=== PATIENT | male | born 1940 | race Caucasian/White ===

== ENCOUNTER → 2017-12-08 13:42 | Outpatient (CLI) | payer MEDICARE, BC, SELFPAY | PROVIDERS: Family Provider Family Medicine; PCP Family Medicine; Visit Provider Family Medicine | DX: M79.604 Pain in right leg (principal); M54.16 Radiculopathy, lumbar region | CPT/HCPCS: 95886; 95907 ==

== ENCOUNTER 2018-02-14 09:23 | Outpatient (CLI) | payer MEDICARE, BC, SELFPAY ==
[2018-02-14] VITALS (8 sets, daily range): BP systolic 123–149; BP diastolic 60–112; PULSE 43–57; RESP 16–18; TEMP 36.4; O2SAT 95–99
--- NOTE | 2018-02-14 09:25 | DI.RAD.S_ITS ---
PROCEDURE: XR LUMBAR SPINE MIN 4V INDICATIONS: Lumbar stenosis TECHNIQUE: 5 views of the lumbar spine were acquired. COMPARISON: [facility], CT, L-SPINE WITHOUT CONTRAST, 12/01/2017, 9:15. [facility], CR, L-SPINE 2-3 VIEWS, 03/06/2015, 11:51. FINDINGS: Bones: Moderate levoscoliosis. 5 nonrib-bearing vertebrae are present. There is normal bony alignment. No vertebral body compression fractures. There is moderate degenerative disc disease at L3-L4 and L4-L5. Moderate to severe facet arthropathy at L3-L4, L4-L5 at L5-S1. No suspicious bony lesions. Soft tissues: Overlying bowel gas pattern is normal. Aortic calcifications consistent with atherosclerosis. Oblique images: No pars defects. IMPRESSION: 1. Moderate levoscoliosis. 2. Degenerative disc disease and facet arthropathy. 3. No pars defects. Dictated by: Garcia Toribio M.D. on 02/14/2018 at 14:05 Approved by: Garcia Toribio M.D. on 02/14/2018 at 14:08
--- NOTE | 2018-02-14 13:42 | DI.RAD.S_ITS ---
PROCEDURE: PAIN L/S TRANSFORAMINAL INJECT INDICATIONS: STENOSIS/RADICULOPATHY FINDINGS: Fluoroscopic spot filming was performed to verify placement of spinal needles at the L4-L5 level(s), as labeled on the films. Appropriate location(s) of the needle tip(s) was confirmed by injection of iodinated contrast. IMPRESSION: Needle at hte level of L4-L5. Dictated by: Garcia Toribio M.D. on 02/14/2018 at 16:26 Approved by: Garcia Toribio M.D. on 02/14/2018 at 16:26
--- NOTE | 2018-02-14 14:58 | P.PCN_ITS ---
Procedures Date/Time Date of procedure: 02/14/18 Time of procedure: 14:56 General Procedure description: PROVIDER: Shahid Wilson DO Operative Note PREOP DIAGNOSIS 1. HNP WITH RADICULAR FEATURES, 2. MULTILEVEL CENTRAL STENOSIS, POST OP DIAGNOSIS 1. HNP WITH RADICULAR FEATURES, 2. MULTILEVEL CENTRAL STENOSIS PROCEDURES 1. FLUORSCOPICALLY GUIDED CONTRAST CONTROLLED INTERLAMINAR EPIDURAL STEROID INJECTION -L4/5 PHYSICIAN: Shahid Wilson DO INDICATIONs: Brian is referred by Dr. Pacheco for treatment of Central and Bilateral Foraminal Stenosis R>L LE symptoms. FINDINGS Multilevel Central Spinal Stenosis with Nerve Root Compression DESCRIPTION OF PROCEDURE Fluoroscopically guided, contrast-controlled L4/5 translaminar epidural steroid injection. Following denial of allergy and review of potential side effects and complications, including, but not necessarily limited to, infection, allergic reaction, local tissue breakdown, temporary as well as permanent nerve injury, paralysis, stroke and possible , the patient indicated that the patient understood and agreed to proceed. An informed consent document was signed by the patient, witnessed by a nurse, and placed in the patient's chart. Additionally, other treatment options including modalities, medications, and physical therapy were reviewed with the patient. Per the patient request, IV conscious sedation was administered via 3mg of Versed to patient comfort. The patient's vital signs were monitored throughout the procedure by both the nurse and the physician without significant fluctuation. The patient remained conversant throughout the procedure. In the prone position, following sterile prep and drape of the lumbar region, the L4/5 translaminar space was identified fluoroscopically. The skin was anesthetized via a 25-gauge, 1.5-inch needle with 1% lidocaine solution. At this point, a 22-gauge short bevel spinal needle was atraumatically introduced and advanced under fluoroscopic guidance into the region of the L4/5 translaminar space. Depth was confirmed on lateral view. Radiological data, including multiple fluoroscopic views of the lumbar spine, reveal a spinal needle at the L4/5 translaminar space. Lateral views then show placement of the needle in the epidural space. Subsequent views show contrast material flowing superiorly and inferiorly in the epidural space. No vascular or intrathecal uptake is observed. At this point, using loss of resistance technique with saline and air, the epidural space was entered. This was confirmed following negative aspiration with injection of approximately 1.5 cc of Isovue 200, showing excellent epidural flow without vascular or intrathecal uptake. At this point, 1 cc of 1 % lidocaine solution combined with 3 cc or 20 mg of dexamethasone and 80mg Depo medrol was injected without incident. The patient was then transferred to the recovery area where they were observed for an appropriate period of time after the injection. The patient reported a VAS score of 6 prior to the procedure and a post-procedure VAS of 0. Total Fluoroscopy Time: 11.8 seconds Total Conscious Sedation Time: 24min POST OP INSTRUCTIONS The patient was provided a Pain Log to continue to record their response to the target-specific procedure prior to follow-up visit with their referring physician. Additionally, specific post-injection care instructions and a contact number to our office were provided if concerns arise regarding possible complications associated with the procedure are suspected. Shahid Wilson DO Complications: none
[2018-02-14] MEDS: MIDAZOLAM 5 MG/5 ML VIAL IV (15:00)
[2018-02-14] MEDS: BUPIVACAINE 0.25% (PF) 30 ML VIAL INJ (15:07)
[2018-02-14] MEDS: methylPREDNISolone acetate 80 MG/ML VIAL INJ (15:07)
[2018-02-14] MEDS: IOPAMIDOL 15 ML VIAL 3 ML INJ (15:07)
[2018-02-14] MEDS: DEXAMETHASONE 10 MG/ML VIAL 20 MG INJ (15:07)
== END 2018-02-14 16:01 ==
LOC: RAD 09:24
PROVIDERS: PCP Family Medicine; Visit Provider Physical Medicine & Rehabilitation
DX: M48.061 Spinal stenosis, lumbar region without neurogenic claudication (principal); M47.27 Other spondylosis with radiculopathy, lumbosacral region; M41.26 Other idiopathic scoliosis, lumbar region
CPT/HCPCS: 64483; 72110; 99152; J1040; J1100; J2250

== ENCOUNTER 2018-02-17 15:15 | Outpatient (RCR) | payer MEDICARE, BC, SELFPAY ==
--- NOTE | 2017-12-08 12:15 | PT.OTN ---
Transition note: On December 06, 2017 our therapy services consisting of Speech, Occupational, and Physical Therapy transitioned from the [employer] electronic documentation system to a new [employer] electronic documentation system.?? All documentation prior to December 06 can be found under [employer] saved data. From December 06 forward all medical record documentation will be in [employer] 6.1.
--- NOTE | 2017-12-08 17:56 | PT.OTN ---
Physical Therapy Treatment Note PT-OP-A Visit Information Start: 12/08/17 17:39 Freq: Status: Active Protocol: Activity Type Activity Date Activity User E-Sign Co-Sign Detail Recorded Client Recorded Date Recorded By Document 12/08/17 17:40 [facility] [id number] 12/08/17 17:52 [facility] 12/08/17 17:40 Out-Patient Physical Therapy Visit Information [Visit Information] -Visit Type Treatment Note -Visit Start Time 16:02 -Visit Stop Time 16:42 -Total Visit Minutes 40 -Visit Number 2 -Number of PROFESSOR OF FAMILY MEDICINE Visits 0 [Evaluation Information] -Evaluation Date 11/25/17 PT-OP-C Subjective Start: 12/08/17 17:39 Freq: Status: Active Protocol: Activity Type Activity Date Activity User E-Sign Co-Sign Detail Recorded Client Recorded Date Recorded By Document 12/08/17 17:40 [place] [id number] 12/08/17 17:52 [facility] 12/08/17 17:40 OP-PT Subjective [Patient Comments] -Patient Comments Pt notes that he just had his EMG. His pain has been improving slowly, but still worse with prolonged walking or sitting. PT-OP-L Special Tests Start: 12/08/17 17:39 Freq: Status: Active Protocol: Activity Type Activity Date Activity User E-Sign Co-Sign Detail Recorded Client Recorded Date Recorded By Document 12/08/17 17:40 [place] [id number] 12/08/17 17:52 [facility] 12/08/17 17:40 Special Tests [Lumbar Spine Special Tests] Straight Leg Raise -Comments RLE to 80 deg SLR, SLR with IR and adduction to 50 deg /a, 70 deg /p PT-OP-Q Treatments Start: 12/08/17 17:39 Freq: Status: Active Protocol: Activity Type Activity Date Activity User E-Sign Co-Sign Detail Recorded Client Recorded Date Recorded By Document 12/08/17 17:40 [place] [id number] 12/08/17 17:52 [facility] 12/08/17 17:40 Manual Therapy Treatment [Soft Tissue Mobilization] 1 -Body Location Quadratus lumborum -Mobilization Type Rolling -Intensity/Depth Moderate -Body Position Sidelying -Comments Right [Joint Mobilizations] 1 -Joint L4/5 -Grade III -Body Position Sidelying -Reps/Duration 16 min -Comments towel under L side, gap/ distraction at L4/5 [Manual Traction] Lumbar -Details bilateral with belt -Body Position Supine -Reps/Duration 14 min -Comments Hook-lying position [Nerve Glides] 1 -Nerve Femoral nerve ( right) -Body Position Sidelying -Reps/Duration 5 min PT-OP-T Assessment and Plan Start: 12/08/17 17:39 Freq: Status: Active Protocol: Activity Type Activity Date Activity User E-Sign Co-Sign Detail Recorded Client Recorded Date Recorded By Document 12/08/17 17:40 [facility] [email or web address] 12/08/17 17:52 [facility] 12/08/17 17:40 Physical Therapy Assessment [Assessment Summary] -Assessment Pt with EMG study performed , noting L2 and L5 acute nerve root lesions. Pt tolerated this session without complaints of pain and felt decrease pain with traction. Pt's modified slump/SLR testing improved to 70 degrees compared to 50 degrees with pain before session began. Physical Therapy Plan [Next Visit Focus/Plan] -Next Visit Plan joint mobility of lumbar spine , HEP for nerve glides when able.
--- NOTE | 2017-12-14 17:59 | PT.OTN ---
Physical Therapy Treatment Note PT-OP-A Visit Information Start: 12/08/17 17:39 Freq: Status: Active Protocol: Document 12/14/17 17:45 [facility] (Rec: 12/14/17 17:59 [facility] [email or web address]) Out-Patient Physical Therapy Visit Information Visit Information Visit Type Treatment Note Visit Start Time 13:45 Visit Stop Time 14:30 Total Visit Minutes 44 Visit Number 3 Number of INSPECTOR OF WEIGHTS AND MEASURES Visits 0 PT-OP-C Subjective Start: 12/08/17 17:39 Freq: Status: Active Protocol: Document 12/14/17 17:45 [facility] (Rec: 12/14/17 17:59 [facility] [email or web address]) OP-PT Subjective Patient Comments Patient Comments Pt reports that overall, he is doing about the same. He reports a decrease in pain with traction during this session. Patient Reported Progress Same PT-OP-Q Treatments Start: 12/08/17 17:39 Freq: Status: Active Protocol: Document 12/14/17 17:45 [facility] (Rec: 12/14/17 17:59 [facility] [email or web address]) Therapeutic Exercises Standing Exercises 1 Standing Exercise Name Femoral nerve glide Side right Equipment Used chair Reps/Minutes 4 min. Comments RLE on chair with L knee squat to inc. R knee flexion Manual Therapy Treatment Soft Tissue Mobilization 2 Body Location Piriformis Mobilization Type Strumming Intensity/Depth Moderate Body Position Sidelying Comments Right 1 Body Location Quadratus lumborum Mobilization Type Strumming Intensity/Depth Moderate Body Position Sidelying Comments Right Joint Mobilizations 2 Joint L2 Grade III Body Position Sidelying Reps/Duration 12 min. Comments towel under L side, gap/ distraction at L1/2 1 Joint L4/5 Grade III Body Position Sidelying Reps/Duration 12 min. Comments towel under L side, gap/ distraction at L4/5 Manual Traction Lumbar Details bilateral with belt Body Position Supine Reps/Duration 10 min Comments Hook-lying position PT-OP-T Assessment and Plan Start: 12/08/17 17:39 Freq: Status: Active Protocol: Document 12/14/17 17:45 [facility] (Rec: 12/14/17 17:59 [facility] [email or web address]) Physical Therapy Assessment Assessment Summary Assessment Pt able to perform safe femoral nerve glide in standing with UE support. Pt still with hypomobility of L4 on L5 and L1 on L2. Pt reported decreased pain with manual traction this session. Physical Therapy Plan Next Visit Focus/Plan Next Visit Plan manual traction, spinal mobilizations performed this date, sciatic nerve glide for HEP.
--- NOTE | 2017-12-16 15:36 | PT.OTN ---
Physical Therapy Treatment Note PT-OP-A Visit Information Start: 12/08/17 17:39 Freq: Status: Active Protocol: Document 12/16/17 15:20 [facility] (Rec: 12/16/17 15:35 [facility] [email or web address]) Out-Patient Physical Therapy Visit Information Visit Information Visit Type Treatment Note Visit Start Time 13:45 Visit Stop Time 14:25 Total Visit Minutes 40 Visit Number 4 Number of DOG DAY CARE ATTENDANT Visits 0 Evaluation Information Evaluation Date 11/25/17 PT-OP-C Subjective Start: 12/08/17 17:39 Freq: Status: Active Protocol: Document 12/16/17 15:20 [facility] (Rec: 12/16/17 15:35 [facility] [email or web address]) OP-PT Subjective Patient Comments Patient Comments Pt notes that pain was decreased for 2-3 hrs after traction last session, but pain returned later that night . PT-OP-L Special Tests Start: 12/08/17 17:39 Freq: Status: Active Protocol: Document 12/08/17 17:40 [facility] (Rec: 12/08/17 17:52 [facility] [email or web address]) Special Tests Lumbar Spine Special Tests Straight Leg Raise Comments RLE to 80 deg SLR, SLR with IR and adduction to 50 deg /a, 70 deg /p PT-OP-Q Treatments Start: 12/08/17 17:39 Freq: Status: Active Protocol: Document 12/16/17 15:20 [facility] (Rec: 12/16/17 15:35 [facility] [email or web address]) Therapeutic Exercises Supine Exercises 1 Supine Exercise Name QL stretch Side right Reps/Minutes 5 min Comments sidelying Standing Exercises 1 Standing Exercise Name Femoral nerve glide Side right Equipment Used chair Reps/Minutes 5 min. Comments RLE on chair with L knee squat to inc. R knee flexion Manual Therapy Treatment Soft Tissue Mobilization 2 Body Location Piriformis Mobilization Type Strumming Intensity/Depth Moderate Body Position Sidelying Comments Right 1 Body Location Quadratus lumborum Mobilization Type Strumming Intensity/Depth Moderate Body Position Sidelying Comments Right Manual Traction Lumbar Details bilateral with belt Body Position Supine Reps/Duration 16 min Comments Hook-lying position Manual Techniques 1 Type MET- R posterior ilial rotation Body Location ilium Body Position Supine Reps/Duration 5 min PT-OP-T Assessment and Plan Start: 12/08/17 17:39 Freq: Status: Active Protocol: Document 12/16/17 15:20 [facility] (Rec: 12/16/17 15:35 [facility] [email or web address]) Physical Therapy Assessment Assessment Summary Assessment Pt tolerated manual traction well, with noted decreased pain after session. Recommend trial mechanical traction next session for possible use at home. Pt still with tension in piriformis and QL on the R. Physical Therapy Plan Next Visit Focus/Plan Next Visit Plan mechanical traction, possibly sciatic nerve glide for HEP.
--- NOTE | 2017-12-21 14:48 | PT.OTN ---
Current Diagnoses Radiculopathy, lumbosacral region (12/21/17) Muscle weakness (generalized) (12/21/17) Pain in right leg (12/21/17) Abnormal posture (12/21/17) Physical Therapy Treatment Note PT-OP-A Visit Information Start: 12/08/17 17:39 Freq: Status: Active Protocol: Document 12/21/17 14:30 [facility] (Rec: 12/21/17 14:47 [facility] [email or web address]) Out-Patient Physical Therapy Visit Information Visit Information Visit Type Treatment Note Visit Start Time 13:46 Visit Stop Time 14:30 Total Visit Minutes 44 Visit Number 5 Number of STUDENT SERVICES COORDINATOR Visits 0 Evaluation Information Evaluation Date 11/25/17 PT-OP-C Subjective Start: 12/08/17 17:39 Freq: Status: Active Protocol: Document 12/21/17 14:30 [facility] (Rec: 12/21/17 14:47 [facility] [email or web address]) OP-PT Subjective Patient Comments Patient Comments Pt notes that he no longer has pain in the lower R leg. He admits to some R upper leg pain but decreases with exercise. PT-OP-L Special Tests Start: 12/08/17 17:39 Freq: Status: Active Protocol: Document 12/08/17 17:40 [facility] (Rec: 12/08/17 17:52 [facility] [email or web address]) Special Tests Lumbar Spine Special Tests Straight Leg Raise Comments RLE to 80 deg SLR, SLR with IR and adduction to 50 deg /a, 70 deg /p PT-OP-Q Treatments Start: 12/08/17 17:39 Freq: Status: Active Protocol: Document 12/21/17 14:30 [facility] (Rec: 12/21/17 14:47 [facility] [email or web address]) Manual Therapy Treatment Soft Tissue Mobilization 2 Body Location Piriformis Mobilization Type Strumming Intensity/Depth Moderate Body Position Sidelying Comments Right 1 Body Location Quadratus lumborum Mobilization Type Strumming Intensity/Depth Moderate Body Position Sidelying Comments Right Joint Mobilizations 1 Joint L4/5 Grade III Body Position Sidelying Reps/Duration 10 min. Comments gap/distraction at L4/5 Manual Techniques 1 Type MET- R posterior ilial rotation Body Location ilium Body Position Supine Reps/Duration 5 min PT-OP-R Modalities Start: 12/08/17 17:39 Freq: Status: Active Protocol: Document 12/21/17 14:30 [facility] (Rec: 12/21/17 14:47 [facility] [email or web address]) Other Unlisted Modality Treatment Traction- mechanical Name of Modality Traction- mechanical Duration (Minutes) 15 Body Position Supine Parameters 60 lbs Comments Rosen Unit PT-OP-T Assessment and Plan Start: 12/08/17 17:39 Freq: Status: Active Protocol: Document 12/21/17 14:30 [facility] (Rec: 12/21/17 14:47 [facility] [email or web address]) Physical Therapy Assessment Assessment Summary Assessment Pt reports less pain in lumbar spine after mechanical traction. He may benefit from a home unit to decrease pain and improve function. Pt's symptoms appear to be centralizing per subjective report, although pt still with compensations with gait. Physical Therapy Plan Frequency and Duration Frequency of Treatment 2x/wk for 12 wks Plan of Care Start Date 11/25/17 Plan of Care End Date 02/17/18 Next Visit Focus/Plan Next Visit Plan Discuss pt's response to mechanical traction vs. manual traction, progress as tolerated. Gait training.
--- NOTE | 2017-12-23 14:45 | PT.OTN ---
Current Diagnoses Radiculopathy, lumbosacral region (12/23/17) Muscle weakness (generalized) (12/23/17) Pain in right leg (12/23/17) Abnormal posture (12/23/17) Physical Therapy Treatment Note PT-OP-A Visit Information Start: 12/08/17 17:39 Freq: Status: Active Protocol: Document 12/23/17 14:30 [facility] (Rec: 12/23/17 14:45 [facility] [email or web address]) Out-Patient Physical Therapy Visit Information Visit Information Visit Type Treatment Note Visit Start Time 13:45 Visit Stop Time 14:25 Total Visit Minutes 40 Visit Number 6 Number of MEASURER Visits 0 PT-OP-C Subjective Start: 12/08/17 17:39 Freq: Status: Active Protocol: Document 12/23/17 14:30 [facility] (Rec: 12/23/17 14:45 [facility] [email or web address]) OP-PT Subjective Patient Comments Patient Comments Pt reports increased low back pain after mechanical traction , although he does report that his lower leg has no pain at all and upper thigh only intermittently painful. PT-OP-L Special Tests Start: 12/08/17 17:39 Freq: Status: Active Protocol: Document 12/23/17 14:30 [facility] (Rec: 12/23/17 14:45 [facility] [email or web address]) Special Tests Lumbar Spine Special Tests Other- 1 Test Results 80 degrees with ankle DF and no radicular symptoms Comments Modified slump testing PT-OP-Q Treatments Start: 12/08/17 17:39 Freq: Status: Active Protocol: Document 12/23/17 14:30 [facility] (Rec: 12/23/17 14:45 [facility] [email or web address]) Therapeutic Exercises Supine Exercises 20 Supine Exercise Name Bridging Reps/Minutes 2 min Comments arms across chest Manual Therapy Treatment Soft Tissue Mobilization 2 Body Location Piriformis Mobilization Type Strumming Intensity/Depth Moderate Body Position Sidelying Comments Right 1 Body Location Quadratus lumborum Mobilization Type Strumming Intensity/Depth Moderate Body Position Sidelying Comments Right Joint Mobilizations 1 Joint L4/5 Grade III Body Position Sidelying Reps/Duration 10 min. Comments gap/distraction at L4/5 Manual Traction Lumbar Details bilateral with belt Body Position Supine Reps/Duration 15 min Comments Hook-lying position PT-OP-T Assessment and Plan Start: 12/08/17 17:39 Freq: Status: Active Protocol: Document 12/23/17 14:30 [facility] (Rec: 12/23/17 14:45 [facility] [email or web address]) Physical Therapy Assessment Assessment Summary Assessment Pt with no c/o lower leg pain, and modified slump test showed no radiculopathy into the RLE with testing, which he was unable to perform on initial examination. Pt still with tension in QL and piriformis on the R but appears to be progressing well . Pt appears to tolerate manual traction > mechanical traction at this point. Physical Therapy Plan Next Visit Focus/Plan Next Visit Plan cont. manual traction, add clamshells and increase core strengthening.
--- NOTE | 2017-12-28 17:46 | PT.OTN ---
Current Diagnoses Radiculopathy, lumbosacral region (12/28/17) Physical Therapy Treatment Note PT-OP-A Visit Information Start: 12/08/17 17:39 Freq: Status: Active Protocol: Document 12/28/17 14:25 [facility] (Rec: 12/28/17 17:46 [facility] [email or web address]) Out-Patient Physical Therapy Visit Information Visit Information Visit Type Treatment Note Visit Start Time 13:45 Visit Stop Time 14:25 Total Visit Minutes 40 Visit Number 7 Number of PSYCHIATRIC ASSISTANT Visits 0 Evaluation Information Evaluation Date 11/25/17 PT-OP-C Subjective Start: 12/08/17 17:39 Freq: Status: Active Protocol: Document 12/28/17 14:25 [facility] (Rec: 12/28/17 17:46 [facility] [email or web address]) OP-PT Subjective Patient Comments Patient Comments Pt notes some low back pain, but still no c/o pain down RLE . Pt had relief all weekend with manual traction last session. PT-OP-L Special Tests Start: 12/08/17 17:39 Freq: Status: Active Protocol: Document 12/23/17 14:30 [facility] (Rec: 12/23/17 14:45 [facility] [email or web address]) Special Tests Lumbar Spine Special Tests Other- 1 Test Results 80 degrees with ankle DF and no radicular symptoms Comments Modified slump testing PT-OP-Q Treatments Start: 12/08/17 17:39 Freq: Status: Active Protocol: Document 12/28/17 14:25 [facility] (Rec: 12/28/17 17:46 [facility] [email or web address]) Therapeutic Exercises Supine Exercises 3 Supine Exercise Name LTR with 55 cm ball Side bilateral Reps/Minutes 10 each 2 Supine Exercise Name psoas/rectus stretch Reps/Minutes 4 min 20 Supine Exercise Name Bridging Reps/Minutes 6 min. Comments arms across chest & arms @ side with feet on 55 cm ball Sidelying Exercises 1 Sidelying Exercise Name clamshells Side bilateral Reps/Minutes 10 each Manual Therapy Treatment Joint Mobilizations 1 Joint L4/5 Grade III Body Position Sidelying Reps/Duration 8 min. Comments gap/distraction at L4/5 Manual Traction Lumbar Details bilateral with belt Body Position Supine Reps/Duration 15 min Comments Hook-lying position Nerve Glides 2 Nerve Femoral Body Position Sidelying Reps/Duration 2 min PT-OP-R Modalities Start: 12/08/17 17:39 Freq: Status: Active Protocol: Document 12/21/17 14:30 [facility] (Rec: 12/21/17 14:47 [facility] [email or web address]) Other Unlisted Modality Treatment Traction- mechanical Name of Modality Traction- mechanical Duration (Minutes) 15 Body Position Supine Parameters 60 lbs Comments Rosen Unit PT-OP-T Assessment and Plan Start: 12/08/17 17:39 Freq: Status: Active Protocol: Document 12/28/17 14:25 [facility] (Rec: 12/28/17 17:46 [facility] [email or web address]) Physical Therapy Assessment Impairments Impairments Activity Tolerance Gait Pain Posture Soft Tissue Mobility Strength Assessment Summary Assessment Pt continues to have some low back pain, but appears to be progressing well with regards to pain and location of pain. Pt still with antalgic gait, but does admit to relief or decrease of pain with ambulation. Physical Therapy Plan Frequency and Duration Frequency of Treatment 2x/wk for 12 wks Plan of Care Start Date 11/25/17 Plan of Care End Date 02/17/18 Next Visit Focus/Plan Next Visit Plan multifidi strengthening, hip extension. Please Sign and Return: I have reviewed this Plan of Care and certify that the skilled therapy services above are required to meet the patient???s needs. Physician Signature Date Printed Name and Credentials Clinical Instructor Signature Printed Name and Credentials
--- NOTE | 2017-12-31 13:39 | PT.OTN ---
Current Diagnoses Radiculopathy, lumbosacral region (12/30/17) Physical Therapy Treatment Note PT-OP-A Visit Information Start: 12/08/17 17:39 Freq: Status: Active Protocol: Document 12/30/17 14:25 [facility] (Rec: 12/31/17 13:39 [facility] [email or web address]) Out-Patient Physical Therapy Visit Information Visit Information Visit Type Treatment Note Visit Start Time 13:45 Visit Stop Time 14:25 Total Visit Minutes 40 Visit Number 8 Number of OIL WINTERIZER Visits 0 Evaluation Information Evaluation Date 11/25/17 PT-OP-C Subjective Start: 12/08/17 17:39 Freq: Status: Active Protocol: Document 12/30/17 14:25 [facility] (Rec: 12/31/17 13:39 [facility] [email or web address]) OP-PT Subjective Patient Comments Patient Comments Pt notes pain in low back in the a.m. but improves and is gone by the afternoon if he keeps moving. PT-OP-L Special Tests Start: 12/08/17 17:39 Freq: Status: Active Protocol: Document 12/23/17 14:30 [facility] (Rec: 12/23/17 14:45 [facility] [email or web address]) Special Tests Lumbar Spine Special Tests Other- 1 Test Results 80 degrees with ankle DF and no radicular symptoms Comments Modified slump testing PT-OP-Q Treatments Start: 12/08/17 17:39 Freq: Status: Active Protocol: Document 12/30/17 14:25 [facility] (Rec: 12/31/17 13:39 [facility] [email or web address]) Gym Equipment Shuttle Recovery Unilateral Squats Resistance 37 Shuttle Recovery Platform Stable Reps/Time 10 reps each Bilateral Squats Resistance 75 Shuttle Recovery Platform Stable Reps/Time 15 reps Therapeutic Exercises Supine Exercises 3 Supine Exercise Name LTR with 55 cm ball Side bilateral Reps/Minutes 10 each 20 Supine Exercise Name Bridging Reps/Minutes 15 reps Comments 55 cm ball arms @ side 1 Supine Exercise Name QL stretch Side right Reps/Minutes 5 min Comments sidelying Other Exercises 1 Other Exercise Name Alt. LE lift (quadurped) Side bilateral Reps/Minutes 10 each Manual Therapy Treatment Soft Tissue Mobilization 1 Body Location Quadratus lumborum Mobilization Type Strumming Intensity/Depth Moderate Body Position Sidelying Comments Right Joint Mobilizations 1 Joint L4/5 Grade III Body Position Sidelying Reps/Duration 8 min. Comments gap/distraction at L4/5 Manual Traction Lumbar Details bilateral with belt Body Position Supine Reps/Duration 15 min Comments Hook-lying position PT-OP-R Modalities Start: 12/08/17 17:39 Freq: Status: Active Protocol: Document 12/21/17 14:30 [facility] (Rec: 12/21/17 14:47 [facility] [email or web address]) Other Unlisted Modality Treatment Traction- mechanical Name of Modality Traction- mechanical Duration (Minutes) 15 Body Position Supine Parameters 60 lbs Comments Rosen Unit PT-OP-T Assessment and Plan Start: 12/08/17 17:39 Freq: Status: Active Protocol: Document 12/30/17 14:25 [facility] (Rec: 12/31/17 13:39 [facility] [email or web address]) Physical Therapy Assessment Assessment Summary Assessment Pt with greater fatigue in the RLE with leg press ( unilateral) compared to the L, but tolerated without pain. Pt is tolerating increased activity well with good pacing . Physical Therapy Plan Frequency and Duration Frequency of Treatment 2x/wk for 12 wks Plan of Care Start Date 11/25/17 Plan of Care End Date 02/17/18 Next Visit Focus/Plan Next Note Type Treatment Note Next Visit Plan hip extension strengthening, standing posture. Please Sign and Return: I have reviewed this Plan of Care and certify that the skilled therapy services above are required to meet the patient???s needs. Physician Signature Date Printed Name and Credentials Clinical Instructor Signature Printed Name and Credentials
--- NOTE | 2018-01-04 17:28 | PT.OTN ---
Current Diagnoses Radiculopathy, lumbosacral region (01/04/18) Physical Therapy Treatment Note PT-OP-A Visit Information Start: 12/08/17 17:39 Freq: Status: Active Protocol: Document 01/04/18 14:27 RCC (Rec: 01/04/18 17:28 RCC [email or web address]) Out-Patient Physical Therapy Visit Information Visit Information Visit Type Treatment Note Visit Start Time 13:45 Visit Stop Time 14:27 Total Visit Minutes 42 Visit Number 9 Number of HEALTH CARE TECHNICIAN Visits 0 Evaluation Information Evaluation Date 11/25/17 PT-OP-C Subjective Start: 12/08/17 17:39 Freq: Status: Active Protocol: Document 01/04/18 14:27 RCC (Rec: 01/04/18 17:28 RCC [email or web address]) OP-PT Subjective Patient Comments Patient Comments Pt still with low back pain in the a.m. which decreases with activity/exercise. PT-OP-Q Treatments Start: 12/08/17 17:39 Freq: Status: Active Protocol: Document 01/04/18 14:27 RCC (Rec: 01/04/18 17:28 RCC [email or web address]) Gym Equipment Cable Column (Body Solid) Leg Curl Resistance 4 plates Reps/Time 15 reps Shuttle Recovery Unilateral Squats Resistance 50 Shuttle Recovery Platform Stable Reps/Time 10 reps each Bilateral Squats Resistance 87 Shuttle Recovery Platform Stable Reps/Time 20 reps Therapeutic Exercises Supine Exercises 4 Supine Exercise Name hip/knee flex/ext Side bilateral Equipment Used 55 cm ball Reps/Minutes 20 reps 3 Supine Exercise Name LTR with 55 cm ball Side bilateral Reps/Minutes 10 each 20 Supine Exercise Name Bridging Reps/Minutes 15 reps Comments 55 cm ball arms @ side Standing Exercises 3 Standing Exercise Name Lateral Walks Side bilateral Resistance L2 band 2 Standing Exercise Name HS and psoas stretch Side bilateral Equipment Used stairs Reps/Minutes 4 min. Manual Therapy Treatment Manual Traction Lumbar Details bilateral with belt Body Position Supine Reps/Duration 15 min Comments Hook-lying position PT-OP-R Modalities Start: 12/08/17 17:39 Freq: Status: Active Protocol: Document 12/21/17 14:30 RCC (Rec: 12/21/17 14:47 RCC [email or web address]) Other Unlisted Modality Treatment Traction- mechanical Name of Modality Traction- mechanical Duration (Minutes) 15 Body Position Supine Parameters 60 lbs Comments Rosen Unit PT-OP-T Assessment and Plan Start: 12/08/17 17:39 Freq: Status: Active Protocol: Document 01/04/18 14:27 RCC (Rec: 01/04/18 17:28 RCC [email or web address]) Physical Therapy Assessment Assessment Summary Assessment Pt continues to have good response (decreased pain) with manual traction, although he did not tolerated mechanical traction well. Pt improved his tolerance to exercise and resistance, but still fatigues more rapidly with the RLE compared to the L. Physical Therapy Plan Frequency and Duration Frequency of Treatment 2x/Week Duration of Treatment 12 weeks Plan of Care Start Date 11/25/17 Plan of Care End Date 02/17/18 Next Visit Focus/Plan Next Note Type Progress Note Next Visit Plan re-assess objective measures. Please Sign and Return: I have reviewed this Plan of Care and certify that the skilled therapy services above are required to meet the patient???s needs. Physician Signature Date Printed Name and Credentials Clinical Instructor Signature Printed Name and Credentials
--- NOTE | 2018-01-11 17:47 | PT.OTN ---
Current Diagnoses Radiculopathy, lumbosacral region (01/11/18) Physical Therapy Treatment Note PT-OP-A Visit Information Start: 12/08/17 17:39 Freq: Status: Active Protocol: Document 01/11/18 15:55 RCC (Rec: 01/11/18 17:47 RCC [email or web address]) Out-Patient Physical Therapy Visit Information Visit Information Visit Type Treatment Note Visit Start Time 15:15 Visit Stop Time 15:55 Total Visit Minutes 40 Visit Number 10 Number of GROCERY CLERK STOCKING Visits 0 Evaluation Information Evaluation Date 11/25/17 PT-OP-C Subjective Start: 12/08/17 17:39 Freq: Status: Active Protocol: Document 01/11/18 15:55 RCC (Rec: 01/11/18 17:47 RCC [email or web address]) OP-PT Subjective Patient Comments Patient Comments Pt denies any pain into the LEs. Pt does continue to have bilateral low back pain and notes that he is still unable to sit for 1 hour without increased low back pain. Patient Reported Progress Improving OP-PT Pain Assessment Location Bilateral Lower Back Intensity 6 Scale Used Numeric (1 - 10) Comments Pain Comments no longer any pain beyond the low back. PT-OP-K Range of Motion Start: 01/11/18 17:23 Freq: Status: Active Protocol: Document 01/11/18 15:55 RCC (Rec: 01/11/18 17:47 RCC [email or web address]) Lumbar Spine Range of Motion Lumbar Spine Active Degrees Testing Position Standing Flexion 65 Extension 19 ROM Limitations Pain PT-OP-L Special Tests Start: 12/08/17 17:39 Freq: Status: Active Protocol: Document 01/11/18 15:55 RCC (Rec: 01/11/18 17:47 RCC [email or web address]) Special Tests Lumbar Spine Special Tests Other- 1 Test Results 80 degrees hip flexion with ankle DF and no radicular symptoms Comments Modified slump testing Straight Leg Raise Test Results negative Comments bilateral PT-OP-M Strength Start: 01/11/18 17:23 Freq: Status: Active Protocol: Document 01/11/18 15:55 RCC (Rec: 01/11/18 17:47 RCC [email or web address]) Hip Strength Hip Manual Muscle Testing Right Flexion (L2) 5 Normal External Rotation 4 Good Knee Strength Knee Manual Muscle Testing Right Extension (L3) 5 Normal Toe Strength Toe Manual Muscle Testing Right Great Toe Extension 4+ Good+ PT-OP-Q Treatments Start: 12/08/17 17:39 Freq: Status: Active Protocol: Document 01/11/18 15:55 RCC (Rec: 01/11/18 17:47 RCC [email or web address]) Gym Equipment Shuttle Recovery Bilateral Squats Resistance 87 Shuttle Recovery Platform Stable Reps/Time 20 reps Therapeutic Exercises Supine Exercises 3 Supine Exercise Name LTR with 55 cm ball Side bilateral Reps/Minutes 10 each 20 Supine Exercise Name Bridging Reps/Minutes 18 reps Comments 55 cm ball arms @ side Sitting Exercises 1 Sitting Exercise Name Trunk rotation Side bilateral Resistance L2 band Equipment Used 65 cm ball Reps/Minutes 10 each Manual Therapy Treatment Manual Traction Lumbar Details bilateral with belt Body Position Supine Reps/Duration 15 min Comments Hook-lying position Other Other Manual Treatments 10 min: LE MMT, lumbar spine ROM, special tests for lumbar spine. PT-OP-R Modalities Start: 12/08/17 17:39 Freq: Status: Active Protocol: Document 12/21/17 14:30 RCC (Rec: 12/21/17 14:47 RCC [email or web address]) Other Unlisted Modality Treatment Traction- mechanical Name of Modality Traction- mechanical Duration (Minutes) 15 Body Position Supine Parameters 60 lbs Comments Rosen Unit PT-OP-T Assessment and Plan Start: 12/08/17 17:39 Freq: Status: Active Protocol: Document 01/11/18 15:55 RCC (Rec: 01/11/18 17:47 RCC [email or web address]) Physical Therapy Assessment Goals Five Impairment RLE weakness Half-Way Goal (LTG) Hip flexion, knee extension, great toe extension 5/5 Hip ER 4/5 LTG Duration 12 weeks Four Impairment Lumbar spine extension Half-Way Goal (LTG) 25 deg of lumbar extension without pain prior to d/c. LTG Duration 12 weeks Three Impairment Special Testing for lumbars spine Half-Way Goal (LTG) Negative SLR prior to d/c. (goal met 01/11/2018) LTG Duration 12 weeks Two Impairment Impaired tolerance to sitting Half-Way Goal (LTG) Pt will be able to sit for 1 hr during meetings without increased pain prior to d/c. LTG Duration 12 weeks One Impairment Pain in lumbar spine and RLE 5 /10 Rn Security Goal (LTG) 1/10 LTG Duration 12 weeks Progress Towards Goals Progress Towards Goals Progressing Toward Goals Progress Comments Goal 3 met on 01/11/2018. Progress toward all goals. Assessment Summary Assessment Pt rates his pain as 6/10 at worst in the lumbar spine, but appears to be centralizing as he has not had any RLE pain for over 2 weeks. Pt still with increased low back pain with prolonged sitting. His RLE strength has improved to 5 /5 MMT of hip flexion, knee extension and 4/5 hip ER, and 4+/5 great toe extension on the RLE. Overall, pt is improving and making progress toward goals, but still with low back pain and not back to his prior level of function. Physical Therapy Plan Frequency and Duration Frequency of Treatment 2x/Week Duration of Treatment 12 weeks Plan of Care Start Date 11/25/17 Plan of Care End Date 02/17/18 Next Visit Focus/Plan Next Note Type Treatment Note Next Visit Plan continue with current POC. Please Sign and Return: I have reviewed this Plan of Care and certify that the skilled therapy services above are required to meet the patient?s needs. Physician Signature Date Printed Name and Credentials Clinical Instructor Signature Printed Name and Credentials
--- NOTE | 2018-01-13 17:00 | PT.OTN ---
Current Diagnoses Radiculopathy, lumbosacral region (01/13/18) Physical Therapy Treatment Note PT-OP-A Visit Information Start: 12/08/17 17:39 Freq: Status: Active Protocol: Document 01/13/18 15:55 RCC (Rec: 01/13/18 16:58 RCC [email or web address]) Out-Patient Physical Therapy Visit Information Visit Information Visit Type Treatment Note Visit Start Time 15:15 Visit Stop Time 15:55 Total Visit Minutes 40 Visit Number 11 Number of DRY SAND MOLDER Visits 0 Evaluation Information Evaluation Date 11/25/17 PT-OP-C Subjective Start: 12/08/17 17:39 Freq: Status: Active Protocol: Document 01/13/18 15:55 RCC (Rec: 01/13/18 17:00 RCC [email or web address]) OP-PT Subjective Patient Comments Patient Comments Pt reports that he is doing well overall, no new complaints. PT-OP-Q Treatments Start: 12/08/17 17:39 Freq: Status: Active Protocol: Document 01/13/18 15:55 RCC (Rec: 01/13/18 16:58 RCC [email or web address]) Cardio Equipment Elliptical Duration (Minutes) 2 Resistance 1 Other fatigue Gym Equipment Shuttle Recovery Bilateral Squats Resistance 75 Shuttle Recovery Platform Stable Reps/Time 20 reps Therapeutic Exercises Supine Exercises 4 Supine Exercise Name hip/knee flex/ext Side bilateral Equipment Used 55 cm ball Reps/Minutes 20 reps 3 Supine Exercise Name LTR with 55 cm ball Side bilateral Reps/Minutes 10 each 20 Supine Exercise Name Bridging Reps/Minutes 20 reps Comments 55 cm ball arms @ side Sitting Exercises 2 Sitting Exercise Name posterior pelvic tilt Side bilateral Equipment Used 65 cm ball Reps/Minutes 4 min Comments verbal and tactile cuing Standing Exercises 3 Standing Exercise Name Lateral, forward, backward walks Side bilateral Resistance L2 band Manual Therapy Treatment Manual Traction Lumbar Details bilateral with belt Body Position Supine Reps/Duration 14 min Comments Hook-lying position PT-OP-T Assessment and Plan Start: 12/08/17 17:39 Freq: Status: Active Protocol: Document 01/13/18 15:55 RCC (Rec: 01/13/18 16:58 RCC [email or web address]) Physical Therapy Assessment Assessment Summary Assessment Pt fatigues quickly with elliptical, but fluid motion without pain. Pt required a decrease in Shuttle leg press due to muscle fatigue today. Physical Therapy Plan Frequency and Duration Frequency of Treatment 2x/Week Duration of Treatment 12 weeks Plan of Care Start Date 11/25/17 Plan of Care End Date 02/17/18 Next Visit Focus/Plan Next Note Type Treatment Note Next Visit Plan hip extension strengthening, core stability. Please Sign and Return: I have reviewed this Plan of Care and certify that the skilled therapy services above are required to meet the patient?s needs. Physician Signature Date Printed Name and Credentials Clinical Instructor Signature Printed Name and Credentials
--- NOTE | 2018-01-18 16:53 | PT.OTN ---
Current Diagnoses Radiculopathy, lumbosacral region (01/18/18) Physical Therapy Treatment Note PT-OP-A Visit Information Start: 12/08/17 17:39 Freq: Status: Active Protocol: Document 01/18/18 15:58 RCC (Rec: 01/18/18 16:53 RCC [email or web address]) Out-Patient Physical Therapy Visit Information Visit Information Visit Type Treatment Note Visit Start Time 15:19 Visit Stop Time 15:58 Total Visit Minutes 39 Visit Number 12 Number of ONLINE BANKING SPECIALIST Visits 0 Evaluation Information Evaluation Date 11/25/17 PT-OP-C Subjective Start: 12/08/17 17:39 Freq: Status: Active Protocol: Document 01/18/18 15:58 RCC (Rec: 01/18/18 16:53 RCC [email or web address]) OP-PT Subjective Patient Comments Patient Comments Pt notes that his back has been less painful in the a.m. but still present. PT-OP-K Range of Motion Start: 01/11/18 17:23 Freq: Status: Active Protocol: Document 01/11/18 15:55 RCC (Rec: 01/11/18 17:47 RCC [email or web address]) Lumbar Spine Range of Motion Lumbar Spine Active Degrees Testing Position Standing Flexion 65 Extension 19 ROM Limitations Pain PT-OP-L Special Tests Start: 12/08/17 17:39 Freq: Status: Active Protocol: Document 01/11/18 15:55 RCC (Rec: 01/11/18 17:47 RCC [email or web address]) Special Tests Lumbar Spine Special Tests Other- 1 Test Results 80 degrees hip flexion with ankle DF and no radicular symptoms Comments Modified slump testing Straight Leg Raise Test Results negative Comments bilateral PT-OP-M Strength Start: 01/11/18 17:23 Freq: Status: Active Protocol: Document 01/11/18 15:55 RCC (Rec: 01/11/18 17:47 RCC [email or web address]) Hip Strength Hip Manual Muscle Testing Right Flexion (L2) 5 Normal External Rotation 4 Good Knee Strength Knee Manual Muscle Testing Right Extension (L3) 5 Normal Toe Strength Toe Manual Muscle Testing Right Great Toe Extension 4+ Good+ PT-OP-Q Treatments Start: 12/08/17 17:39 Freq: Status: Active Protocol: Document 01/18/18 15:58 RCC (Rec: 01/18/18 16:53 RCC [email or web address]) Cardio Equipment Elliptical Duration (Minutes) 3 Resistance 1 Other fatigue Gym Equipment Shuttle Recovery Bilateral Squats Resistance 75 Shuttle Recovery Platform Stable Reps/Time 20 reps Therapeutic Exercises Standing Exercises 4 Standing Exercise Name Hip extension Side right Resistance L2 band Reps/Minutes 1x12 3 Standing Exercise Name Lateral, forward, backward walks Side bilateral Resistance L2 band 2 Standing Exercise Name HS and psoas stretch Side bilateral Equipment Used stairs Reps/Minutes 6 min. 1 Standing Exercise Name Gastroc stretch Side bilateral Equipment Used STEVEN Reps/Minutes 4 min Manual Therapy Treatment Manual Traction Lumbar Details bilateral with belt Body Position Supine Reps/Duration 14 min Comments Hook-lying position PT-OP-R Modalities Start: 12/08/17 17:39 Freq: Status: Active Protocol: Document 12/21/17 14:30 RCC (Rec: 12/21/17 14:47 RCC [email or web address]) Other Unlisted Modality Treatment Traction- mechanical Name of Modality Traction- mechanical Duration (Minutes) 15 Body Position Supine Parameters 60 lbs Comments Rosen Unit PT-OP-T Assessment and Plan Start: 12/08/17 17:39 Freq: Status: Active Protocol: Document 01/18/18 15:58 RCC (Rec: 01/18/18 16:53 RCC [email or web address]) Physical Therapy Assessment Assessment Summary Assessment Pt still with fatigue on elliptical, but good movement of LE without excessive lumbar spine motion. Pt still limited with R>L LE weakness, but gait appears to be less antalgic. Physical Therapy Plan Frequency and Duration Frequency of Treatment 2x/Week Duration of Treatment 12 weeks Plan of Care Start Date 11/25/17 Plan of Care End Date 02/17/18 Next Visit Focus/Plan Next Note Type Treatment Note Next Visit Plan core stability, gait. Please Sign and Return: I have reviewed this Plan of Care and certify that the skilled therapy services above are required to meet the patient?s needs. Physician Signature Date Printed Name and Credentials Clinical Instructor Signature Printed Name and Credentials
--- NOTE | 2018-01-20 17:00 | PT.OTN ---
Current Diagnoses Radiculopathy, lumbosacral region (01/20/18) Physical Therapy Treatment Note PT-OP-A Visit Information Start: 12/08/17 17:39 Freq: Status: Active Protocol: Document 01/20/18 15:55 RCC (Rec: 01/20/18 17:00 RCC [email or web address]) Out-Patient Physical Therapy Visit Information Visit Information Visit Type Treatment Note Visit Start Time 15:17 Visit Stop Time 15:55 Total Visit Minutes 38 Visit Number 13 Number of GRAPHICS MANAGER Visits 0 Evaluation Information Evaluation Date 11/25/17 PT-OP-C Subjective Start: 12/08/17 17:39 Freq: Status: Active Protocol: Document 01/20/18 15:55 RCC (Rec: 01/20/18 17:00 RCC [email or web address]) OP-PT Subjective Patient Comments Patient Comments Pt notes that his back was feeling better this past week until today where he sat in a meeting for 2 hrs in a bad chair. Pt states his pain is 50% better at end of session. PT-OP-K Range of Motion Start: 01/11/18 17:23 Freq: Status: Active Protocol: Document 01/11/18 15:55 RCC (Rec: 01/11/18 17:47 RCC [email or web address]) Lumbar Spine Range of Motion Lumbar Spine Active Degrees Testing Position Standing Flexion 65 Extension 19 ROM Limitations Pain PT-OP-L Special Tests Start: 12/08/17 17:39 Freq: Status: Active Protocol: Document 01/11/18 15:55 RCC (Rec: 01/11/18 17:47 RCC [email or web address]) Special Tests Lumbar Spine Special Tests Other- 1 Test Results 80 degrees hip flexion with ankle DF and no radicular symptoms Comments Modified slump testing Straight Leg Raise Test Results negative Comments bilateral PT-OP-M Strength Start: 01/11/18 17:23 Freq: Status: Active Protocol: Document 01/11/18 15:55 RCC (Rec: 01/11/18 17:47 RCC [email or web address]) Hip Strength Hip Manual Muscle Testing Right Flexion (L2) 5 Normal External Rotation 4 Good Knee Strength Knee Manual Muscle Testing Right Extension (L3) 5 Normal Toe Strength Toe Manual Muscle Testing Right Great Toe Extension 4+ Good+ PT-OP-Q Treatments Start: 12/08/17 17:39 Freq: Status: Active Protocol: Document 01/20/18 15:55 RCC (Rec: 01/20/18 17:00 RCC [email or web address]) Cardio Equipment Elliptical Duration (Minutes) 3 Resistance 1 Other fatigue Therapeutic Exercises Supine Exercises 4 Supine Exercise Name hip/knee flex/ext Side bilateral Equipment Used 55 cm ball Reps/Minutes 20 reps 3 Supine Exercise Name LTR with 55 cm ball Side bilateral Reps/Minutes 10 each 20 Supine Exercise Name Bridging Reps/Minutes 2 x 10 Comments 55 cm ball arms @ side Standing Exercises 3 Standing Exercise Name Lateral, forward, backward walks Side bilateral Resistance L3 band 2 Standing Exercise Name HS and psoas stretch Side bilateral Equipment Used stairs Reps/Minutes 6 min. 1 Standing Exercise Name Gastroc stretch Side bilateral Equipment Used STEVEN Reps/Minutes 3 min Manual Therapy Treatment Manual Traction Lumbar Details bilateral with belt Body Position Supine Reps/Duration 12 min Comments Hook-lying position PT-OP-R Modalities Start: 12/08/17 17:39 Freq: Status: Active Protocol: Document 12/21/17 14:30 RCC (Rec: 12/21/17 14:47 RCC [email or web address]) Other Unlisted Modality Treatment Traction- mechanical Name of Modality Traction- mechanical Duration (Minutes) 15 Body Position Supine Parameters 60 lbs Comments Rosen Unit PT-OP-T Assessment and Plan Start: 12/08/17 17:39 Freq: Status: Active Protocol: Document 01/20/18 15:55 RCC (Rec: 01/20/18 17:00 RCC [email or web address]) Physical Therapy Assessment Assessment Summary Assessment Pt with decreased lumbar spine pain after session, and continues to benefit from manual traction. Pt did not tolerate mechanical traction well when attempted earlier this episode of care, and would benefit from the continuation of physical therapy to continue to advance core stability and strength, decrease pain, and improve activity tolerance. Physical Therapy Plan Frequency and Duration Frequency of Treatment 2x/Week Duration of Treatment 12 weeks Plan of Care Start Date 11/25/17 Plan of Care End Date 02/17/18 Next Visit Focus/Plan Next Note Type Treatment Note Next Visit Plan gait training, continue to progress core and LE strength. Please Sign and Return: I have reviewed this Plan of Care and certify that the skilled therapy services above are required to meet the patient?s needs. Physician Signature Date Printed Name and Credentials Clinical Instructor Signature Printed Name and Credentials
--- NOTE | 2018-01-25 16:51 | PT.OTN ---
Current Diagnoses Radiculopathy, lumbosacral region (01/25/18) Physical Therapy Treatment Note PT-OP-A Visit Information Start: 12/08/17 17:39 Freq: Status: Active Protocol: Document 01/25/18 11:15 RCC (Rec: 01/25/18 16:50 RCC [email or web address]) Out-Patient Physical Therapy Visit Information Visit Information Visit Type Treatment Note Visit Start Time 10:30 Visit Stop Time 11:15 Total Visit Minutes 45 Visit Number 14 Number of STEAM SHOVELMAN Visits 0 Evaluation Information Evaluation Date 11/25/17 PT-OP-C Subjective Start: 12/08/17 17:39 Freq: Status: Active Protocol: Document 01/25/18 11:15 RCC (Rec: 01/25/18 16:50 RCC [email or web address]) OP-PT Subjective Patient Comments Patient Comments Pt notes that his back pain now is mainly across the bilateral lower back and the tension in the R upper lumbar spine has decreased. Patient Reported Progress Improving PT-OP-K Range of Motion Start: 01/11/18 17:23 Freq: Status: Active Protocol: Document 01/11/18 15:55 RCC (Rec: 01/11/18 17:47 RCC [email or web address]) Lumbar Spine Range of Motion Lumbar Spine Active Degrees Testing Position Standing Flexion 65 Extension 19 ROM Limitations Pain PT-OP-L Special Tests Start: 12/08/17 17:39 Freq: Status: Active Protocol: Document 01/11/18 15:55 RCC (Rec: 01/11/18 17:47 RCC [email or web address]) Special Tests Lumbar Spine Special Tests Other- 1 Test Results 80 degrees hip flexion with ankle DF and no radicular symptoms Comments Modified slump testing Straight Leg Raise Test Results negative Comments bilateral PT-OP-M Strength Start: 01/11/18 17:23 Freq: Status: Active Protocol: Document 01/11/18 15:55 RCC (Rec: 01/11/18 17:47 RCC [email or web address]) Hip Strength Hip Manual Muscle Testing Right Flexion (L2) 5 Normal External Rotation 4 Good Knee Strength Knee Manual Muscle Testing Right Extension (L3) 5 Normal Toe Strength Toe Manual Muscle Testing Right Great Toe Extension 4+ Good+ PT-OP-Q Treatments Start: 12/08/17 17:39 Freq: Status: Active Protocol: Document 01/25/18 11:15 RCC (Rec: 01/25/18 16:50 RCC [email or web address]) Cardio Equipment Elliptical Duration (Minutes) 4 Resistance 1 Other fatigue (3 rest breaks required) Gym Equipment Shuttle Recovery Unilateral Squats Resistance 62 Shuttle Recovery Platform Stable Reps/Time 15 reps each Bilateral Squats Resistance 75 Shuttle Recovery Platform Stable Reps/Time 20 reps Therapeutic Exercises Sidelying Exercises 2 Sidelying Exercise Name Lumbosacral SL stretch Side right Reps/Minutes 4 min Comments 15 sec holds. Standing Exercises 2 Standing Exercise Name HS and psoas stretch Side bilateral Equipment Used stairs Reps/Minutes 6 min. 1 Standing Exercise Name Gastroc stretch Side bilateral Equipment Used STEVEN Reps/Minutes 3 min Other Exercises 1 Other Exercise Name Quadruped- alternating UE & alternating LE (seperate exercises) Side bilateral Reps/Minutes 10 each Comments unable to tolerated alt. UE/LE as one exercise Manual Therapy Treatment Soft Tissue Mobilization 3 Body Location Lumbar multifidi, ES Mobilization Type Strumming Intensity/Depth Moderate Body Position Prone Comments bilateral; 15 min. PT-OP-R Modalities Start: 12/08/17 17:39 Freq: Status: Active Protocol: Document 12/21/17 14:30 RCC (Rec: 12/21/17 14:47 RCC [email or web address]) Other Unlisted Modality Treatment Traction- mechanical Name of Modality Traction- mechanical Duration (Minutes) 15 Body Position Supine Parameters 60 lbs Comments Rosen Unit PT-OP-T Assessment and Plan Start: 12/08/17 17:39 Freq: Status: Active Protocol: Document 01/25/18 11:15 RCC (Rec: 01/25/18 16:50 RCC [email or web address]) Physical Therapy Assessment Assessment Summary Assessment Pt with tenderness of the multifidi and erector spinae bilaterally, but L > R. Pt's QL significantly less tense, although pt is still having difficulty with prolonged sitting and increased low back pain, no referred pain down the RLE. Physical Therapy Plan Frequency and Duration Frequency of Treatment 2x/Week Duration of Treatment 12 weeks Plan of Care Start Date 11/25/17 Plan of Care End Date 02/17/18 Next Visit Focus/Plan Next Note Type Treatment Note Next Visit Plan gait training, core stabilization.
--- NOTE | 2018-02-03 15:55 | PT.OTN ---
Current Diagnoses Radiculopathy, lumbosacral region (02/03/18) Physical Therapy Treatment Note PT-OP-A Visit Information Start: 12/08/17 17:39 Freq: Status: Active Protocol: Document 02/03/18 15:55 RCC (Rec: 02/03/18 17:18 RCC [email or web address]) Out-Patient Physical Therapy Visit Information Visit Information Visit Type Treatment Note Visit Start Time 15:15 Visit Stop Time 15:55 Total Visit Minutes 40 Visit Number 15 Number of TRY ON BASTER Visits 0 Evaluation Information Evaluation Date 11/25/17 PT-OP-C Subjective Start: 12/08/17 17:39 Freq: Status: Active Protocol: Document 02/03/18 15:55 RCC (Rec: 02/03/18 17:18 RCC [email or web address]) OP-PT Subjective Patient Comments Patient Comments Pt notes he is sore from having his 2.5 and 5 y/o granchildren at his house. PT-OP-K Range of Motion Start: 01/11/18 17:23 Freq: Status: Active Protocol: Document 01/11/18 15:55 RCC (Rec: 01/11/18 17:47 RCC [email or web address]) Lumbar Spine Range of Motion Lumbar Spine Active Degrees Testing Position Standing Flexion 65 Extension 19 ROM Limitations Pain PT-OP-L Special Tests Start: 12/08/17 17:39 Freq: Status: Active Protocol: Document 01/11/18 15:55 RCC (Rec: 01/11/18 17:47 RCC [email or web address]) Special Tests Lumbar Spine Special Tests Other- 1 Test Results 80 degrees hip flexion with ankle DF and no radicular symptoms Comments Modified slump testing Straight Leg Raise Test Results negative Comments bilateral PT-OP-M Strength Start: 01/11/18 17:23 Freq: Status: Active Protocol: Document 01/11/18 15:55 RCC (Rec: 01/11/18 17:47 RCC [email or web address]) Hip Strength Hip Manual Muscle Testing Right Flexion (L2) 5 Normal External Rotation 4 Good Knee Strength Knee Manual Muscle Testing Right Extension (L3) 5 Normal Toe Strength Toe Manual Muscle Testing Right Great Toe Extension 4+ Good+ PT-OP-Q Treatments Start: 12/08/17 17:39 Freq: Status: Active Protocol: Document 02/03/18 15:55 RCC (Rec: 02/03/18 17:18 RCC [email or web address]) Cardio Equipment Recumbent Stepper (Sci-Fit) Duration (Minutes) 5 Resistance 1 Gym Equipment Shuttle Recovery Unilateral Squats Resistance 62 Shuttle Recovery Platform Stable Reps/Time 15 reps each Bilateral Squats Resistance 75 Shuttle Recovery Platform Stable Reps/Time 20 reps Therapeutic Exercises Supine Exercises 4 Supine Exercise Name hip/knee flex/ext Side bilateral Equipment Used 55 cm ball Reps/Minutes 20 reps 3 Supine Exercise Name LTR with 55 cm ball Side bilateral Reps/Minutes 10 each 20 Supine Exercise Name Bridging Reps/Minutes 15 reps Comments 55 cm ball arms @ side Sidelying Exercises 1 Sidelying Exercise Name Hip abduction Side bilateral Reps/Minutes 10 reps Standing Exercises 2 Standing Exercise Name HS and psoas stretch Side bilateral Equipment Used stairs 1 Standing Exercise Name Gastroc stretch Side bilateral Equipment Used STEVEN Manual Therapy Treatment Manual Traction Lumbar Details bilateral with belt Body Position Supine Reps/Duration 15 min Comments Hook-lying position PT-OP-R Modalities Start: 12/08/17 17:39 Freq: Status: Active Protocol: Document 12/21/17 14:30 RCC (Rec: 12/21/17 14:47 RCC [email or web address]) Other Unlisted Modality Treatment Traction- mechanical Name of Modality Traction- mechanical Duration (Minutes) 15 Body Position Supine Parameters 60 lbs Comments Rosen Unit PT-OP-T Assessment and Plan Start: 12/08/17 17:39 Freq: Status: Active Protocol: Document 02/03/18 15:55 RCC (Rec: 02/03/18 17:18 RCC [email or web address]) Physical Therapy Assessment Assessment Summary Assessment Pt continues to have antalgic gait and decreased tolerance to prolonged standing or sitting. Movement decreases pain, as pt reported less pain today after just starting on the recumbent stepper. Physical Therapy Plan Frequency and Duration Frequency of Treatment 2x/Week Duration of Treatment 12 weeks Plan of Care Start Date 11/25/17 Plan of Care End Date 02/17/18 Next Visit Focus/Plan Next Note Type Treatment Note Next Visit Plan core stability, body mechanics .
--- NOTE | 2018-02-17 15:45 | PT.OTN ---
Current Diagnoses Radiculopathy, lumbosacral region (02/17/18) Physical Therapy Treatment Note PT-OP-A Visit Information Start: 12/08/17 17:39 Freq: Status: Active Protocol: Document 02/17/18 15:45 RCC (Rec: 02/17/18 17:00 RCC [email or web address]) Out-Patient Physical Therapy Visit Information Visit Information Visit Type Treatment Note Visit Start Time 15:15 Visit Stop Time 15:45 Total Visit Minutes 30 Visit Number 16 Number of DUPLICATING MACHINE OPERATOR Visits 0 Evaluation Information Evaluation Date 11/25/17 PT-OP-C Subjective Start: 12/08/17 17:39 Freq: Status: Active Protocol: Document 02/17/18 15:45 RCC (Rec: 02/17/18 17:00 RCC [email or web address]) OP-PT Subjective Patient Comments Patient Comments Pt got his injection on Tuesday, notes that he felt instant relief. He reports being 75% better, he feels comfortable with d/c. Patient Questionnaires Lower Extremity Functional Scale LEFS Score 54 LEFS Impairment 20 to 39% Impaired (Score 48- 62) OP-PT Pain Assessment Location Bilateral Lower Back Intensity 2 Scale Used Numeric (1 - 10) PT-OP-K Range of Motion Start: 01/11/18 17:23 Freq: Status: Active Protocol: Document 02/17/18 15:45 RCC (Rec: 02/17/18 17:00 RCC [email or web address]) Lumbar Spine Range of Motion Lumbar Spine Active Degrees Testing Position standing Flexion 75 Extension 25 Comments no pain PT-OP-L Special Tests Start: 12/08/17 17:39 Freq: Status: Active Protocol: Document 02/17/18 15:45 RCC (Rec: 02/17/18 17:00 RCC [email or web address]) Special Tests Lumbar Spine Special Tests Other- 1 Test Results negative Straight Leg Raise Test Results negative PT-OP-M Strength Start: 01/11/18 17:23 Freq: Status: Active Protocol: Document 02/17/18 15:45 RCC (Rec: 02/17/18 17:00 RCC [email or web address]) Hip Strength Hip Manual Muscle Testing Right Flexion (L2) 4+ Good+ External Rotation 4+ Good+ Internal Rotation 5 Normal Knee Strength Knee Manual Muscle Testing Right Flexion (S2) 5 Normal Extension (L3) 5 Normal Toe Strength Toe Manual Muscle Testing Right Great Toe Extension 4+ Good+ PT-OP-Q Treatments Start: 12/08/17 17:39 Freq: Status: Active Protocol: Document 02/17/18 15:45 RCC (Rec: 02/17/18 17:00 RCC [email or web address]) Therapeutic Activity Therapeutic Activity 1 Comments HEP- re-visited, established, reviewed; demonstration and performance of proper body mechanics. 15 min Manual Therapy Treatment Other Other Manual Treatments LE MMT, lumbar ROM, special testing 15 min PT-OP-R Modalities Start: 12/08/17 17:39 Freq: Status: Active Protocol: Document 12/21/17 14:30 RCC (Rec: 12/21/17 14:47 RCC [email or web address]) Other Unlisted Modality Treatment Traction- mechanical Name of Modality Traction- mechanical Duration (Minutes) 15 Body Position Supine Parameters 60 lbs Comments Rosen Unit PT-OP-T Assessment and Plan Start: 12/08/17 17:39 Freq: Status: Active Protocol: Document 02/17/18 15:45 RCC (Rec: 02/17/18 17:00 RCC [email or web address]) Physical Therapy Assessment Goals Five Impairment RLE weakness Mcc Goal (LTG) Hip flexion, knee extension, great toe extension 5/5 Hip ER 4/5 LTG Duration 12 weeks Four Impairment Lumbar spine extension Mcc Goal (LTG) 25 deg of lumbar extension without pain prior to d/c. *Achieved 02/17/18 LTG Duration 12 weeks Three Impairment Special Testing for lumbars spine Biomass Facilitator Goal (LTG) Negative SLR prior to d/c. (goal met 01/11/2018) LTG Duration 12 weeks Two Impairment Impaired tolerance to sitting Biomass Facilitator Goal (LTG) Pt will be able to sit for 1 hr during meetings without increased pain prior to d/c. - less intensity but still increased pain. LTG Duration 12 weeks One Impairment Pain in lumbar spine and RLE 5 /10 Biomass Facilitator Goal (LTG) 1/10 -pain 2/10 @ worst 02/17/18 LTG Duration 12 weeks Progress Towards Goals Progress Towards Goals Progressing Toward Goals Progress Comments Achieved 2/5 goals, progress has been good for all goals. Assessment Summary Assessment Pt with decrease in pain after injection. He has increased sitting tolerance and less pain during the day. Pt is independent in his HEP and performs it as instructed. Pt reports he is ready for d/c. Expect pt to be able to continue to improve and achieve strength goals independently at this time. Physical Therapy Plan Discharge Physical Therapy Discharge Reasons Patient Request
== END 2018-07-03 14:10 ==
LOC: PHYS 15:15
PROVIDERS: Family Provider Family Medicine; PCP Family Medicine; Visit Provider Family Medicine
DX: M54.17 Radiculopathy, lumbosacral region (principal)
CPT/HCPCS: 97012; 97110; 97140; 97530

== ENCOUNTER → 2018-06-22 09:35 | Outpatient (CLI) | payer MEDICARE, BC, SELFPAY ==
--- NOTE | 2018-06-22 09:38 | DI.RAD.S_ITS ---
PROCEDURE: XR KNEE STANDING BI INDICATIONS: left knee pain TECHNIQUE: 3 views of the left knee, and 3 views of the right knee. COMPARISON: [facility], , KNEE 3V RIGHT, 04/21/2010, 11:06. FINDINGS: Bones: No acute fractures or dislocations but there is asymmetric degenerative knee joint osteoarthritis greater on the left than the right. This is indicated by a greater degree of joint space thinning on the left when compared to the right on the frontal weightbearing views. On the patellofemoral trochlear images the degree of degenerative osteoarthritis at the lateral facet is moderate and mild at the medial facet and symmetric. Patellar alignment is normal on the sunrise view. No suspicious bony lesions. Joint spaces appear normal with weightbearing. Soft tissues: No knee joint effusions. No suspicious soft tissue calcification. IMPRESSION: No trauma found. 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 No effusion or loose body is found. A comparison left knee set of plain films is not available for review but the degenerative osteoarthritis of the right knee has moderately worsened from the comparison study from April of 2010. Dictated by: Gibran Reyes M.D. on 06/22/2018 at 10:34 Approved by: Gibran Reyes M.D. on 06/22/2018 at 10:36
== END ==
PROVIDERS: PCP Family Medicine; Visit Provider Physical Medicine & Rehabilitation
DX: M25.562 Pain in left knee (principal); M17.0 Bilateral primary osteoarthritis of knee
CPT/HCPCS: 73565; 99214

== ENCOUNTER 2018-07-12 09:39 | Outpatient (CLI) | payer MEDICARE, BC, SELFPAY ==
[2018-07-12] VITALS (10 sets, daily range): BP systolic 111–159; BP diastolic 63–85; PULSE 44–53; RESP 18; TEMP 36.3; O2SAT 96–99
--- NOTE | 2018-07-12 09:41 | DI.RAD.S_ITS ---
PROCEDURE: PAIN L/S FACET INJ/BLK 1ST MAHAD COMPARISON: None. INDICATIONS: RADICULOPATHY FINDINGS: Fluoroscopic images demonstrate placement of spinal needles at L4-L5 and L5-S1 levels as labeled on the images. Appropriate placement of the needle tip was confirmed with small injection of iodinated contrast. Dictated by: Merrill Russell M.D. on 07/12/2018 at 13:24 Approved by: Merrill Russell M.D. on 07/12/2018 at 13:25
[2018-07-12] MEDS: MIDAZOLAM 5 MG/5 ML VIAL IV (10:23)
[2018-07-12] MEDS: BETAMETHASONE 30 MG/5 ML MDV 12 MG INJ (10:27)
[2018-07-12] MEDS: BUPIVACAINE 0.5% (PF) VIAL 2 ML INJ (10:27)
[2018-07-12] MEDS: IOPAMIDOL 15 ML VIAL 3 ML INJ (10:27)
--- NOTE | 2018-07-12 10:41 | P.PCN_ITS ---
Procedures Date/Time Date of procedure: 07/12/18 Time of procedure: 10:40 General Procedure description: PREOP DIAGNOSIS 1. FACET ARTHROPATHY 2. AXIAL LBP 3. MULTILEVEL DDD POST OP DIAGNOSIS 1. FACET ARTHROPATHY 2. AXIAL LBP 3. MULTILEVEL DDD PROCEDURES 1. FLUORSCOPICALLY GUIDED CONTRAST CONTROLLED FACET JOINT INJECTIONS BILATERAL L4/5, L5/S1 PHYSICIAN: Shahid Wilson, DO INDICATIONS Brian is referred by Dr. Pacheco for treatment of Axial LBP FINDINGS Multilevel Facet Arthropathy with Clinically significant axial LBP DESCRIPTION OF PROCEDURE Fluoroscopically guided, contrast-controlled bilateral L4/5, L5/S1 facet joint injections. Following denial of allergy and review of potential side effects and complications, including, but not necessarily limited to, infection, allergic reaction, local tissue breakdown, stroke, temporary or permanent nerve injury, paralysis, and possible , the patient indicated that the patient understood and agreed to proceed. An informed consent document was signed by the patient, witnessed by a nurse, and placed in the patient's chart. Additionally, other treatment options including medications, modalities, and physical therapy were reviewed with the patient. After review of previous anaesthesic history and IV conscious sedation the patient was deemed safe to proceed with todays procedure with IV conscious sedation as ASA class II designation. Safety time-out was performed to confirm patient ID, procedure to be performed and site of procedure. IV sedation was accomplished with a combination of 3mg was administered by the RN after DO order , titrated to patient comfort during the course of the procedure while the patient remained responsive to all verbal commands In the prone position, following sterile prep and drape of the lumbar region, the posterior aspect of the L4/5, L5/S1 facet joints were identified fluoroscopically. The skin was anesthetized via a 25-gauge 1.5-inch needle with 1% lidocaine solution into the corresponding facet joints. At this point, a 22-gauge 3.5-inch spinal needle was atraumatically introduced and advanced under fluoroscopic guidance into the corresponding facet joints. Following negative aspiration, injections of approximately 0.2-cc of Isovue 200 confirmed interarticular placement without vascular uptake. The identical procedure was then performed at the L4/5, L5/S1 facet joints on the left. Radiological data, including multiple fluoroscopic views of the lumbosacral spine, reveal a spinal needle at the L4/5, L5/S1 facet joints bilaterally. Subsequent views show flow of contrast material both superiorly and inferiorly within the joint space without vascular or intrathecal uptake. At this point, a total of 0.5 cc including a mixture of 0.25cc Marcaine and 0.25cc betamethasone was injected without complication into each of the corresponding facet joints. The patient tolerated the procedure well without signs or symptoms of complications prior to transfer to the recovery area continued monitoring without incident. The patient was then transferred to the recovery area where they were observed for an appropriate period of time after the injection. The patient reported a VAS score of 7 prior to the procedure and a post- procedure VAS of 0. Total Fluoroscopy Time: 20.3 seconds Total Conscious Sedation Time: 24min POST OP INSTRUCTIONS The patient was provided a Pain Log to continue to record their response to the target-specific procedure prior to follow-up visit with their referring physician. Additionally, specific post-injection care instructions and a contact number to our office were provided if concerns arise regarding possible complications associated with the procedure are suspected. Shahid Wilson, Complications: none
--- NOTE | 2018-07-12 10:56 | PC.NURSE ---
Received pt from Ilana KRAUS post procedure at 1038. Pt alert and awake able to move from W/C to chair with standby assist. Resumed Monitoring.
--- NOTE | 2018-07-12 11:16 | PC.NURSE ---
pt a little teetery from the versed, he was able to stand and walk but had better balance when holding onto chair or counter. He was able to put on his coat and walk the distance of the pre procedure room. understands and we wheeled him to his car and he will use walking stick when he gets home, [place], for balance.
== END 2018-07-12 11:18 ==
LOC: RAD 09:41
PROVIDERS: PCP Family Medicine; Visit Provider Physical Medicine & Rehabilitation
DX: M47.817 Spondylosis without myelopathy or radiculopathy, lumbosacral region (principal); M47.816 Spondylosis without myelopathy or radiculopathy, lumbar region; M51.36 Other intervertebral disc degeneration, lumbar region; M51.37 Other intervertebral disc degeneration, lumbosacral region; M54.5 Low back pain
CPT/HCPCS: 64493; 64494; 99152; J0702; J2250

== ENCOUNTER → 2018-07-13 07:17 | Outpatient (CLI) | payer MEDICARE, BC, SELFPAY ==
[2018-07-13 08:07] LABS: Add Manual Diff / Slide Review NO; Basophils Percent Auto 0.2 % (0-2); Hematocrit 41.7 % (41-53); Hemoglobin 14.3 g/dL (13.5-17.5); Lymphocytes Percent Auto 7.4 % (25-40); Mean Corpuscular HGB Conc 34.3 % (30-36); Mean Corpuscular Hemoglobin 31.6 PG (26-34); Mean Corpuscular Volume 92.1 fL (80-100); Neutrophils Absolute Auto 15900 /uL (3000-5900); Neutrophils Percent Auto 90.4 % (50-75); Platelet Count 181 X10^3/uL (150-400); Red Blood Cell Count 4.53 X10^6/uL (4.5-5.9); Red Cell Distribution Width 14.6 % (11.6-14.8); White Blood Cell Count 17.6 X10^3/uL (4.5-11.0)
[2018-07-13 08:22] LABS: Alanine Aminotransferase 27 IU/L (21-72); Albumin 4.6 g/dL (3.5-5.0); Albumin Globulin Ratio 1.4 (1.0-2.8); Alkaline Phosphatase 96 U/L (38-126); Aspartate Aminotransferase 23 IU/L (17-59); BUN Creatinine Ratio 22.5 (6-22); Bilirubin Total 0.5 mg/dL (0.2-1.3); Blood Urea Nitrogen 18 mg/dL (9-20); Calcium 9.6 mg/dL (8.4-10.2); Carbon Dioxide 28 mmol/L (22-32); Chloride 95 mmol/L (98-107); Cholesterol 154 mg/dL (140-199); Estimated Glomerular Filt Rate > 60.0 mL/min (>60); Globulin 3.3 g/dL (1.7-4.1); Glucose 197 mg/dL (80-110); HDL Cholesterol 48 mg/dL (40-60); HEMOLYSIS 20 (0-50); LDL Cholesterol Calculated 91 mg/dL (<100); Potassium 3.3 mmol/L (3.4-5.1); Sodium 137 mmol/L (137-145); Total Protein 7.9 g/dL (6.3-8.2); Triglycerides 77 mg/dL (35-150)
[2018-07-13 08:51] LABS: Thyroid Stimulating Hormone 0.45 uIU/mL (0.47-4.68)
[2018-07-13 11:09] LABS: Creatinine Urine Random 181.5 mg/dL
[2018-07-13 11:13] LABS: Microalbumi Creatinin Ratio Ur 53.4 ug/mg CR (<30); Microalbumin Urine Random 9.7 mg/dL (0-1.6)
[2018-07-13 12:06] LABS: Hemoglobin A1C% w Est Avg Glu 6.3 % (4.0-6.0)
== END ==
PROVIDERS: PCP Family Medicine; Visit Provider Family Medicine
DX: E78.5 Hyperlipidemia, unspecified (principal); I10 Essential (primary) hypertension; R73.09 Other abnormal glucose
CPT/HCPCS: 36415; 80053; 80061; 82043; 82570; 83036; 84443; 85025

== ENCOUNTER → 2018-09-26 07:35 | Outpatient (CLI) | payer MEDICARE, BC, SELFPAY ==
[2018-09-26 08:58] LABS: Add Manual Diff / Slide Review NO; Basophils Absolute Auto 100 /uL (0-100); Basophils Percent Auto 1.1 % (0-2); Eosinophils Absolute Auto 200 /uL (0-450); Eosinophils Percent Auto 4.3 % (2-4); Hematocrit 39.7 % (41-53); Hemoglobin 13.6 g/dL (13.5-17.5); Lymphocytes Absolute Auto 1800 /uL (1100-4500); Lymphocytes Percent Auto 36.5 % (25-40); Mean Corpuscular HGB Conc 34.4 % (30-36); Mean Corpuscular Hemoglobin 31.9 PG (26-34); Mean Corpuscular Volume 92.7 fL (80-100); Monocytes Absolute Auto 500 /uL (0-900); Monocytes Percent Auto 11.4 % (3-14); Neutrophils Absolute Auto 2200 /uL (1500-7000); Neutrophils Percent Auto 46.7 % (50-75); Platelet Count 160 X10^3/uL (150-400); Red Blood Cell Count 4.28 X10^6/uL (4.5-5.9); Red Cell Distribution Width 14.3 % (11.6-14.8); White Blood Cell Count 4.8 X10^3/uL (4.5-11.0)
[2018-09-26 09:03] LABS: BUN Creatinine Ratio 17.8 (6-22); Blood Urea Nitrogen 16 mg/dL (9-20); Calcium 9.3 mg/dL (8.4-10.2); Carbon Dioxide 31 mmol/L (22-32); Chloride 98 mmol/L (98-107); Estimated Glomerular Filt Rate > 60.0 mL/min (>60); Glucose 109 mg/dL (80-110); HEMOLYSIS < 15 (0-50); Potassium 3.3 mmol/L (3.4-5.1); Sodium 138 mmol/L (137-145)
[2018-09-26 09:13] LABS: Hemoglobin A1C% w Est Avg Glu 5.9 % (4.0-6.0)
[2018-09-26 09:30] LABS: Free T3, Triiodothyronine Free 3.96 pg/mL (2.77-5.27); Free T4, Direct Thyroxine 0.95 ng/dL (0.78-2.19)
[2018-09-26 09:44] LABS: Thyroid Stimulating Hormone 2.18 uIU/mL (0.47-4.68)
== END ==
PROVIDERS: PCP Family Medicine; Visit Provider Family Medicine
DX: E78.2 Mixed hyperlipidemia (principal); R73.9 Hyperglycemia, unspecified
CPT/HCPCS: 36415; 80048; 83036; 84439; 84443; 84481; 85025

== ENCOUNTER 2018-10-04 13:11 | Outpatient (CLI) | payer MEDICARE, BC, SELFPAY ==
[2018-10-04] VITALS (7 sets, daily range): BP systolic 112–138; BP diastolic 60–77; PULSE 42–51; RESP 16–18; TEMP 36.5; O2SAT 95–99
--- NOTE | 2018-10-04 13:14 | DI.RAD.S_ITS ---
PROCEDURE: PAIN L/S FACET INJ/BLK 1ST MAHAD COMPARISON: [facility], , PAIN L/S FACET INJ/BLK 1ST MAHAD, 07/12/2018, 11:26. INDICATIONS: SPONDYLOSIS Fluoroscopic spot filming was performed to verify placement of spinal needles at the L4, L5, S1 level(s), as labeled on the films. Appropriate location(s) of the needle tip(s) was confirmed by injection of iodinated contrast. Dictated by: Merrill Russell M.D. on 10/04/2018 at 17:25 Approved by: Merrill Russell M.D. on 10/04/2018 at 17:26
[2018-10-04] MEDS: MIDAZOLAM 5 MG/5 ML VIAL IV (13:50)
[2018-10-04] MEDS: BUPIVACAINE 0.5% (PF) VIAL 30 ML INJ (14:00)
[2018-10-04] MEDS: IOPAMIDOL 15 ML VIAL 3 ML INJ (14:00)
[2018-10-04] MEDS: BETAMETHASONE 30 MG/5 ML MDV 12 MG INJ (14:00)
[2018-10-04] MEDS: LIDOCAINE 1% 20 ML INJ 10 ML INJ (14:01)
--- NOTE | 2018-10-04 14:06 | PC.NURSE ---
pt finished procedure and tolerated it well. Pt able to get from table to w/c with stand by assist. Transferred pt via wheelchair to pre procedure room for continued monitoring with Ilana KRAUS.
--- NOTE | 2018-10-04 14:10 | PM.PROC.1 ---
Procedures Date/Time Date of procedure: 10/04/18 Time of procedure: 14:11 General Procedure description: Procedure description: 1. FACET ARTHROPATHY PROCEDURES: 1. BILATERAL- L4, L5 and S1 MB BLOCKS PHYSICIAN: Shahid Wilson, DO CHAN Brian is referred by for treatment of Bilateral Axial LBP. DESCRIPTION OF PROCEDURE Fluoroscopically guided, contrast-controlled bilateral L4, L5 and S1 medial branch blocks with 0.5cc of 0.5% Marcaine. Following denial of allergy and review of potential side effects and complications, including, but not necessarily limited to, infection, allergic reaction, local tissue breakdown, nerve injury, paralysis, stroke and possible , the patient indicated that the patient understood and agreed to proceed. An informed consent document was signed by the patient, witnessed by a nurse, and placed in the patient's chart. After review of previous anaesthesic history and IV conscious sedation the patient was deemed safe to proceed with todays procedure with IV conscious sedation as ASA class II designation. Safety time-out was performed to confirm patient ID, procedure to be performed and site of procedure. IV sedation was accomplished with a combination of 3mg of Versed was administered by the RN after DO order, titrated to patient comfort during the course of the procedure while the patient remained responsive to all verbal commands In the prone position, following sterile prep and drape of the lumbar region, the right L4, L5 and S1 anatomical location of the medial branch of the dorsal ramus was identified fluoroscopically. Subsequently an anesthetic skin wheal using 1% lidocaine solution was initiated at each of the anatomical spots. Subsequently then a 22-gauge 3.5-inch spinal needle was atraumatically introduced and advanced under fluoroscopic guidance at each of the corresponding sites at the right L4, L5 and S1 MB. After negative aspiration, 0.2 cc of Isovue 200 was injected, confirming placement without vascular or intrathecal uptake. Subsequently then 0.5 cc of 0.5% Marcaine solution was injected at each of the corresponding sites at the right L4, L5 and S1 medial branch locations. The identical procedure was replicated on the left. The patient tolerated the procedure well without signs or symptoms of complications prior to transfer to the recovery area continued monitoring without incident. Post-procedure, the patient was monitored initiating provocative activities to measure the amount of relief from block of the facetogenic pain. The patient reported a VAS of 7 prior to the procedure and a post-procedure VAS of 1. It has been a pleasure to assist in the diagnostic and therapeutic care of your patient. Total Fluoroscopy Time: 24.8 seconds Total Conscious Sedation Time: 24min POST OP INSTRUCTIONS The patient was provided with a Pain Log to complete over the next several hours and subsequent days prior to the patient's follow up with the ordering physician. If the patient has video operator relief to the solution applied, then they may be a candidate for medial branch rhizotomy. The patient is aware, was provided, once again, with a Pain Log and will follow up with the referring physician for review and clinical correlation Shahid Wilson DO Complications: none
== END 2018-10-04 14:34 | disposition home or self-care (01) ==
LOC: RAD 13:12
PROVIDERS: PCP Family Medicine; Visit Provider Physical Medicine & Rehabilitation
DX: M47.816 Spondylosis without myelopathy or radiculopathy, lumbar region (principal); M47.817 Spondylosis without myelopathy or radiculopathy, lumbosacral region
CPT/HCPCS: 64493; 64494; 99152; J0702; J2250; J3010

== ENCOUNTER 2018-10-11 16:45 | Outpatient (RCR) | payer MEDICARE, BC, SELFPAY ==
--- NOTE | 2018-07-13 15:15 | PT.OIE ---
Current Diagnoses Unilateral primary osteoarthritis, unspecified knee (07/13/18) Stiffness of left knee, not elsewhere classified (07/13/18) Muscle weakness (generalized) (07/13/18) Other abnormalities of gait and mobility (07/13/18) Past Medical History (Last Reviewed 06/22/18 @ 09:04 by Shahid Wilson DO) Insomnia, persistent (Chronic) Hypersomnia (Chronic) Obstructive sleep apnea of adult (Chronic) Central sleep apnea (Chronic) Hayfever (Chronic ~1979) Sleep apnea (Chronic 05/2010) Chicken pox (Resolved ~1946) Measles (Resolved ~1940) Mumps (Resolved ~1940) Snoring (Inactive) Past Surgical History (Last Reviewed 06/22/18 @ 09:04 by Shahid Wilson DO) Anesthesia (Resolved) Fracture dislocation of right ankle (Resolved 04/2000) Status post hernia repair (Resolved 2007) Provider Visit Care Team Role Provider Type Darin Pacheco MD Primary Care Provider Physician Specialty: Family Practice Address: [address] [place] [id number] Email: [email or web address] Shahid Wilson DO Attending Provider Physician Specialty: Physiatry Pain Management Address: [address] [place] [phone] Email: Physical Therapy Initial Evaluation PT-OP-A Visit Information Start: 07/16/18 07:46 Freq: Status: Active Protocol: Document 07/13/18 15:15 [facility] (Rec: 07/16/18 08:13 [facility] [email or web address]) Out-Patient Physical Therapy Visit Information Visit Information Visit Type Initial Evaluation Visit Start Time 14:31 Visit Stop Time 15:15 Total Visit Minutes 44 Visit Number 1 Number of STUMMEL SELECTOR Visits 0 Evaluation Information Evaluation Date 07/13/18 PT-OP-B Current Condition Start: 07/16/18 07:46 Freq: Status: Active Protocol: Document 07/13/18 15:15 [facility] (Rec: 07/16/18 08:13 [facility] [email or web address]) Current Condition History of Current Condition Onset Date 3+ yrs ago, worsening over past 1-2 months Current Complaints B knee pain History of Current Condition Pt is a 78 y/o male presenting to physical therapy with a c/ o bilateral knee pain, L>R. Pt notes that R knee has been bad for many years, but L knee pain increased in past 1- 2 months and pain in L has surpassed the R (took a prolonged road trip in the car to the [facility] and [facility]). Denies any trauma or PRANEETH. Radiographs showed bilateral moderately severe OA, no image to compare from the past on the L but the R is moderately worse since study in 2009. Pt is currently working with Dr. Wilson in pain management, had multiple injections in lumbar spine region due to acute nerve irritation/injury which he notes is improving. He is potentially getting injections in the bilateral knees soon, but MD wanted pt to start PT first. He notes he can walk 6- 8 blocks without pain, but does not do well with pain after prolonged sitting in the knees and his back. Pt would like to be able to walk a mile or more without pain. Treatment Goals Patient/Caregiver Goals improve walking tolerance, develop/establish HEP Prior Functional Status Baseline Function- Gait able to walk ~1 mile outdoors Current Functional Impairments (Reported) Functional Limitations- Mobility/Gait limited to ~6-8 blocks ambulation before increased pain Personal Factors Other Personal Factors That May Effect R ankle ORIF 1999, current Therapy/Recovery healing back injury- nerve involvement PT-OP-C Subjective Start: 07/16/18 07:46 Freq: Status: Active Protocol: Document 07/13/18 15:15 [facility] (Rec: 07/16/18 08:13 [facility] [email or web address]) OP-PT Subjective Patient Comments Patient Reported Progress Worse Patient Questionnaires Lower Extremity Functional Scale LEFS Score 31 LEFS Impairment 60 to 79% Impaired (Score 17- 31) OP-PT Pain Assessment Location bilateral knees Pain Location Details anterior knee pain, sometimes posterior Intensity 4 Scale Used Numeric (1 - 10) Pain Aggravating Factors Sitting Pain Alleviating Factors Exercise PT-OP-G Mobility & Gait Start: 07/16/18 07:46 Freq: Status: Active Protocol: Document 07/13/18 15:15 [facility] (Rec: 07/16/18 08:13 [facility] [email or web address]) OP Mobility Evaluation Functional Movements Squats UE support needed OP Gait Assessment Comments Gait Comments mildly antalgic with bilateral LE ER, L>R. PT-OP-H Neuro Start: 07/16/18 07:46 Freq: Status: Active Protocol: Document 07/13/18 15:15 [facility] (Rec: 07/16/18 08:13 [facility] [email or web address]) Sensation Evaluation Gross Sensation Gross Sensation WNL PT-OP-K Range of Motion Start: 07/16/18 07:46 Freq: Status: Active Protocol: Document 07/13/18 15:15 [facility] (Rec: 07/16/18 08:13 [facility] [email or web address]) Knee Goniometric Range of Motion Knee Measured in Degrees Right Patient Position Supine Flexion Active (degrees) 124 Extension Active (degrees) 0 Left Patient Position Supine Flexion Active (degrees) 115 Extension Active (degrees) 0 PT-OP-L Special Tests Start: 07/16/18 07:46 Freq: Status: Active Protocol: Document 07/13/18 15:15 [facility] (Rec: 07/16/18 08:13 [facility] [email or web address]) Special Tests Knee Special Tests Liz's Test Results negative bilaterally Anterior Draw Test Results negative bilaterally Mable Test Test Results negative bilaterally Posterior Sag Test Results negative bilaterally Varus- 25 Degrees Test Results negative bilaterally Varus- 0 Degrees Test Results negative bilaterally Valgus- 25 Degrees Test Results negative bilaterally Valgus- 0 Degrees Test Results negative bilaterally PT-OP-M Strength Start: 07/16/18 07:46 Freq: Status: Active Protocol: Document 07/13/18 15:15 [facility] (Rec: 07/16/18 08:13 [facility] [email or web address]) Hip Strength Hip Manual Muscle Testing Right Flexion (L2) 5 Normal External Rotation 4 Good Internal Rotation 4 Good Left Flexion (L2) 5 Normal External Rotation 3+ Fair+ Internal Rotation 4 Good Knee Strength Knee Manual Muscle Testing Right Flexion (S2) 5 Normal Extension (L3) 5 Normal Left Flexion (S2) 4 Good Extension (L3) 5 Normal Ankle/Foot Strength Ankle and Foot Manual Muscle Testing Right Dorsiflexion (L4) 4+ Good+ Left Dorsiflexion (L4) 5 Normal PT-OP-Q Treatments Start: 07/16/18 07:46 Freq: Status: Active Protocol: Document 07/13/18 15:15 [facility] (Rec: 07/16/18 08:13 [facility] [email or web address]) Therapeutic Exercises Supine Exercises SLR-flexion Supine Exercise Name hip flexion SLR Side bilateral Reps/Minutes 1x10 Comments with emphasis on quad control Sidelying Exercises reverse clamshells Side bilateral Reps/Minutes 1x10 clamshells Side bilateral Reps/Minutes 1x10 PT-OP-T Assessment and Plan Start: 07/16/18 07:46 Freq: Status: Active Protocol: Document 07/13/18 15:15 [facility] (Rec: 07/16/18 08:13 [facility] [email or web address]) Physical Therapy Assessment Rehab Potential Rehabilitation Potential Good Evaluation Complexity Number of Personal Factors/Comorbidities 1-2 Number of Body Systems Impaired 3 Clinical Presentation at Evaluation Stable Goals Home Exercise program Impairment lacks bilateral knee/LE HEP Scrub Woman Goal (LTG) Pt will be indep. with HEP without cuing prior to d/c. LTG Duration 8 weeks LE weakness Impairment LE weakness Custodial Goal (LTG) L knee flexion to 5/5 and bilateral hip IR and ER to at least 4+/5 with manual muscle testing prior to discharge. LTG Duration 8 weeks knee ROM Impairment impaired L knee ROM (flexion) Short Term Goal (STG) L knee ROM 0-125 degrees to assist with less dependence on UEs for sit<->stand from a chair. STG Duration 4 weeks walking tolerance Impairment only able to walk 6-8 blocks before onset pain bilateral knees Short Term Goal (STG) Pt will be able to walk for 15 minutes, 5 days per week without increased in bilateral knee pain. STG Duration 4 weeks Scrub Woman Goal (LTG) Pt will bale to walk for 30 min, 5 days per week without increased in bilateral knee pain as part of a home walking program prior to d/c. LTG Duration 8 weeks Lower Extremity Functional Scale Impairment impaired function due to bilateral knee pain Scrub Woman Goal (LTG) Lower Extremity Functional Scale score to at least 40/80 (50%) prior to discharge to demonstrate improvements in daily life and functional activities. LTG Duration 8 weeks Assessment Summary Assessment Pt presents with signs/ symptoms consistent with diagnosis and imaging of bilateral knee OA. All ligamentous and meniscal testing negative for the bilateral knees. Pt's L knee flexion AROM limited to 115 degrees with pain anteriorly, and he is unable to tolerate his prior level of outdoor ambulation due to increased pain in the knees. Pt is a good candidate for skilled physical therapy, as his pain reportedly lessens with movement and exercise. He demonstrates weakness in his L hamstring strength, as well as bilateral hip weakness which with skilled intervention and progression of a home exercise program should improve his strength, thus improve his tolerance to walking. Physical Therapy Plan Frequency and Duration Frequency of Treatment 2x/Week Duration of Treatment 8 weeks Plan of Care Start Date 07/13/18 Plan of Care End Date 09/07/18 Therapeutic Interventions Therapeutic Interventions Aquatic Therapy Gait Training Home Exercise Program Joint Mobilizations Manual Therapy Neuromuscular Re-education Patient/Caregiver Education Self-Care/Home Management Soft Tissue Mobilization Taping Therapeutic Activities Therapeutic Exercises Modalities Cold Pack/Ice Massage Electric Stimulation Hot Packs Ultrasound Next Visit Focus/Plan Next Note Type Treatment Note Next Visit Plan Shuttle Recovery leg press, review clamshell/reverse clamshell, add resistance to SLR hip flexion, hip abduction ; recumbent stepper
--- NOTE | 2018-07-13 15:15 | PT.OPPOC ---
Current Diagnoses Unilateral primary osteoarthritis, unspecified knee (07/13/18) Stiffness of left knee, not elsewhere classified (07/13/18) Muscle weakness (generalized) (07/13/18) Other abnormalities of gait and mobility (07/13/18) Provider Visit Care Team Role Provider Type Darin Pacheco MD Primary Care Provider Physician Specialty: Family Practice Address: [address] [place] [address], [phone] Email: [email or web address] Shahid Wilson DO Attending Provider Physician Specialty: Physiatry Pain Management Address: [address] [place] [address], [phone] Email: Plan Of Care PT-OP-T Assessment and Plan Start: 07/16/18 07:46 Freq: Status: Active Protocol: Document 07/13/18 15:15 [facility] (Rec: 07/16/18 08:13 [facility] [email or web address]) Physical Therapy Assessment Rehab Potential Rehabilitation Potential Good Evaluation Complexity Number of Personal Factors/Comorbidities 1-2 Number of Body Systems Impaired 3 Clinical Presentation at Evaluation Stable Goals Home Exercise program Impairment lacks bilateral knee/LE HEP Assembler Truck Trailer Goal (LTG) Pt will be indep. with HEP without cuing prior to d/c. LTG Duration 8 weeks LE weakness Impairment LE weakness Prison Goal (LTG) L knee flexion to 5/5 and bilateral hip IR and ER to at least 4+/5 with manual muscle testing prior to discharge. LTG Duration 8 weeks knee ROM Impairment impaired L knee ROM (flexion) Short Term Goal (STG) L knee ROM 0-125 degrees to assist with less dependence on UEs for sit<->stand from a chair. STG Duration 4 weeks walking tolerance Impairment only able to walk 6-8 blocks before onset pain bilateral knees Short Term Goal (STG) Pt will be able to walk for 15 minutes, 5 days per week without increased in bilateral knee pain. STG Duration 4 weeks Assembler Truck Trailer Goal (LTG) Pt will bale to walk for 30 min, 5 days per week without increased in bilateral knee pain as part of a home walking program prior to d/c. LTG Duration 8 weeks Lower Extremity Functional Scale Impairment impaired function due to bilateral knee pain Assembler Truck Trailer Goal (LTG) Lower Extremity Functional Scale score to at least 40/80 (50%) prior to discharge to demonstrate improvements in daily life and functional activities. LTG Duration 8 weeks Assessment Summary Assessment Pt presents with signs/ symptoms consistent with diagnosis and imaging of bilateral knee OA. All ligamentous and meniscal testing negative for the bilateral knees. Pt's L knee flexion AROM limited to 115 degrees with pain anteriorly, and he is unable to tolerate his prior level of outdoor ambulation due to increased pain in the knees. Pt is a good candidate for skilled physical therapy, as his pain reportedly lessens with movement and exercise. He demonstrates weakness in his L hamstring strength, as well as bilateral hip weakness which with skilled intervention and progression of a home exercise program should improve his strength, thus improve his tolerance to walking. Physical Therapy Plan Frequency and Duration Frequency of Treatment 2x/Week Duration of Treatment 8 weeks Plan of Care Start Date 07/13/18 Plan of Care End Date 09/07/18 Therapeutic Interventions Therapeutic Interventions Aquatic Therapy Gait Training Home Exercise Program Joint Mobilizations Manual Therapy Neuromuscular Re-education Patient/Caregiver Education Self-Care/Home Management Soft Tissue Mobilization Taping Therapeutic Activities Therapeutic Exercises Modalities Cold Pack/Ice Massage Electric Stimulation Hot Packs Ultrasound Next Visit Focus/Plan Next Note Type Treatment Note Next Visit Plan Shuttle Recovery leg press, review clamshell/reverse clamshell, add resistance to SLR hip flexion, hip abduction ; recumbent stepper Plan of Care Dates Plan of Care Start Date 07/13/18 Plan of Care End Date 09/07/18 Please Sign and Return: I have reviewed this Plan of Care and certify that the skilled therapy services above are required to meet the patient?s needs. Physician Signature Date Printed Name and Credentials Clinical Instructor Signature Printed Name and Credentials
--- NOTE | 2018-07-19 14:26 | PT.OTN ---
Current Diagnoses Unilateral primary osteoarthritis, unspecified knee (07/19/18) Physical Therapy Treatment Note PT-OP-A Visit Information Start: 07/16/18 07:46 Freq: Status: Active Protocol: Document 07/19/18 14:26 [facility] (Rec: 07/19/18 14:39 [facility] [email or web address]) Out-Patient Physical Therapy Visit Information Visit Information Visit Type Treatment Note Visit Start Time 13:45 Visit Stop Time 14:26 Total Visit Minutes 41 Visit Number 2 Number of NITROGEN OPERATOR Visits 0 Evaluation Information Evaluation Date 07/13/18 PT-OP-B Current Condition Start: 07/16/18 07:46 Freq: Status: Active Protocol: Document 07/13/18 15:15 [facility] (Rec: 07/16/18 08:13 [facility] [email or web address]) Current Condition History of Current Condition Onset Date 3+ yrs ago, worsening over past 1-2 months Current Complaints B knee pain History of Current Condition Pt is a 78 y/o male presenting to physical therapy with a c/ o bilateral knee pain, L>R. Pt notes that R knee has been bad for many years, but L knee pain increased in past 1- 2 months and pain in L has surpassed the R (took a prolonged road trip in the car to the [facility] Denies any trauma or PRANEETH. Radiographs showed bilateral moderately severe OA, no image to compare from the past on the L but the R is moderately worse since study in 2009. Pt is currently working with Dr. Wilson in pain management, had multiple injections in lumbar spine region due to acute nerve irritation/injury which he notes is improving. He is potentially getting injections in the bilateral knees soon, but MD wanted pt to start PT first. He notes he can walk 6- 8 blocks without pain, but does not do well with pain after prolonged sitting in the knees and his back. Pt would like to be able to walk a mile or more without pain. Treatment Goals Patient/Caregiver Goals improve walking tolerance, develop/establish HEP Prior Functional Status Baseline Function- Gait able to walk ~1 mile outdoors Current Functional Impairments (Reported) Functional Limitations- Mobility/Gait limited to ~6-8 blocks ambulation before increased pain Personal Factors Other Personal Factors That May Effect R ankle ORIF 1999, current Therapy/Recovery healing back injury- nerve involvement PT-OP-C Subjective Start: 07/16/18 07:46 Freq: Status: Active Protocol: Document 07/19/18 14:26 [facility] (Rec: 07/19/18 14:39 [facility] [email or web address]) OP-PT Subjective Patient Comments Patient Comments Pt states he is performing his HEP; he will receive injections on Tuesday of this week. PT-OP-G Mobility & Gait Start: 07/16/18 07:46 Freq: Status: Active Protocol: Document 07/13/18 15:15 [facility] (Rec: 07/16/18 08:13 [facility] [email or web address]) OP Mobility Evaluation Functional Movements Squats UE support needed OP Gait Assessment Comments Gait Comments mildly antalgic with bilateral LE ER, L>R. PT-OP-H Neuro Start: 07/16/18 07:46 Freq: Status: Active Protocol: Document 07/13/18 15:15 [facility] (Rec: 07/16/18 08:13 [facility] [email or web address]) Sensation Evaluation Gross Sensation Gross Sensation WNL PT-OP-K Range of Motion Start: 07/16/18 07:46 Freq: Status: Active Protocol: Document 07/13/18 15:15 [facility] (Rec: 07/16/18 08:13 [facility] [email or web address]) Knee Goniometric Range of Motion Knee Measured in Degrees Right Patient Position Supine Flexion Active (degrees) 124 Extension Active (degrees) 0 Left Patient Position Supine Flexion Active (degrees) 115 Extension Active (degrees) 0 PT-OP-L Special Tests Start: 07/16/18 07:46 Freq: Status: Active Protocol: Document 07/13/18 15:15 [facility] (Rec: 07/16/18 08:13 [facility] [email or web address]) Special Tests Knee Special Tests Liz's Test Results negative bilaterally Anterior Draw Test Results negative bilaterally Mable Test Test Results negative bilaterally Posterior Sag Test Results negative bilaterally Varus- 25 Degrees Test Results negative bilaterally Varus- 0 Degrees Test Results negative bilaterally Valgus- 25 Degrees Test Results negative bilaterally Valgus- 0 Degrees Test Results negative bilaterally PT-OP-M Strength Start: 07/16/18 07:46 Freq: Status: Active Protocol: Document 07/13/18 15:15 [facility] (Rec: 07/16/18 08:13 [facility] [email or web address]) Hip Strength Hip Manual Muscle Testing Right Flexion (L2) 5 Normal External Rotation 4 Good Internal Rotation 4 Good Left Flexion (L2) 5 Normal External Rotation 3+ Fair+ Internal Rotation 4 Good Knee Strength Knee Manual Muscle Testing Right Flexion (S2) 5 Normal Extension (L3) 5 Normal Left Flexion (S2) 4 Good Extension (L3) 5 Normal Ankle/Foot Strength Ankle and Foot Manual Muscle Testing Right Dorsiflexion (L4) 4+ Good+ Left Dorsiflexion (L4) 5 Normal PT-OP-Q Treatments Start: 07/16/18 07:46 Freq: Status: Active Protocol: Document 07/19/18 14:26 [facility] (Rec: 07/19/18 14:39 [facility] [email or web address]) Cardio Equipment Recumbent Stepper (Sci-Fit) Duration (Minutes) 10 Resistance 1 Gym Equipment Shuttle Recovery Bilateral Heel Raises Resistance 37 lbs Shuttle Recovery Platform Stable Unilateral Squats Resistance 37 lbs Shuttle Recovery Platform Stable Bilateral Squats Resistance 75 lbs, 62 lbs Shuttle Recovery Platform Stable Reps/Time 1st set 75lbs., 2nd set 62 lbs . Therapeutic Exercises Supine Exercises SLR-flexion Supine Exercise Name hip flexion SLR Side bilateral Resistance 2 lbs Reps/Minutes 2x10 Sitting Exercises knee flexion and extension Sitting Exercise Name SAQ and HS curls Side bilateral Resistance L2 band Reps/Minutes 10 each LE Standing Exercises heel cord stretch Standing Exercise Name heel cord stretch Side bilateral Equipment Used STEVEN HS stretch Standing Exercise Name standing HS stretch Side bilateral Equipment Used stairs PT-OP-T Assessment and Plan Start: 07/16/18 07:46 Freq: Status: Active Protocol: Document 07/19/18 14:26 [facility] (Rec: 07/19/18 14:39 [facility] [email or web address]) Physical Therapy Assessment Assessment Summary Assessment Pt without c/o pain during session, but does fatigue rapidly with SLR, shuttle leg press, and resisted SAQ and HS curls. Pt able to maintain appropriate speed with Sci-fit , no breaks required. Physical Therapy Plan Next Visit Focus/Plan Next Note Type Treatment Note Next Visit Plan prog. bilatearal LEs as tolerated. L knee flexion ROM
--- NOTE | 2018-07-26 18:11 | PT.OTN ---
Current Diagnoses Unilateral primary osteoarthritis, unspecified knee (07/26/18) Physical Therapy Treatment Note PT-OP-A Visit Information Start: 07/16/18 07:46 Freq: Status: Active Protocol: Document 07/26/18 16:00 (Rec: 07/26/18 18:10 [email or web address]) Out-Patient Physical Therapy Visit Information Visit Information Visit Type Treatment Note Visit Start Time 16:00 Visit Stop Time 16:45 Total Visit Minutes 45 Visit Number 3 PT-OP-B Current Condition Start: 07/16/18 07:46 Freq: Status: Active Protocol: Document 07/13/18 15:15 [facility] (Rec: 07/16/18 08:13 [facility] [email or web address]) Current Condition History of Current Condition Onset Date 3+ yrs ago, worsening over past 1-2 months Current Complaints B knee pain History of Current Condition Pt is a 78 y/o male presenting to physical therapy with a c/ o bilateral knee pain, L>R. Pt notes that R knee has been bad for many years, but L knee pain increased in past 1- 2 months and pain in L has surpassed the R (took a prolonged road [facility] in [facility] Denies any trauma or RPANEETH. Radiographs showed bilateral moderately severe OA, no image to compare from the past on the L but the R is moderately worse since study in 2009. Pt is currently working with Dr. Wilson in pain management, had multiple injections in lumbar spine region due to acute nerve irritation/injury which he notes is improving. He is potentially getting injections in the bilateral knees soon, but MD wanted pt to start PT first. He notes he can walk 6- 8 blocks without pain, but does not do well with pain after prolonged sitting in the knees and his back. Pt would like to be able to walk a mile or more without pain. Treatment Goals Patient/Caregiver Goals improve walking tolerance, develop/establish HEP Prior Functional Status Baseline Function- Gait able to walk ~1 mile outdoors Current Functional Impairments (Reported) Functional Limitations- Mobility/Gait limited to ~6-8 blocks ambulation before increased pain Personal Factors Other Personal Factors That May Effect R ankle ORIF 1999, current Therapy/Recovery healing back injury- nerve involvement PT-OP-C Subjective Start: 07/16/18 07:46 Freq: Status: Active Protocol: Document 07/26/18 16:00 HH (Rec: 07/26/18 18:10 [email or web address]) OP-PT Subjective Patient Comments Patient Comments Pt received injections at his L knee last week and denies knee since then. Pt is compliant to his HEP. Patient Reported Progress Improving PT-OP-G Mobility & Gait Start: 07/16/18 07:46 Freq: Status: Active Protocol: Document 07/13/18 15:15 [facility] (Rec: 07/16/18 08:13 [facility] [email or web address]) OP Mobility Evaluation Functional Movements Squats UE support needed OP Gait Assessment Comments Gait Comments mildly antalgic with bilateral LE ER, L>R. PT-OP-H Neuro Start: 07/16/18 07:46 Freq: Status: Active Protocol: Document 07/13/18 15:15 [facility] (Rec: 07/16/18 08:13 RCC [email or web address]) Sensation Evaluation Gross Sensation Gross Sensation WNL PT-OP-K Range of Motion Start: 07/16/18 07:46 Freq: Status: Active Protocol: Document 07/13/18 15:15 RCC (Rec: 07/16/18 08:13 RCC [email or web address]) Knee Goniometric Range of Motion Knee Measured in Degrees Right Patient Position Supine Flexion Active (degrees) 124 Extension Active (degrees) 0 Left Patient Position Supine Flexion Active (degrees) 115 Extension Active (degrees) 0 PT-OP-L Special Tests Start: 07/16/18 07:46 Freq: Status: Active Protocol: Document 07/13/18 15:15 RCC (Rec: 07/16/18 08:13 RCC [email or web address]) Special Tests Knee Special Tests Liz's Test Results negative bilaterally Anterior Draw Test Results negative bilaterally Mable Test Test Results negative bilaterally Posterior Sag Test Results negative bilaterally Varus- 25 Degrees Test Results negative bilaterally Varus- 0 Degrees Test Results negative bilaterally Valgus- 25 Degrees Test Results negative bilaterally Valgus- 0 Degrees Test Results negative bilaterally PT-OP-M Strength Start: 07/16/18 07:46 Freq: Status: Active Protocol: Document 07/13/18 15:15 RCC (Rec: 07/16/18 08:13 RCC [email or web address]) Hip Strength Hip Manual Muscle Testing Right Flexion (L2) 5 Normal External Rotation 4 Good Internal Rotation 4 Good Left Flexion (L2) 5 Normal External Rotation 3+ Fair+ Internal Rotation 4 Good Knee Strength Knee Manual Muscle Testing Right Flexion (S2) 5 Normal Extension (L3) 5 Normal Left Flexion (S2) 4 Good Extension (L3) 5 Normal Ankle/Foot Strength Ankle and Foot Manual Muscle Testing Right Dorsiflexion (L4) 4+ Good+ Left Dorsiflexion (L4) 5 Normal PT-OP-Q Treatments Start: 07/16/18 07:46 Freq: Status: Active Protocol: Document 07/26/18 16:00 (Rec: 07/26/18 18:10 [email or web address]) Therapeutic Exercises Sitting Exercises sit to stand squat Equipment Used UE on grab bar Reps/Minutes 10 x2 Standing Exercises gait training with long steps Reps/Minutes [address] Equipment Used within parallel bar single leg stance Reps/Minutes 5 secs hold 5 Standing Exercise Name resisted hip hinge with pink band Resistance pink band Reps/Minutes 5 mins PT-OP-T Assessment and Plan Start: 07/16/18 07:46 Freq: Status: Active Protocol: Document 07/26/18 16:00 (Rec: 07/26/18 18:10 [email or web address]) Physical Therapy Assessment Progress Towards Goals Progress Towards Goals Progressing Toward Goals Assessment Summary Assessment Pt denies pain during tx session. Pt does cont to present decreased stright length and feet clearance due to deficits in single leg balance. Pt is able to maintain SLB ~3-5 secs and he also demonstrates significant difficulty amb with longer stride length. Pt education on using hip hinge and momentum to sit to stand without using B UE for push off, followed by WB through heels to facilitate posterior chain activation during sit to stand / squatting. Pt is able to participate ex throughtout the session with no breaks required. Physical Therapy Plan Therapeutic Interventions Therapeutic Interventions Aquatic Therapy Gait Training Home Exercise Program Joint Mobilizations Manual Therapy Neuromuscular Re-education Patient/Caregiver Education Self-Care/Home Management Soft Tissue Mobilization Taping Therapeutic Activities Therapeutic Exercises Modalities Cold Pack/Ice Massage Electric Stimulation Hot Packs Ultrasound Next Visit Focus/Plan Next Note Type Treatment Note Next Visit Plan B hip abductors strengthening review of sit to stand mechanics with WB through heels single leg balance activities aerobic activities.
--- NOTE | 2018-08-03 15:10 | PT.OTN ---
Current Diagnoses Unilateral primary osteoarthritis, unspecified knee (08/03/18) Physical Therapy Treatment Note PT-OP-A Visit Information Start: 07/16/18 07:46 Freq: Status: Active Protocol: Document 08/03/18 15:10 [facility] (Rec: 08/03/18 17:39 RCC [email or web address]) Out-Patient Physical Therapy Visit Information Visit Information Visit Type Treatment Note Visit Start Time 14:30 Visit Stop Time 15:10 Total Visit Minutes 40 Visit Number 4 Number of DRAWING PRESS OPERATOR Visits 0 Evaluation Information Evaluation Date 07/13/18 PT-OP-B Current Condition Start: 07/16/18 07:46 Freq: Status: Active Protocol: Document 07/13/18 15:15 [facility] (Rec: 07/16/18 08:13 [facility] [email or web address]) Current Condition History of Current Condition Onset Date 3+ yrs ago, worsening over past 1-2 months Current Complaints B knee pain History of Current Condition Pt is a 78 y/o male presenting to physical therapy with a c/ o bilateral knee pain, L>R. Pt notes that R knee has been bad for many years, but L knee pain increased in past 1- 2 months and pain in L has surpassed the R (took a prolonged road trip in the car to [facility]). Denies any trauma or PRANEETH. Radiographs showed bilateral moderately severe OA, no image to compare from the past on the L but the R is moderately worse since study in 2009. Pt is currently working with Dr. Wilson in pain management, had multiple injections in lumbar spine region due to acute nerve irritation/injury which he notes is improving. He is potentially getting injections in the bilateral knees soon, but MD wanted pt to start PT first. He notes he can walk 6- 8 blocks without pain, but does not do well with pain after prolonged sitting in the knees and his back. Pt would like to be able to walk a mile or more without pain. Treatment Goals Patient/Caregiver Goals improve walking tolerance, develop/establish HEP Prior Functional Status Baseline Function- Gait able to walk ~1 mile outdoors Current Functional Impairments (Reported) Functional Limitations- Mobility/Gait limited to ~6-8 blocks ambulation before increased pain Personal Factors Other Personal Factors That May Effect R ankle ORIF 1999, current Therapy/Recovery healing back injury- nerve involvement PT-OP-C Subjective Start: 07/16/18 07:46 Freq: Status: Active Protocol: Document 08/03/18 15:10 RCC (Rec: 08/03/18 17:39 RCC [email or web address]) OP-PT Subjective Patient Comments Patient Comments Pt states that he was sore and had increased bilateral anterior knee pain on , Jul 27. He was doing quite well s/p injections, but increased pain in bilateral knees that lasted until Jul 31. PT-OP-G Mobility & Gait Start: 07/16/18 07:46 Freq: Status: Active Protocol: Document 07/13/18 15:15 RCC (Rec: 07/16/18 08:13 RCC [email or web address]) OP Mobility Evaluation Functional Movements Squats UE support needed OP Gait Assessment Comments Gait Comments mildly antalgic with bilateral LE ER, L>R. PT-OP-H Neuro Start: 07/16/18 07:46 Freq: Status: Active Protocol: Document 07/13/18 15:15 RCC (Rec: 07/16/18 08:13 RCC [email or web address]) Sensation Evaluation Gross Sensation Gross Sensation WNL PT-OP-K Range of Motion Start: 07/16/18 07:46 Freq: Status: Active Protocol: Document 07/13/18 15:15 RCC (Rec: 07/16/18 08:13 RCC [email or web address]) Knee Goniometric Range of Motion Knee Measured in Degrees Right Patient Position Supine Flexion Active (degrees) 124 Extension Active (degrees) 0 Left Patient Position Supine Flexion Active (degrees) 115 Extension Active (degrees) 0 PT-OP-L Special Tests Start: 07/16/18 07:46 Freq: Status: Active Protocol: Document 07/13/18 15:15 RCC (Rec: 07/16/18 08:13 RCC [email or web address]) Special Tests Knee Special Tests Liz's Test Results negative bilaterally Anterior Draw Test Results negative bilaterally Mable Test Test Results negative bilaterally Posterior Sag Test Results negative bilaterally Varus- 25 Degrees Test Results negative bilaterally Varus- 0 Degrees Test Results negative bilaterally Valgus- 25 Degrees Test Results negative bilaterally Valgus- 0 Degrees Test Results negative bilaterally PT-OP-M Strength Start: 07/16/18 07:46 Freq: Status: Active Protocol: Document 07/13/18 15:15 RCC (Rec: 07/16/18 08:13 RCC [email or web address]) Hip Strength Hip Manual Muscle Testing Right Flexion (L2) 5 Normal External Rotation 4 Good Internal Rotation 4 Good Left Flexion (L2) 5 Normal External Rotation 3+ Fair+ Internal Rotation 4 Good Knee Strength Knee Manual Muscle Testing Right Flexion (S2) 5 Normal Extension (L3) 5 Normal Left Flexion (S2) 4 Good Extension (L3) 5 Normal Ankle/Foot Strength Ankle and Foot Manual Muscle Testing Right Dorsiflexion (L4) 4+ Good+ Left Dorsiflexion (L4) 5 Normal PT-OP-Q Treatments Start: 07/16/18 07:46 Freq: Status: Active Protocol: Document 08/03/18 15:10 RCC (Rec: 08/03/18 17:39 RCC [email or web address]) Cardio Equipment Recumbent Stepper (Sci-Fit) Duration (Minutes) 8 Resistance 1 Gym Equipment Cable Column (Body Solid) Leg Extension Resistance 2 plates Reps/Time 10 reps Leg Curl Resistance 3 plates Reps/Time 15 reps Shuttle Recovery Unilateral Squats Resistance 37 lbs Shuttle Recovery Platform Stable Reps/Time to fatigue Bilateral Squats Resistance 62 lbs Shuttle Recovery Platform Stable Reps/Time to fatigue- 2 sets Therapeutic Ball bridging Ball Size/Color 65 cm Body Position Supine Reps/Duration 1x10 Comments hands on table B knee and hip flex/extension Ball Size/Color 65 cm Body Position Supine Reps/Duration 2x20 Therapeutic Exercises Standing Exercises heel-toe gait Side bilateral Reps/Minutes 4 laps gait training with long steps Reps/Minutes 5 laps in // bars heel cord stretch Standing Exercise Name heel cord stretch Side bilateral Equipment Used STEVEN HS stretch Standing Exercise Name standing HS stretch Side bilateral Equipment Used stairs PT-OP-T Assessment and Plan Start: 07/16/18 07:46 Freq: Status: Active Protocol: Document 08/03/18 15:10 [facility] (Rec: 08/03/18 17:39 RCC [email or web address]) Physical Therapy Assessment Assessment Summary Assessment Pt without c/o pain today, although he does deny pain after last visit until the next day. Pt has difficulty with heel to toe gait, increased instability at the hips, knees and ankles likely contributing to his difficulty on uneven terrain and limits his walking outdoors to level surfaces only. Will assess how pt tolerated walking and mobility after this session, and progress as tolerated with caution given amount of pain he had after previous session. May need to include modalities PRN if pain continues. Physical Therapy Plan Frequency and Duration Frequency of Treatment 2x/Week Duration of Treatment 8 weeks Plan of Care Start Date 07/13/18 Plan of Care End Date 09/07/18 Next Visit Focus/Plan Next Note Type Treatment Note Next Visit Plan assess tolerance to this session with pain, modalities (ice, E-stim) if continued pain; advance LE strengthening and aerobic capacity as tolerated.
--- NOTE | 2018-08-09 11:15 | PT.OTN ---
Current Diagnoses Unilateral primary osteoarthritis, unspecified knee (08/09/18) Physical Therapy Treatment Note PT-OP-A Visit Information Start: 07/16/18 07:46 Freq: Status: Active Protocol: Document 08/09/18 11:15 RCC (Rec: 08/09/18 14:49 RCC [email or web address]) Out-Patient Physical Therapy Visit Information Visit Information Visit Type Treatment Note Visit Start Time 10:30 Visit Stop Time 11:15 Total Visit Minutes 45 Visit Number 5 Number of FLUME WORKER Visits 0 Evaluation Information Evaluation Date 07/13/18 PT-OP-B Current Condition Start: 07/16/18 07:46 Freq: Status: Active Protocol: Document 07/13/18 15:15 RCC (Rec: 07/16/18 08:13 RCC [email or web address]) Current Condition History of Current Condition Onset Date 3+ yrs ago, worsening over past 1-2 months Current Complaints B knee pain History of Current Condition Pt is a 78 y/o male presenting to physical therapy with a c/ o bilateral knee pain, L>R. Pt notes that R knee has been bad for many years, but L knee pain increased in past 1- 2 months and pain in L has surpassed the R (took a prolonged road trip in the car to the [facility] and [facility]). Denies any trauma or PRANEETH. Radiographs showed bilateral moderately severe OA, no image to compare from the past on the L but the R is moderately worse since study in 2009. Pt is currently working with Dr. Wilson in pain management, had multiple injections in lumbar spine region due to acute nerve irritation/injury which he notes is improving. He is potentially getting injections in the bilateral knees soon, but MD wanted pt to start PT first. He notes he can walk 6- 8 blocks without pain, but does not do well with pain after prolonged sitting in the knees and his back. Pt would like to be able to walk a mile or more without pain. Treatment Goals Patient/Caregiver Goals improve walking tolerance, develop/establish HEP Prior Functional Status Baseline Function- Gait able to walk ~1 mile outdoors Current Functional Impairments (Reported) Functional Limitations- Mobility/Gait limited to ~6-8 blocks ambulation before increased pain Personal Factors Other Personal Factors That May Effect R ankle ORIF 1999, current Therapy/Recovery healing back injury- nerve involvement PT-OP-C Subjective Start: 07/16/18 07:46 Freq: Status: Active Protocol: Document 08/09/18 11:15 RCC (Rec: 08/09/18 14:49 RCC [email or web address]) OP-PT Subjective Patient Comments Patient Comments Pt states pain was less last week, but still does feel like he has increased pain for 2 days post-sessions even with modifying session last time. PT-OP-G Mobility & Gait Start: 07/16/18 07:46 Freq: Status: Active Protocol: Document 07/13/18 15:15 RCC (Rec: 07/16/18 08:13 RCC [email or web address]) OP Mobility Evaluation Functional Movements Squats UE support needed OP Gait Assessment Comments Gait Comments mildly antalgic with bilateral LE ER, L>R. PT-OP-H Neuro Start: 07/16/18 07:46 Freq: Status: Active Protocol: Document 07/13/18 15:15 RCC (Rec: 07/16/18 08:13 RCC [email or web address]) Sensation Evaluation Gross Sensation Gross Sensation WNL PT-OP-K Range of Motion Start: 07/16/18 07:46 Freq: Status: Active Protocol: Document 07/13/18 15:15 RCC (Rec: 07/16/18 08:13 RCC [email or web address]) Knee Goniometric Range of Motion Knee Measured in Degrees Right Patient Position Supine Flexion Active (degrees) 124 Extension Active (degrees) 0 Left Patient Position Supine Flexion Active (degrees) 115 Extension Active (degrees) 0 PT-OP-L Special Tests Start: 07/16/18 07:46 Freq: Status: Active Protocol: Document 07/13/18 15:15 RCC (Rec: 07/16/18 08:13 RCC [email or web address]) Special Tests Knee Special Tests Liz's Test Results negative bilaterally Anterior Draw Test Results negative bilaterally Mable Test Test Results negative bilaterally Posterior Sag Test Results negative bilaterally Varus- 25 Degrees Test Results negative bilaterally Varus- 0 Degrees Test Results negative bilaterally Valgus- 25 Degrees Test Results negative bilaterally Valgus- 0 Degrees Test Results negative bilaterally PT-OP-M Strength Start: 07/16/18 07:46 Freq: Status: Active Protocol: Document 07/13/18 15:15 RCC (Rec: 07/16/18 08:13 RCC [email or web address]) Hip Strength Hip Manual Muscle Testing Right Flexion (L2) 5 Normal External Rotation 4 Good Internal Rotation 4 Good Left Flexion (L2) 5 Normal External Rotation 3+ Fair+ Internal Rotation 4 Good Knee Strength Knee Manual Muscle Testing Right Flexion (S2) 5 Normal Extension (L3) 5 Normal Left Flexion (S2) 4 Good Extension (L3) 5 Normal Ankle/Foot Strength Ankle and Foot Manual Muscle Testing Right Dorsiflexion (L4) 4+ Good+ Left Dorsiflexion (L4) 5 Normal PT-OP-Q Treatments Start: 07/16/18 07:46 Freq: Status: Active Protocol: Document 08/09/18 11:15 RCC (Rec: 08/09/18 14:49 [facility] [email or web address]) Cardio Equipment Recumbent Stepper (Sci-Fit) Duration (Minutes) 10 Resistance 1 Gym Equipment Therapeutic Ball bridging Ball Size/Color 65 cm Body Position Supine Reps/Duration 1x10 Comments hands on table B knee and hip flex/extension Ball Size/Color 65 cm Body Position Supine Reps/Duration 2x20 Comments 2nd set with L2 theraband for resistance around feet Therapeutic Exercises Supine Exercises SLR-flexion Supine Exercise Name hip flexion SLR- neutral and ER Side bilateral Reps/Minutes 1x10 neutral, 1x5 ER Standing Exercises heel cord stretch Standing Exercise Name heel cord stretch Side bilateral Equipment Used STEVEN HS stretch Standing Exercise Name standing HS stretch Side bilateral Equipment Used stairs PT-OP-R Modalities Start: 07/16/18 07:46 Freq: Status: Active Protocol: Document 08/09/18 11:15 RCC (Rec: 08/09/18 14:49 [facility] [email or web address]) Electric Stimulation Electric Stimulation Interferential Current (IFC) Body Location bilateral knees (anterior) Duration (Minutes) 15 Intensity 41 Combined With Heat/Cold Cold Pack Comments extra layer cold pack PT-OP-T Assessment and Plan Start: 07/16/18 07:46 Freq: Status: Active Protocol: Document 08/09/18 11:15 RCC (Rec: 08/09/18 14:49 [facility] [email or web address]) Physical Therapy Assessment Assessment Summary Assessment Pt continues to have increased pain after sessions since injections in bilateral knees, therefore initiated bilateral anterior knee electrical stimulation today to assess if assisting with pain management. Pt did note to have no pain at end of session. Trial of Kinesiotape placed on the R lower leg today, therefore, if not skin irritation or issues, plan to apply Kinesiotape next session . Physical Therapy Plan Frequency and Duration Frequency of Treatment 2x/Week Duration of Treatment 8 weeks Plan of Care Start Date 07/13/18 Plan of Care End Date 09/07/18 Next Visit Focus/Plan Next Note Type Treatment Note Next Visit Plan assess pain response to IFC and cold pack, assess skin and discuss toelrance to trial Kinesiotape.
--- NOTE | 2018-08-16 11:15 | PT.OTN ---
Current Diagnoses Unilateral primary osteoarthritis, unspecified knee (08/16/18) Physical Therapy Treatment Note PT-OP-A Visit Information Start: 07/16/18 07:46 Freq: Status: Active Protocol: Document 08/16/18 11:15 RCC (Rec: 08/17/18 12:56 [email or web address]) Out-Patient Physical Therapy Visit Information Visit Information Visit Type Treatment Note Visit Start Time 10:30 Visit Stop Time 11:15 Total Visit Minutes 45 Visit Number 6 Number of PRODUCTION TEAM LEADER Visits 0 Evaluation Information Evaluation Date 07/13/18 PT-OP-B Current Condition Start: 07/16/18 07:46 Freq: Status: Active Protocol: Document 07/13/18 15:15 RCC (Rec: 07/16/18 08:13 RCC [email or web address]) Current Condition History of Current Condition Onset Date 3+ yrs ago, worsening over past 1-2 months Current Complaints B knee pain History of Current Condition Pt is a 78 y/o male presenting to physical therapy with a c/ o bilateral knee pain, L>R. Pt notes that R knee has been bad for many years, but L knee pain increased in past 1- 2 months and pain in L has surpassed the R (took a prolonged road trip in the car to the [facility] and [facility]). Denies any trauma or PRANEETH. Radiographs showed bilateral moderately severe OA, no image to compare from the past on the L but the R is moderately worse since study in 2009. Pt is currently working with Dr. Wilson in pain management, had multiple injections in lumbar spine region due to acute nerve irritation/injury which he notes is improving. He is potentially getting injections in the bilateral knees soon, but MD wanted pt to start PT first. He notes he can walk 6- 8 blocks without pain, but does not do well with pain after prolonged sitting in the knees and his back. Pt would like to be able to walk a mile or more without pain. Treatment Goals Patient/Caregiver Goals improve walking tolerance, develop/establish HEP Prior Functional Status Baseline Function- Gait able to walk ~1 mile outdoors Current Functional Impairments (Reported) Functional Limitations- Mobility/Gait limited to ~6-8 blocks ambulation before increased pain Personal Factors Other Personal Factors That May Effect R ankle ORIF 1999, current Therapy/Recovery healing back injury- nerve involvement PT-OP-C Subjective Start: 07/16/18 07:46 Freq: Status: Active Protocol: Document 08/16/18 11:15 RCC (Rec: 08/17/18 12:56 RCC [email or web address]) OP-PT Subjective Patient Comments Patient Comments Pt having follow up with Dr. Wilson s/p injection L knee on 08/16/18. Pt states his pain is more under control this week, but his back is a little more painful than what it has been . He did not have a poor reaction to the Kinesiotape. PT-OP-G Mobility & Gait Start: 07/16/18 07:46 Freq: Status: Active Protocol: Document 07/13/18 15:15 RCC (Rec: 07/16/18 08:13 RCC [email or web address]) OP Mobility Evaluation Functional Movements Squats UE support needed OP Gait Assessment Comments Gait Comments mildly antalgic with bilateral LE ER, L>R. PT-OP-H Neuro Start: 07/16/18 07:46 Freq: Status: Active Protocol: Document 07/13/18 15:15 RCC (Rec: 07/16/18 08:13 RCC [email or web address]) Sensation Evaluation Gross Sensation Gross Sensation WNL PT-OP-K Range of Motion Start: 07/16/18 07:46 Freq: Status: Active Protocol: Document 07/13/18 15:15 RCC (Rec: 07/16/18 08:13 RCC [email or web address]) Knee Goniometric Range of Motion Knee Measured in Degrees Right Patient Position Supine Flexion Active (degrees) 124 Extension Active (degrees) 0 Left Patient Position Supine Flexion Active (degrees) 115 Extension Active (degrees) 0 PT-OP-L Special Tests Start: 07/16/18 07:46 Freq: Status: Active Protocol: Document 07/13/18 15:15 RCC (Rec: 07/16/18 08:13 RCC [email or web address]) Special Tests Knee Special Tests Liz's Test Results negative bilaterally Anterior Draw Test Results negative bilaterally Mable Test Test Results negative bilaterally Posterior Sag Test Results negative bilaterally Varus- 25 Degrees Test Results negative bilaterally Varus- 0 Degrees Test Results negative bilaterally Valgus- 25 Degrees Test Results negative bilaterally Valgus- 0 Degrees Test Results negative bilaterally PT-OP-M Strength Start: 07/16/18 07:46 Freq: Status: Active Protocol: Document 07/13/18 15:15 RCC (Rec: 07/16/18 08:13 RCC [email or web address]) Hip Strength Hip Manual Muscle Testing Right Flexion (L2) 5 Normal External Rotation 4 Good Internal Rotation 4 Good Left Flexion (L2) 5 Normal External Rotation 3+ Fair+ Internal Rotation 4 Good Knee Strength Knee Manual Muscle Testing Right Flexion (S2) 5 Normal Extension (L3) 5 Normal Left Flexion (S2) 4 Good Extension (L3) 5 Normal Ankle/Foot Strength Ankle and Foot Manual Muscle Testing Right Dorsiflexion (L4) 4+ Good+ Left Dorsiflexion (L4) 5 Normal PT-OP-Q Treatments Start: 07/16/18 07:46 Freq: Status: Active Protocol: Document 08/16/18 11:15 RCC (Rec: 08/17/18 12:56 [facility] [email or web address]) Gym Equipment Cable Column (Body Solid) Leg Extension Resistance 2 plates Reps/Time 10 reps Leg Curl Resistance 3 plates Reps/Time 15 reps Shuttle Recovery Unilateral Squats Resistance 37 lbs Shuttle Recovery Platform Stable Reps/Time to fatigue Bilateral Squats Resistance 62 lbs Shuttle Recovery Platform Stable Reps/Time to fatigue- 2 sets Therapeutic Ball bridging Ball Size/Color 65 cm Body Position Supine Reps/Duration 1x10 Comments hands on table B knee and hip flex/extension Ball Size/Color 65 cm Body Position Supine Reps/Duration 2x20 Comments 2nd set with L2 theraband for resistance around feet Therapeutic Exercises Supine Exercises SLR-flexion Supine Exercise Name hip flexion SLR- neutral and ER Side bilateral Reps/Minutes 1x10 neutral, 1x5 ER Standing Exercises heel cord stretch Standing Exercise Name heel cord stretch Side bilateral Equipment Used STEVEN HS stretch Standing Exercise Name standing HS stretch Side bilateral Equipment Used stairs Manual Therapy Treatment Joint Mobilizations L patellofemoral Direction inferior, superior Grade III Body Position Supine Taping 1 Body Location 2 Y strips anterior knees Type of Tape Kinesio Tape PT-OP-R Modalities Start: 07/16/18 07:46 Freq: Status: Active Protocol: Document 08/09/18 11:15 RCC (Rec: 08/09/18 14:49 [facility] [email or web address]) Electric Stimulation Electric Stimulation Interferential Current (IFC) Body Location bilateral knees (anterior) Duration (Minutes) 15 Intensity 41 Combined With Heat/Cold Cold Pack Comments extra layer cold pack PT-OP-T Assessment and Plan Start: 07/16/18 07:46 Freq: Status: Active Protocol: Document 08/16/18 11:15 [facility] (Rec: 08/17/18 12:56 [facility] [email or web address]) Physical Therapy Assessment Assessment Summary Assessment Pt without c/o pain during session with strengthening activities. He has tension in bilateral hamstrings. Kinesiotape applied today to assist with anterior knee pain . Physical Therapy Plan Frequency and Duration Frequency of Treatment 2x/Week Duration of Treatment 8 weeks Plan of Care Start Date 07/13/18 Plan of Care End Date 09/07/18 Next Visit Focus/Plan Next Note Type Treatment Note Next Visit Plan progress knee stability, core and hip strength for progressing gait tolerance.
--- NOTE | 2018-08-18 11:15 | PT.OTN ---
Current Diagnoses Unilateral primary osteoarthritis, unspecified knee (08/18/18) Physical Therapy Treatment Note PT-OP-A Visit Information Start: 07/16/18 07:46 Freq: Status: Active Protocol: Document 08/18/18 11:15 RCC (Rec: 08/18/18 12:03 RCC [email or web address]) Out-Patient Physical Therapy Visit Information Visit Information Visit Type Treatment Note Visit Start Time 10:30 Visit Stop Time 11:25 Total Visit Minutes 55 Visit Number 7 Number of POLICY CHECKER Visits 0 Evaluation Information Evaluation Date 07/13/18 PT-OP-B Current Condition Start: 07/16/18 07:46 Freq: Status: Active Protocol: Document 07/13/18 15:15 RCC (Rec: 07/16/18 08:13 RCC [email or web address]) Current Condition History of Current Condition Onset Date 3+ yrs ago, worsening over past 1-2 months Current Complaints B knee pain History of Current Condition Pt is a 78 y/o male presenting to physical therapy with a c/ o bilateral knee pain, L>R. Pt notes that R knee has been bad for many years, but L knee pain increased in past 1- 2 months and pain in L has surpassed the R (took a prolonged road trip in the car to the [facility] and [facility]). Denies any trauma or PRANEETH. Radiographs showed bilateral moderately severe OA, no image to compare from the past on the L but the R is moderately worse since study in 2009. Pt is currently working with Dr. Wilson in pain management, had multiple injections in lumbar spine region due to acute nerve irritation/injury which he notes is improving. He is potentially getting injections in the bilateral knees soon, but MD wanted pt to start PT first. He notes he can walk 6- 8 blocks without pain, but does not do well with pain after prolonged sitting in the knees and his back. Pt would like to be able to walk a mile or more without pain. Treatment Goals Patient/Caregiver Goals improve walking tolerance, develop/establish HEP Prior Functional Status Baseline Function- Gait able to walk ~1 mile outdoors Current Functional Impairments (Reported) Functional Limitations- Mobility/Gait limited to ~6-8 blocks ambulation before increased pain Personal Factors Other Personal Factors That May Effect R ankle ORIF 1999, current Therapy/Recovery healing back injury- nerve involvement PT-OP-C Subjective Start: 07/16/18 07:46 Freq: Status: Active Protocol: Document 08/18/18 11:15 RCC (Rec: 08/18/18 12:03 RCC [email or web address]) OP-PT Subjective Patient Comments Patient Comments Pt states that he received an injection in the R knee yesterday by Dr. Wilson and his back has been somewhat less painful. His R knee is less painful as well. PT-OP-G Mobility & Gait Start: 07/16/18 07:46 Freq: Status: Active Protocol: Document 07/13/18 15:15 RCC (Rec: 07/16/18 08:13 RCC [email or web address]) OP Mobility Evaluation Functional Movements Squats UE support needed OP Gait Assessment Comments Gait Comments mildly antalgic with bilateral LE ER, L>R. PT-OP-H Neuro Start: 07/16/18 07:46 Freq: Status: Active Protocol: Document 07/13/18 15:15 RCC (Rec: 07/16/18 08:13 RCC [email or web address]) Sensation Evaluation Gross Sensation Gross Sensation WNL PT-OP-K Range of Motion Start: 07/16/18 07:46 Freq: Status: Active Protocol: Document 08/18/18 11:15 RCC (Rec: 08/18/18 12:03 RCC [email or web address]) Knee Goniometric Range of Motion Knee Measured in Degrees Left Patient Position Supine Flexion Active (degrees) 116 Extension Active (degrees) 0 PT-OP-L Special Tests Start: 07/16/18 07:46 Freq: Status: Active Protocol: Document 07/13/18 15:15 RCC (Rec: 07/16/18 08:13 RCC [email or web address]) Special Tests Knee Special Tests Liz's Test Results negative bilaterally Anterior Draw Test Results negative bilaterally Mable Test Test Results negative bilaterally Posterior Sag Test Results negative bilaterally Varus- 25 Degrees Test Results negative bilaterally Varus- 0 Degrees Test Results negative bilaterally Valgus- 25 Degrees Test Results negative bilaterally Valgus- 0 Degrees Test Results negative bilaterally PT-OP-M Strength Start: 07/16/18 07:46 Freq: Status: Active Protocol: Document 07/13/18 15:15 RCC (Rec: 07/16/18 08:13 RCC [email or web address]) Hip Strength Hip Manual Muscle Testing Right Flexion (L2) 5 Normal External Rotation 4 Good Internal Rotation 4 Good Left Flexion (L2) 5 Normal External Rotation 3+ Fair+ Internal Rotation 4 Good Knee Strength Knee Manual Muscle Testing Right Flexion (S2) 5 Normal Extension (L3) 5 Normal Left Flexion (S2) 4 Good Extension (L3) 5 Normal Ankle/Foot Strength Ankle and Foot Manual Muscle Testing Right Dorsiflexion (L4) 4+ Good+ Left Dorsiflexion (L4) 5 Normal PT-OP-Q Treatments Start: 07/16/18 07:46 Freq: Status: Active Protocol: Document 08/18/18 11:15 RCC (Rec: 08/18/18 12:03 RCC [email or web address]) Cardio Equipment Recumbent Stepper (Sci-Fit) Duration (Minutes) 10 Resistance 1 Gym Equipment Cable Column (Body Solid) Leg Extension Resistance 2 plates Reps/Time 10 reps Leg Curl Resistance 3 plates Reps/Time 25 reps Shuttle Recovery Unilateral Squats Resistance 37 lbs Shuttle Recovery Platform Stable Reps/Time to fatigue Bilateral Squats Resistance 62 lbs Shuttle Recovery Platform Stable Reps/Time to fatigue- 2 sets Therapeutic Exercises Supine Exercises heel slides Side left Reps/Minutes 1x10 Standing Exercises heel cord stretch Standing Exercise Name heel cord stretch Side bilateral Equipment Used STEVEN HS stretch Standing Exercise Name standing HS stretch Side bilateral Equipment Used stairs Manual Therapy Treatment Joint Mobilizations L tibiofemoral joint Direction AP Grade III Body Position Supine L patellofemoral Direction inferior, superior Grade III Body Position Supine PT-OP-R Modalities Start: 07/16/18 07:46 Freq: Status: Active Protocol: Document 08/18/18 11:15 RCC (Rec: 08/18/18 12:03 RCC [email or web address]) Electric Stimulation Electric Stimulation Interferential Current (IFC) Body Location bilateral knees (anterior) Duration (Minutes) 15 Intensity 40 Combined With Heat/Cold Cold Pack Comments extra layer cold pack PT-OP-T Assessment and Plan Start: 07/16/18 07:46 Freq: Status: Active Protocol: Document 08/18/18 11:15 RCC (Rec: 08/18/18 12:03 [facility] [email or web address]) Physical Therapy Assessment Assessment Summary Assessment Pt without c/o pain but does fatigue with LE strengthening, particularly the quadriceps musculature. Overall, pt with less antalgic gait, but limited L knee flexion and still demonstrating weakness with functional movements (sit <->stand). Physical Therapy Plan Frequency and Duration Frequency of Treatment 2x/Week Duration of Treatment 8 weeks Plan of Care Start Date 07/13/18 Plan of Care End Date 09/07/18 Next Visit Focus/Plan Next Note Type Treatment Note Next Visit Plan progress HEP for quad and HS strengthening, ROM
--- NOTE | 2018-08-23 11:15 | PT.OTN ---
Current Diagnoses Unilateral primary osteoarthritis, unspecified knee (08/23/18) Physical Therapy Treatment Note PT-OP-A Visit Information Start: 07/16/18 07:46 Freq: Status: Active Protocol: Document 08/23/18 11:15 RCC (Rec: 08/23/18 15:40 RCC [email or web address]) Out-Patient Physical Therapy Visit Information Visit Information Visit Type Treatment Note Visit Start Time 10:30 Visit Stop Time 11:15 Total Visit Minutes 45 Visit Number 8 Number of [employer]IE[employer]PARTMENT Visits 0 Evaluation Information Evaluation Date 07/13/18 PT-OP-B Current Condition Start: 07/16/18 07:46 Freq: Status: Active Protocol: Document 07/13/18 15:15 RCC (Rec: 07/16/18 08:13 RCC [email or web address]) Current Condition History of Current Condition Onset Date 3+ yrs ago, worsening over past 1-2 months Current Complaints B knee pain History of Current Condition Pt is a 78 y/o male presenting to physical therapy with a c/ o bilateral knee pain, L>R. Pt notes that R knee has been bad for many years, but L knee pain increased in past 1- 2 months and pain in L has surpassed the R (took a prolonged road trip in the car to the [facility] and [facility]). Denies any trauma or PRANEETH. Radiographs showed bilateral moderately severe OA, no image to compare from the past on the L but the R is moderately worse since study in 2009. Pt is currently working with Dr. Wilson in pain management, had multiple injections in lumbar spine region due to acute nerve irritation/injury which he notes is improving. He is potentially getting injections in the bilateral knees soon, but MD wanted pt to start PT first. He notes he can walk 6- 8 blocks without pain, but does not do well with pain after prolonged sitting in the knees and his back. Pt would like to be able to walk a mile or more without pain. Treatment Goals Patient/Caregiver Goals improve walking tolerance, develop/establish HEP Prior Functional Status Baseline Function- Gait able to walk ~1 mile outdoors Current Functional Impairments (Reported) Functional Limitations- Mobility/Gait limited to ~6-8 blocks ambulation before increased pain Personal Factors Other Personal Factors That May Effect R ankle ORIF 1999, current Therapy/Recovery healing back injury- nerve involvement PT-OP-C Subjective Start: 07/16/18 07:46 Freq: Status: Active Protocol: Document 08/23/18 11:15 RCC (Rec: 08/23/18 15:40 RCC [email or web address]) OP-PT Subjective Patient Comments Patient Comments Pt reports his back and knees both felt a lot better after previous session until yesterday, when back pain increased. He reports his knees are doing well s/p injections. PT-OP-G Mobility & Gait Start: 07/16/18 07:46 Freq: Status: Active Protocol: Document 07/13/18 15:15 RCC (Rec: 07/16/18 08:13 RCC [email or web address]) OP Mobility Evaluation Functional Movements Squats UE support needed OP Gait Assessment Comments Gait Comments mildly antalgic with bilateral LE ER, L>R. PT-OP-H Neuro Start: 07/16/18 07:46 Freq: Status: Active Protocol: Document 07/13/18 15:15 RCC (Rec: 07/16/18 08:13 RCC [email or web address]) Sensation Evaluation Gross Sensation Gross Sensation WNL PT-OP-K Range of Motion Start: 07/16/18 07:46 Freq: Status: Active Protocol: Document 08/18/18 11:15 RCC (Rec: 08/18/18 12:03 RCC [email or web address]) Knee Goniometric Range of Motion Knee Measured in Degrees Left Patient Position Supine Flexion Active (degrees) 116 Extension Active (degrees) 0 PT-OP-L Special Tests Start: 07/16/18 07:46 Freq: Status: Active Protocol: Document 07/13/18 15:15 RCC (Rec: 07/16/18 08:13 RCC [email or web address]) Special Tests Knee Special Tests Liz's Test Results negative bilaterally Anterior Draw Test Results negative bilaterally Mable Test Test Results negative bilaterally Posterior Sag Test Results negative bilaterally Varus- 25 Degrees Test Results negative bilaterally Varus- 0 Degrees Test Results negative bilaterally Valgus- 25 Degrees Test Results negative bilaterally Valgus- 0 Degrees Test Results negative bilaterally PT-OP-M Strength Start: 07/16/18 07:46 Freq: Status: Active Protocol: Document 07/13/18 15:15 RCC (Rec: 07/16/18 08:13 RCC [email or web address]) Hip Strength Hip Manual Muscle Testing Right Flexion (L2) 5 Normal External Rotation 4 Good Internal Rotation 4 Good Left Flexion (L2) 5 Normal External Rotation 3+ Fair+ Internal Rotation 4 Good Knee Strength Knee Manual Muscle Testing Right Flexion (S2) 5 Normal Extension (L3) 5 Normal Left Flexion (S2) 4 Good Extension (L3) 5 Normal Ankle/Foot Strength Ankle and Foot Manual Muscle Testing Right Dorsiflexion (L4) 4+ Good+ Left Dorsiflexion (L4) 5 Normal PT-OP-Q Treatments Start: 07/16/18 07:46 Freq: Status: Active Protocol: Document 08/23/18 11:15 RCC (Rec: 08/23/18 15:40 RCC [email or web address]) Cardio Equipment Recumbent Stepper (Sci-Fit) Duration (Minutes) 10 Resistance 1 Seat Position 13 Gym Equipment Shuttle Recovery Unilateral Squats Resistance 37 lbs Shuttle Recovery Platform Stable Reps/Time to fatigue Bilateral Squats Resistance 62 lbs Shuttle Recovery Platform Stable Reps/Time to fatigue Therapeutic Exercises Supine Exercises heel slides Side left Reps/Minutes 1x10 Standing Exercises heel cord stretch Standing Exercise Name heel cord stretch Side bilateral Equipment Used STEVEN HS stretch Standing Exercise Name standing HS stretch Side bilateral Equipment Used stairs Manual Therapy Treatment Joint Mobilizations L tibiofemoral joint Direction AP Grade III Body Position Supine L patellofemoral Direction inferior, superior Grade III Body Position Supine PT-OP-R Modalities Start: 07/16/18 07:46 Freq: Status: Active Protocol: Document 08/23/18 11:15 RCC (Rec: 08/23/18 15:40 RCC [email or web address]) Electric Stimulation Electric Stimulation Interferential Current (IFC) Body Location bilateral knees (anterior) Duration (Minutes) 15 Intensity 43 Combined With Heat/Cold Cold Pack Comments extra layer cold pack PT-OP-T Assessment and Plan Start: 07/16/18 07:46 Freq: Status: Active Protocol: Document 08/23/18 11:15 RCC (Rec: 08/23/18 15:40 [facility] [email or web address]) Physical Therapy Assessment Assessment Summary Assessment Pt continues to tolerate increased L knee ROM after manual therapy and exercise. Recommend pt obtain a home TENS unit for bilateral knee pain control, and discussed the benefits of cryotherapy. Physical Therapy Plan Frequency and Duration Frequency of Treatment 2x/Week Duration of Treatment 8 weeks Plan of Care Start Date 07/13/18 Plan of Care End Date 09/07/18 Next Visit Focus/Plan Next Note Type Treatment Note Next Visit Plan progress sit to stand training , assess gait.
--- NOTE | 2018-08-25 11:15 | PT.OTN ---
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 Pt notes that R knee has been bad for many years, but L knee pain increased in past 1- 2 months and pain in L has surpassed the R (took a prolonged road trip in the car to the [facility] and [facility]). Denies any trauma or PRANEETH. Radiographs showed bilateral moderately severe OA, no image to compare from the past on the L but the R is moderately worse since study in 2009. Pt is currently working with Dr. Wilson in pain management, had multiple injections in lumbar spine region due to acute nerve irritation/injury which he notes is improving. He is potentially getting injections in the bilateral knees soon, but MD wanted pt to start PT first. He notes he can walk 6- 8 blocks without pain, but does not do well with pain after prolonged sitting in the knees and his back. Pt would like to be able to walk a mile or more without pain. Treatment Goals Patient/Caregiver Goals improve walking tolerance, develop/establish HEP Prior Functional Status Baseline Function- Gait able to walk ~1 mile outdoors Current Functional Impairments (Reported) Functional Limitations- Mobility/Gait limited to ~6-8 blocks ambulation before increased pain Personal Factors Other Personal Factors That May Effect R ankle ORIF 1999, current Therapy/Recovery healing back injury- nerve involvement PT-OP-C Subjective Start: 07/16/18 07:46 Freq: Status: Active Protocol: Document 08/25/18 11:15 RCC (Rec: 08/25/18 13:46 RCC [email or web address]) OP-PT Subjective Patient Comments Patient Comments Pt has been walking more in town, but noticed increased medial knee pain (more posterior) yesterday. PT-OP-G Mobility & Gait Start: 07/16/18 07:46 Freq: Status: Active Protocol: Document 07/13/18 15:15 RCC (Rec: 07/16/18 08:13 RCC [email or web address]) OP Mobility Evaluation Functional Movements Squats UE support needed OP Gait Assessment Comments Gait Comments mildly antalgic with bilateral LE ER, L>R. PT-OP-H Neuro Start: 07/16/18 07:46 Freq: Status: Active Protocol: Document 07/13/18 15:15 RCC (Rec: 07/16/18 08:13 RCC [email or web address]) Sensation Evaluation Gross Sensation Gross Sensation WNL PT-OP-K Range of Motion Start: 07/16/18 07:46 Freq: Status: Active Protocol: Document 08/18/18 11:15 RCC (Rec: 08/18/18 12:03 RCC [email or web address]) Knee Goniometric Range of Motion Knee Measured in Degrees Left Patient Position Supine Flexion Active (degrees) 116 Extension Active (degrees) 0 PT-OP-L Special Tests Start: 07/16/18 07:46 Freq: Status: Active Protocol: Document 07/13/18 15:15 RCC (Rec: 07/16/18 08:13 RCC [email or web address]) Special Tests Knee Special Tests Liz's Test Results negative bilaterally Anterior Draw Test Results negative bilaterally Mable Test Test Results negative bilaterally Posterior Sag Test Results negative bilaterally Varus- 25 Degrees Test Results negative bilaterally Varus- 0 Degrees Test Results negative bilaterally Valgus- 25 Degrees Test Results negative bilaterally Valgus- 0 Degrees Test Results negative bilaterally PT-OP-M Strength Start: 07/16/18 07:46 Freq: Status: Active Protocol: Document 07/13/18 15:15 RCC (Rec: 07/16/18 08:13 RCC [email or web address]) Hip Strength Hip Manual Muscle Testing Right Flexion (L2) 5 Normal External Rotation 4 Good Internal Rotation 4 Good Left Flexion (L2) 5 Normal External Rotation 3+ Fair+ Internal Rotation 4 Good Knee Strength Knee Manual Muscle Testing Right Flexion (S2) 5 Normal Extension (L3) 5 Normal Left Flexion (S2) 4 Good Extension (L3) 5 Normal Ankle/Foot Strength Ankle and Foot Manual Muscle Testing Right Dorsiflexion (L4) 4+ Good+ Left Dorsiflexion (L4) 5 Normal PT-OP-Q Treatments Start: 07/16/18 07:46 Freq: Status: Active Protocol: Document 08/25/18 11:15 RCC (Rec: 08/25/18 13:46 [facility] [email or web address]) Cardio Equipment Recumbent Stepper (Sci-Fit) Duration (Minutes) 10 Resistance 2 Seat Position 13 Therapeutic Exercises Sidelying Exercises hip adduction Sidelying Exercise Name SLR hip adduction Side bilateral Reps/Minutes 10 each Standing Exercises 4 way hip Side bilateral Resistance L1 Reps/Minutes 10 each heel cord stretch Standing Exercise Name heel cord stretch Side bilateral Equipment Used STEVEN HS stretch Standing Exercise Name standing HS stretch Side bilateral Equipment Used stairs Manual Therapy Treatment Soft Tissue Mobilization L adductors and medial HS Mobilization Type Myofascial Release Rolling Sustained Pressure Intensity/Depth Moderate Body Position Supine Joint Mobilizations L tibiofemoral joint Direction AP Grade III Body Position Supine L patellofemoral Direction inferior, superior Grade III Body Position Supine PT-OP-R Modalities Start: 07/16/18 07:46 Freq: Status: Active Protocol: Document 08/25/18 11:15 RCC (Rec: 08/25/18 13:46 [facility] [email or web address]) Electric Stimulation Electric Stimulation Interferential Current (IFC) Body Location L knee Duration (Minutes) 15 Intensity 36 Combined With Heat/Cold Cold Pack Comments extra layer cold pack PT-OP-T Assessment and Plan Start: 07/16/18 07:46 Freq: Status: Active Protocol: Document 08/25/18 11:15 [facility] (Rec: 08/25/18 13:46 [facility] [email or web address]) Physical Therapy Assessment Assessment Summary Assessment Pt with tension noted in L medial HS and adductors today. He tolerated sidelying hip adduction activity but fatigued rapidly. Overall, pt is improving but progress is gradual due to multiple regions of pain. Physical Therapy Plan Frequency and Duration Frequency of Treatment 2x/Week Duration of Treatment 8 weeks Plan of Care Start Date 07/13/18 Plan of Care End Date 09/07/18 Next Visit Focus/Plan Next Note Type Progress Note Next Visit Plan reassess obj measures
--- NOTE | 2018-08-30 10:30 | PT.OTN ---
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 Pt notes that R knee has been bad for many years, but L knee pain increased in past 1- 2 months and pain in L has surpassed the R (took a prolonged road trip in the car to the [facility]). Denies any trauma or PRANEETH. Radiographs showed bilateral moderately severe OA, no image to compare from the past on the L but the R is moderately worse since study in 2009. Pt is currently working with Dr. Wilson in pain management, had multiple injections in lumbar spine region due to acute nerve irritation/injury which he notes is improving. He is potentially getting injections in the bilateral knees soon, but MD wanted pt to start PT first. He notes he can walk 6- 8 blocks without pain, but does not do well with pain after prolonged sitting in the knees and his back. Pt would like to be able to walk a mile or more without pain. Treatment Goals Patient/Caregiver Goals improve walking tolerance, develop/establish HEP Prior Functional Status Baseline Function- Gait able to walk ~1 mile outdoors Current Functional Impairments (Reported) Functional Limitations- Mobility/Gait limited to ~6-8 blocks ambulation before increased pain Personal Factors Other Personal Factors That May Effect R ankle ORIF 1999, current Therapy/Recovery healing back injury- nerve involvement PT-OP-C Subjective Start: 07/16/18 07:46 Freq: Status: Active Protocol: Document 08/30/18 10:30 RCC (Rec: 08/30/18 17:54 [facility] [email or web address]) OP-PT Subjective Patient Comments Patient Comments Pt still having occasional twinges of pain in the lateral L knee and medial R knee. He is walking 2 days a week outdoors for exercise, but admits mostly due to the weather of why he is not doing it more. Patient Reported Progress Improving Patient Questionnaires Lower Extremity Functional Scale LEFS Score 43 LEFS Impairment 40 to 59% Impaired (Score 32- 47) PT-OP-G Mobility & Gait Start: 07/16/18 07:46 Freq: Status: Active Protocol: Document 07/13/18 15:15 RCC (Rec: 07/16/18 08:13 [facility] [email or web address]) OP Mobility Evaluation Functional Movements Squats UE support needed OP Gait Assessment Comments Gait Comments mildly antalgic with bilateral LE ER, L>R. PT-OP-H Neuro Start: 07/16/18 07:46 Freq: Status: Active Protocol: Document 07/13/18 15:15 RCC (Rec: 07/16/18 08:13 RCC [email or web address]) Sensation Evaluation Gross Sensation Gross Sensation WNL PT-OP-K Range of Motion Start: 07/16/18 07:46 Freq: Status: Active Protocol: Document 08/30/18 10:30 RCC (Rec: 08/30/18 17:54 [facility] [email or web address]) Knee Goniometric Range of Motion Knee Measured in Degrees Left Patient Position Supine Flexion Active (degrees) 119 Flexion Passive (degrees) 125 Extension Active (degrees) 0 Knee ROM Limitations Knee ROM Limitations Soft Tissue Tightness Muscle Tone PT-OP-L Special Tests Start: 07/16/18 07:46 Freq: Status: Active Protocol: Document 07/13/18 15:15 RCC (Rec: 07/16/18 08:13 RCC [email or web address]) Special Tests Knee Special Tests Liz's Test Results negative bilaterally Anterior Draw Test Results negative bilaterally Mable Test Test Results negative bilaterally Posterior Sag Test Results negative bilaterally Varus- 25 Degrees Test Results negative bilaterally Varus- 0 Degrees Test Results negative bilaterally Valgus- 25 Degrees Test Results negative bilaterally Valgus- 0 Degrees Test Results negative bilaterally PT-OP-M Strength Start: 07/16/18 07:46 Freq: Status: Active Protocol: Document 08/30/18 10:30 [facility] (Rec: 08/30/18 17:54 [facility] [email or web address]) Hip Strength Hip Manual Muscle Testing Right Flexion (L2) 5 Normal External Rotation 4+ Good+ Internal Rotation 4+ Good+ Left Flexion (L2) 5 Normal External Rotation 4 Good Internal Rotation 4+ Good+ Knee Strength Knee Manual Muscle Testing Right Flexion (S2) 5 Normal Extension (L3) 5 Normal Left Flexion (S2) 4+ Good+ Extension (L3) 5 Normal PT-OP-Q Treatments Start: 07/16/18 07:46 Freq: Status: Active Protocol: Document 08/30/18 10:30 RCC (Rec: 08/30/18 17:54 [facility] [email or web address]) Cardio Equipment Recumbent Stepper (Sci-Fit) Duration (Minutes) 10 Resistance 2 Seat Position 13 Therapeutic Exercises Supine Exercises psoas and rectus femoris stretch Side bilateral Reps/Minutes 3 each Comments manual and self-assist with bed sheet around ankle; hanging LE off of table heel slides Side left Reps/Minutes 1x10 Standing Exercises heel cord stretch Standing Exercise Name heel cord stretch Side bilateral Equipment Used STEVEN HS stretch Standing Exercise Name standing HS stretch Side bilateral Equipment Used stairs Manual Therapy Treatment Joint Mobilizations L tibiofemoral joint Direction AP Grade III Body Position Supine Other Other Manual Treatments LLE MMT, L knee ROM PT-OP-R Modalities Start: 07/16/18 07:46 Freq: Status: Active Protocol: Document 08/30/18 10:30 RCC (Rec: 08/30/18 17:54 [facility] [email or web address]) Electric Stimulation Electric Stimulation Interferential Current (IFC) Body Location L knee Duration (Minutes) 15 Intensity 33 Combined With Heat/Cold Cold Pack Comments extra layer cold pack PT-OP-T Assessment and Plan Start: 07/16/18 07:46 Freq: Status: Active Protocol: Document 08/30/18 10:30 [facility] (Rec: 08/30/18 17:54 [facility] [email or web address]) Physical Therapy Assessment Goals Home Exercise program Impairment lacks bilateral knee/LE HEP Real Estate Broker Goal (LTG) Pt will be indep. with HEP without cuing prior to d/c. LTG Duration 6 weeks LE weakness Impairment LE weakness Real Estate Broker Goal (LTG) L knee flexion to 5/5 and bilateral hip IR and ER to at least 4+/5 with manual muscle testing prior to discharge. LTG Duration 6 weeks knee ROM Impairment impaired L knee ROM (flexion) Short Term Goal (STG) L knee ROM 0-125 degrees to assist with less dependence on UEs for sit<->stand from a chair. STG Duration 4 weeks walking tolerance Impairment only able to walk 6-8 blocks before onset pain bilateral knees Short Term Goal (STG) Pt will be able to walk for 15 minutes, 5 days per week without increased in bilateral knee pain. STG Duration 4 weeks Real Estate Broker Goal (LTG) Pt will bale to walk for 30 min, 5 days per week without increased in bilateral knee pain as part of a home walking program prior to d/c. LTG Duration 6 weeks Lower Extremity Functional Scale Impairment impaired function due to bilateral knee pain [facility] Goal (LTG) Lower Extremity Functional Scale score to at least 40/80 (50%) prior to discharge to demonstrate improvements in daily life and functional activities. LTG Duration Goal Met 08/30/18 Progress Towards Goals Progress Towards Goals Progressing Toward Goals Progress Comments LEFS improved to 43/80 compared to 31/80 on initial evaluation. LE strength improving Assessment Summary Assessment Overall, pt demonstrates improvements with LE strength of the hip and knee, as well as improved L knee AROM ( although still limited) and improved Lower Extremity Functional Scale score indicating improved function in relation to bilateral knee pain. Pt still not participating in his full home walking program, discussed the importance of progressing this as tolerated. Pt would continue to benefit from skilled physical therapy to progress his LE strength, L knee ROM, decrease pain and improve overall functional mobility including managing his walking program independently at home. Physical Therapy Plan Frequency and Duration Frequency of Treatment 2x/Week Duration of Treatment 6 weeks Plan of Care Start Date 08/30/18 Plan of Care End Date 10/11/18 Therapeutic Interventions Therapeutic Interventions Aquatic Therapy Gait Training Home Exercise Program Joint Mobilizations Manual Therapy Neuromuscular Re-education Patient/Caregiver Education Self-Care/Home Management Soft Tissue Mobilization Taping Therapeutic Activities Therapeutic Exercises Modalities Cold Pack/Ice Massage Electric Stimulation Hot Packs Ultrasound Next Visit Focus/Plan Next Note Type Treatment Note Next Visit Plan progress sit to stand training , assess gait.
--- NOTE | 2018-08-30 10:30 | PT.OPPOC ---
Current Diagnoses Unilateral primary osteoarthritis, unspecified knee (08/30/18) Provider Visit Care Team Role Provider Type Darin Pacheco MD Primary Care Provider Physician Specialty: Family Practice Address: [address] [place] [address], [id number] Email: [email or web address] Shahid Wilson DO Attending Provider Physician Specialty: Physiatry Pain Management Address: [address] [place] [address], [id number] Email: Plan Of Care PT-OP-T Assessment and Plan Start: 07/16/18 07:46 Freq: Status: Active Protocol: Document 08/30/18 10:30 RCC (Rec: 08/30/18 17:54 RCC [email or web address]) Physical Therapy Assessment Goals Home Exercise program Impairment lacks bilateral knee/LE HEP [facility] Goal (LTG) Pt will be indep. with HEP without cuing prior to d/c. LTG Duration 6 weeks LE weakness Impairment LE weakness Media Supervisor Goal (LTG) L knee flexion to 5/5 and bilateral hip IR and ER to at least 4+/5 with manual muscle testing prior to discharge. LTG Duration 6 weeks knee ROM Impairment impaired L knee ROM (flexion) Short Term Goal (STG) L knee ROM 0-125 degrees to assist with less dependence on UEs for sit<->stand from a chair. STG Duration 4 weeks walking tolerance Impairment only able to walk 6-8 blocks before onset pain bilateral knees Short Term Goal (STG) Pt will be able to walk for 15 minutes, 5 days per week without increased in bilateral knee pain. STG Duration 4 weeks Media Supervisor Goal (LTG) Pt will bale to walk for 30 min, 5 days per week without increased in bilateral knee pain as part of a home walking program prior to d/c. LTG Duration 6 weeks Lower Extremity Functional Scale Impairment impaired function due to bilateral knee pain Media Supervisor Goal (LTG) Lower Extremity Functional Scale score to at least 40/80 (50%) prior to discharge to demonstrate improvements in daily life and functional activities. LTG Duration Goal Met 08/30/18 Progress Towards Goals Progress Towards Goals Progressing Toward Goals Progress Comments LEFS improved to 43/80 compared to 31/80 on initial evaluation. LE strength improving Assessment Summary Assessment Overall, pt demonstrates improvements with LE strength of the hip and knee, as well as improved L knee AROM ( although still limited) and improved Lower Extremity Functional Scale score indicating improved function in relation to bilateral knee pain. Pt still not participating in his full home walking program, discussed the importance of progressing this as tolerated. Pt would continue to benefit from skilled physical therapy to progress his LE strength, L knee ROM, decrease pain and improve overall functional mobility including managing his walking program independently at home. Physical Therapy Plan Frequency and Duration Frequency of Treatment 2x/Week Duration of Treatment 6 weeks Plan of Care Start Date 08/30/18 Plan of Care End Date 10/11/18 Therapeutic Interventions Therapeutic Interventions Aquatic Therapy Gait Training Home Exercise Program Joint Mobilizations Manual Therapy Neuromuscular Re-education Patient/Caregiver Education Self-Care/Home Management Soft Tissue Mobilization Taping Therapeutic Activities Therapeutic Exercises Modalities Cold Pack/Ice Massage Electric Stimulation Hot Packs Ultrasound Next Visit Focus/Plan Next Note Type Treatment Note Next Visit Plan progress sit to stand training , assess gait. Plan of Care Dates Plan of Care Start Date 08/30/18 Plan of Care End Date 10/11/18 Please Sign and Return: I have reviewed this Plan of Care and certify that the skilled therapy services above are required to meet the patient?s needs. Physician Signature Date Printed Name and Credentials Clinical Instructor Signature Printed Name and Credentials
--- NOTE | 2018-09-06 09:45 | PT.OTN ---
Current Diagnoses Unilateral primary osteoarthritis, unspecified knee (09/06/18) Physical Therapy Treatment Note PT-OP-A Visit Information Start: 07/16/18 07:46 Freq: Status: Active Protocol: Document 09/06/18 09:45 RCC (Rec: 09/06/18 13:40 RCC [email or web address]) Out-Patient Physical Therapy Visit Information Visit Information Visit Type Treatment Note Visit Start Time 09:45 Visit Stop Time 10:27 Total Visit Minutes 42 Visit Number 11 Number of FEED MANAGER Visits 0 Evaluation Information Evaluation Date 07/13/18 PT-OP-B Current Condition Start: 07/16/18 07:46 Freq: Status: Active Protocol: Document 07/13/18 15:15 RCC (Rec: 07/16/18 08:13 RCC [email or web address]) Current Condition History of Current Condition Onset Date 3+ yrs ago, worsening over past 1-2 months Current Complaints B knee pain History of Current Condition Pt is a 78 y/o male presenting to physical therapy with a c/ o bilateral knee pain, L>R. Pt notes that R knee has been bad for many years, but L knee pain increased in past 1- 2 months and pain in L has surpassed the R (took a prolonged road trip in the car to the [facility] and [facility]). Denies any trauma or PRANEETH. Radiographs showed bilateral moderately severe OA, no image to compare from the past on the L but the R is moderately worse since study in 2009. Pt is currently working with Dr. Wilson in pain management, had multiple injections in lumbar spine region due to acute nerve irritation/injury which he notes is improving. He is potentially getting injections in the bilateral knees soon, but MD wanted pt to start PT first. He notes he can walk 6- 8 blocks without pain, but does not do well with pain after prolonged sitting in the knees and his back. Pt would like to be able to walk a mile or more without pain. Treatment Goals Patient/Caregiver Goals improve walking tolerance, develop/establish HEP Prior Functional Status Baseline Function- Gait able to walk ~1 mile outdoors Current Functional Impairments (Reported) Functional Limitations- Mobility/Gait limited to ~6-8 blocks ambulation before increased pain Personal Factors Other Personal Factors That May Effect R ankle ORIF 1999, current Therapy/Recovery healing back injury- nerve involvement PT-OP-C Subjective Start: 07/16/18 07:46 Freq: Status: Active Protocol: Document 09/06/18 09:45 RCC (Rec: 09/06/18 13:40 RCC [email or web address]) OP-PT Subjective Patient Comments Patient Comments Pt brought in his TENS unit from home, he is curious about the set up and how to use. PT-OP-G Mobility & Gait Start: 07/16/18 07:46 Freq: Status: Active Protocol: Document 07/13/18 15:15 RCC (Rec: 07/16/18 08:13 RCC [email or web address]) OP Mobility Evaluation Functional Movements Squats UE support needed OP Gait Assessment Comments Gait Comments mildly antalgic with bilateral LE ER, L>R. PT-OP-H Neuro Start: 07/16/18 07:46 Freq: Status: Active Protocol: Document 07/13/18 15:15 RCC (Rec: 07/16/18 08:13 RCC [email or web address]) Sensation Evaluation Gross Sensation Gross Sensation WNL PT-OP-K Range of Motion Start: 07/16/18 07:46 Freq: Status: Active Protocol: Document 08/30/18 10:30 RCC (Rec: 08/30/18 17:54 RCC [email or web address]) Knee Goniometric Range of Motion Knee Measured in Degrees Left Patient Position Supine Flexion Active (degrees) 119 Flexion Passive (degrees) 125 Extension Active (degrees) 0 Knee ROM Limitations Knee ROM Limitations Soft Tissue Tightness Muscle Tone PT-OP-L Special Tests Start: 07/16/18 07:46 Freq: Status: Active Protocol: Document 07/13/18 15:15 RCC (Rec: 07/16/18 08:13 RCC [email or web address]) Special Tests Knee Special Tests Liz's Test Results negative bilaterally Anterior Draw Test Results negative bilaterally Mable Test Test Results negative bilaterally Posterior Sag Test Results negative bilaterally Varus- 25 Degrees Test Results negative bilaterally Varus- 0 Degrees Test Results negative bilaterally Valgus- 25 Degrees Test Results negative bilaterally Valgus- 0 Degrees Test Results negative bilaterally PT-OP-M Strength Start: 07/16/18 07:46 Freq: Status: Active Protocol: Document 08/30/18 10:30 RCC (Rec: 08/30/18 17:54 RCC [email or web address]) Hip Strength Hip Manual Muscle Testing Right Flexion (L2) 5 Normal External Rotation 4+ Good+ Internal Rotation 4+ Good+ Left Flexion (L2) 5 Normal External Rotation 4 Good Internal Rotation 4+ Good+ Knee Strength Knee Manual Muscle Testing Right Flexion (S2) 5 Normal Extension (L3) 5 Normal Left Flexion (S2) 4+ Good+ Extension (L3) 5 Normal PT-OP-Q Treatments Start: 18 07:46 Freq: Status: Active Protocol: Document 09/06/18 09:45 RCC (Rec: 09/06/18 13:40 RCC [email or web address]) Cardio Equipment Recumbent Stepper (Sci-Fit) Duration (Minutes) 10 Resistance 2 Seat Position 13 Gym Equipment Shuttle Recovery Unilateral Squats Resistance 37 lbs Shuttle Recovery Platform Stable Reps/Time to fatigue Bilateral Squats Resistance 62 lbs Shuttle Recovery Platform Stable Reps/Time to fatigue Therapeutic Exercises Supine Exercises SLR-flexion Supine Exercise Name hip flexion SLR- neutral Side bilateral Reps/Minutes 1x15 Standing Exercises step ups Standing Exercise Name BOSU (blue) step ups fwd Side bilateral Reps/Minutes 10 each heel cord stretch Standing Exercise Name heel cord stretch Side bilateral Equipment Used STEVEN HS stretch Standing Exercise Name standing HS stretch Side bilateral Equipment Used stairs Therapeutic Activity Therapeutic Activity TENS unit education/training Name TENS unit education and training Reps/Minutes 15 min Comments handout written and discussed/ demonstrate settings, placement of pads, and situations of how/when to use. PT-OP-R Modalities Start: 07/16/18 07:46 Freq: Status: Active Protocol: Document 08/30/18 10:30 RCC (Rec: 08/30/18 17:54 RCC [email or web address]) Electric Stimulation Electric Stimulation Interferential Current (IFC) Body Location L knee Duration (Minutes) 15 Intensity 33 Combined With Heat/Cold Cold Pack Comments extra layer cold pack PT-OP-T Assessment and Plan Start: 07/16/18 07:46 Freq: Status: Active Protocol: Document 09/06/18 09:45 RCC (Rec: 09/06/18 13:40 RCC [email or web address]) Physical Therapy Assessment Assessment Summary Assessment Pt educated significantly on home TENS unit use and proper placement of electrodes and safety. Pt with good understanding of how to set up and use appropriately. Pt with increased SLR hip flexion tolerance, and without c/o pain in bilateral knees today. Pt still fatigues rapidly with Shuttle Recovery leg press. Physical Therapy Plan Frequency and Duration Frequency of Treatment 2x/Week Duration of Treatment 6 weeks Plan of Care Start Date 08/30/18 Plan of Care End Date 10/11/18 Next Visit Focus/Plan Next Note Type Treatment Note Next Visit Plan gait and sit to stand training , continue to progress LE strengthening
--- NOTE | 2018-09-08 15:15 | PT.OTN ---
Current Diagnoses Unilateral primary osteoarthritis, unspecified knee (09/08/18) Physical Therapy Treatment Note PT-OP-A Visit Information Start: 07/16/18 07:46 Freq: Status: Active Protocol: Document 09/08/18 15:15 RCC (Rec: 09/08/18 16:03 RCC [email or web address]) Out-Patient Physical Therapy Visit Information Visit Information Visit Type Treatment Note Visit Start Time 15:15 Visit Stop Time 15:47 Total Visit Minutes 42 Visit Number 12 Number of SPRAY OPERATOR Visits 0 PT-OP-B Current Condition Start: 07/16/18 07:46 Freq: Status: Active Protocol: Document 07/13/18 15:15 RCC (Rec: 07/16/18 08:13 RCC [email or web address]) Current Condition History of Current Condition Onset Date 3+ yrs ago, worsening over past 1-2 months Current Complaints B knee pain History of Current Condition Pt is a 78 y/o male presenting to physical therapy with a c/ o bilateral knee pain, L>R. Pt notes that R knee has been bad for many years, but L knee pain increased in past 1- 2 months and pain in L has surpassed the R (took a prolonged road trip in the car to the [facility] and [facility]). Denies any trauma or PRANEETH. Radiographs showed bilateral moderately severe OA, no image to compare from the past on the L but the R is moderately worse since study in 2009. Pt is currently working with Dr. Wilson in pain management, had multiple injections in lumbar spine region due to acute nerve irritation/injury which he notes is improving. He is potentially getting injections in the bilateral knees soon, but MD wanted pt to start PT first. He notes he can walk 6- 8 blocks without pain, but does not do well with pain after prolonged sitting in the knees and his back. Pt would like to be able to walk a mile or more without pain. Treatment Goals Patient/Caregiver Goals improve walking tolerance, develop/establish HEP Prior Functional Status Baseline Function- Gait able to walk ~1 mile outdoors Current Functional Impairments (Reported) Functional Limitations- Mobility/Gait limited to ~6-8 blocks ambulation before increased pain Personal Factors Other Personal Factors That May Effect R ankle ORIF 1999, current Therapy/Recovery healing back injury- nerve involvement PT-OP-C Subjective Start: 07/16/18 07:46 Freq: Status: Active Protocol: Document 09/08/18 15:15 RCC (Rec: 09/08/18 16:03 RCC [email or web address]) OP-PT Subjective Patient Comments Patient Comments Pt states his R knee pain is worsened by prolonged sitting, mainly in the medial knee. PT-OP-G Mobility & Gait Start: 07/16/18 07:46 Freq: Status: Active Protocol: Document 07/13/18 15:15 RCC (Rec: 07/16/18 08:13 RCC [email or web address]) OP Mobility Evaluation Functional Movements Squats UE support needed OP Gait Assessment Comments Gait Comments mildly antalgic with bilateral LE ER, L>R. PT-OP-H Neuro Start: 07/16/18 07:46 Freq: Status: Active Protocol: Document 07/13/18 15:15 RCC (Rec: 07/16/18 08:13 RCC [email or web address]) Sensation Evaluation Gross Sensation Gross Sensation WNL PT-OP-K Range of Motion Start: 07/16/18 07:46 Freq: Status: Active Protocol: Document 08/30/18 10:30 RCC (Rec: 08/30/18 17:54 RCC [email or web address]) Knee Goniometric Range of Motion Knee Measured in Degrees Left Patient Position Supine Flexion Active (degrees) 119 Flexion Passive (degrees) 125 Extension Active (degrees) 0 Knee ROM Limitations Knee ROM Limitations Soft Tissue Tightness Muscle Tone PT-OP-L Special Tests Start: 07/16/18 07:46 Freq: Status: Active Protocol: Document 07/13/18 15:15 RCC (Rec: 07/16/18 08:13 RCC [email or web address]) Special Tests Knee Special Tests Liz's Test Results negative bilaterally Anterior Draw Test Results negative bilaterally Mable Test Test Results negative bilaterally Posterior Sag Test Results negative bilaterally Varus- 25 Degrees Test Results negative bilaterally Varus- 0 Degrees Test Results negative bilaterally Valgus- 25 Degrees Test Results negative bilaterally Valgus- 0 Degrees Test Results negative bilaterally PT-OP-M Strength Start: 07/16/18 07:46 Freq: Status: Active Protocol: Document 08/30/18 10:30 RCC (Rec: 08/30/18 17:54 RCC [email or web address]) Hip Strength Hip Manual Muscle Testing Right Flexion (L2) 5 Normal External Rotation 4+ Good+ Internal Rotation 4+ Good+ Left Flexion (L2) 5 Normal External Rotation 4 Good Internal Rotation 4+ Good+ Knee Strength Knee Manual Muscle Testing Right Flexion (S2) 5 Normal Extension (L3) 5 Normal Left Flexion (S2) 4+ Good+ Extension (L3) 5 Normal PT-OP-Q Treatments Start: 07/16/18 07:46 Freq: Status: Active Protocol: Document 09/08/18 15:15 RCC (Rec: 09/08/18 16:03 RCC [email or web address]) Cardio Equipment Recumbent Stepper (Sci-Fit) Duration (Minutes) 10 Resistance 2 Seat Position 14 Gym Equipment Cable Column (Body Solid) Leg Extension Resistance 2 plates B, 1 plate U Reps/Time 10 reps Leg Curl Resistance 3 plates Reps/Time 25 reps Shuttle Recovery Unilateral Squats Resistance 37 lbs Shuttle Recovery Platform Stable Reps/Time to fatigue Bilateral Squats Resistance 62 lbs Shuttle Recovery Platform Stable Reps/Time to fatigue Therapeutic Exercises Supine Exercises psoas and rectus femoris stretch Side left Reps/Minutes 3 each Comments manual and self-assist with bed sheet around ankle; hanging LE off of table heel slides Side left Reps/Minutes 1x10 Standing Exercises heel cord stretch Standing Exercise Name heel cord stretch Side bilateral Equipment Used STEVEN HS stretch Standing Exercise Name standing HS stretch Side bilateral Equipment Used stairs PT-OP-R Modalities Start: 07/16/18 07:46 Freq: Status: Active Protocol: Document 08/30/18 10:30 RCC (Rec: 08/30/18 17:54 RCC [email or web address]) Electric Stimulation Electric Stimulation Interferential Current (IFC) Body Location L knee Duration (Minutes) 15 Intensity 33 Combined With Heat/Cold Cold Pack Comments extra layer cold pack PT-OP-T Assessment and Plan Start: 07/16/18 07:46 Freq: Status: Active Protocol: Document 09/08/18 15:15 RCC (Rec: 09/08/18 16:03 [facility] [email or web address]) Physical Therapy Assessment Assessment Summary Assessment Pt with mild low back pain with psoas stretch, but lessened with cuing for flat back on the table. Pt tolerated unilateral leg extension without knee pain bilaterally. Physical Therapy Plan Frequency and Duration Frequency of Treatment 2x/Week Duration of Treatment 6 weeks Plan of Care Start Date 08/30/18 Plan of Care End Date 10/11/18 Next Visit Focus/Plan Next Note Type Treatment Note Next Visit Plan review and progress HEP as tolerated.
--- NOTE | 2018-09-13 09:45 | PT.OTN ---
Current Diagnoses Unilateral primary osteoarthritis, unspecified knee (09/13/18) Physical Therapy Treatment Note PT-OP-A Visit Information Start: 07/16/18 07:46 Freq: Status: Active Protocol: Document 09/13/18 09:45 RCC (Rec: 09/13/18 18:08 RCC [email or web address]) Out-Patient Physical Therapy Visit Information Visit Information Visit Type Treatment Note Visit Start Time 09:45 Visit Stop Time 10:25 Total Visit Minutes 40 Visit Number 13 Number of EXERCISE EQUIPMENT SPECIALIST Visits 0 Evaluation Information Evaluation Date 07/13/18 PT-OP-B Current Condition Start: 07/16/18 07:46 Freq: Status: Active Protocol: Document 07/13/18 15:15 RCC (Rec: 07/16/18 08:13 RCC [email or web address]) Current Condition History of Current Condition Onset Date 3+ yrs ago, worsening over past 1-2 months Current Complaints B knee pain History of Current Condition Pt is a 78 y/o male presenting to physical therapy with a c/ o bilateral knee pain, L>R. Pt notes that R knee has been bad for many years, but L knee pain increased in past 1- 2 months and pain in L has surpassed the R (took a prolonged road trip in the car to the [facility]). Denies any trauma or PRANEETH. Radiographs showed bilateral moderately severe OA, no image to compare from the past on the L but the R is moderately worse since study in 2009. Pt is currently working with Dr. Wilson in pain management, had multiple injections in lumbar spine region due to acute nerve irritation/injury which he notes is improving. He is potentially getting injections in the bilateral knees soon, but MD wanted pt to start PT first. He notes he can walk 6- 8 blocks without pain, but does not do well with pain after prolonged sitting in the knees and his back. Pt would like to be able to walk a mile or more without pain. Treatment Goals Patient/Caregiver Goals improve walking tolerance, develop/establish HEP Prior Functional Status Baseline Function- Gait able to walk ~1 mile outdoors Current Functional Impairments (Reported) Functional Limitations- Mobility/Gait limited to ~6-8 blocks ambulation before increased pain Personal Factors Other Personal Factors That May Effect R ankle ORIF 1999, current Therapy/Recovery healing back injury- nerve involvement PT-OP-C Subjective Start: 07/16/18 07:46 Freq: Status: Active Protocol: Document 09/13/18 09:45 RCC (Rec: 09/13/18 18:08 RCC [email or web address]) OP-PT Subjective Patient Comments Patient Comments Pt still with R medial knee pain, lower back is occasionally flaring up but is walking more. [facility] on how to use their gym equiptment. PT-OP-G Mobility & Gait Start: 07/16/18 07:46 Freq: Status: Active Protocol: Document 07/13/18 15:15 RCC (Rec: 07/16/18 08:13 RCC [email or web address]) OP Mobility Evaluation Functional Movements Squats UE support needed OP Gait Assessment Comments Gait Comments mildly antalgic with bilateral LE ER, L>R. PT-OP-H Neuro Start: 07/16/18 07:46 Freq: Status: Active Protocol: Document 07/13/18 15:15 RCC (Rec: 07/16/18 08:13 RCC [email or web address]) Sensation Evaluation Gross Sensation Gross Sensation WNL PT-OP-K Range of Motion Start: 07/16/18 07:46 Freq: Status: Active Protocol: Document 08/30/18 10:30 RCC (Rec: 08/30/18 17:54 RCC [email or web address]) Knee Goniometric Range of Motion Knee Measured in Degrees Left Patient Position Supine Flexion Active (degrees) 119 Flexion Passive (degrees) 125 Extension Active (degrees) 0 Knee ROM Limitations Knee ROM Limitations Soft Tissue Tightness Muscle Tone PT-OP-L Special Tests Start: 07/16/18 07:46 Freq: Status: Active Protocol: Document 07/13/18 15:15 RCC (Rec: 07/16/18 08:13 RCC [email or web address]) Special Tests Knee Special Tests Liz's Test Results negative bilaterally Anterior Draw Test Results negative bilaterally Mable Test Test Results negative bilaterally Posterior Sag Test Results negative bilaterally Varus- 25 Degrees Test Results negative bilaterally Varus- 0 Degrees Test Results negative bilaterally Valgus- 25 Degrees Test Results negative bilaterally Valgus- 0 Degrees Test Results negative bilaterally PT-OP-M Strength Start: 07/16/18 07:46 Freq: Status: Active Protocol: Document 08/30/18 10:30 RCC (Rec: 08/30/18 17:54 RCC [email or web address]) Hip Strength Hip Manual Muscle Testing Right Flexion (L2) 5 Normal External Rotation 4+ Good+ Internal Rotation 4+ Good+ Left Flexion (L2) 5 Normal External Rotation 4 Good Internal Rotation 4+ Good+ Knee Strength Knee Manual Muscle Testing Right Flexion (S2) 5 Normal Extension (L3) 5 Normal Left Flexion (S2) 4+ Good+ Extension (L3) 5 Normal PT-OP-Q Treatments Start: 07/16/18 07:46 Freq: Status: Active Protocol: Document 09/13/18 09:45 RCC (Rec: 09/13/18 18:08 RCC [email or web address]) Cardio Equipment Recumbent Stepper (Sci-Fit) Duration (Minutes) 10 Resistance 2 Seat Position 14 Gym Equipment Cable Column (Body Solid) Leg Extension Resistance 2 plates B, 1 plate U Reps/Time 10 reps Leg Curl Resistance 3 plates Reps/Time 2x15 reps Shuttle Recovery Unilateral Squats Resistance 37 lbs Shuttle Recovery Platform Stable Reps/Time to fatigue Bilateral Squats Resistance 62 lbs Shuttle Recovery Platform Stable Reps/Time to fatigue Therapeutic Exercises Supine Exercises heel slides Side left Reps/Minutes 1x10 SLR-flexion Supine Exercise Name hip flexion SLR- neutral and ER Side bilateral Reps/Minutes 1x10 each Standing Exercises heel cord stretch Standing Exercise Name heel cord stretch Side bilateral Equipment Used STEVEN HS stretch Standing Exercise Name standing HS stretch Side bilateral Equipment Used stairs Manual Therapy Treatment Soft Tissue Mobilization L adductors and medial HS Mobilization Type Myofascial Release Rolling Sustained Pressure Intensity/Depth Moderate Body Position Supine Joint Mobilizations L tibiofemoral joint Direction AP Grade III Body Position Supine PT-OP-R Modalities Start: 07/16/18 07:46 Freq: Status: Active Protocol: Document 08/30/18 10:30 RCC (Rec: 08/30/18 17:54 RCC [email or web address]) Electric Stimulation Electric Stimulation Interferential Current (IFC) Body Location L knee Duration (Minutes) 15 Intensity 33 Combined With Heat/Cold Cold Pack Comments extra layer cold pack PT-OP-T Assessment and Plan Start: 07/16/18 07:46 Freq: Status: Active Protocol: Document 09/13/18 09:45 RCC (Rec: 09/13/18 18:08 [facility] [email or web address]) Physical Therapy Assessment Assessment Summary Assessment Pt still with medial R knee pain, but no c/o pain during exercise. Plan to d/c pt soon after review of HEP and instructions on safety with use of gym equipment. Recommend he continues to be followed by pain management closely due to ongoing knee and back pain. Physical Therapy Plan Frequency and Duration Frequency of Treatment 2x/Week Duration of Treatment 6 weeks Plan of Care Start Date 08/30/18 Plan of Care End Date 10/11/18 Next Visit Focus/Plan Next Note Type Treatment Note Next Visit Plan review HEP and safety of gym equipment. Discharge in next 1 -2 weeks.
--- NOTE | 2018-09-15 11:15 | PT.OTN ---
Current Diagnoses Unilateral primary osteoarthritis, unspecified knee (09/15/18) Physical Therapy Treatment Note PT-OP-A Visit Information Start: 07/16/18 07:46 Freq: Status: Active Protocol: Document 09/15/18 11:15 RCC (Rec: 09/15/18 13:25 RCC [email or web address]) Out-Patient Physical Therapy Visit Information Visit Information Visit Type Treatment Note Visit Start Time 11:15 Visit Stop Time 12:00 Total Visit Minutes 45 Visit Number 14 Number of DATA CENTER MANAGER Visits 0 Evaluation Information Evaluation Date 07/13/18 PT-OP-B Current Condition Start: 07/16/18 07:46 Freq: Status: Active Protocol: Document 07/13/18 15:15 RCC (Rec: 07/16/18 08:13 RCC [email or web address]) Current Condition History of Current Condition Onset Date 3+ yrs ago, worsening over past 1-2 months Current Complaints B knee pain History of Current Condition Pt is a 78 y/o male presenting to physical therapy with a c/ o bilateral knee pain, L>R. Pt notes that R knee has been bad for many years, but L knee pain increased in past 1- 2 months and pain in L has surpassed the R (took a prolonged road trip in the car to the [facility] and [facility]). Denies any trauma or PRANEETH. Radiographs showed bilateral moderately severe OA, no image to compare from the past on the L but the R is moderately worse since study in 2009. Pt is currently working with Dr. Wilson in pain management, had multiple injections in lumbar spine region due to acute nerve irritation/injury which he notes is improving. He is potentially getting injections in the bilateral knees soon, but MD wanted pt to start PT first. He notes he can walk 6- 8 blocks without pain, but does not do well with pain after prolonged sitting in the knees and his back. Pt would like to be able to walk a mile or more without pain. Treatment Goals Patient/Caregiver Goals improve walking tolerance, develop/establish HEP Prior Functional Status Baseline Function- Gait able to walk ~1 mile outdoors Current Functional Impairments (Reported) Functional Limitations- Mobility/Gait limited to ~6-8 blocks ambulation before increased pain Personal Factors Other Personal Factors That May Effect R ankle ORIF 1999, current Therapy/Recovery healing back injury- nerve involvement PT-OP-C Subjective Start: 07/16/18 07:46 Freq: Status: Active Protocol: Document 09/15/18 11:15 RCC (Rec: 09/15/18 13:25 RCC [email or web address]) OP-PT Subjective Patient Comments Patient Comments Pt states the knees are doing quite well today. He would like to review his HEP. PT-OP-G Mobility & Gait Start: 07/16/18 07:46 Freq: Status: Active Protocol: Document 07/13/18 15:15 RCC (Rec: 07/16/18 08:13 RCC [email or web address]) OP Mobility Evaluation Functional Movements Squats UE support needed OP Gait Assessment Comments Gait Comments mildly antalgic with bilateral LE ER, L>R. PT-OP-H Neuro Start: 07/16/18 07:46 Freq: Status: Active Protocol: Document 07/13/18 15:15 RCC (Rec: 07/16/18 08:13 RCC [email or web address]) Sensation Evaluation Gross Sensation Gross Sensation WNL PT-OP-K Range of Motion Start: 07/16/18 07:46 Freq: Status: Active Protocol: Document 08/30/18 10:30 RCC (Rec: 08/30/18 17:54 RCC [email or web address]) Knee Goniometric Range of Motion Knee Measured in Degrees Left Patient Position Supine Flexion Active (degrees) 119 Flexion Passive (degrees) 125 Extension Active (degrees) 0 Knee ROM Limitations Knee ROM Limitations Soft Tissue Tightness Muscle Tone PT-OP-L Special Tests Start: 07/16/18 07:46 Freq: Status: Active Protocol: Document 07/13/18 15:15 RCC (Rec: 07/16/18 08:13 RCC [email or web address]) Special Tests Knee Special Tests Liz's Test Results negative bilaterally Anterior Draw Test Results negative bilaterally Mable Test Test Results negative bilaterally Posterior Sag Test Results negative bilaterally Varus- 25 Degrees Test Results negative bilaterally Varus- 0 Degrees Test Results negative bilaterally Valgus- 25 Degrees Test Results negative bilaterally Valgus- 0 Degrees Test Results negative bilaterally PT-OP-M Strength Start: 07/16/18 07:46 Freq: Status: Active Protocol: Document 08/30/18 10:30 RCC (Rec: 08/30/18 17:54 RCC [email or web address]) Hip Strength Hip Manual Muscle Testing Right Flexion (L2) 5 Normal External Rotation 4+ Good+ Internal Rotation 4+ Good+ Left Flexion (L2) 5 Normal External Rotation 4 Good Internal Rotation 4+ Good+ Knee Strength Knee Manual Muscle Testing Right Flexion (S2) 5 Normal Extension (L3) 5 Normal Left Flexion (S2) 4+ Good+ Extension (L3) 5 Normal PT-OP-Q Treatments Start: 07/16/18 07:46 Freq: Status: Active Protocol: Document 09/15/18 11:15 RCC (Rec: 09/15/18 13:25 RCC [email or web address]) Cardio Equipment Recumbent Stepper (Sci-Fit) Duration (Minutes) 10 Resistance 2 Seat Position 14 Therapeutic Exercises Supine Exercises SKC Side right Reps/Minutes x30 sec hold LTR Side bilateral Reps/Minutes 5 each side SLR-flexion Supine Exercise Name hip flexion SLR- neutral and ER Side bilateral Reps/Minutes 1x10 each Sidelying Exercises clamshells Side bilateral Resistance L2 Reps/Minutes 1x10 Standing Exercises heel cord stretch Standing Exercise Name heel cord stretch Side bilateral Equipment Used stairs HS stretch Standing Exercise Name standing HS stretch Side bilateral Equipment Used stairs Self-Care/Home Management Treatment Education Patient Education Body Mechanics Home Exercise Program Posture Safety Other Education handout for HEP, discussed body mechanics, posture, and frequency/reps of exercises; plan for low back pain management and knee pain management and appropriate exercises for each. PT-OP-R Modalities Start: 07/16/18 07:46 Freq: Status: Active Protocol: Document 08/30/18 10:30 RCC (Rec: 08/30/18 17:54 RCC [email or web address]) Electric Stimulation Electric Stimulation Interferential Current (IFC) Body Location L knee Duration (Minutes) 15 Intensity 33 Combined With Heat/Cold Cold Pack Comments extra layer cold pack PT-OP-T Assessment and Plan Start: 07/16/18 07:46 Freq: Status: Active Protocol: Document 09/15/18 11:15 RCC (Rec: 09/15/18 13:25 RCC [email or web address]) Physical Therapy Assessment Assessment Summary Assessment Pt with good understanding of HEP with new handout and able to perform safely. Pt's knee pain appears to be decreasing but still with pain with prolonged positioning. Physical Therapy Plan Frequency and Duration Frequency of Treatment 2x/Week Duration of Treatment 6 weeks Plan of Care Start Date 08/30/18 Plan of Care End Date 10/11/18 Next Visit Focus/Plan Next Note Type Treatment Note Next Visit Plan body mechanics, core stability .
--- NOTE | 2018-10-11 16:35 | PT.OTN ---
Current Diagnoses Unilateral primary osteoarthritis, unspecified knee (10/11/18) Physical Therapy Treatment Note PT-OP-A Visit Information Start: 07/16/18 07:46 Freq: Status: Active Protocol: Document 10/11/18 16:35 RCC (Rec: 10/11/18 17:36 RCC [email or web address]) Out-Patient Physical Therapy Visit Information Visit Information Visit Type Treatment Note Visit Start Time 16:35 Visit Stop Time 17:15 Total Visit Minutes 40 Visit Number 15 Number of PALS NURSE Visits 0 Evaluation Information Evaluation Date 07/13/18 PT-OP-B Current Condition Start: 07/16/18 07:46 Freq: Status: Active Protocol: Document 07/13/18 15:15 RCC (Rec: 07/16/18 08:13 RCC [email or web address]) Current Condition History of Current Condition Onset Date 3+ yrs ago, worsening over past 1-2 months Current Complaints B knee pain History of Current Condition Pt is a 78 y/o male presenting to physical therapy with a c/ o bilateral knee pain, L>R. Pt notes that R knee has been bad for many years, but L knee pain increased in past 1- 2 months and pain in L has surpassed the R (took a prolonged road trip in the car to the [facility] care). Denies any trauma or PRANEETH. Radiographs showed bilateral moderately severe OA, no image to compare from the past on the L but the R is moderately worse since study in 2009. Pt is currently working with Dr. Wilson in pain management, had multiple injections in lumbar spine region due to acute nerve irritation/injury which he notes is improving. He is potentially getting injections in the bilateral knees soon, but MD wanted pt to start PT first. He notes he can walk 6- 8 blocks without pain, but does not do well with pain after prolonged sitting in the knees and his back. Pt would like to be able to walk a mile or more without pain. Treatment Goals Patient/Caregiver Goals improve walking tolerance, develop/establish HEP Prior Functional Status Baseline Function- Gait able to walk ~1 mile outdoors Current Functional Impairments (Reported) Functional Limitations- Mobility/Gait limited to ~6-8 blocks ambulation before increased pain Personal Factors Other Personal Factors That May Effect R ankle ORIF 1999, current Therapy/Recovery healing back injury- nerve involvement PT-OP-C Subjective Start: 07/16/18 07:46 Freq: Status: Active Protocol: Document 10/11/18 16:35 RCC (Rec: 10/11/18 17:36 RCC [email or web address]) OP-PT Subjective Patient Comments Patient Comments Pt notes his back pain is about 1/10 today since injection on 10/04/18. His bilateral knee pain is around 1/10 also, some twinges with turning/rotating with his foot fixed on ground. OP-PT Pain Assessment Location bilateral knees Intensity 1 Scale Used Numeric (1 - 10) PT-OP-G Mobility & Gait Start: 07/16/18 07:46 Freq: Status: Active Protocol: Document 07/13/18 15:15 RCC (Rec: 07/16/18 08:13 RCC [email or web address]) OP Mobility Evaluation Functional Movements Squats UE support needed OP Gait Assessment Comments Gait Comments mildly antalgic with bilateral LE ER, L>R. PT-OP-H Neuro Start: 07/16/18 07:46 Freq: Status: Active Protocol: Document 07/13/18 15:15 RCC (Rec: 07/16/18 08:13 RCC [email or web address]) Sensation Evaluation Gross Sensation Gross Sensation WNL PT-OP-K Range of Motion Start: 07/16/18 07:46 Freq: Status: Active Protocol: Document 10/11/18 16:35 RCC (Rec: 10/11/18 17:36 RCC [email or web address]) Knee Goniometric Range of Motion Knee Measured in Degrees Left Patient Position Supine Flexion Active (degrees) 122 Flexion Passive (degrees) 126 Extension Active (degrees) 0 PT-OP-L Special Tests Start: 07/16/18 07:46 Freq: Status: Active Protocol: Document 07/13/18 15:15 RCC (Rec: 07/16/18 08:13 RCC [email or web address]) Special Tests Knee Special Tests Liz's Test Results negative bilaterally Anterior Draw Test Results negative bilaterally Mable Test Test Results negative bilaterally Posterior Sag Test Results negative bilaterally Varus- 25 Degrees Test Results negative bilaterally Varus- 0 Degrees Test Results negative bilaterally Valgus- 25 Degrees Test Results negative bilaterally Valgus- 0 Degrees Test Results negative bilaterally PT-OP-M Strength Start: 07/16/18 07:46 Freq: Status: Active Protocol: Document 10/11/18 16:35 RCC (Rec: 10/11/18 17:36 RCC [email or web address]) Hip Strength Hip Manual Muscle Testing Right Flexion (L2) 5 Normal External Rotation 5 Normal Internal Rotation 5 Normal Left Flexion (L2) 5 Normal External Rotation 5 Normal Internal Rotation 4+ Good+ Knee Strength Knee Manual Muscle Testing Right Flexion (S2) 5 Normal Extension (L3) 5 Normal Left Flexion (S2) 4+ Good+ Extension (L3) 5 Normal PT-OP-Q Treatments Start: 07/16/18 07:46 Freq: Status: Active Protocol: Document 10/11/18 16:35 RCC (Rec: 10/11/18 17:36 RCC [email or web address]) Therapeutic Exercises Supine Exercises PPT Supine Exercise Name posterior pelvic tilting Side bilateral Reps/Minutes x10 heel slides Side left Reps/Minutes 1x10 Comments with towel for over-pressure ( self) Standing Exercises PPT Standing Exercise Name posterior pelvic tilt with standing posture Side bilateral Reps/Minutes 5 min Comments VC, demonstration and tactile cuing Therapeutic Activity Therapeutic Activity standing posture, review of HEP Name discussed importance of posture with standing, review of HEP Reps/Minutes 17 min total Manual Therapy Treatment Other Other Manual Treatments LLE MMT, L knee ROM PT-OP-R Modalities Start: 07/16/18 07:46 Freq: Status: Active Protocol: Document 08/30/18 10:30 RCC (Rec: 08/30/18 17:54 RCC [email or web address]) Electric Stimulation Electric Stimulation Interferential Current (IFC) Body Location L knee Duration (Minutes) 15 Intensity 33 Combined With Heat/Cold Cold Pack Comments extra layer cold pack PT-OP-T Assessment and Plan Start: 07/16/18 07:46 Freq: Status: Active Protocol: Document 10/11/18 16:35 RCC (Rec: 10/11/18 17:36 [facility] [email or web address]) Physical Therapy Assessment Goals Home Exercise program Impairment lacks bilateral knee/LE HEP Senior Military Analyst Goal (LTG) Pt will be indep. with HEP without cuing prior to d/c. LTG Duration achieved 10/11/18 LE weakness Impairment LE weakness Senior Military Analyst Goal (LTG) L knee flexion to 5/5 and bilateral hip IR and ER to at least 4+/5 with manual muscle testing prior to discharge. LTG Duration achieved 10/11/18 knee ROM Impairment impaired L knee ROM (flexion) Short Term Goal (STG) L knee ROM 0-125 degrees to assist with less dependence on UEs for sit<->stand from a chair. 10/11/18: 0-122 deg AROM L knee, self-assist passively to 126 degrees STG Duration 4 weeks walking tolerance Impairment only able to walk 6-8 blocks before onset pain bilateral knees Short Term Goal (STG) Pt will be able to walk for 15 minutes, 5 days per week without increased in bilateral knee pain. STG Duration achieved 10/11/18 Care Home Goal (LTG) Pt will bale to walk for 30 min, 5 days per week without increased in bilateral knee pain as part of a home walking program prior to d/c. 10/11/2018: walking and going to aquatic gym for exercise ( walking every day, resisted exercise 2x/wk) LTG Duration 6 weeks Lower Extremity Functional Scale Impairment impaired function due to bilateral knee pain Senior Military Analyst Goal (LTG) Lower Extremity Functional Scale score to at least 40/80 (50%) prior to discharge to demonstrate improvements in daily life and functional activities. LTG Duration achieved 08/30/18 Progress Towards Goals Progress Comments excellent progress with established goals Assessment Summary Assessment Pt able to recall his HEP without cuing, and in detail about how and when to or not to perform. Added posterior pelvic tilting to HEP for improved standing posture to increase standing tolerance and heel slides with towel assistance to achieve increased L knee ROM. Pt is doing well s/p injection L4, L5 and S1 bilaterally, with pain rated 1/10 consistently. His bilateral knees and LEs have improved with ROM and strength, and is compliant with HEP therefore he will be d/c at this time to his home program. If issues arise or pain worsens, if medically necessary the pt may return to physical therapy with a re- assessment from a physician and a new case will be opened/ started at that point. Physical Therapy Plan Discharge Physical Therapy Discharge Comments pt has nearly completed all PT established goals and should continue to progress indep. with HEP
== END 2018-10-11 17:03 ==
LOC: PHYS 16:45
PROVIDERS: PCP Family Medicine; Visit Provider Physical Medicine & Rehabilitation
DX: M17.10 Unilateral primary osteoarthritis, unspecified knee (principal)
CPT/HCPCS: 97014; 97110; 97140; 97161; 97530; 97535; G0283

== ENCOUNTER 2018-12-06 10:20 | Outpatient (CLI) | payer MEDICARE, BC, SELFPAY ==
[2018-12-06] VITALS (14 sets, daily range): BP systolic 124–166; BP diastolic 52–81; PULSE 43–53; RESP 16–27; TEMP 36.1; O2SAT 95–99
--- NOTE | 2018-12-06 10:22 | DI.RAD.S_ITS ---
PROCEDURE: PAIN L/S MED/LAT N RFA INDICATIONS: SPONDYLOSIS FINDINGS: Fluoroscopic spot filming was performed to verify placement of spinal needles at the L4, L5, S1 level(s), as labeled on the films. Appropriate location(s) of the needle tip(s) was confirmed by injection of iodinated contrast. Dictated by: Merrill Russell M.D. on 12/06/2018 at 13:25 Approved by: Merrill Russell M.D. on 12/06/2018 at 13:35
[2018-12-06] MEDS: MIDAZOLAM 5 MG/5 ML VIAL IV (11:12)
[2018-12-06] MEDS: BUPIVACAINE 0.5% (PF) VIAL 2 ML INJ (11:15)
[2018-12-06] MEDS: BETAMETHASONE 30 MG/5 ML MDV 12 MG INJ (11:15)
[2018-12-06] MEDS: LIDOCAINE 1% 20 ML INJ 10 ML INJ (11:15)
--- NOTE | 2018-12-06 11:25 | PC.NURSE ---
1059 to procedure room , ambulate , voided before procedure.
[2018-12-06] MEDS: fentaNYL 100 MCG/2 ML INJ 50 MCG IV (11:30)
--- NOTE | 2018-12-06 12:08 | PC.NURSE ---
pt tolerated procedure well. Able to get off table with standby assist. Transferred pt to pre procedure room for continued monitoring with Mi KRAUS.
--- NOTE | 2018-12-06 12:19 | P.PCN_ITS ---
Procedures Date/Time Date of procedure: 12/06/18 Time of procedure: 12:18 General Procedure description: PREOP DIAGNOSIS 1. RECALCITRANT FACET ARTHROPATHY, POST OP DIAGNOSIS 1. RECALCITRANT FACET ARTHROPATHY PROCEDURES 1. BILATERAL L4 AND L5 MEDIAL BRANCH RADIOFREQUENCY NEUROTOMY AND S1 DORSAL RAMUS BRANCH RADIOFREQUENCY NEUROTOMY, PHYSICIAN: Shahid Wilson DO INDICATIONS: Brian is referred by Dr. Pacheco for treatment of facet arthropathy. DESCRIPTION OF PROCEDURE Right L4 and L5 medial branch radiofrequency neurotomy and right S1 dorsal ramus radiofrequency neurotomy under fluoroscopy with conscious sedation. The patient is well known to this clinic having undergone previous facet injections with good but temporary relief. The patient has experienced appropriate, concordant relief with previous facet and median branch blocks but the patient's pain has been recalcitrant to further conservative measures. Therefore, based upon the patient's relief and persistent symptoms, the patient is considered an appropriate candidate for facet rhizotomy. All of the patient's questions regarding the risks versus benefits of the procedure, including, but not limited to, bleeding, infection, temporary as well as lasting nerve injury, paralysis, stroke, and , as well treatment alternatives were answered to satisfaction. After obtaining informed consent, denial of pertinent drug allergies, as well as being made aware of the potential risks of bleeding, infection, spinal cord trauma, paralysis, temporary and permanent nerve damage, seizure, stroke, and possible , the patient was brought to the fluoroscopy suite and positioned prone on the fluoroscopy table. The lumbar region was prepped with Betadine and covered with a fenestrated drape in the usual sterile fashion. Appropriate monitors applied including pulse oximeter, pulse, and blood pressure for regular monitoring throughout the procedure. After review of previous anaesthesic history and IV conscious sedation the patient was deemed safe to proceed with todays procedure with IV conscious sedation as ASA class II designation. Safety time-out was performed to confirm patient ID, procedure to be performed and site of procedure. IV sedation was accomplished with a combination of 3mg of Versed and 50mcg of Fentanyl administered by the RN after DO order, titrated to patient comfort during the course of the procedure while the patient remained responsive to all verbal commands. After local infiltration using 1% lidocaine, under fluoroscopic guidance, a 10- cm RF insulated needle with a 10-mm active tip was positioned parallel to the junction of the right sacral ala and the superior articulating process where the S1 dorsal ramus resides. Needle placement was confirmed with sensory stimulation at 50 Hz, with motor stimulation of .5v on the right which produced local stimulation without radicular component. The stimulation was then increased to 1.5v with, once again, only local multifidus stimulation without radicular component. This was then followed by two discreet lesions performed at 80 degrees Celsius for 90 seconds each. The needle was then removed and the identical procedure was performed along the length of the right L5 medial branch with motor stimulation at .7v on the right. The identical procedure was once again performed along the length of the right L4 medial branch with motor stimulation of .5v on the right. The identical procedure was repeated on the left. The patient tolerated the procedure well without signs or symptoms of complications prior to transfer to the recovery area continued monitoring without incident. The patient was then transferred to the recovery area where they were observed for an appropriate period of time after the injection. The patient reported a VAS score of 9 prior to the procedure and a post-procedure VAS of 0. Total Fluoroscopy Time: 22.7 seconds Total Conscious Sedation Time: 34min POST OP INSTRUCTIONS The patient was provided a Pain Log to continue to record the patient's response to the target-specific procedure prior to the patient's follow-up visit with the referring physician. Additionally, specific post-injection care instructions and a contact number to our office were provided if concerns arise regarding possible complications associated with the procedure are suspected. Shahid Wilson DO Complications: none
--- NOTE | 2018-12-06 12:24 | PC.NURSE ---
1212 rtr from procedure via w/c, transferred self to chair, states pain free. tolerating drinking water and eating cookies.
--- NOTE | 2018-12-06 13:53 | CM.MNRNOTE ---
1212 rtr from procedure via w/c, transfer self to chair, pain free, tolerating drinking water and eating cookies. spouse at bs.
--- NOTE | 2018-12-06 16:19 | PC.NURSE ---
1212 rtr from procedure, self transfer to chair, pain free, tolerating drinking coffee and eatin cookies.
== END 2018-12-06 12:43 ==
LOC: RAD 10:21
PROVIDERS: PCP Family Medicine; Visit Provider Physical Medicine & Rehabilitation
DX: M47.817 Spondylosis without myelopathy or radiculopathy, lumbosacral region (principal); M47.816 Spondylosis without myelopathy or radiculopathy, lumbar region
CPT/HCPCS: 64635; 64636; 99152; 99153; J0702; J2250; J3010

== ENCOUNTER → 2019-02-13 15:25 | Outpatient (CLI) | payer MEDICARE, BC, SELFPAY ==
[2019-02-13 16:10] LABS: Add Manual Diff / Slide Review NO; Basophils Absolute Auto 100 /uL (0-100); Eosinophils Absolute Auto 200 /uL (0-450); Eosinophils Percent Auto 2.8 % (2-4); Hematocrit 37.6 % (41-53); Hemoglobin 13.1 g/dL (13.5-17.5); Lymphocytes Absolute Auto 2100 /uL (1100-4500); Lymphocytes Percent Auto 33.3 % (25-40); Mean Corpuscular HGB Conc 34.9 % (30-36); Mean Corpuscular Hemoglobin 31.8 PG (26-34); Mean Corpuscular Volume 91.1 fL (80-100); Monocytes Absolute Auto 600 /uL (0-900); Monocytes Percent Auto 9.5 % (3-14); Neutrophils Absolute Auto 3400 /uL (1500-7000); Neutrophils Percent Auto 53.4 % (50-75); Platelet Count 166 X10^3/uL (150-400); Red Blood Cell Count 4.13 X10^6/uL (4.5-5.9); Red Cell Distribution Width 14.2 % (11.6-14.8); White Blood Cell Count 6.3 X10^3/uL (4.5-11.0)
[2019-02-13 16:33] LABS: Alanine Aminotransferase 24 IU/L (21-72); Albumin 4.1 g/dL (3.5-5.0); Albumin Globulin Ratio 1.5 (1.0-2.8); Alkaline Phosphatase 96 U/L (38-126); Aspartate Aminotransferase 21 IU/L (17-59); Bilirubin Total 0.5 mg/dL (0.2-1.3); Bilirubin Unconjugated 0.4 mg/dL (0.0-1.1); Globulin 2.7 g/dL (1.7-4.1); HEMOLYSIS < 15 (0-50); Total Protein 6.8 g/dL (6.3-8.2)
== END ==
PROVIDERS: PCP Family Medicine; Visit Provider Podiatrist
DX: B35.1 Tinea unguium (principal)
CPT/HCPCS: 36415; 80076; 85025

== ENCOUNTER → 2019-07-17 07:51 | Outpatient (CLI) | payer MEDICARE, BC, SELFPAY ==
[2019-07-17 08:36] LABS: Add Manual Diff / Slide Review NO; Basophils Absolute Auto 100 /uL (0-100); Eosinophils Absolute Auto 200 /uL (0-450); Eosinophils Percent Auto 3.8 % (2-4); Hematocrit 38.3 % (41-53); Hemoglobin 13.4 g/dL (13.5-17.5); Lymphocytes Absolute Auto 1600 /uL (1100-4500); Lymphocytes Percent Auto 31.5 % (25-40); Mean Corpuscular HGB Conc 34.9 % (30-36); Mean Corpuscular Volume 91.4 fL (80-100); Monocytes Absolute Auto 600 /uL (0-900); Monocytes Percent Auto 11.6 % (3-14); Neutrophils Absolute Auto 2700 /uL (1500-7000); Neutrophils Percent Auto 52.1 % (50-75); Platelet Count 186 X10^3/uL (150-400); Red Blood Cell Count 4.19 X10^6/uL (4.5-5.9); Red Cell Distribution Width 14.2 % (11.6-14.8); White Blood Cell Count 5.1 X10^3/uL (4.5-11.0)
[2019-07-17 09:14] LABS: BUN Creatinine Ratio 16.3 (6-22); Blood Urea Nitrogen 13 mg/dL (9-20); Calcium 9.4 mg/dL (8.4-10.2); Carbon Dioxide 35 mmol/L (22-32); Chloride 94 mmol/L (98-107); Cholesterol 137 mg/dL (140-199); Estimated Glomerular Filt Rate > 60.0 mL/min (>60); Glucose 117 mg/dL (80-110); HDL Cholesterol 32 mg/dL (40-60); HEMOLYSIS < 15 (0-50); LDL Cholesterol Calculated 78 mg/dL (<100); Potassium 3.2 mmol/L (3.4-5.1); Sodium 137 mmol/L (137-145); Triglycerides 136 mg/dL (35-150)
== END ==
PROVIDERS: PCP Family Medicine; Visit Provider Family Medicine
DX: Z00.00 Encounter for general adult medical examination without abnormal findings (principal); Z86.39 Personal history of other endocrine, nutritional and metabolic disease; I10 Essential (primary) hypertension; Z79.899 Other long term (current) drug therapy
CPT/HCPCS: 36415; 80048; 80061; 85025

== ENCOUNTER → 2019-09-20 15:55 | Outpatient (CLI) | payer MEDICARE, BC, SELFPAY ==
[2019-09-20 17:23] LABS: Add Manual Diff / Slide Review NO; Basophils Absolute Auto 0 /uL (0-100); Basophils Percent Auto 0.9 % (0-2); Eosinophils Absolute Auto 100 /uL (0-450); Hematocrit 39.9 % (41-53); Hemoglobin 13.8 g/dL (13.5-17.5); Lymphocytes Absolute Auto 1700 /uL (1100-4500); Lymphocytes Percent Auto 34.6 % (25-40); Mean Corpuscular HGB Conc 34.6 % (30-36); Mean Corpuscular Hemoglobin 32.5 PG (26-34); Mean Corpuscular Volume 93.8 fL (80-100); Monocytes Absolute Auto 500 /uL (0-900); Monocytes Percent Auto 10.6 % (3-14); Neutrophils Absolute Auto 2500 /uL (1500-7000); Neutrophils Percent Auto 50.9 % (50-75); Platelet Count 162 X10^3/uL (150-400); Red Blood Cell Count 4.26 X10^6/uL (4.5-5.9); Red Cell Distribution Width 13.7 % (11.6-14.8); White Blood Cell Count 4.9 X10^3/uL (4.5-11.0)
[2019-09-20 17:38] LABS: BUN Creatinine Ratio 28.9 (6-22); Blood Urea Nitrogen 26 mg/dL (9-20); Calcium 9.7 mg/dL (8.4-10.2); Carbon Dioxide 35 mmol/L (22-32); Chloride 96 mmol/L (98-107); Estimated Glomerular Filt Rate > 60.0 mL/min (>60); Glucose 116 mg/dL (80-110); HEMOLYSIS 19 (0-50); Potassium 4.2 mmol/L (3.4-5.1); Sodium 139 mmol/L (137-145)
== END ==
PROVIDERS: PCP Family Medicine; Referring Provider Family Medicine; Visit Provider Family Medicine
DX: I48.91 Unspecified atrial fibrillation (principal)
CPT/HCPCS: 36415; 80048; 83735; 84443; 85025

== ENCOUNTER → 2019-10-08 14:45 | Outpatient (CLI) | payer MEDICARE, BC, SELFPAY ==
--- NOTE | 2019-10-08 14:48 | DI.ECHO.S_ITS ---
[facility]---------+ [facility] +---------+ : : [address] : : : : [id number] : : : : Phone: [phone]+ Echocardiogram Report + + :Name: PAULINE ALCOCER Study Date: 10/08/2019 Height: 71 in : :[facility] Weight: 235 lb : : Gender: Male BSA: 2.3 m2 : :: 1940 Age: 79 yrs BP: 150/86 mmHg: :Reason For Study: Atrial fibrillation : :Ordering Physician: Dr. Webster : :Junior Performed By: Maryann Arce : :Referring: YOLA MARTINES : + + Interpretation Summary The patient was in atrial flutter with heart rates between 48-63 bpm during the exam. The study quality was technically difficult. The left ventricular ejection fraction is normal. There are no obvious focal wall motion abnormalities noted but poor endocardial definition reduces the sensitivity for the detection of such. The right ventricle is normal in size and function. The right ventricular systolic pressure is estimated to be at least 41 mmHg based on an estimated right atrial pressure of 8 mm Hg. Both atria are normal in size. No hemodynamically significant valvular abnormalities. Procedure: A two-dimensional transthoracic echocardiogram with color flow and Doppler was performed. There is no prior echocardiogram noted for this patient. The study quality was technically difficult. The patient was in atrial flutter with heart rates between 48-63 bpm during the exam. Left Ventricle: The left ventricle is normal in size and wall thickness. The ejection fraction is estimated to be 60-65%. The left ventricular ejection fraction is normal. There are no obvious focal wall motion abnormalities noted but poor endocardial definition reduces the sensitivity for the detection of such. Diastolic function could not be accurately assessed due to atrial fibrillation. Right Ventricle: The right ventricle is normal in size and function. Atria: Both atria are normal in size. There is no Doppler evidence for an interatrial shunt. Mitral Valve: The mitral valve is normal in structure and function. There is mild mitral regurgitation. Aortic Valve: The aortic valve is trileaflet. The aortic valve opens well. There is no aortic valve stenosis. No aortic regurgitation is present. Tricuspid Valve: The tricuspid valve is normal in structure and function. There is mild tricuspid regurgitation. The right ventricular systolic pressure is estimated to be at least 41 mmHg based on an estimated right atrial pressure of 8 mm Hg. Pulmonic Valve: The pulmonic valve is not well visualized. There is no pulmonic valvular regurgitation. Great Vessels: The aortic root is normal size. The ascending aorta is at the upper limits of normal in size. The IVC is of normal diameter and collapses less than 50% with a sniff. This suggests a right atrial pressure of 8 mm Hg. Pericardium/ Pleura There is no pericardial effusion. There is no pleural effusion. MMode/2D Measurements & Calculations LVIDd: 4.8 cm LVOT diam: 1.9 cm LVIDs: 3.1 cm Ao root diam: 3.7 cm FS: 35.2 % asc Aorta Diam: 3.9 cm IVSd: 1.0 cm LVPWd: 1.0 cm LV phillips. diameter/BSA (cm/m^2): 2.1 LV sys. diameter/BSA (cm/m^2): 1.4 LA A2 area: 24.3 cm2 RA long axis: 6.1 cm LA A4 area: 20.1 cm2 RA area: 23.0 cm2 LA length (vol): 6.0 cm RA vol: 74.4 ml LA vol: 69.1 ml RA : 33.0 ml/m2 LA vol index: 30.6 ml/m2 IVC diam: 1.9 cm RVD1 (basal): 4.2 cm TAPSE: 2.1 cm Doppler Measurements & Calculations Ao V2 max: 157.1 cm/sec LVOT Max Gerald: 113.9 cm/sec Ao V2 mean: 104.0 cm/sec LV V1 max P.2 mmHg Ao max P.9 mmHg LV V1 VTI: 27.8 cm Ao mean P.1 mmHg JANEE(I,D): 2.2 cm2 Ao V2 VTI: 36.0 cm JANEE(V,D): 2.1 cm2 sev ratio: 0.77 JANEE indexed to BSA (cm^2/m^2): 0.99 MV E max gerald: 127.3 cm/sec TR max gerald: 290.4 cm/sec MV A max gerald: 35.8 cm/sec TR max P.7 mmHg MV E/A: 3.6 PA V2 max: 70.7 cm/sec Med Peak E' Gerald: 7.4 cm/sec PA V2 mean: 47.3 cm/sec E/E' med: 17.3 PA mean P.0 mmHg Lat Peak E' Gerald: 9.4 cm/sec PA pr(Accel): 16.7 mmHg E/E' lat: 13.6 PA Accel Time: 0.14 sec E/e' average: 15.4 MV dec time: 0.17 sec MV P1/2t: 49.7 msec MV P1/2t max gerald: 128.1 cm/sec SV(LVOT): 80.2 ml MVA(2t): 4.4 cm2 Electronically signed by: Toney Rivera M.D. on Reading Physician:10/09/2019 05:12 PM
== END ==
PROVIDERS: PCP Family Medicine; Referring Provider Family Medicine; Visit Provider Family Medicine
DX: I08.1 Rheumatic disorders of both mitral and tricuspid valves (principal); I48.91 Unspecified atrial fibrillation
CPT/HCPCS: 93306

== ENCOUNTER 2019-10-09 07:42 | Outpatient (CLI) | payer MEDICARE, BC, SELFPAY ==
[2019-10-09] VITALS (9 sets, daily range): BP systolic 101–143; BP diastolic 59–80; PULSE 48–65; RESP 12–17; TEMP 36.4; O2SAT 96–100
--- NOTE | 2019-10-09 07:42 | DI.RAD.S_ITS ---
PROCEDURE: PAIN L/SI FACET INJ/BLK 1STL INDICATIONS: SPONDYLOSIS FINDINGS: Fluoroscopic spot filming was performed to verify placement of spinal needles at the L2-L3, L3-L4 level(s), as labeled on the films. Appropriate location(s) of the needle tip(s) was confirmed by injection of iodinated contrast. Dictated by: Merrill Russell M.D. on 10/09/2019 at 10:20 Approved by: Merrill Russell M.D. on 10/09/2019 at 10:21
[2019-10-09] MEDS: MIDAZOLAM 5 MG/5 ML VIAL IV (09:29)
[2019-10-09] MEDS: IOPAMIDOL 15 ML VIAL 3 ML INJ (09:30)
[2019-10-09] MEDS: BUPIVACAINE 0.5% (PF) VIAL 2 ML INJ (09:32)
--- NOTE | 2019-10-09 09:40 | P.PCN_ITS ---
Procedures Date/Time Date of procedure: 10/09/19 Time of procedure: 09:40 General Procedure description: PREOP DIAGNOSIS 1. FACET ARTHROPATHY, 2. AXIAL LBP, 3. MULTILEVEL DDD, POST OP DIAGNOSIS 1. FACET ARTHROPATHY, 2. AXIAL LBP, 3. MULTILEVEL DDD, PROCEDURES 1. FLUORSCOPICALLY GUIDED CONTRAST CONTROLLED FACET JOINT INJECTIONS LEFT L2/3, L3/4 SURGEON: Shahid Wilson, INDICATION Brian is referred by is referred for treatment of Axial LBP FINDINGS Multilevel Facet Arthropathy with Clinically significant axial LBP DESCRIPTION OF PROCEDURE Fluoroscopically guided, contrast-controlled left L2/3, L3/4 facet joint injections. Following review of allergy and review of potential side effects and complications, including, but not necessarily limited to, infection, allergic reaction, local tissue breakdown, stroke, temporary or permanent nerve injury, paralysis, and possible , the patient indicated that the patient understood and agreed to proceed. An informed consent document was signed by the patient, witnessed by a nurse, and placed in the patient's chart. Additionally, other treatment options including medications, modalities, and physical therapy were reviewed with the patient. After review of previous anaesthesic history and IV conscious sedation the patient was deemed safe to proceed with todays procedure with IV conscious sedation as ASA class II designation. Safety time-out was performed to confirm patient ID, procedure to be performed and site of procedure. IV sedation was accomplished with 2mg of Versed administered by the RN after DO order, titrated to patient comfort during the course of the procedure while the patient remained responsive to all verbal commands In the prone position, following sterile prep and drape of the lumbar region, the posterior aspect of the left L2/3, L3/4 facet joints were identified fluoroscopically. The skin was anesthetized via a 25-gauge 1.5-inch needle with 1% lidocaine solution into the corresponding facet joints. At this point, a 22- gauge 3.5-inch spinal needle was atraumatically introduced and advanced under fluoroscopic guidance into the corresponding facet joints. Following negative aspiration, injections of approximately 0.2-cc of Isovue 200 confirmed interarticular placement without vascular uptake. Radiological data, including multiple fluoroscopic views of the lumbosacral spine, reveal a spinal needle at the left L2/3, L3/4 facet joints. Subsequent views show flow of contrast material both superiorly and inferiorly within the joint space without vascular or intrathecal uptake. At this point, a total of 0.5 cc including a mixture of 0.25cc Marcaine and 0.25cc betamethasone was injected without complication into each of the corresponding facet joints. The patient tolerated the procedure well without signs or symptoms of complications prior to transfer to the recovery area continued monitoring without incident. The patient was then transferred to the recovery area where they were observed f or an appropriate period of time after the injection. The patient reported a VAS score of 7 prior to the procedure and a post-procedure VAS of 0. Total Fluoroscopy Time: 6 seconds Total Conscious Sedation Time: 24 min POST OP INSTRUCTIONS The patient was provided a Pain Log to continue to record their response to the target-specific procedure prior to follow-up visit with their referring physician. Additionally, specific post-injection care instructions and a contact number to our office were provided if concerns arise regarding possible complications associated with the procedure are suspected. Shahid Wilson DO Complications: none
--- NOTE | 2019-10-09 09:46 | PC.NURSE ---
ACCEPTED CARE OF PT IN POST PROC AREA IN STABLE CONDITION AT 0947.
--- NOTE | 2019-10-09 11:33 | PC.NURSE ---
at 0935 able to sit ,stand, transfer self to w/c, pain free, transfer care to deshawn valera
[2020-02-05 14:02] VITALS: PULSE 57; O2SAT 99
[2020-02-05 14:05] VITALS: BP 148/95; PULSE 50; RESP 15; O2SAT 98
== END 2019-10-09 10:28 | disposition home or self-care (01) ==
LOC: RAD 07:42
PROVIDERS: PCP Family Medicine; Referring Provider Physical Medicine & Rehabilitation; Visit Provider Physical Medicine & Rehabilitation
DX: M47.816 Spondylosis without myelopathy or radiculopathy, lumbar region (principal); M54.5 Low back pain; M51.36 Other intervertebral disc degeneration, lumbar region
CPT/HCPCS: 64493; 64494; 99152; J0702; J2250; J3010

== ENCOUNTER → 2020-01-10 07:09 | Outpatient (CLI) | payer MEDICARE, BC, SELFPAY ==
[2020-01-10 08:28] LABS: Hemoglobin A1C% w Est Avg Glu 6.2 % (4.0-6.0)
[2020-01-10 08:51] LABS: Prostate Specific Antigen 1.17 ng/mL (0.10-4.00)
== END ==
PROVIDERS: PCP Family Medicine; Referring Provider Family Medicine; Visit Provider Family Medicine
DX: N40.0 Benign prostatic hyperplasia without lower urinary tract symptoms (principal)
CPT/HCPCS: 36415; 83036; 84153

== ENCOUNTER → 2020-01-28 07:36 | Outpatient (CLI) | payer MEDICARE, BC, SELFPAY ==
[2020-01-28 08:03] LABS: Add Manual Diff / Slide Review NO; Basophils Absolute Auto 0 /uL (0-100); Eosinophils Absolute Auto 100 /uL (0-450); Eosinophils Percent Auto 1.9 % (2-4); Hematocrit 40.8 % (41-53); Hemoglobin 14.5 g/dL (13.5-17.5); Lymphocytes Absolute Auto 1800 /uL (1100-4500); Lymphocytes Percent Auto 36.9 % (25-40); Mean Corpuscular HGB Conc 35.5 % (30-36); Mean Corpuscular Hemoglobin 32.9 PG (26-34); Mean Corpuscular Volume 92.5 fL (80-100); Monocytes Absolute Auto 500 /uL (0-900); Monocytes Percent Auto 10.3 % (3-14); Neutrophils Absolute Auto 2400 /uL (1500-7000); Neutrophils Percent Auto 49.9 % (50-75); Platelet Count 173 X10^3/uL (150-400); Red Blood Cell Count 4.41 X10^6/uL (4.5-5.9); Red Cell Distribution Width 14.3 % (11.6-14.8); White Blood Cell Count 4.9 X10^3/uL (4.5-11.0)
[2020-01-28 08:24] LABS: BUN Creatinine Ratio 17.3 (6-22); Blood Urea Nitrogen 13 mg/dL (9-20); Calcium 9.7 mg/dL (8.4-10.2); Carbon Dioxide 29 mmol/L (22-32); Chloride 97 mmol/L (98-107); Cholesterol 132 mg/dL (140-199); Estimated Glomerular Filt Rate > 60.0 mL/min (>60); Glucose 125 mg/dL (80-110); HDL Cholesterol 39 mg/dL (40-60); HEMOLYSIS < 15 (0-50); LDL Cholesterol Calculated 70 mg/dL (<100); Potassium 3.5 mmol/L (3.4-5.1); Sodium 135 mmol/L (137-145); Triglycerides 115 mg/dL (35-150)
== END ==
PROVIDERS: PCP Family Medicine; Referring Provider Internal Medicine Cardiovascular Disease; Visit Provider Internal Medicine Cardiovascular Disease
DX: I10 Essential (primary) hypertension (principal); E78.5 Hyperlipidemia, unspecified
CPT/HCPCS: 36415; 80048; 80061; 85025

== ENCOUNTER → 2020-02-02 11:38 | Outpatient (CLI) | payer MEDICARE, BC, SELFPAY ==
[2020-02-03 10:38] LABS: COVID19 Sendout Not Detected (Not Detect)
== END ==
PROVIDERS: PCP Family Medicine; Visit Provider Physician Assistant
DX: Z11.59 Encounter for screening for other viral diseases (principal)
CPT/HCPCS: 87635

== ENCOUNTER 2020-02-05 12:55 | Outpatient (CLI) | payer MEDICARE, BC, SELFPAY ==
[2020-02-05] VITALS (9 sets, daily range): BP systolic 118–142; BP diastolic 68–88; PULSE 62–87; RESP 12–17; TEMP 36.7; O2SAT 96–98
--- NOTE | 2020-02-05 12:56 | DI.RAD.S_ITS ---
PROCEDURE: PAIN L/S FACET INJ/BLK 1ST MAHAD COMPARISON: [facility], , PAIN L/S FACET INJ/BLK 1ST MAHAD, 10/04/2018, 13:56. INDICATIONS: SPONDYLOSIS FINDINGS: Fluoroscopic spot filming was performed to verify placement of spinal needles at the L2, L3, L4 level(s), as labeled on the films. Appropriate location(s) of the needle tip(s) was confirmed by injection of iodinated contrast. Dictated by: Merrill Russell M.D. on 02/06/2020 at 8:54 Approved by: Merrill Russell M.D. on 02/06/2020 at 8:54
[2020-02-05] MEDS: MIDAZOLAM 5 MG/5 ML VIAL IV (13:48)
[2020-02-05] MEDS: LIDOCAINE 1% 20 ML 10 ML INJ (13:53)
[2020-02-05] MEDS: IOPAMIDOL 15 ML VIAL 3 ML INJ (13:53)
[2020-02-05] MEDS: BUPIVACAINE 0.5% (PF) VIAL 2 ML INJ (13:54)
--- NOTE | 2020-02-05 14:09 | P.PCN_ITS ---
Procedures Date/Time Date of procedure: 02/05/20 Time of procedure: 14:09 General Procedure description: POST OP DIAGNOSIS 1. FACET ARTHROPATHY PROCEDURES 1. Left L2, L3, L4 MB BLOCKS PHYSICIAN: DO ROCIO Desai Brian is referred by for treatment of Left Axial LBP. DESCRIPTION OF PROCEDURE Fluoroscopically guided, contrast-controlled left L2, L3, L4 medial branch blocks with 0.5cc of 0.5% Marcaine. Following review of allergy and review of potential side effects and complications, including, but not necessarily limited to, infection, allergic reaction, local tissue breakdown, nerve injury, paralysis, stroke and possible , the patient indicated that the patient understood and agreed to proceed. An informed consent document was signed by the patient, witnessed by a nurse, and placed in the patient's chart. After review of previous anaesthesic history and IV conscious sedation the patient was deemed safe to proceed with todays procedure with IV conscious sedation as ASA class II designation. Safety time-out was performed to confirm patient ID, procedure to be performed and site of procedure. IV sedation was accomplished with a combination of 2mg of Versed was administered by the RN a fter DO order, titrated to patient comfort during the course of the procedure while the patient remained responsive to all verbal commands. In the prone position, following sterile prep and drape of the lumbar region, the left L2, L3, L4 anatomical location of the medial branch of the dorsal ramus was identified fluoroscopically. Subsequently an anesthetic skin wheal using 1% lidocaine solution was initiated at each of the anatomical spots. Subsequently then a 22-gauge 3.5-inch spinal needle was atraumatically introduced and advanced under fluoroscopic guidance at each of the corresponding sites at the left L2, L3, L4 MB. After negative aspiration, 0.2 cc of Isovue 200 was injected, confirming placement without vascular or intrathecal uptake. Subsequently then 0.5cc of 0.5% Marcaine solution was injected at each of the corresponding sites at the left L2, L3, L4 medial branch locations. The patient tolerated the procedure well without signs or symptoms of complications. The patient tolerated the procedure well without signs or symptoms of complications prior to transfer to the recovery area continued monitoring without incident. Post-procedure, the patient was monitored initiating provocative activities to measure the amount of relief from block of the facetogenic pain. The patient reported a VAS of 7 prior to the procedure and a post-procedure VAS of 1. It has been a pleasure to assist in the diagnostic and therapeutic care of your patient. Total Fluoroscopy Time: 9 seconds Total Conscious Sedation Time: 24min POST OP INSTRUCTIONS The patient was provided with a Pain Log to complete over the next several hours and subsequent days prior to the patient's follow up with the ordering physician. If the patient has director quality assurance relief to the solution applied, then they may be a candidate for medial branch rhizotomy. The patient is aware, was provided, once again, with a Pain Log and will follow up with the referring physician for review and clinical correlation Shahid Wilosn DO Complications: none
--- NOTE | 2020-02-05 14:14 | PC.NURSE ---
Pt arrived to pre proc room via . 2PA to transfer from wc to chair. Slightly groggy, but orientated. Resumed monitoring by this RN
== END 2020-02-05 14:33 | disposition home or self-care (01) ==
LOC: RAD 12:55
PROVIDERS: PCP Family Medicine; Referring Provider Physical Medicine & Rehabilitation; Visit Provider Physical Medicine & Rehabilitation
DX: M47.816 Spondylosis without myelopathy or radiculopathy, lumbar region (principal); M54.5 Low back pain
CPT/HCPCS: 64493; 64494; 99152; J2250; J3010

== ENCOUNTER → 2020-02-07 12:01 | Outpatient (CLI) | payer MEDICARE, BC, SELFPAY ==
--- NOTE | 2020-02-07 12:02 | DI.MRI.S_ITS ---
PROCEDURE: MR KNEE LT WO CON INDICATIONS: Knee pain TECHNIQUE: Noncontrast sagittal PD fast spin echo and T2 fast spin echo with fat saturation, sagittal 3-D FLASH with fat saturation; coronal T1 spin echo and PD fast spin echo with fat saturation, and axial PD fast spin echo with fat saturation through the knee. COMPARISON: None. FINDINGS: Image quality: Excellent. Menisci: Medial and lateral meniscal extrusions. There is horizontal tear involving the body and posterior horn of the medial meniscus. The anterior horn of the lateral meniscus is truncated. Large degenerative tear is also present in the body and posterior horn of the the lateral meniscus. Cruciate ligaments: The anterior cruciate ligament is torn. The posterior initiated treatment is irregular with increased signal and decreased caliber, likely secondary to partial tear. Medial structures: The medial collateral ligament appears intact. The semimembranosus tendon insertions and meniscocapsular junction appear intact. Visualized portions of the pes anserinus tendons appear normal. No abnormal bursal fluid. Lateral structures: The lateral collateral ligament, long and short heads of the biceps femoris tendon appear intact. The popliteus tendon appears normal. Iliotibial band appears normal. Anterior structures: The quadriceps and patellar tendons appear intact. Patellar alignment is normal. No femoral trochlear dysplasia or ventral trochlear prominence. No edema in the infrapatellar fat pad. Bones and cartilage: There is bone marrow edema in femoral condyles and tibial plateaus. No fractures. There is tricompartmental cartilage thinning and degeneration, most pronounced in the lateral femorotibial compartment. Joint space: There is moderate sized knee joint effusion. No Santos's cyst. Normal appearing synovial plicae are incidentally noted. IMPRESSION: 1. ACL tear. 2. Partial tear of PCL. 3. Severe degenerative tear of the lateral and medial menisci with meniscal extrusions. The anterior horn the lateral meniscus is truncated. 4. Tricompartmental cartilage loss. 5. Moderate size knee joint effusion. Dictated by: Garcia Toribio M.D. on 02/07/2020 at 13:52 Approved by: Garcia Toribio M.D. on 02/07/2020 at 14:03
== END ==
PROVIDERS: PCP Family Medicine; Referring Provider Family Medicine; Visit Provider Family Medicine
DX: M25.562 Pain in left knee (principal); S83.512A Sprain of anterior cruciate ligament of left knee, initial encounter; S83.522A Sprain of posterior cruciate ligament of left knee, initial encounter; S83.242A Other tear of medial meniscus, current injury, left knee, initial encounter; S83.282A Other tear of lateral meniscus, current injury, left knee, initial encounter; M25.462 Effusion, left knee
CPT/HCPCS: 73721

== ENCOUNTER → 2020-05-13 09:44 | Outpatient (CLI) | payer MEDICARE, BC, SELFPAY ==
--- NOTE | 2020-05-13 09:50 | DI.RAD.S_ITS ---
PROCEDURE: XR KNEE LT 3V INDICATIONS: PAIN/IMAGING FOR APPT TECHNIQUE: 3 views of the knee were acquired. COMPARISON: [facility], CR, XR KNEE STANDING BI, 06/22/2018, 9:41. [facility], CR, XR KNEE RT 3V, 05/13/2020, 8:51. FINDINGS: Bones: No acute fractures or dislocations. Moderate-severe tricompartmental osteoarthritic changes of the left knee have demonstrated slight interval progression. Joint space narrowing of both the medial and lateral femorotibial compartments. Prominent tricompartmental marginal osteophyte formation. No suspicious bony lesions. Soft tissues: Small joint effusion. No suspicious soft tissue calcifications. IMPRESSION: 1. Left knee without acute fracture or dislocation. 2. Mild interval progression of moderate-severe tricompartmental osteoarthrosis of the left knee. 3. Small joint effusion. Dictated by: Lamont Castillo M.D. on 05/13/2020 at 11:56 Approved by: Lamont Castillo M.D. on 05/13/2020 at 11:59
--- NOTE | 2020-05-13 09:50 | DI.RAD.S_ITS ---
PROCEDURE: XR KNEE RT 3V INDICATIONS: UPDATE IMAGING TECHNIQUE: 3 views of the knee were acquired. COMPARISON: [facility], CR, XR KNEE STANDING BI, 06/22/2018, 9:41. FINDINGS: Bones: No acute fractures or dislocations. Moderate-severe tricompartmental degenerative changes of the right knee with joint space narrowing and prominent marginal osteophyte formation of the medial femorotibial compartment. Patellofemoral osteophyte formation is also noted. No suspicious bony lesions. Soft tissues: Small joint effusion. No suspicious soft tissue calcifications. IMPRESSION: 1. Right knee without acute fracture or malalignment. 2. Minimal progression of moderate-severe tricompartmental osteoarthrosis of the right knee most pronounced in the medial femorotibial compartment. 3. Small suprapatellar joint effusion. Dictated by: Lamont Castillo M.D. on 05/13/2020 at 11:54 Approved by: Lamont Castillo M.D. on 05/13/2020 at 11:56
== END ==
PROVIDERS: PCP Family Medicine; Referring Provider Physical Medicine & Rehabilitation; Visit Provider Physical Medicine & Rehabilitation
DX: M17.0 Bilateral primary osteoarthritis of knee (principal); M25.461 Effusion, right knee; M25.462 Effusion, left knee
CPT/HCPCS: 73562

== ENCOUNTER → 2020-05-27 10:47 | Outpatient (CLI) | payer MEDICARE, BC, SELFPAY ==
[2020-05-27 12:22] LABS: Hemoglobin A1C% w Est Avg Glu 6.2 % (4.0-6.0)
[2020-05-27 13:02] LABS: BUN Creatinine Ratio 18.9 (6-22); Blood Urea Nitrogen 14 mg/dL (9-20); Calcium 9.4 mg/dL (8.4-10.2); Carbon Dioxide 34 mmol/L (22-32); Chloride 96 mmol/L (98-107); Estimated Glomerular Filt Rate > 60.0 mL/min (>60); Glucose 104 mg/dL (80-110); HEMOLYSIS < 15 (0-50); Potassium 3.4 mmol/L (3.4-5.1); Sodium 135 mmol/L (137-145)
== END ==
PROVIDERS: PCP Family Medicine; Referring Provider Family Medicine; Visit Provider Family Medicine
DX: E11.9 Type 2 diabetes mellitus without complications (principal); I10 Essential (primary) hypertension
CPT/HCPCS: 36415; 80048; 83036

== ENCOUNTER → 2020-07-02 11:13 | Outpatient (CLI) | payer MEDICARE, BC, SELFPAY | PROVIDERS: PCP Family Medicine; Visit Provider Student in an Organized Health Care Education/Training Program | DX: L02.91 Cutaneous abscess, unspecified (principal) | CPT/HCPCS: 87070; 87077; 87186; 87205 ==

== ENCOUNTER → 2021-01-09 16:09 | Outpatient (CLI) | payer MEDICARE, BC, SELFPAY ==
--- NOTE | 2021-01-09 16:11 | DI.RAD.S_ITS ---
PROCEDURE: XR LUMBAR SPINE 2-3V INDICATIONS: Chronic back pain TECHNIQUE: 3 views of the lumbar spine were acquired. COMPARISON: [facility], , XR LUMBAR SPINE MIN 4V, 02/14/2018, 9:04. FINDINGS: Bones: 5 [id number] vertebrae are present. [id number] rotatory levocurvature centered at L3. Advanced multilevel degenerative disc space loss and advanced multilevel facet arthropathy. No vertebral body compression fractures. No suspicious bony lesions. Soft tissues: Overlying bowel gas pattern is normal. No suspicious soft tissue calcifications. IMPRESSION: Severe lumbar degenerative change. No evidence acute bony abnormality of the lumbar spine. If clinical suspicion and/or symptoms persist, further assessment with repeat plain films, or advanced imaging (e.g., CT, MRI, or bone scan) may be helpful for further assessment. Dictated by: Chandu Fischer M.D. on 01/09/2021 at 17:06 Approved by: Chandu Fischer M.D. on 01/09/2021 at 17:06
== END ==
PROVIDERS: PCP Family Medicine; Referring Provider Family Medicine; Visit Provider Family Medicine
DX: M54.5 Low back pain (principal); M47.27 Other spondylosis with radiculopathy, lumbosacral region
CPT/HCPCS: 72100

== ENCOUNTER → 2021-01-14 07:18 | Outpatient (CLI) | payer MEDICARE, BC, SELFPAY ==
[2021-01-14 08:10] LABS: Add Manual Diff / Slide Review NO; Basophils Absolute Auto 0 /uL (0-100); Basophils Percent Auto 0.9 % (0-2); Eosinophils Absolute Auto 100 /uL (0-450); Eosinophils Percent Auto 3.2 % (2-4); Hematocrit 38.8 % (41-53); Hemoglobin 13.3 g/dL (13.5-17.5); Lymphocytes Absolute Auto 1800 /uL (1100-4500); Lymphocytes Percent Auto 39.2 % (25-40); Mean Corpuscular HGB Conc 34.3 % (30-36); Mean Corpuscular Hemoglobin 31.3 PG (26-34); Mean Corpuscular Volume 91.3 fL (80-100); Monocytes Absolute Auto 500 /uL (0-900); Monocytes Percent Auto 11.6 % (3-14); Neutrophils Absolute Auto 2000 /uL (1500-7000); Neutrophils Percent Auto 45.1 % (50-75); Platelet Count 139 X10^3/uL (150-400); Red Blood Cell Count 4.25 X10^6/uL (4.5-5.9); Red Cell Distribution Width 14.1 % (11.6-14.8); White Blood Cell Count 4.5 X10^3/uL (4.5-11.0)
[2021-01-14 08:32] LABS: BUN Creatinine Ratio 17.8 (6-22); Blood Urea Nitrogen 13 mg/dL (9-20); Calcium 9.4 mg/dL (8.4-10.2); Carbon Dioxide 32 mmol/L (22-32); Chloride 97 mmol/L (98-107); Cholesterol 107 mg/dL (140-199); Estimated Glomerular Filt Rate > 60.0 mL/min (>60); Glucose 109 mg/dL (80-110); HDL Cholesterol 37 mg/dL (40-60); HEMOLYSIS < 15 (0-50); LDL Cholesterol Calculated 54 mg/dL (<100); Sodium 135 mmol/L (137-145); Triglycerides 82 mg/dL (35-150)
== END ==
PROVIDERS: PCP Family Medicine; Referring Provider Internal Medicine Cardiovascular Disease; Visit Provider Internal Medicine Cardiovascular Disease
DX: E78.5 Hyperlipidemia, unspecified (principal); I10 Essential (primary) hypertension; Z79.01 Long term (current) use of anticoagulants
CPT/HCPCS: 36415; 80048; 80061; 85025

== ENCOUNTER → 2021-01-26 11:12 | Outpatient (CLI) | payer MEDICARE, BC, SELFPAY ==
[2021-01-26 13:28] LABS: COVID19 -Nasal RAPID Negative (Negative)
== END ==
PROVIDERS: PCP Family Medicine; Referring Provider Physician Assistant; Visit Provider Physician Assistant
DX: Z01.812 Encounter for preprocedural laboratory examination (principal); Z20.822 Contact with and (suspected) exposure to COVID-19
CPT/HCPCS: 87635; C9803

== ENCOUNTER 2021-01-27 08:19 | Day surgery (SDC) | payer MEDICARE, BC, SELFPAY ==
[2021-01-27 09:02] VITALS: BP 147/90; PULSE 89; RESP 16; TEMP 36.1; O2SAT 95; BMI 30.7
[2021-01-27] MEDS: PROPARACAINE 0.5% OPHTH SOL 2 DROPS EYE-OP (09:08)
[2021-01-27] MEDS: CATARACT EYE COMPOUND (10 DROPS/SYRINGE) 3 DROPS EYE-OP (09:09)
--- NOTE | 2021-01-27 09:51 | PM.PREOP ---
Pre-operative Note Interval Note History & Physical reviewed/Exam performed by Physician: Yes Changes to H&P: No
--- NOTE | 2021-01-27 09:52 | P.OP_ITS ---
Operative Date/Time/Diagnoses Pre-op diagnosis: Nuclear Cataract Left eye Post-op diagnosis: same Procedure & Clinicians Same procedure as scheduled: Yes Surgeon: Navdeep Rosa Anesthesia Type: MAC +/- and Sedation Operative Notes Procedure in detail: Patient brought to the operating suite. Tetracaine drops placed in the left eye. Patient was prepped and draped in sterile manner. Wire lid speculum was placed in the eye. Betadine drops were placed on the eye. This was irrigated. Lidocaine jelly was placed on the eye. A paracentesis port was created with a side-port blade. 0.1 mL 1% preservative free lidocaine was injected into the anterior chamber. The anterior chamber was deepened with viscoelastic. 2.6 mm keratome was used to create a temporal clear corneal incision. Cystotome and Utrata forceps were used to create continuous tear capsulorrhexis. Balanced salt solution was used to hydro dissect the nucleus. The phacoemulsification handpiece was inserted and the nucleus was removed using the stop and chop technique. The irrigation aspiration handpiece was inserted and the remaining cortex was removed. Anterior chamber was deepened with viscoe lastic. An Valdez DIB00 intraocular lens with a power of 21.0 was injected into the capsular bag. Irrigation aspiration handpiece was inserted and the remaining viscoelastic was removed. Incision was hydrated with balanced salt solution and found to be leak free with pressure with Weck-Veronika sponges. 0.1 mL Vigamox injected anterior chamber. 0.3 mL Kenalog 10 mg was injected subconjunctivally. Lid speculum was removed. The patient left the operating room in excellent condition. Complications: none Post-operative Condition: stable Disposition: same day surgery
[2021-01-27] MEDS: MOXIFLOXACIN INJ 4 MG/0.8 ML VIAL 0.5 MG EYE-OP (10:06)
[2021-01-27] MEDS: LIDOCAINE 2% (GLYDO) 6 ML GEL TOP (10:06)
[2021-01-27] MEDS: PHENYLEPHRINE/LIDOCAINE VIAL (OR) 0.2 ML EYE-OP (10:06)
[2021-01-27] MEDS: CHONDROIDTIN/SOD HYALURONATE 1.05 ML SYRINGE INTRAOCULA (10:06)
[2021-01-27] MEDS: BALANCED SALT IRRIG SOLN NO.2 500 ML, EPINEPHrine 1 MG IRR (10:07)
[2021-01-27] MEDS: TRIAMCINOLONE 50 MG/5 ML VIAL INJ (10:07)
[2021-01-27] MEDS: TETRACAINE 0.5% OPHTH DROPS 4 ML 2 DROPS EYE-OP (10:07)
[2021-01-27 10:30] VITALS: BP 116/77; PULSE 71; RESP 15; TEMP 36.4; O2SAT 96
== END 2021-01-27 10:34 | disposition home or self-care (01) ==
PROVIDERS: PCP Family Medicine; Referring Provider Ophthalmology; Visit Provider Ophthalmology
PROC: (CPT 66984; principal; 2021-01-27 10:15)
DX: H25.12 Age-related nuclear cataract, left eye (principal); I10 Essential (primary) hypertension; E78.00 Pure hypercholesterolemia, unspecified; G47.33 Obstructive sleep apnea (adult) (pediatric); I48.91 Unspecified atrial fibrillation
CPT/HCPCS: 66984; J0171; J2250; J3010; J3301

== ENCOUNTER → 2021-01-28 07:51 | Outpatient (CLI) | payer MEDICARE, BC, SELFPAY ==
[2021-01-28 08:30] LABS: Add Manual Diff / Slide Review NO; Basophils Absolute Auto 0 /uL (0-100); Basophils Percent Auto 0.9 % (0-2); Eosinophils Absolute Auto 100 /uL (0-450); Eosinophils Percent Auto 3.1 % (2-4); Hematocrit 40.1 % (41-53); Hemoglobin 13.7 g/dL (13.5-17.5); Lymphocytes Absolute Auto 1300 /uL (1100-4500); Lymphocytes Percent Auto 28.2 % (25-40); Mean Corpuscular HGB Conc 34.1 % (30-36); Mean Corpuscular Hemoglobin 31.2 PG (26-34); Mean Corpuscular Volume 91.3 fL (80-100); Monocytes Absolute Auto 400 /uL (0-900); Monocytes Percent Auto 9.4 % (3-14); Neutrophils Absolute Auto 2700 /uL (1500-7000); Neutrophils Percent Auto 58.4 % (50-75); Platelet Count 134 X10^3/uL (150-400); Red Blood Cell Count 4.39 X10^6/uL (4.5-5.9); Red Cell Distribution Width 14.5 % (11.6-14.8); White Blood Cell Count 4.6 X10^3/uL (4.5-11.0)
[2021-01-28 08:56] LABS: Creatinine Urine Random 54.6 mg/dL
[2021-01-28 08:57] LABS: Blood Urea Nitrogen 13 mg/dL (9-20); Calcium 9.2 mg/dL (8.4-10.2); Carbon Dioxide 32 mmol/L (22-32); Chloride 98 mmol/L (98-107); Estimated Glomerular Filt Rate > 60.0 mL/min (>60); Glucose 105 mg/dL (80-110); HEMOLYSIS < 15 (0-50); Potassium 3.5 mmol/L (3.4-5.1); Sodium 137 mmol/L (137-145)
[2021-01-28 08:59] LABS: Alanine Aminotransferase 18 IU/L (<50); Albumin Globulin Ratio 1.3 (1.0-2.8); Alkaline Phosphatase 124 U/L (38-126); Aspartate Aminotransferase 23 IU/L (17-59); BUN Creatinine Ratio 18.4 (6-22); Bilirubin Total 0.7 mg/dL (0.2-1.3); Blood Urea Nitrogen 14 mg/dL (9-20); Calcium 9.2 mg/dL (8.4-10.2); Carbon Dioxide 30 mmol/L (22-32); Chloride 99 mmol/L (98-107); Cholesterol 115 mg/dL (140-199); Estimated Glomerular Filt Rate > 60.0 mL/min (>60); Glucose 105 mg/dL (80-110); HDL Cholesterol 44 mg/dL (40-60); HEMOLYSIS < 15 (0-50); LDL Cholesterol Calculated 54 mg/dL (<100); Potassium 3.4 mmol/L (3.4-5.1); Sodium 137 mmol/L (137-145); Triglycerides 83 mg/dL (35-150)
[2021-01-28 09:00] LABS: Microalbumi Creatinin Ratio Ur 23.8 ug/mg CR (<30); Microalbumin Urine Random 1.3 mg/dL (0-1.6)
== END ==
PROVIDERS: PCP Family Medicine; Referring Provider Internal Medicine Cardiovascular Disease; Visit Provider Internal Medicine Cardiovascular Disease
DX: E78.5 Hyperlipidemia, unspecified (principal); E11.9 Type 2 diabetes mellitus without complications; I10 Essential (primary) hypertension; I48.19 Other persistent atrial fibrillation
CPT/HCPCS: 36415; 80048; 80053; 80061; 82043; 82570; 83036; 85025

== ENCOUNTER → 2021-02-16 08:08 | Outpatient (CLI) | payer MEDICARE, BC, SELFPAY ==
[2021-02-16 10:22] LABS: COVID19 -Nasal RAPID Negative (Negative)
== END ==
PROVIDERS: PCP Family Medicine; Visit Provider Physician Assistant
DX: Z01.812 Encounter for preprocedural laboratory examination (principal); Z20.822 Contact with and (suspected) exposure to COVID-19
CPT/HCPCS: 87635; C9803

== ENCOUNTER 2021-02-17 06:29 | Day surgery (SDC) | payer MEDICARE, BC, SELFPAY ==
[2021-02-17] MEDS: PROPARACAINE 0.5% OPHTH SOL 2 DROPS EYE-OP (06:56)
[2021-02-17] MEDS: CATARACT EYE COMPOUND (10 DROPS/SYRINGE) 3 DROPS EYE-OP (07:03)
[2021-02-17 07:06] VITALS: BP 143/89; PULSE 66; RESP 20; TEMP 36.2; O2SAT 97; BMI 30.8
--- NOTE | 2021-02-17 07:27 | PM.PREOP ---
Pre-operative Note Interval Note History & Physical reviewed/Exam performed by Physician: Yes Changes to H&P: No
--- NOTE | 2021-02-17 07:27 | PM.OP.1 ---
Operative Date/Time/Diagnoses Pre-op diagnosis: Nuclear cataract right eye Procedure & Clinicians Procedure: Cataract Surgery Same procedure as scheduled: Yes Surgeon: Navdeep Rosa Anesthesia Type: MAC +/- and Sedation Operative Notes Procedure in detail: Patient brought to the operating suite. Tetracaine drops placed in the right eye. Patient was prepped and draped in sterile manner. Wire lid speculum was placed in the eye. Betadine drops were placed on the eye. This was irrigated. Lidocaine jelly was placed on the eye. A paracentesis port was created with a side-port blade. 0.1 mL 1% preservative free lidocaine was injected into the anterior chamber. The anterior chamber was deepened with viscoelastic. 2.6 mm keratome was used to create a temporal clear corneal incision. Cystotome and Utrata forceps were used to create continuous tear capsulorrhexis. Balanced salt solution was used to hydro dissect the nucleus. The phacoemulsification handpiece was inserted and the nucleus was removed using the stop and chop technique. The irrigation aspiration handpiece was inserted and the remaining cortex was removed. Anterior chamber was deepened with viscoelastic. An Valdez DIB00 intraocular lens with a power of 20.0 was injected into the capsular bag. Irrigation aspiration handpiece was inserted and the remaining viscoelastic was removed. Incision was hydrated with balanced salt solution and found to be leak free with pressure with Weck-Veronika sponges. 0.1 mL Vigamox injected anterior chamber. 0.3 mL Kenalog 10 mg was injected subconjunctivally. Lid speculum was removed. The patient left the operating room in excellent condition. Complications: none Post-operative Condition: stable Disposition: same day surgery
[2021-02-17] MEDS: LIDOCAINE 2% (GLYDO) 6 ML GEL TOP (07:47)
[2021-02-17] MEDS: CHONDROIDTIN/SOD HYALURONATE 1.05 ML SYRINGE INTRAOCULA (07:47)
[2021-02-17] MEDS: MOXIFLOXACIN INJ 4 MG/0.8 ML VIAL 0.5 MG EYE-OP (07:48)
[2021-02-17] MEDS: PHENYLEPHRINE/LIDOCAINE VIAL (OR) 0.2 ML EYE-OP (07:49)
[2021-02-17] MEDS: TETRACAINE 0.5% OPHTH DROPS 4 ML 2 DROPS EYE-OP (07:49)
[2021-02-17] MEDS: BALANCED SALT IRRIG SOLN NO.2 500 ML, EPINEPHrine 1 MG IRR (07:50)
[2021-02-17] MEDS: TRIAMCINOLONE 50 MG/5 ML VIAL INJ (07:50)
[2021-02-17 08:19] VITALS: BP 117/72; PULSE 53; RESP 16; TEMP 36.6; O2SAT 94
== END 2021-02-17 08:18 | disposition home or self-care (01) ==
PROVIDERS: PCP Family Medicine; Referring Provider Ophthalmology; Visit Provider Ophthalmology
PROC: (CPT 66984; principal; 2021-02-17 07:45)
DX: H25.11 Age-related nuclear cataract, right eye (principal); I10 Essential (primary) hypertension; G47.33 Obstructive sleep apnea (adult) (pediatric); I48.91 Unspecified atrial fibrillation; F41.9 Anxiety disorder, unspecified; E78.5 Hyperlipidemia, unspecified
CPT/HCPCS: 66984; J0171; J2250; J3010; J3301

== ENCOUNTER → 2021-04-17 16:32 | Outpatient (CLI) | payer MEDICARE, BC, SELFPAY ==
[2021-04-17 16:36] LABS: Bacteria Urine None Seen; RBC Urine None Seen (0-5/HPF)
[2021-04-17 17:42] LABS: Add Manual Diff / Slide Review NO; Basophils Absolute Auto 0 /uL (0-100); Basophils Percent Auto 0.5 % (0-2); Eosinophils Absolute Auto 200 /uL (0-450); Eosinophils Percent Auto 3.6 % (2-4); Hematocrit 39.5 % (41-53); Hemoglobin 13.3 g/dL (13.5-17.5); Lymphocytes Absolute Auto 1600 /uL (1100-4500); Lymphocytes Percent Auto 24.3 % (25-40); Mean Corpuscular HGB Conc 33.7 % (30-36); Monocytes Absolute Auto 800 /uL (0-900); Monocytes Percent Auto 11.6 % (3-14); Neutrophils Absolute Auto 4000 /uL (1500-7000); Platelet Count 140 X10^3/uL (150-400); Red Blood Cell Count 4.29 X10^6/uL (4.5-5.9); Red Cell Distribution Width 14.5 % (11.6-14.8); White Blood Cell Count 6.6 X10^3/uL (4.5-11.0)
[2021-04-17 18:00] LABS: Alanine Aminotransferase 19 IU/L (<50); Albumin 4.2 g/dL (3.5-5.0); Albumin Globulin Ratio 1.4 (1.0-2.8); Alkaline Phosphatase 132 U/L (38-126); Aspartate Aminotransferase 26 IU/L (17-59); Bilirubin Total 0.5 mg/dL (0.2-1.3); Blood Urea Nitrogen 15 mg/dL (9-20); Calcium 9.2 mg/dL (8.4-10.2); Carbon Dioxide 33 mmol/L (22-32); Chloride 98 mmol/L (98-107); Estimated Glomerular Filt Rate > 60.0 mL/min (>60); Globulin 3.1 g/dL (1.7-4.1); Glucose 111 mg/dL (80-110); HEMOLYSIS < 15 (0-50); Potassium 3.6 mmol/L (3.4-5.1); Sodium 137 mmol/L (137-145); Total Protein 7.3 g/dL (6.3-8.2)
[2021-04-17 18:10] LABS: Appearance Urine UA CLEAR; Bilirubin Urine UA NEGATIVE (NEGATIVE); Color Urine UA YELLOW; Glucose Urine UA NEGATIVE (Negative); Ketones Urine UA NEGATIVE (NEGATIVE); Leukocyte Esterase Urine UA NEGATIVE (NEGATIVE); Nitrite Urine UA NEGATIVE (Negative); Occult Blood Urine UA NEGATIVE (Negative); Protein Urine UA NEGATIVE (Negative); Specific Gravity Urine UA 1.015 (1.000-1.035); Urobilinogen Urine UA 0.2 E.U./dL (0.2)
[2021-04-17 18:31] LABS: Squamous Epithelial Cell Urine 0-1 /HPF (0-5/HPF); WBC Urine 0-1/HPF (0-5/HPF)
[2021-04-17 18:32] LABS: Culture Indicated Urine Cult Not Indicated
== END ==
PROVIDERS: PCP Family Medicine; Referring Provider Family Medicine; Visit Provider Family Medicine
DX: R41.0 Disorientation, unspecified (principal)
CPT/HCPCS: 36415; 80053; 81001; 85025

== ENCOUNTER → 2022-02-23 07:08 | Outpatient (CLI) | payer MEDICARE, BC, SELFPAY ==
[2022-02-23 07:52] LABS: Add Manual Diff / Slide Review NO; Basophils Absolute Auto 0 /uL (0-100); Basophils Percent Auto 0.7 % (0-2); Eosinophils Absolute Auto 100 /uL (0-450); Eosinophils Percent Auto 2.5 % (2-4); Hematocrit 37.2 % (41-53); Hemoglobin 12.8 g/dL (13.5-17.5); Lymphocytes Absolute Auto 1800 /uL (1100-4500); Lymphocytes Percent Auto 37.2 % (25-40); Mean Corpuscular HGB Conc 34.6 % (30-36); Mean Corpuscular Hemoglobin 31.6 PG (26-34); Mean Corpuscular Volume 91.3 fL (80-100); Monocytes Absolute Auto 500 /uL (0-900); Monocytes Percent Auto 10.7 % (3-14); Neutrophils Absolute Auto 2400 /uL (1500-7000); Neutrophils Percent Auto 48.9 % (50-75); Platelet Count 134 X10^3/uL (150-400); Red Blood Cell Count 4.07 X10^6/uL (4.5-5.9); Red Cell Distribution Width 14.3 % (11.6-14.8); White Blood Cell Count 4.9 X10^3/uL (4.5-11.0)
[2022-02-23 08:09] LABS: BUN Creatinine Ratio 16.7 (6-22); Blood Urea Nitrogen 12 mg/dL (9-20); Calcium 9.1 mg/dL (8.4-10.2); Carbon Dioxide 34 mmol/L (22-32); Chloride 99 mmol/L (98-107); Cholesterol 102 mg/dL (140-199); Estimated Glomerular Filt Rate > 60 mL/min (>60); Glucose 101 mg/dL (80-110); HDL Cholesterol 38 mg/dL (40-60); HEMOLYSIS < 15 (0-50); LDL Cholesterol Calculated 53 mg/dL (<100); Potassium 3.6 mmol/L (3.4-5.1); Sodium 138 mmol/L (137-145); Triglycerides 57 mg/dL (35-150)
== END ==
PROVIDERS: PCP Family Medicine; Referring Provider Internal Medicine Cardiovascular Disease; Visit Provider Internal Medicine Cardiovascular Disease
DX: Z79.01 Long term (current) use of anticoagulants (principal); I10 Essential (primary) hypertension; E78.5 Hyperlipidemia, unspecified
CPT/HCPCS: 36415; 80048; 80061; 85025

== ENCOUNTER → 2022-05-07 15:23 | Outpatient (CLI) | payer MEDICARE, BC, SELFPAY ==
--- NOTE | 2022-05-07 15:27 | DI.RAD.S_ITS ---
PROCEDURE: XR FOOT RT MIN 3V INDICATIONS: Chronic right foot and ankle pain TECHNIQUE: 3 views of the foot were acquired. COMPARISON: None. FINDINGS: Bones: No fractures or dislocations. No suspicious bony lesions. There is varus angulation of the 1st metatarsal with compensatory valgus angulation of the 1st proximal phalanx reflecting hallux valgus. Soft tissues: No tibiotalar joint effusion. Achilles tendon appears normal. IMPRESSION: Hallux valgus. No fracture. Approved by: Zachary Lubin M.D. on 05/07/2022 at 16:50
--- NOTE | 2022-05-07 15:27 | DI.RAD.S_ITS ---
PROCEDURE: XR ANKLE RT MIN 3V INDICATIONS: Chronic right foot and ankle pain TECHNIQUE: 3 views of the ankle were acquired. COMPARISON: None. FINDINGS: Bones: Distal fibular cortical sideplate, syndesmotic screw and single threaded screw associated with the medial malleolus all are intact without evidence of hardware failure. Periprosthetic lucency associated with syndesmotic screw noted. No new fracture. Ankle mortise is maintained. Soft tissues: No tibiotalar joint effusion. Achilles tendon appears normal. IMPRESSION: Well-healed internally stabilized by malleolar fracture. No evidence of loosening of the syndesmotic screw Approved by: Zachary Lubin M.D. on 05/07/2022 at 16:44
== END ==
PROVIDERS: PCP Family Medicine; Referring Provider Family Medicine; Visit Provider Family Medicine
DX: S82.51XD Displaced fracture of medial malleolus of right tibia, subsequent encounter for closed fracture with routine healing (principal); M20.11 Hallux valgus (acquired), right foot; M79.671 Pain in right foot; M25.571 Pain in right ankle and joints of right foot; M79.674 Pain in right toe(s); G89.29 Other chronic pain
CPT/HCPCS: 73610; 73630

== ENCOUNTER 2022-11-20 17:11 | Inpatient (IN) | payer MEDICARE, BC, SELFPAY ==
[2022-11-20] VITALS (9 sets, daily range): BP systolic 131–198; BP diastolic 67–88; PULSE 71–104; RESP 15–34; TEMP 36.8–38.8; O2SAT 89–95; BMI 30.9
--- NOTE | 2022-11-20 17:14 | ED.GENADULT ---
HPI - General Adult <Glen Sargent DO - Last Filed: 11/21/22 10:04> General Chief complaint: Fever Stated complaint: Resp. Infection Time Seen by Provider: 11/20/22 17:13 History of Present Illness HPI narrative: 82-year-old male with history of hypertension, hyperlipidemia, atrial fibrillation on Eliquis presents by EMS for evaluation of fever, cough, shortness of breath and generalized weakness. He had been seen and treated as an outpatient for sinusitis/atypical pneumonia and over the course of the day he is rapidly worsened. He is had fever as high as 102 continues to cough and be short of breath. He denies nausea, vomiting or diarrhea. He has had increasing production of sputum. This afternoon he was so weak that he could not ambulate which is atypical for him. Last night he and his went out to enjoy show at the [place] and he was doing relatively okay. Related Data Home Medications Medication Instructions Recorded Confirmed rivaroxaban 20 mg tablet (Xarelto) 20 mg PO DAILY 10/05/21 11/20/22 Previous Rx's Medication Instructions Recorded albuterol sulfate 90 mcg/actuation 2 puff inhalation Q4-6H PRN 05/02/20 aerosol inhaler shortness of breath or wheezing #8.5 grams atorvastatin 10 mg tablet See Rx Instructions .Route 06/11/21 .COMPLEX #90 tabs amlodipine 5 mg tablet See Rx Instructions .Route 09/11/21 .COMPLEX #90 tabs hydrochlorothiazide 25 mg tablet 12.5 mg PO QDAY #90 tabs 12/11/21 potassium chloride 10 mEq See Rx Instructions .Route 04/26/22 tablet,extended release (Klor-Con) .COMPLEX #360 tabs buspirone 10 mg tablet 20 mg PO BID #360 tabs 06/01/22 terazosin 2 mg capsule See Rx Instructions .Route 06/25/22 .COMPLEX #720 caps fluticasone propionate 50 See Rx Instructions .Route 07/07/22 mcg/actuation nasal .COMPLEX #48 mL spray,suspension gabapentin 300 mg capsule See Rx Instructions .Route 08/13/22 .COMPLEX #360 caps azelastine 137 mcg (0.1 %) nasal See Rx Instructions .Route 08/17/22 spray aerosol .COMPLEX #30 mL dutasteride 0.5 mg capsule 0.5 mg PO DAILY #90 caps 09/13/22 triamcinolone acetonide 0.1 % 1 applic topical BID PRN skin rash 09/23/22 topical ointment or dry skin #30 grams tramadol 50 mg tablet See Rx Instructions .Route 11/09/22 .COMPLEX #180 tabs doxycycline hyclate 100 mg capsule 100 mg PO BID #20 caps 11/19/22 Allergies Allergy/AdvReac Type Severity Reaction Status Date / Time Penicillins Allergy Mild RASH Verified 10/08/22 16:10 shrimp Allergy Mild Rash Verified 10/08/22 16:10 Review of Systems <Glen Sargent DO - Last Filed: 11/21/22 10:04> Review of Systems Narrative: GENERAL: See HPI HEENT: See HPI RESPIRATORY: See HPI CARDIOVASCULAR: Denies chest pain, palpitations, orthopnea, edema, GASTROINTESTINAL: Denies nausea, vomiting, abdominal pain, diarrhea, constipation, melena. : Denies dysuria, frequency, incontinence, hematuria, urinary retention. MUSCULOSKELETAL: denies weakness, joint pain, or bony pain SKIN: Denies rash, skin lesions, or other NEUROLOGIC: Denies weakness, headache, numbness, change in speech, confusion, seizures, incoordination. PSYCHIATRIC: No concerning psychosocial issues. 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 Essential hypertension Facet arthropathy, lumbar Hayfever (~1979) Hyperlipidemia Hypersomnia Insomnia, persistent Low back pain without sciatica (07/13/17) Lumbosacral radiculopathy at L5 Lumbosacral spondylosis with radiculopathy Lung nodule (08/18/15) Measles (~194) Medicare annual wellness visit, subsequent Milia Mumps (~194) Obstructive sleep apnea of adult Osteoarthritis, hand Snoring Trigger finger (acquired) Umbilical hernia Surgical History Anesthesia Fracture dislocation of right ankle (04/2000) Status post hernia repair (2007) Family History Father Stroke Mother Heart disease Son No problems noted. Social History marital status: details: maral Delvalle, lives in [place] household members: spouse lives independently: Yes caregiver/support person: No occupational status: previously employed Smoking Status: Never smoker alcohol intake: former Smoking Status: Never smoker alcohol intake frequency: holidays/special occasions only Substance Use Type: does not use Exam <Glen Sargent DO - Last Filed: 11/21/22 10:04> Narrative Exam Narrative: GENERAL: [82] year old patient appears stated age. Well-developed patient, in moderate distress. Some increased work of breathing, pulse ox in the upper 80s on room air, improves to low 90s on 2 L HEAD: Atraumatic. Normocephalic. EYES: Pupils equal round and reactive. Extraocular motions intact. No scleral icterus. No injection or drainage. ENT: Nose without bleeding, purulent drainage. Throat without erythema, tonsillar hypertrophy or exudate. Airway patent. NECK: Trachea midline. Non tender CARDIOVASCULAR: Irregularly irregular rhythm without murmurs, gallops, or rubs. RESPIRATORY: Some increased work of breathing, harsh lung sounds with crackles in bilateral bases GASTROINTESTINAL: Abdomen soft, non-tender, nondistended. EXTREMITIES: No edema or joint tenderness. BACK: Nontender without deformity or crepitance. No flank tenderness. NEURO: AOx3. SKIN: No rash or erythema of visible areas Initial Vital Signs Initial Vital Signs: Vital Signs Temperature 101.5 F H 11/20/22 17:10 Pulse Rate 104 H 11/20/22 17:10 Respiratory Rate 24 11/20/22 17:10 Blood Pressure 198/88 H 11/20/22 17:10 Pulse Oximetry 89 L 11/20/22 17:10 Oxygen Delivery Method Room Air 11/20/22 17:10 <Priya Floyd DO - Last Filed: 11/21/22 00:16> Initial Vital Signs Initial Vital Signs: Vital Signs Temperature 101.5 F H 11/20/22 17:10 Pulse Rate 104 H 11/20/22 17:10 Respiratory Rate 24 11/20/22 17:10 Blood Pressure 198/88 H 11/20/22 17:10 Pulse Oximetry 89 L 11/20/22 17:10 Oxygen Delivery Method Room Air 11/20/22 17:10 Course <Glen Sargent DO - Last Filed: 11/21/22 10:04> Orders Ordered: ED Orders 11/20/22 17:15 Respiratory Panel (Film Array) Stat 11/20/22 17:18 XR chest 1V Stat 11/20/22 17:20 Complete Blood Count AUTO DIFF Stat Lactate (Lactic Acid) Stat 11/20/22 17:22 Blood Culture Stat 11/20/22 17:33 EKG-12 Lead Stat 11/20/22 17:45 ABG [Arterial Blood Gas] Stat 11/20/22 18:00 CRP [C-Reactive Protein Quant] Stat Comprehensive Metabolic Panel Stat NT-proBNP (BNP-Adult 18+) Stat Procalcitonin Stat Troponin & CK Cardiac Panel Stat 11/20/22 19:23 Urinalysis and Microscopic Stat 11/21/22 05:00 Basic Metabolic Panel Routine Complete Blood Count AUTO DIFF Routine Acetaminophen (Acetaminophen 325 Mg Tablet) 650 mg PO Q6H PRN PRN Reason: Fever/Mild Pain (1-3) Last Admin: 11/20/22 21:33 Dose: 650 mg Documented By: CS Albuterol (Albuterol 2.5 Mg/3 Ml Neb (Adult)) 2.5 mg INH Q4H PRN PRN Reason: Shortness Of Breath Or Wheezing Buspirone HCl (Buspirone 5 Mg Tablet) 20 mg PO BID [facility] Gabapentin (Gabapentin 300 Mg Capsule) 1,200 mg PO TID MJ Guaifenesin (Guaifenesin Er 600 Mg Tab) 600 mg PO Q12HR PRN PRN Reason: Cough Last Admin: 11/20/22 22:16 Dose: 600 mg Documented By: CS Ceftriaxone Sodium 1,000 mg/ (Sodium Chloride) 100 mls @ 200 mls/hr IV Q24H MJ Azithromycin 500 mg/ Dextrose 250 mls @ 250 mls/hr IV Q24H [facility] Naloxone HCl (Naloxone 0.4 Mg/Ml Vial) 0.2 mg IV Q2MIN PRN PRN Reason: Opiate Reversal Non-Formulary Medication (Dutasteride) 0.5 mg PO DAILY [facility] Ondansetron HCl (Ondansetron 4 Mg/2 Ml Inj) 4 mg IV Q8HR PRN PRN Reason: Nausea And Vomiting Rivaroxaban (Rivaroxaban 10 Mg Tablet) 20 mg PO 1700 MJ Discontinued Medications Acetaminophen (Acetaminophen 325 Mg Tablet) 975 mg PO NOW ONE Stop: 11/20/22 17:21 Last Admin: 11/20/22 17:31 Dose: 975 mg Documented By: KRISTIN Lactated Ringer's (Lactated Ringers) 2,259 mls @ 753 mls/hr 30 ml/kg infuse over 3 hr (2259 ml) IV NOW ONE Stop: 11/20/22 20:17 Last Infusion: 11/20/22 21:19 Dose: 0 mls/hr Documented By: Admin: 11/20/22 17:26 Dose: 753 mls/hr Documented By: KRISTIN Ceftriaxone Sodium 2,000 mg/ (Sodium Chloride) 100 mls @ 200 mls/hr IV NOW ONE Stop: 11/20/22 17:19 Last Infusion: 11/20/22 18:13 Dose: 0 mls/hr Documented By: Admin: 11/20/22 17:32 Dose: 200 mls/hr Documented By: KRISTIN Azithromycin 500 mg/ Dextrose 250 mls @ 250 mls/hr IV NOW ONE Stop: 11/20/22 17:21 Last Infusion: 11/20/22 19:24 Dose: 0 mls/hr Documented By: Admin: 11/20/22 18:14 Dose: 250 mls/hr Documented By: AUREA Ibuprofen (Ibuprofen 400 Mg Tablet) 800 mg PO NOW ONE Stop: 11/20/22 19:48 Last Admin: 11/20/22 19:53 Dose: 800 mg Documented By: KAISER Ibuprofen (Ibuprofen 400 Mg Tablet) 800 mg PO NOW ONE Stop: 11/20/22 19:29 Last Admin: 11/20/22 20:10 Dose: Not Given Documented By: HNG Consultations Consultation #1: Discussed with hospitalist early in the course, given increased work of breathing, oxygen requirement, fever, chills productive cough patient is treated for severe sepsis with IV fluids, ideal body weight used given patient's BMI greater than 30, no recent hospitalizations, antibiotics include Rocephin and azithromycin after 2 blood cultures obtained. Vital Signs Vital signs: Vital Signs - 8 hr 11/20/22 17:10 11/20/22 17:14 11/20/22 17:15 Temperature 101.5 F H Pulse Rate 104 H 100 H Respiratory Rate 24 Blood Pressure 198/88 H 198/88 H Pulse Oximetry 89 L 89 L Oxygen Delivery Method Room Air Room Air Oxygen Flow Rate 11/20/22 17:15 11/20/22 17:31 11/20/22 17:30 Temperature 101.5 F H Pulse Rate 96 H Respiratory Rate Blood Pressure 164/80 H Pulse Oximetry 90 L Oxygen Delivery Method Nasal Cannula Oxygen Flow Rate 2 11/20/22 17:30 11/20/22 19:26 Temperature 102 F H Pulse Rate 101 H Respiratory Rate 34 H Blood Pressure Pulse Oximetry 91 Oxygen Delivery Method Nasal Cannula Oxygen Flow Rate 2 <Priya Floyd, - Last Filed: 11/21/22 00:16> Orders Ordered: ED Orders 11/20/22 17:15 Respiratory Panel (Film Array) Stat 11/20/22 17:18 XR chest 1V Stat 11/20/22 17:20 Complete Blood Count AUTO DIFF Stat Lactate (Lactic Acid) Stat 11/20/22 17:22 Blood Culture Stat 11/20/22 17:33 EKG-12 Lead Stat 11/20/22 17:45 ABG [Arterial Blood Gas] Stat 11/20/22 18:00 CRP [C-Reactive Protein Quant] Stat Comprehensive Metabolic Panel Stat NT-proBNP (BNP-Adult 18+) Stat Procalcitonin Stat Troponin & CK Cardiac Panel Stat 11/20/22 19:23 Urinalysis and Microscopic Stat 11/21/22 05:00 Basic Metabolic Panel Routine Complete Blood Count AUTO DIFF Routine Acetaminophen (Acetaminophen 325 Mg Tablet) 650 mg PO Q6H PRN PRN Reason: Fever/Mild Pain (1-3) Last Admin: 11/20/22 21:33 Dose: 650 mg Documented By: CS Albuterol (Albuterol 2.5 Mg/3 Ml Neb (Adult)) 2.5 mg INH Q4H PRN PRN Reason: Shortness Of Breath Or Wheezing Buspirone HCl (Buspirone 5 Mg Tablet) 20 mg PO BID MJ Gabapentin (Gabapentin 300 Mg Capsule) 1,200 mg PO TID MJ Guaifenesin (Guaifenesin Er 600 Mg Tab) 600 mg PO Q12HR PRN PRN Reason: Cough Last Admin: 11/20/22 22:16 Dose: 600 mg Documented By: KARO Ceftriaxone Sodium 1,000 mg/ (Sodium Chloride) 100 mls @ 200 mls/hr IV Q24H [facility] Azithromycin 500 mg/ Dextrose 250 mls @ 250 mls/hr IV Q24H [facility] Naloxone HCl (Naloxone 0.4 Mg/Ml Vial) 0.2 mg IV Q2MIN PRN PRN Reason: Opiate Reversal Non-Formulary Medication (Dutasteride) 0.5 mg PO DAILY [facility] Ondansetron HCl (Ondansetron 4 Mg/2 Ml Inj) 4 mg IV Q8HR PRN PRN Reason: Nausea And Vomiting Rivaroxaban (Rivaroxaban 10 Mg Tablet) 20 mg PO 1700 [facility] Discontinued Medications Acetaminophen (Acetaminophen 325 Mg Tablet) 975 mg PO NOW ONE Stop: 11/20/22 17:21 Last Admin: 11/20/22 17:31 Dose: 975 mg Documented By: KRISTIN Lactated Ringer's (Lactated Ringers) 2,259 mls @ 753 mls/hr 30 ml/kg infuse over 3 hr (2259 ml) IV NOW ONE Stop: 11/20/22 20:17 Last Infusion: 11/20/22 21:19 Dose: 0 mls/hr Documented By: Admin: 11/20/22 17:26 Dose: 753 mls/hr Documented By: KRISTIN Ceftriaxone Sodium 2,000 mg/ (Sodium Chloride) 100 mls @ 200 mls/hr IV NOW ONE Stop: 11/20/22 17:19 Last Infusion: 11/20/22 18:13 Dose: 0 mls/hr Documented By: Admin: 11/20/22 17:32 Dose: 200 mls/hr Documented By: KRISTIN Azithromycin 500 mg/ Dextrose 250 mls @ 250 mls/hr IV NOW ONE Stop: 11/20/22 17:21 Last Infusion: 11/20/22 19:24 Dose: 0 mls/hr Documented By: Admin: 11/20/22 18:14 Dose: 250 mls/hr Documented By: AUREA Ibuprofen (Ibuprofen 400 Mg Tablet) 800 mg PO NOW ONE Stop: 11/20/22 19:48 Last Admin: 11/20/22 19:53 Dose: 800 mg Documented By: KAISER Ibuprofen (Ibuprofen 400 Mg Tablet) 800 mg PO NOW ONE Stop: 11/20/22 19:29 Last Admin: 11/20/22 20:10 Dose: Not Given Documented By: HNG Vital Signs Vital signs: Vital Signs - 8 hr 11/20/22 17:10 11/20/22 17:14 11/20/22 17:15 Temperature 101.5 F H Pulse Rate 104 H 100 H Respiratory Rate 24 Blood Pressure 198/88 H 198/88 H Pulse Oximetry 89 L 89 L Oxygen Delivery Method Room Air Room Air Oxygen Flow Rate 11/20/22 17:15 11/20/22 17:31 11/20/22 17:30 Temperature 101.5 F H Pulse Rate 96 H Respiratory Rate Blood Pressure 164/80 H Pulse Oximetry 90 L Oxygen Delivery Method Nasal Cannula Oxygen Flow Rate 2 11/20/22 17:30 11/20/22 19:26 Temperature 102 F H Pulse Rate 101 H Respiratory Rate 34 H Blood Pressure Pulse Oximetry 91 Oxygen Delivery Method Nasal Cannula Oxygen Flow Rate 2 Medical Decision Making <Glen Sargent DO - Last Filed: 11/21/22 10:04> Lab Data 11/20/22 17:20 11/20/22 18:00 Labs: Lab Results 11/20/22 11/20/22 11/20/22 Range/Units 17:15 17:20 17:20 WBC 10.4 (4.5-11.0) X10^3/uL RBC 4.46 L (4.5-5.9) X10^6/uL Hgb 14.0 (13.5-17.5) g/dL Hct 40.3 L (41-53) % MCV 90.4 (80-100) fL MCH 31.5 (26-34) PG MCHC 34.8 (30-36) % RDW 14.2 (11.6-14.8) % Plt Count 146 L (150-400) X10^3/uL Neut % (Auto) 88.1 H (50-75) % Lymph % (Auto) 5.9 L (25-40) % [place] % (Auto) 5.2 (3-14) % Eos % (Auto) 0.4 L (2-4) % Baso % (Auto) 0.4 (0-2) % Neut # (Auto) 9200 H (8333-6778) /uL Lymph # (Auto) 600 L (4636-6206) /uL [place] # (Auto) 500 (0-900) /uL Eos # (Auto) 0 (0-450) /uL Baso # (Auto) 0 (0-100) /uL ABG pH (7.35-7.45) ABG pCO2 (35-45) mmHg ABG pO2 (80-100) mmHg ABG HCO3 (23-27) mmol/L ABG Total CO2 (23-27) mmol/L ABG O2 Saturation (95-100) % ABG Base Excess (-2-3) mmol/L FiO2 Sodium (137-145) mmol/L Potassium (3.4-5.1) mmol/L Chloride (98-107) mmol/L Carbon Dioxide (22-32) mmol/L BUN (9-20) mg/dL Creatinine (0.66-1.25) mg/dL Estimated GFR (>60) mL/min BUN/Creatinine Ratio (6-22) Glucose (80-110) mg/dL Lactate 1.5 (0.7-2.1) mmol/L Calcium (8.4-10.2) mg/dL Total Bilirubin (0.2-1.3) mg/dL AST (17-59) IU/L ALT (<50) IU/L Alkaline Phosphatase (38-126) U/L Total Creatine Kinase (55-170) U/L CK-MB (CK-2) CK-MB (CK-2) Rel Index Troponin I (0.01-0.034) ng/mL C-Reactive Protein (<1.0) mg/dL NT-Pro-B Natriuret Pep (<450) pg/mL Total Protein (6.3-8.2) g/dL Albumin (3.5-5.0) g/dL Globulin (1.7-4.1) g/dL Albumin/Globulin Ratio (1.0-2.8) Procalcitonin (<0.5) ng/mL Urine Color Urine Appearance Urine pH (4.5-8.0) Ur Specific [place] (1.000-1.035) Urine Protein (Negative) Urine Glucose (UA) (Negative) g/dL Urine Ketones (NEGATIVE) Urine Occult Blood (Negative) Urine Nitrate (Negative) Urine Bilirubin (NEGATIVE) Urine Urobilinogen (0.2) E.U./dL Ur Leukocyte Esterase (NEGATIVE) Urine RBC (0-5/HPF) Urine WBC (0-5/HPF) Urine Bacteria (None) Ur Culture Indicated? Chlamy pneumoniae PCR Not detected (Not Detect) Adenovirus (PCR) Not detected (Not Detect) B. pertussis DNA (PCR) Not detected (Not Detecte) B.parapertussis DNA PCR Not detected (Not Detecte) Coronavirus OC43 (PCR) Not detected (Not Detect) Coronavirus HKU1 (PCR) Not detected (Not Detect) Coronavirus 229E (PCR) Not detected (Not Detect) SARS-CoV-2 (PCR) Not detected (Not Detecte) Coronavirus NL63 (PCR) Not detected (Not Detect) Human Metapneumovir PCR Not detected (Not Detect) Influenza Type A (PCR) Not detected (Not Detect) Influenza Type B (PCR) Not detected (Not Detect) M. pneumoniae (PCR) Not detected (Not Detect) Parainfluenza 1 (PCR) Not detected (Not Detect) Parainfluenza 2 (PCR) Not detected (Not Detect) Parainfluenza 3 (PCR) Not detected (Not Detect) Parainfluenza 4 (PCR) Not detected (Not Detect) RSV (PCR) Not detected (Not Detect) Entero/Rhino (PCR) Detected H (Not Detect) 11/20/22 11/20/22 11/20/22 Range/Units 17:45 18:00 18:00 WBC (4.5-11.0) X10^3/uL RBC (4.5-5.9) X10^6/uL Hgb (13.5-17.5) g/dL Hct (41-53) % MCV (80-100) fL MCH (26-34) PG MCHC (30-36) % RDW (11.6-14.8) % Plt Count (150-400) X10^3/uL Neut % (Auto) (50-75) % Lymph % (Auto) (25-40) % [place] % (Auto) (3-14) % Eos % (Auto) (2-4) % Baso % (Auto) (0-2) % Neut # (Auto) (4706-1794) /uL Lymph # (Auto) (2938-0305) /uL [place] # (Auto) (0-900) /uL Eos # (Auto) (0-450) /uL Baso # (Auto) (0-100) /uL ABG pH 7.47 H (7.35-7.45) ABG pCO2 37.4 (35-45) mmHg ABG pO2 47 L* (80-100) mmHg ABG HCO3 27 (23-27) mmol/L ABG Total CO2 29 H (23-27) mmol/L ABG O2 Saturation 85 L* (95-100) % ABG Base Excess 4.0 H (-2-3) mmol/L FiO2 21 Sodium 132 L (137-145) mmol/L Potassium 3.3 L (3.4-5.1) mmol/L Chloride 96 L (98-107) mmol/L Carbon Dioxide 28 (22-32) mmol/L BUN 15 (9-20) mg/dL Creatinine 0.66 (0.66-1.25) mg/dL Estimated GFR > 60 (>60) mL/min BUN/Creatinine Ratio 22.7 H (6-22) Glucose 163 H (80-110) mg/dL Lactate (0.7-2.1) mmol/L Calcium 8.9 (8.4-10.2) mg/dL Total Bilirubin 1.1 (0.2-1.3) mg/dL AST 22 (17-59) IU/L ALT 21 (<50) IU/L Alkaline Phosphatase 132 H (38-126) U/L Total Creatine Kinase 42 L (55-170) U/L CK-MB (CK-2) TNP CK-MB (CK-2) Rel Index TNP Troponin I < 0.012 (0.01-0.034) ng/mL C-Reactive Protein (<1.0) mg/dL NT-Pro-B Natriuret Pep 770 H (<450) pg/mL Total Protein 7.6 (6.3-8.2) g/dL Albumin 3.8 (3.5-5.0) g/dL Globulin 3.8 (1.7-4.1) g/dL Albumin/Globulin Ratio 1.0 (1.0-2.8) Procalcitonin 0.06 (<0.5) ng/mL Urine Color Urine Appearance Urine pH (4.5-8.0) Ur Specific [place] (1.000-1.035) Urine Protein (Negative) Urine Glucose (UA) (Negative) g/dL Urine Ketones (NEGATIVE) Urine Occult Blood (Negative) Urine Nitrate (Negative) Urine Bilirubin (NEGATIVE) Urine Urobilinogen (0.2) E.U./dL Ur Leukocyte Esterase (NEGATIVE) Urine RBC (0-5/HPF) Urine WBC (0-5/HPF) Urine Bacteria (None) Ur Culture Indicated? Chlamy pneumoniae PCR (Not Detect) Adenovirus (PCR) (Not Detect) B. pertussis DNA (PCR) (Not Detecte) B.parapertussis DNA PCR (Not Detecte) Coronavirus OC43 (PCR) (Not Detect) Coronavirus HKU1 (PCR) (Not Detect) Coronavirus 229E (PCR) (Not Detect) SARS-CoV-2 (PCR) (Not Detecte) Coronavirus NL63 (PCR) (Not Detect) Human Metapneumovir PCR (Not Detect) Influenza Type A (PCR) (Not Detect) Influenza Type B (PCR) (Not Detect) M. pneumoniae (PCR) (Not Detect) Parainfluenza 1 (PCR) (Not Detect) Parainfluenza 2 (PCR) (Not Detect) Parainfluenza 3 (PCR) (Not Detect) Parainfluenza 4 (PCR) (Not Detect) RSV (PCR) (Not Detect) Entero/Rhino (PCR) (Not Detect) 11/20/22 11/20/22 Range/Units 18:00 19:23 WBC (4.5-11.0) X10^3/uL RBC (4.5-5.9) X10^6/uL Hgb (13.5-17.5) g/dL Hct (41-53) % MCV (80-100) fL MCH (26-34) PG MCHC (30-36) % RDW (11.6-14.8) % Plt Count (150-400) X10^3/uL Neut % (Auto) (50-75) % Lymph % (Auto) (25-40) % [place] % (Auto) (3-14) % Eos % (Auto) (2-4) % Baso % (Auto) (0-2) % Neut # (Auto) (3676-0397) /uL Lymph # (Auto) (9347-7029) /uL [place] # (Auto) (0-900) /uL Eos # (Auto) (0-450) /uL Baso # (Auto) (0-100) /uL ABG pH (7.35-7.45) ABG pCO2 (35-45) mmHg ABG pO2 (80-100) mmHg ABG HCO3 (23-27) mmol/L ABG Total CO2 (23-27) mmol/L ABG O2 Saturation (95-100) % ABG Base Excess (-2-3) mmol/L FiO2 Sodium (137-145) mmol/L Potassium (3.4-5.1) mmol/L Chloride (98-107) mmol/L Carbon Dioxide (22-32) mmol/L BUN (9-20) mg/dL Creatinine (0.66-1.25) mg/dL Estimated GFR (>60) mL/min BUN/Creatinine Ratio (6-22) Glucose (80-110) mg/dL Lactate (0.7-2.1) mmol/L Calcium (8.4-10.2) mg/dL Total Bilirubin (0.2-1.3) mg/dL AST (17-59) IU/L ALT (<50) IU/L Alkaline Phosphatase (38-126) U/L Total Creatine Kinase (55-170) U/L CK-MB (CK-2) CK-MB (CK-2) Rel Index Troponin I (0.01-0.034) ng/mL C-Reactive Protein 2.6 H (<1.0) mg/dL NT-Pro-B Natriuret Pep (<450) pg/mL Total Protein (6.3-8.2) g/dL Albumin (3.5-5.0) g/dL Globulin (1.7-4.1) g/dL Albumin/Globulin Ratio (1.0-2.8) Procalcitonin (<0.5) ng/mL Urine Color Yellow Urine Appearance Clear Urine pH 6.0 (4.5-8.0) Ur Specific [place] 1.010 (1.000-1.035) Urine Protein Trace H (Negative) Urine Glucose (UA) Negative (Negative) g/dL Urine Ketones 1+ H (NEGATIVE) Urine Occult Blood 2+ H (Negative) Urine Nitrate Negative (Negative) Urine Bilirubin Negative (NEGATIVE) Urine Urobilinogen 1.0 (0.2) E.U./dL Ur Leukocyte Esterase Negative (NEGATIVE) Urine RBC 10-30/hpf H (0-5/HPF) Urine WBC None seen (0-5/HPF) Urine Bacteria None seen (None) Ur Culture Indicated? Cult not indicated Chlamy pneumoniae PCR (Not Detect) Adenovirus (PCR) (Not Detect) B. pertussis DNA (PCR) (Not Detecte) B.parapertussis DNA PCR (Not Detecte) Coronavirus OC43 (PCR) (Not Detect) Coronavirus HKU1 (PCR) (Not Detect) Coronavirus 229E (PCR) (Not Detect) SARS-CoV-2 (PCR) (Not Detecte) Coronavirus NL63 (PCR) (Not Detect) Human Metapneumovir PCR (Not Detect) Influenza Type A (PCR) (Not Detect) Influenza Type B (PCR) (Not Detect) M. pneumoniae (PCR) (Not Detect) Parainfluenza 1 (PCR) (Not Detect) Parainfluenza 2 (PCR) (Not Detect) Parainfluenza 3 (PCR) (Not Detect) Parainfluenza 4 (PCR) (Not Detect) RSV (PCR) (Not Detect) Entero/Rhino (PCR) (Not Detect) <Priya Floyd, DO - Last Filed: 11/21/22 00:16> Lab Data Labs: Lab Results 11/20/22 11/20/22 11/20/22 Range/Units 17:15 17:20 17:20 WBC 10.4 (4.5-11.0) X10^3/uL RBC 4.46 L (4.5-5.9) X10^6/uL Hgb 14.0 (13.5-17.5) g/dL Hct 40.3 L (41-53) % MCV 90.4 (80-100) fL MCH 31.5 (26-34) PG MCHC 34.8 (30-36) % RDW 14.2 (11.6-14.8) % Plt Count 146 L (150-400) X10^3/uL Neut % (Auto) 88.1 H (50-75) % Lymph % (Auto) 5.9 L (25-40) % [place] % (Auto) 5.2 (3-14) % Eos % (Auto) 0.4 L (2-4) % Baso % (Auto) 0.4 (0-2) % Neut # (Auto) 9200 H (1098-4625) /uL Lymph # (Auto) 600 L (6126-4207) /uL [place] # (Auto) 500 (0-900) /uL Eos # (Auto) 0 (0-450) /uL Baso # (Auto) 0 (0-100) /uL ABG pH (7.35-7.45) ABG pCO2 (35-45) mmHg ABG pO2 (80-100) mmHg ABG HCO3 (23-27) mmol/L ABG Total CO2 (23-27) mmol/L ABG O2 Saturation (95-100) % ABG Base Excess (-2-3) mmol/L FiO2 Sodium (137-145) mmol/L Potassium (3.4-5.1) mmol/L Chloride (98-107) mmol/L Carbon Dioxide (22-32) mmol/L BUN (9-20) mg/dL Creatinine (0.66-1.25) mg/dL Estimated GFR (>60) mL/min BUN/Creatinine Ratio (6-22) Glucose (80-110) mg/dL Lactate 1.5 (0.7-2.1) mmol/L Calcium (8.4-10.2) mg/dL Total Bilirubin (0.2-1.3) mg/dL AST (17-59) IU/L ALT (<50) IU/L Alkaline Phosphatase (38-126) U/L Total Creatine Kinase (55-170) U/L CK-MB (CK-2) CK-MB (CK-2) Rel Index Troponin I (0.01-0.034) ng/mL C-Reactive Protein (<1.0) mg/dL NT-Pro-B Natriuret Pep (<450) pg/mL Total Protein (6.3-8.2) g/dL Albumin (3.5-5.0) g/dL Globulin (1.7-4.1) g/dL Albumin/Globulin Ratio (1.0-2.8) Procalcitonin (<0.5) ng/mL Urine Color Urine Appearance Urine pH (4.5-8.0) Ur Specific [place] (1.000-1.035) Urine Protein (Negative) Urine Glucose (UA) (Negative) g/dL Urine Ketones (NEGATIVE) Urine Occult Blood (Negative) Urine Nitrate (Negative) Urine Bilirubin (NEGATIVE) Urine Urobilinogen (0.2) E.U./dL Ur Leukocyte Esterase (NEGATIVE) Urine RBC (0-5/HPF) Urine WBC (0-5/HPF) Urine Bacteria (None) Ur Culture Indicated? Chlamy pneumoniae PCR Not detected (Not Detect) Adenovirus (PCR) Not detected (Not Detect) B. pertussis DNA (PCR) Not detected (Not Detecte) B.parapertussis DNA PCR Not detected (Not Detecte) Coronavirus OC43 (PCR) Not detected (Not Detect) Coronavirus HKU1 (PCR) Not detected (Not Detect) Coronavirus 229E (PCR) Not detected (Not Detect) SARS-CoV-2 (PCR) Not detected (Not Detecte) Coronavirus NL63 (PCR) Not detected (Not Detect) Human Metapneumovir PCR Not detected (Not Detect) Influenza Type A (PCR) Not detected (Not Detect) Influenza Type B (PCR) Not detected (Not Detect) M. pneumoniae (PCR) Not detected (Not Detect) Parainfluenza 1 (PCR) Not detected (Not Detect) Parainfluenza 2 (PCR) Not detected (Not Detect) Parainfluenza 3 (PCR) Not detected (Not Detect) Parainfluenza 4 (PCR) Not detected (Not Detect) RSV (PCR) Not detected (Not Detect) Entero/Rhino (PCR) Detected H (Not Detect) 11/20/22 11/20/22 11/20/22 Range/Units 17:45 18:00 18:00 WBC (4.5-11.0) X10^3/uL RBC (4.5-5.9) X10^6/uL Hgb (13.5-17.5) g/dL Hct (41-53) % MCV (80-100) fL MCH (26-34) PG MCHC (30-36) % RDW (11.6-14.8) % Plt Count (150-400) X10^3/uL Neut % (Auto) (50-75) % Lymph % (Auto) (25-40) % [place] % (Auto) (3-14) % Eos % (Auto) (2-4) % Baso % (Auto) (0-2) % Neut # (Auto) (8293-6633) /uL Lymph # (Auto) (8081-4405) /uL [place] # (Auto) (0-900) /uL Eos # (Auto) (0-450) /uL Baso # (Auto) (0-100) /uL ABG pH 7.47 H (7.35-7.45) ABG pCO2 37.4 (35-45) mmHg ABG pO2 47 L* (80-100) mmHg ABG HCO3 27 (23-27) mmol/L ABG Total CO2 29 H (23-27) mmol/L ABG O2 Saturation 85 L* (95-100) % ABG Base Excess 4.0 H (-2-3) mmol/L FiO2 21 Sodium 132 L (137-145) mmol/L Potassium 3.3 L (3.4-5.1) mmol/L Chloride 96 L (98-107) mmol/L Carbon Dioxide 28 (22-32) mmol/L BUN 15 (9-20) mg/dL Creatinine 0.66 (0.66-1.25) mg/dL Estimated GFR > 60 (>60) mL/min BUN/Creatinine Ratio 22.7 H (6-22) Glucose 163 H (80-110) mg/dL Lactate (0.7-2.1) mmol/L Calcium 8.9 (8.4-10.2) mg/dL Total Bilirubin 1.1 (0.2-1.3) mg/dL AST 22 (17-59) IU/L ALT 21 (<50) IU/L Alkaline Phosphatase 132 H (38-126) U/L Total Creatine Kinase 42 L (55-170) U/L CK-MB (CK-2) TNP CK-MB (CK-2) Rel Index TNP Troponin I < 0.012 (0.01-0.034) ng/mL C-Reactive Protein (<1.0) mg/dL NT-Pro-B Natriuret Pep 770 H (<450) pg/mL Total Protein 7.6 (6.3-8.2) g/dL Albumin 3.8 (3.5-5.0) g/dL Globulin 3.8 (1.7-4.1) g/dL Albumin/Globulin Ratio 1.0 (1.0-2.8) Procalcitonin 0.06 (<0.5) ng/mL Urine Color Urine Appearance Urine pH (4.5-8.0) Ur Specific [place] (1.000-1.035) Urine Protein (Negative) Urine Glucose (UA) (Negative) g/dL Urine Ketones (NEGATIVE) Urine Occult Blood (Negative) Urine Nitrate (Negative) Urine Bilirubin (NEGATIVE) Urine Urobilinogen (0.2) E.U./dL Ur Leukocyte Esterase (NEGATIVE) Urine RBC (0-5/HPF) Urine WBC (0-5/HPF) Urine Bacteria (None) Ur Culture Indicated? Chlamy pneumoniae PCR (Not Detect) Adenovirus (PCR) (Not Detect) B. pertussis DNA (PCR) (Not Detecte) B.parapertussis DNA PCR (Not Detecte) Coronavirus OC43 (PCR) (Not Detect) Coronavirus HKU1 (PCR) (Not Detect) Coronavirus 229E (PCR) (Not Detect) SARS-CoV-2 (PCR) (Not Detecte) Coronavirus NL63 (PCR) (Not Detect) Human Metapneumovir PCR (Not Detect) Influenza Type A (PCR) (Not Detect) Influenza Type B (PCR) (Not Detect) M. pneumoniae (PCR) (Not Detect) Parainfluenza 1 (PCR) (Not Detect) Parainfluenza 2 (PCR) (Not Detect) Parainfluenza 3 (PCR) (Not Detect) Parainfluenza 4 (PCR) (Not Detect) RSV (PCR) (Not Detect) Entero/Rhino (PCR) (Not Detect) 11/20/22 11/20/22 Range/Units 18:00 19:23 WBC (4.5-11.0) X10^3/uL RBC (4.5-5.9) X10^6/uL Hgb (13.5-17.5) g/dL Hct (41-53) % MCV (80-100) fL MCH (26-34) PG MCHC (30-36) % RDW (11.6-14.8) % Plt Count (150-400) X10^3/uL Neut % (Auto) (50-75) % Lymph % (Auto) (25-40) % [place] % (Auto) (3-14) % Eos % (Auto) (2-4) % Baso % (Auto) (0-2) % Neut # (Auto) (0790-4112) /uL Lymph # (Auto) (8321-7931) /uL [place] # (Auto) (0-900) /uL Eos # (Auto) (0-450) /uL Baso # (Auto) (0-100) /uL ABG pH (7.35-7.45) ABG pCO2 (35-45) mmHg ABG pO2 (80-100) mmHg ABG HCO3 (23-27) mmol/L ABG Total CO2 (23-27) mmol/L ABG O2 Saturation (95-100) % ABG Base Excess (-2-3) mmol/L FiO2 Sodium (137-145) mmol/L Potassium (3.4-5.1) mmol/L Chloride (98-107) mmol/L Carbon Dioxide (22-32) mmol/L BUN (9-20) mg/dL Creatinine (0.66-1.25) mg/dL Estimated GFR (>60) mL/min BUN/Creatinine Ratio (6-22) Glucose (80-110) mg/dL Lactate (0.7-2.1) mmol/L Calcium (8.4-10.2) mg/dL Total Bilirubin (0.2-1.3) mg/dL AST (17-59) IU/L ALT (<50) IU/L Alkaline Phosphatase (38-126) U/L Total Creatine Kinase (55-170) U/L CK-MB (CK-2) CK-MB (CK-2) Rel Index Troponin I (0.01-0.034) ng/mL C-Reactive Protein 2.6 H (<1.0) mg/dL NT-Pro-B Natriuret Pep (<450) pg/mL Total Protein (6.3-8.2) g/dL Albumin (3.5-5.0) g/dL Globulin (1.7-4.1) g/dL Albumin/Globulin Ratio (1.0-2.8) Procalcitonin (<0.5) ng/mL Urine Color Yellow Urine Appearance Clear Urine pH 6.0 (4.5-8.0) Ur Specific [place] 1.010 (1.000-1.035) Urine Protein Trace H (Negative) Urine Glucose (UA) Negative (Negative) g/dL Urine Ketones 1+ H (NEGATIVE) Urine Occult Blood 2+ H (Negative) Urine Nitrate Negative (Negative) Urine Bilirubin Negative (NEGATIVE) Urine Urobilinogen 1.0 (0.2) E.U./dL Ur Leukocyte Esterase Negative (NEGATIVE) Urine RBC 10-30/hpf H (0-5/HPF) Urine WBC None seen (0-5/HPF) Urine Bacteria None seen (None) Ur Culture Indicated? Cult not indicated Chlamy pneumoniae PCR (Not Detect) Adenovirus (PCR) (Not Detect) B. pertussis DNA (PCR) (Not Detecte) B.parapertussis DNA PCR (Not Detecte) Coronavirus OC43 (PCR) (Not Detect) Coronavirus HKU1 (PCR) (Not Detect) Coronavirus 229E (PCR) (Not Detect) SARS-CoV-2 (PCR) (Not Detecte) Coronavirus NL63 (PCR) (Not Detect) Human Metapneumovir PCR (Not Detect) Influenza Type A (PCR) (Not Detect) Influenza Type B (PCR) (Not Detect) M. pneumoniae (PCR) (Not Detect) Parainfluenza 1 (PCR) (Not Detect) Parainfluenza 2 (PCR) (Not Detect) Parainfluenza 3 (PCR) (Not Detect) Parainfluenza 4 (PCR) (Not Detect) RSV (PCR) (Not Detect) Entero/Rhino (PCR) (Not Detect) [facility] Narrative Medical decision making narrative: This is an 82 year old male history of hypertension, dyslipidemia, atrial fibrillation on Eliquis who presents with respiratory symptoms, signed out to myself by Dr. Sargent. Patient meet septic criteria, he is positive for entero/rhinovirus, he had hypoxia on room air with a PO2 of 47% pH of 7.47 pCO2 of 37 bicarb of 27. Patient has CBC with normal white count but elevated neutrophils, hemoglobin is 14 platelets are 146. Sodium was 132 potassium 3.3 with chloride 96 CO2 is 28 BUN 15 with normal creatinine. Glucose is 163. Lactate 1.5 with LFTs only show an alk-phos elevated 132- troponin, BNP is 770 and a C-reactive protein. Patient is positive for entero/rhinovirus on PCR panel. Chest x-ray shows some mild cardiomegaly, low lung volumes but was somewhat poor view. On exam patient is conversant but appears unwell, no tachypnea appreciated. Alert inappropriate. Patient received 30 cc/kilos fluid bolus at ideal body weight, Rocephin azithromycin and Tylenol for fever for portential bacterial source. Patient was seen independently evaluated by myself after he would received these treatments. Appears to have viral source further acute hypoxic respiratory failure, sepsis. Case discussed with Dr. Urena, hospitalist he accepts for admission. Dr. Urena saw patient in the department. <Priya Henrry Floyd, DO - Last Filed: 11/21/22 00:16> Critical Care Time Critical Care Time: Yes Total Critical Care Time: 25 Attestation: The high probability of a clinically significant, sudden or life threatening deterioration of the [cardiac, pulm] system(s) required my full and direct attention, intervention and personal management. The aggregate critical care time was [] minutes. This time is in addition to time spent performing reported procedures but includes the following: [x] Data Review and interpretation [x] Patient assessment and monitoring of vital signs [x] Documentation [x] Medication orders and management Discharge Plan Departure Patient Disposition: Admitted As Inpatient Clinical Impression: Enterovirus infection, Sepsis, Acute respiratory failure with hypoxia Admit Date/Time: 11/20/22 19:35 Admit Provider: Soren Urena
--- NOTE | 2022-11-20 17:18 | DI.RAD.S_ITS ---
PROCEDURE: XR CHEST 1V INDICATIONS: Short of breath, fever, cough, weak TECHNIQUE: One view of the chest was acquired. COMPARISON: [facility], , CHEST 2 VIEW, 08/13/2015, 9:48. FINDINGS: Surgical changes and devices: None. Lungs and pleura: Low lung volumes are noted. This causes a crowded appearance to the lung markings and limits evaluation. Mild generalized interstitial prominence can be seen. On this semiupright portable chest examination, no large pneumothorax or large pleural effusions are seen. No focal infiltrates are seen. Mediastinum: The cardiac contours are mildly enlarged. The aorta demonstrates calcification and tortuosity. Bones and chest wall: No suspicious bony lesions. Age-appropriate bony degenerative changes are seen. Overlying soft tissues appear unremarkable. IMPRESSION: Low lung volumes with mild generalized interstitial prominence. Mild cardiomegaly is seen. CHF is suspected. If clinically appropriate, a short-term followup chest series (with PA and lateral views) performed in deep inspiration is suggested for further evaluation. Dictated by: Yuniel Velasquez M.D. on 11/20/2022 at 17:14 Approved by: Yuniel Velasquez M.D. on 11/20/2022 at 17:15
[2022-11-20] MEDS: LACTATED RINGERS 2,259 ML 753 ML IV (17:26)
[2022-11-20] MEDS: ACETAMINOPHEN 325 MG TABLET 975 MG PO (17:31)
[2022-11-20] MEDS: cefTRIAXone 2,000 MG in SODIUM CHLORIDE 0.9% 100 ML 200 MG IV (17:32)
[2022-11-20 17:46] LABS: Add Manual Diff / Slide Review NO; Basophils Absolute Auto 0 /uL (0-100); Basophils Percent Auto 0.4 % (0-2); Eosinophils Absolute Auto 0 /uL (0-450); Eosinophils Percent Auto 0.4 % (2-4); Hematocrit 40.3 % (41-53); Lymphocytes Absolute Auto 600 /uL (1100-4500); Lymphocytes Percent Auto 5.9 % (25-40); Mean Corpuscular HGB Conc 34.8 % (30-36); Mean Corpuscular Hemoglobin 31.5 PG (26-34); Mean Corpuscular Volume 90.4 fL (80-100); Monocytes Absolute Auto 500 /uL (0-900); Monocytes Percent Auto 5.2 % (3-14); Neutrophils Absolute Auto 9200 /uL (1500-7000); Neutrophils Percent Auto 88.1 % (50-75); Platelet Count 146 X10^3/uL (150-400); Red Blood Cell Count 4.46 X10^6/uL (4.5-5.9); Red Cell Distribution Width 14.2 % (11.6-14.8); White Blood Cell Count 10.4 X10^3/uL (4.5-11.0)
[2022-11-20 17:56] LABS: PCO2 ABG 37.4 mmHg (35-45); pH ABG 7.47 (7.35-7.45)
[2022-11-20 17:58] LABS: HCO3 ABG 27 mmol/L (23-27); PO2 ABG 47 mmHg (80-100); TCO2 ABG 29 mmol/L (23-27)
[2022-11-20 17:59] LABS: Fractionated Inspired Oxygen 21
[2022-11-20 18:02] LABS: Oxygen Saturation ABG 85 % (95-100)
[2022-11-20 18:03] LABS: Lactate (Lactic Acid) 1.5 mmol/L (0.7-2.1)
[2022-11-20] MEDS: AZITHROMYCIN 500 MG in DEXTROSE 5% IN WATER 250 ML 250 MG IV (18:14)
[2022-11-20 18:19] LABS: Creatine Kinase 42 U/L (55-170)
[2022-11-20 18:21] LABS: Alanine Aminotransferase 21 IU/L (<50); Albumin 3.8 g/dL (3.5-5.0); Alkaline Phosphatase 132 U/L (38-126); Aspartate Aminotransferase 22 IU/L (17-59); BUN Creatinine Ratio 22.7 (6-22); Bilirubin Total 1.1 mg/dL (0.2-1.3); Blood Urea Nitrogen 15 mg/dL (9-20); Calcium 8.9 mg/dL (8.4-10.2); Carbon Dioxide 28 mmol/L (22-32); Chloride 96 mmol/L (98-107); Estimated Glomerular Filt Rate > 60 mL/min (>60); Globulin 3.8 g/dL (1.7-4.1); Glucose 163 mg/dL (80-110); HEMOLYSIS < 15 (0-50); Potassium 3.3 mmol/L (3.4-5.1); Sodium 132 mmol/L (137-145); Total Protein 7.6 g/dL (6.3-8.2)
[2022-11-20 18:25] LABS: C-Reactive Protein Quant 2.6 mg/dL (<1.0)
[2022-11-20 18:30] LABS: NT-proBNP (BNP-Adult 18+) 770 pg/mL (<450)
[2022-11-20 18:33] LABS: Troponin I < 0.012 ng/mL (0.01-0.034)
[2022-11-20 18:37] LABS: Procalcitonin 0.06 ng/mL (<0.5)
[2022-11-20 18:43] LABS: Adenovirus Not Detected (Not Detect); B. parapertussis Not Detected (Not Detecte); Bordetella pertussis Not Detected (Not Detecte); Chlamydophila pneumoniae Not Detected (Not Detect); Coronavirus 229E Not Detected (Not Detect); Coronavirus HKU1 Not Detected (Not Detect); Coronavirus NL 63 Not Detected (Not Detect); Coronavirus OC43 Not Detected (Not Detect); Human Metapneumovirus Not Detected (Not Detect); Human Rhinovirus/Enterovirus Detected (Not Detect); Influenza A Not Detected (Not Detect); Influenza B Not Detected (Not Detect); Mycoplasma pneumoniae Not Detected (Not Detect); Parainfluenza Virus 1 Not Detected (Not Detect); Parainfluenza Virus 2 Not Detected (Not Detect); Parainfluenza Virus 3 Not Detected (Not Detect); Parainfluenza Virus 4 Not Detected (Not Detect); Respiratory Syncytial Virus Not Detected (Not Detect); SARS- CoV-2 Not Detected (Not Detecte)
[2022-11-20 19:25] LABS: Appearance Urine UA CLEAR; Bilirubin Urine UA NEGATIVE (NEGATIVE); Color Urine UA YELLOW; Glucose Urine UA NEGATIVE (Negative); Ketones Urine UA 1+ (NEGATIVE); Leukocyte Esterase Urine UA NEGATIVE (NEGATIVE); Nitrite Urine UA NEGATIVE (Negative); Occult Blood Urine UA 2+ (Negative); Protein Urine UA TRACE (Negative)
[2022-11-20 19:42] LABS: Bacteria Urine None Seen; RBC Urine 10-30/HPF (0-5/HPF); WBC Urine None Seen (0-5/HPF)
[2022-11-20 19:43] LABS: Culture Indicated Urine Cult Not Indicated
--- NOTE | 2022-11-20 19:47 | PM.HP.1 ---
History of Present Illness History of Present Illness Date Patient Seen: 11/20/22 Time Patient Seen: 19:30 Chief complaint: Resp. Infection Narrative: Mr. Burciaga is an 82M with PMH afib, HTN, HL, TRACEY who presents to the hospital with worsening cough and weakness. He states he developed a cough approximately two weeks ago, he wasn't improving so a few days ago he saw his PCP and was placed on doxycycline for either a pneumonia and or sinusitis. He has taken the antibiotics but today has felt worse with worsening cough with productive green sputum, shortness of breath and fever. He began feeling weak. He has no dysuria, nausea, vomiting, abdominal pain or diarrhea. In the ED workup was done, vitals notable for temp 101.5,. heart rate 100s, respiratory rate 20s, blood pressure 190s/80s, sats in the 80s on room air. He was placed on oxygen and felt better. Labs reviewed by me and notable for WBC 10.4 hgb 14, plts 146. Na 132, k 3.3, creatinien 0.66. Lactate 1.5. procal 0.06. Respiratory virus panel PCR notable for positive enterovirus. Trop negative. BNP 770. Chest xray reviewed by me and showed no definitive consolidation, but did show interstitial prominence. He was ordered for fluids, tylenol, and antibiotics and admitted for further treatment. 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 Essential hypertension Facet arthropathy, lumbar Hayfever (~1979) Hyperlipidemia Hypersomnia Insomnia, persistent Low back pain without sciatica (07/13/17) Lumbosacral radiculopathy at L5 Lumbosacral spondylosis with radiculopathy Lung nodule (08/18/15) Measles (~194) Medicare annual wellness visit, subsequent Milia Mumps (~194) Obstructive sleep apnea of adult Osteoarthritis, hand Snoring Trigger finger (acquired) Umbilical hernia Surgical History Anesthesia Fracture dislocation of right ankle (04/2000) Status post hernia repair (2007) Family History Father Stroke Mother Heart disease Son No problems noted. Social History marital status: details: maral Delvalle, lives in [place] household members: spouse lives independently: Yes caregiver/support person: No occupational status: previously employed Smoking Status: Never smoker alcohol intake: former Meds Home Medications and Allergies Home Medications Medication Instructions Recorded Confirmed Type albuterol sulfate 90 mcg/actuation 2 puff inhalation Q4-6H PRN 05/02/20 11/20/22 Rx aerosol inhaler shortness of breath or wheezing #8.5 grams atorvastatin 10 mg tablet See Rx Instructions .Route 06/11/21 11/20/22 Rx .COMPLEX #90 tabs amlodipine 5 mg tablet See Rx Instructions .Route 09/11/21 11/20/22 Rx .COMPLEX #90 tabs rivaroxaban 20 mg tablet (Xarelto) 20 mg PO DAILY 10/05/21 11/20/22 History hydrochlorothiazide 25 mg tablet 12.5 mg PO QDAY #90 tabs 12/11/21 11/20/22 Rx potassium chloride 10 mEq See Rx Instructions .Route 04/26/22 11/20/22 Rx tablet,extended release (Klor-Con) .COMPLEX #360 tabs buspirone 10 mg tablet 20 mg PO BID #360 tabs 06/01/22 11/20/22 Rx terazosin 2 mg capsule See Rx Instructions .Route 06/25/22 11/20/22 Rx .COMPLEX #720 caps fluticasone propionate 50 See Rx Instructions .Route 07/07/22 11/20/22 Rx mcg/actuation nasal .COMPLEX #48 mL spray,suspension gabapentin 300 mg capsule See Rx Instructions .Route 08/13/22 11/20/22 Rx .COMPLEX #360 caps azelastine 137 mcg (0.1 %) nasal See Rx Instructions .Route 08/17/22 11/20/22 Rx spray aerosol .COMPLEX #30 mL dutasteride 0.5 mg capsule 0.5 mg PO DAILY #90 caps 09/13/22 11/20/22 Rx triamcinolone acetonide 0.1 % 1 applic topical BID PRN skin rash 09/23/22 11/20/22 Rx topical ointment or dry skin #30 grams tramadol 50 mg tablet See Rx Instructions .Route 11/09/22 11/20/22 Rx .COMPLEX #180 tabs doxycycline hyclate 100 mg capsule 100 mg PO BID #20 caps 11/19/22 11/20/22 Rx Allergies Allergy/AdvReac Type Severity Reaction Status Date / Time Penicillins Allergy Mild RASH Verified 10/08/22 16:10 shrimp Allergy Mild Rash Verified 10/08/22 16:10 Review of Systems Review of Systems Narrative: 14 systems reviewed and negative aside from what is noted in HPI Exam Vital Signs (past 8 hours): - 11/20/22 17:10 11/20/22 17:14 11/20/22 17:15 Temperature 101.5 F H Pulse Rate 104 H 100 H Respiratory Rate 24 Blood Pressure 198/88 H 198/88 H Pulse Oximetry 89 L 89 L Oxygen Delivery Method Room Air Room Air Oxygen Flow Rate 11/20/22 17:15 11/20/22 17:31 11/20/22 17:30 Temperature 101.5 F H Pulse Rate 96 H Respiratory Rate Blood Pressure 164/80 H Pulse Oximetry 90 L Oxygen Delivery Method Nasal Cannula Oxygen Flow Rate 2 11/20/22 17:30 11/20/22 19:26 Temperature 102 F H Pulse Rate 101 H Respiratory Rate 34 H Blood Pressure Pulse Oximetry 91 Oxygen Delivery Method Nasal Cannula Oxygen Flow Rate 2 Oxygen Delivery Method Nasal Cannula Oxygen Flow Rate 2 Narrative Exam Narrative: GEN: in mild respiratory distress HEENT: moist mucous membranes, PERRL NECK: trachea midline, no jvd PULM: harsh breath sounds bilaterally, no wheezes, rhonchi, rales CV: irregular, normal rate, no murmurs ABD: soft, nontender, nondistended, no organomegaly EXT: warm and well perfused, trace edema NEURO: awake, alert, oriented, with no focal deficits Objective Labs 11/20/22 17:20 11/20/22 18:00 Labs: Laboratory Results - last 24 hr 11/20/22 11/20/22 11/20/22 17:15 17:20 17:20 WBC 10.4 RBC 4.46 L Hgb 14.0 Hct 40.3 L MCV 90.4 MCH 31.5 MCHC 34.8 RDW 14.2 Plt Count 146 L Neut % (Auto) 88.1 H Lymph % (Auto) 5.9 L [place] % (Auto) 5.2 Eos % (Auto) 0.4 L Baso % (Auto) 0.4 Neut # (Auto) 9200 H Lymph # (Auto) 600 L [place] # (Auto) 500 Eos # (Auto) 0 Baso # (Auto) 0 ABG pH ABG pCO2 ABG pO2 ABG HCO3 ABG Total CO2 ABG O2 Saturation ABG Base Excess FiO2 Sodium Potassium Chloride Carbon Dioxide BUN Creatinine Estimated GFR BUN/Creatinine Ratio Glucose Lactate 1.5 Calcium Total Bilirubin AST ALT Alkaline Phosphatase Total Creatine Kinase CK-MB (CK-2) CK-MB (CK-2) Rel Index Troponin I C-Reactive Protein NT-Pro-B Natriuret Pep Total Protein Albumin Globulin Albumin/Globulin Ratio Procalcitonin Urine Color Urine Appearance Urine pH Ur Specific [place] Urine Protein Urine Glucose (UA) Urine Ketones Urine Occult Blood Urine Nitrate Urine Bilirubin Urine Urobilinogen Ur Leukocyte Esterase Urine RBC Urine WBC Urine Bacteria Ur Culture Indicated? Chlamy pneumoniae PCR Not detected Adenovirus (PCR) Not detected B. pertussis DNA (PCR) Not detected B.parapertussis DNA PCR Not detected Coronavirus OC43 (PCR) Not detected Coronavirus HKU1 (PCR) Not detected Coronavirus 229E (PCR) Not detected SARS-CoV-2 (PCR) Not detected Coronavirus NL63 (PCR) Not detected Human Metapneumovir PCR Not detected Influenza Type A (PCR) Not detected Influenza Type B (PCR) Not detected M. pneumoniae (PCR) Not detected Parainfluenza 1 (PCR) Not detected Parainfluenza 2 (PCR) Not detected Parainfluenza 3 (PCR) Not detected Parainfluenza 4 (PCR) Not detected RSV (PCR) Not detected Entero/Rhino (PCR) Detected H 11/20/22 11/20/22 11/20/22 17:45 18:00 18:00 WBC RBC Hgb Hct MCV MCH MCHC RDW Plt Count Neut % (Auto) Lymph % (Auto) [place] % (Auto) Eos % (Auto) Baso % (Auto) Neut # (Auto) Lymph # (Auto) [place] # (Auto) Eos # (Auto) Baso # (Auto) ABG pH 7.47 H ABG pCO2 37.4 ABG pO2 47 L* ABG HCO3 27 ABG Total CO2 29 H ABG O2 Saturation 85 L* ABG Base Excess 4.0 H FiO2 21 Sodium 132 L Potassium 3.3 L Chloride 96 L Carbon Dioxide 28 BUN 15 Creatinine 0.66 Estimated GFR > 60 BUN/Creatinine Ratio 22.7 H Glucose 163 H Lactate Calcium 8.9 Total Bilirubin 1.1 AST 22 ALT 21 Alkaline Phosphatase 132 H Total Creatine Kinase 42 L CK-MB (CK-2) TNP CK-MB (CK-2) Rel Index TNP Troponin I < 0.012 C-Reactive Protein NT-Pro-B Natriuret Pep 770 H Total Protein 7.6 Albumin 3.8 Globulin 3.8 Albumin/Globulin Ratio 1.0 Procalcitonin 0.06 Urine Color Urine Appearance Urine pH Ur Specific [place] Urine Protein Urine Glucose (UA) Urine Ketones Urine Occult Blood Urine Nitrate Urine Bilirubin Urine Urobilinogen Ur Leukocyte Esterase Urine RBC Urine WBC Urine Bacteria Ur Culture Indicated? Chlamy pneumoniae PCR Adenovirus (PCR) B. pertussis DNA (PCR) B.parapertussis DNA PCR Coronavirus OC43 (PCR) Coronavirus HKU1 (PCR) Coronavirus 229E (PCR) SARS-CoV-2 (PCR) Coronavirus NL63 (PCR) Human Metapneumovir PCR Influenza Type A (PCR) Influenza Type B (PCR) M. pneumoniae (PCR) Parainfluenza 1 (PCR) Parainfluenza 2 (PCR) Parainfluenza 3 (PCR) Parainfluenza 4 (PCR) RSV (PCR) Entero/Rhino (PCR) 11/20/22 11/20/22 18:00 19:23 WBC RBC Hgb Hct MCV MCH MCHC RDW Plt Count Neut % (Auto) Lymph % (Auto) [place] % (Auto) Eos % (Auto) Baso % (Auto) Neut # (Auto) Lymph # (Auto) [place] # (Auto) Eos # (Auto) Baso # (Auto) ABG pH ABG pCO2 ABG pO2 ABG HCO3 ABG Total CO2 ABG O2 Saturation ABG Base Excess FiO2 Sodium Potassium Chloride Carbon Dioxide BUN Creatinine Estimated GFR BUN/Creatinine Ratio Glucose Lactate Calcium Total Bilirubin AST ALT Alkaline Phosphatase Total Creatine Kinase CK-MB (CK-2) CK-MB (CK-2) Rel Index Troponin I C-Reactive Protein 2.6 H NT-Pro-B Natriuret Pep Total Protein Albumin Globulin Albumin/Globulin Ratio Procalcitonin Urine Color Yellow Urine Appearance Clear Urine pH 6.0 Ur Specific [place] 1.010 Urine Protein Trace H Urine Glucose (UA) Negative Urine Ketones 1+ H Urine Occult Blood 2+ H Urine Nitrate Negative Urine Bilirubin Negative Urine Urobilinogen 1.0 Ur Leukocyte Esterase Negative Urine RBC 10-30/hpf H Urine WBC None seen Urine Bacteria None seen Ur Culture Indicated? Cult not indicated Chlamy pneumoniae PCR Adenovirus (PCR) B. pertussis DNA (PCR) B.parapertussis DNA PCR Coronavirus OC43 (PCR) Coronavirus HKU1 (PCR) Coronavirus 229E (PCR) SARS-CoV-2 (PCR) Coronavirus NL63 (PCR) Human Metapneumovir PCR Influenza Type A (PCR) Influenza Type B (PCR) M. pneumoniae (PCR) Parainfluenza 1 (PCR) Parainfluenza 2 (PCR) Parainfluenza 3 (PCR) Parainfluenza 4 (PCR) RSV (PCR) Entero/Rhino (PCR) Assessment & Plan Assessment & Plan narrative: 1. Acute hypoxemic respiratory failure secondary to pneumonia, SIRS -has been worsening symptoms over two weeks -workup shows fever, tachycardia and positive enterovirus -with worsening in the past day, some concern for a superimposed bacterial infection -procal is not elevated, but for now will treat with antibiotics with ceftriaxone and azithromycin -wean oxygen as able -follow up cultures -can consider steroids if slow to improve -continue home inhaler 2. Atrial fibrillation, chronic continue xarelto 3. Chronic pain -continue gabapentin 4. Hypertension -hold anti-hypertensives for now 5. TRACEY -continue CPAP 6. BPH -continue home medications I have discussed plan and obtained history from patient and his . I have discussed plan of care with ED physician and bedside nures. I have reviewed labs, EKG and chest xray. CODE: Full Proxy: Adelia Burciaga, [facility] - Meds 'Current medications' to include all prescriptions, [id number] products, herbals, cannabis/cannabidiol products, and vitamin/mineral/dietary (nutritional) supplements. I have utilized all available resources to obtain, update, or review the patient?s current medications. [If Yes, STOP here]: Yes
[2022-11-20] MEDS: IBUPROFEN 400 MG TABLET 800 MG PO (19:53)
[2022-11-20] MEDS: ACETAMINOPHEN 325 MG TABLET 650 MG PO (21:33)
[2022-11-20] MEDS: guaiFENesin ER 600 MG TAB PO (22:16)
[2022-11-21 01:00] VITALS: BP 120/62; PULSE 78; RESP 16; TEMP 36.7; O2SAT 94
[2022-11-21 06:46] LABS: Add Manual Diff / Slide Review NO; Basophils Absolute Auto 0 /uL (0-100); Basophils Percent Auto 0.1 % (0-2); Eosinophils Absolute Auto 0 /uL (0-450); Eosinophils Percent Auto 0.3 % (2-4); Hematocrit 36.2 % (41-53); Hemoglobin 12.3 g/dL (13.5-17.5); Lymphocytes Absolute Auto 1300 /uL (1100-4500); Lymphocytes Percent Auto 9.8 % (25-40); Mean Corpuscular Hemoglobin 30.6 PG (26-34); Monocytes Absolute Auto 800 /uL (0-900); Neutrophils Absolute Auto 11400 /uL (1500-7000); Neutrophils Percent Auto 83.8 % (50-75); Platelet Count 126 X10^3/uL (150-400); Red Blood Cell Count 4.02 X10^6/uL (4.5-5.9); White Blood Cell Count 13.7 X10^3/uL (4.5-11.0)
[2022-11-21 06:54] LABS: BUN Creatinine Ratio 20.6 (6-22); Blood Urea Nitrogen 14 mg/dL (9-20); Calcium 8.8 mg/dL (8.4-10.2); Carbon Dioxide 33 mmol/L (22-32); Chloride 97 mmol/L (98-107); Estimated Glomerular Filt Rate > 60 mL/min (>60); Glucose 112 mg/dL (80-110); HEMOLYSIS < 15 (0-50); Potassium 3.2 mmol/L (3.4-5.1); Sodium 134 mmol/L (137-145)
[2022-11-21 07:00] VITALS: O2SAT 94
--- NOTE | 2022-11-21 07:32 | PM.PN.1 ---
Exam Vital Signs (past 8 hours): - 11/21/22 01:00 Temperature 98.0 F Pulse Rate 78 Respiratory Rate 16 Blood Pressure 120/62 Pulse Oximetry 94 Oxygen Flow Rate 2 Oxygen Delivery Method Nasal Cannula Oxygen Flow Rate 2 Narrative Exam Narrative: GEN: in mild respiratory distress HEENT: moist mucous membranes, PERRL NECK: trachea midline, no jvd PULM: harsh breath sounds bilaterally, no wheezes, rhonchi, rales CV: irregular, normal rate, no murmurs ABD: soft, nontender, nondistended, no organomegaly EXT: warm and well perfused, trace edema NEURO: awake, alert, oriented, with no focal deficits Objective Labs 11/21/22 05:50 11/21/22 05:50 Labs: Laboratory Results - last 24 hr 11/20/22 11/20/22 11/20/22 17:15 17:20 17:20 WBC 10.4 RBC 4.46 L Hgb 14.0 Hct 40.3 L MCV 90.4 MCH 31.5 MCHC 34.8 RDW 14.2 Plt Count 146 L Neut % (Auto) 88.1 H Lymph % (Auto) 5.9 L [place] % (Auto) 5.2 Eos % (Auto) 0.4 L Baso % (Auto) 0.4 Neut # (Auto) 9200 H Lymph # (Auto) 600 L [place] # (Auto) 500 Eos # (Auto) 0 Baso # (Auto) 0 ABG pH ABG pCO2 ABG pO2 ABG HCO3 ABG Total CO2 ABG O2 Saturation ABG Base Excess FiO2 Sodium Potassium Chloride Carbon Dioxide BUN Creatinine Estimated GFR BUN/Creatinine Ratio Glucose Lactate 1.5 Calcium Total Bilirubin AST ALT Alkaline Phosphatase Total Creatine Kinase CK-MB (CK-2) CK-MB (CK-2) Rel Index Troponin I C-Reactive Protein NT-Pro-B Natriuret Pep Total Protein Albumin Globulin Albumin/Globulin Ratio Procalcitonin Urine Color Urine Appearance Urine pH Ur Specific [place] Urine Protein Urine Glucose (UA) Urine Ketones Urine Occult Blood Urine Nitrate Urine Bilirubin Urine Urobilinogen Ur Leukocyte Esterase Urine RBC Urine WBC Urine Bacteria Ur Culture Indicated? Chlamy pneumoniae PCR Not detected Adenovirus (PCR) Not detected B. pertussis DNA (PCR) Not detected B.parapertussis DNA PCR Not detected Coronavirus OC43 (PCR) Not detected Coronavirus HKU1 (PCR) Not detected Coronavirus 229E (PCR) Not detected SARS-CoV-2 (PCR) Not detected Coronavirus NL63 (PCR) Not detected Human Metapneumovir PCR Not detected Influenza Type A (PCR) Not detected Influenza Type B (PCR) Not detected M. pneumoniae (PCR) Not detected Parainfluenza 1 (PCR) Not detected Parainfluenza 2 (PCR) Not detected Parainfluenza 3 (PCR) Not detected Parainfluenza 4 (PCR) Not detected RSV (PCR) Not detected Entero/Rhino (PCR) Detected H 11/20/22 11/20/22 11/20/22 17:45 18:00 18:00 WBC RBC Hgb Hct MCV MCH MCHC RDW Plt Count Neut % (Auto) Lymph % (Auto) [place] % (Auto) Eos % (Auto) Baso % (Auto) Neut # (Auto) Lymph # (Auto) [place] # (Auto) Eos # (Auto) Baso # (Auto) ABG pH 7.47 H ABG pCO2 37.4 ABG pO2 47 L* ABG HCO3 27 ABG Total CO2 29 H ABG O2 Saturation 85 L* ABG Base Excess 4.0 H FiO2 21 Sodium 132 L Potassium 3.3 L Chloride 96 L Carbon Dioxide 28 BUN 15 Creatinine 0.66 Estimated GFR > 60 BUN/Creatinine Ratio 22.7 H Glucose 163 H Lactate Calcium 8.9 Total Bilirubin 1.1 AST 22 ALT 21 Alkaline Phosphatase 132 H Total Creatine Kinase 42 L CK-MB (CK-2) TNP CK-MB (CK-2) Rel Index TNP Troponin I < 0.012 C-Reactive Protein NT-Pro-B Natriuret Pep 770 H Total Protein 7.6 Albumin 3.8 Globulin 3.8 Albumin/Globulin Ratio 1.0 Procalcitonin 0.06 Urine Color Urine Appearance Urine pH Ur Specific [place] Urine Protein Urine Glucose (UA) Urine Ketones Urine Occult Blood Urine Nitrate Urine Bilirubin Urine Urobilinogen Ur Leukocyte Esterase Urine RBC Urine WBC Urine Bacteria Ur Culture Indicated? Chlamy pneumoniae PCR Adenovirus (PCR) B. pertussis DNA (PCR) B.parapertussis DNA PCR Coronavirus OC43 (PCR) Coronavirus HKU1 (PCR) Coronavirus 229E (PCR) SARS-CoV-2 (PCR) Coronavirus NL63 (PCR) Human Metapneumovir PCR Influenza Type A (PCR) Influenza Type B (PCR) M. pneumoniae (PCR) Parainfluenza 1 (PCR) Parainfluenza 2 (PCR) Parainfluenza 3 (PCR) Parainfluenza 4 (PCR) RSV (PCR) Entero/Rhino (PCR) 11/20/22 11/20/22 11/21/22 18:00 19:23 05:50 WBC 13.7 H RBC 4.02 L Hgb 12.3 L Hct 36.2 L MCV 90.0 MCH 30.6 MCHC 34.0 RDW 14.0 Plt Count 126 L Neut % (Auto) 83.8 H Lymph % (Auto) 9.8 L [place] % (Auto) 6.0 Eos % (Auto) 0.3 L Baso % (Auto) 0.1 Neut # (Auto) 96591 H Lymph # (Auto) 1300 [place] # (Auto) 800 Eos # (Auto) 0 Baso # (Auto) 0 ABG pH ABG pCO2 ABG pO2 ABG HCO3 ABG Total CO2 ABG O2 Saturation ABG Base Excess FiO2 Sodium Potassium Chloride Carbon Dioxide BUN Creatinine Estimated GFR BUN/Creatinine Ratio Glucose Lactate Calcium Total Bilirubin AST ALT Alkaline Phosphatase Total Creatine Kinase CK-MB (CK-2) CK-MB (CK-2) Rel Index Troponin I C-Reactive Protein 2.6 H NT-Pro-B Natriuret Pep Total Protein Albumin Globulin Albumin/Globulin Ratio Procalcitonin Urine Color Yellow Urine Appearance Clear Urine pH 6.0 Ur Specific [place] 1.010 Urine Protein Trace H Urine Glucose (UA) Negative Urine Ketones 1+ H Urine Occult Blood 2+ H Urine Nitrate Negative Urine Bilirubin Negative Urine Urobilinogen 1.0 Ur Leukocyte Esterase Negative Urine RBC 10-30/hpf H Urine WBC None seen Urine Bacteria None seen Ur Culture Indicated? Cult not indicated Chlamy pneumoniae PCR Adenovirus (PCR) B. pertussis DNA (PCR) B.parapertussis DNA PCR Coronavirus OC43 (PCR) Coronavirus HKU1 (PCR) Coronavirus 229E (PCR) SARS-CoV-2 (PCR) Coronavirus NL63 (PCR) Human Metapneumovir PCR Influenza Type A (PCR) Influenza Type B (PCR) M. pneumoniae (PCR) Parainfluenza 1 (PCR) Parainfluenza 2 (PCR) Parainfluenza 3 (PCR) Parainfluenza 4 (PCR) RSV (PCR) Entero/Rhino (PCR) 11/21/22 05:50 WBC RBC Hgb Hct MCV MCH MCHC RDW Plt Count Neut % (Auto) Lymph % (Auto) [place] % (Auto) Eos % (Auto) Baso % (Auto) Neut # (Auto) Lymph # (Auto) [place] # (Auto) Eos # (Auto) Baso # (Auto) ABG pH ABG pCO2 ABG pO2 ABG HCO3 ABG Total CO2 ABG O2 Saturation ABG Base Excess FiO2 Sodium 134 L Potassium 3.2 L Chloride 97 L Carbon Dioxide 33 H BUN 14 Creatinine 0.68 Estimated GFR > 60 BUN/Creatinine Ratio 20.6 Glucose 112 H Lactate Calcium 8.8 Total Bilirubin AST ALT Alkaline Phosphatase Total Creatine Kinase CK-MB (CK-2) CK-MB (CK-2) Rel Index Troponin I C-Reactive Protein NT-Pro-B Natriuret Pep Total Protein Albumin Globulin Albumin/Globulin Ratio Procalcitonin Urine Color Urine Appearance Urine pH Ur Specific [place] Urine Protein Urine Glucose (UA) Urine Ketones Urine Occult Blood Urine Nitrate Urine Bilirubin Urine Urobilinogen Ur Leukocyte Esterase Urine RBC Urine WBC Urine Bacteria Ur Culture Indicated? Chlamy pneumoniae PCR Adenovirus (PCR) B. pertussis DNA (PCR) B.parapertussis DNA PCR Coronavirus OC43 (PCR) Coronavirus HKU1 (PCR) Coronavirus 229E (PCR) SARS-CoV-2 (PCR) Coronavirus NL63 (PCR) Human Metapneumovir PCR Influenza Type A (PCR) Influenza Type B (PCR) M. 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 Essential hypertension Facet arthropathy, lumbar Hayfever (~1979) Hyperlipidemia Hypersomnia Insomnia, persistent Low back pain without sciatica (07/13/17) Lumbosacral radiculopathy at L5 Lumbosacral spondylosis with radiculopathy Lung nodule (08/18/15) Measles (~1941) Medicare annual wellness visit, subsequent Milia Mumps (~1941) Obstructive sleep apnea of adult Osteoarthritis, hand Snoring Trigger finger (acquired) Umbilical hernia Surgical History Anesthesia Fracture dislocation of right ankle (04/2000) Status post hernia repair (2007) Family History Father Stroke Mother Heart disease Son No problems noted. Social History marital status: details: to Adelia, lives in [place] household members: spouse lives independently: Yes caregiver/support person: No occupational status: previously employed Smoking Status: Never smoker alcohol intake: former Assessment & Plan Assessment & Plan narrative: 1. Acute hypoxemic respiratory failure secondary to pneumonia, SIRS -has been worsening symptoms over two weeks -workup shows fever, tachycardia and positive enterovirus -with worsening in the past day, some concern for a superimposed bacterial infection -procal is not elevated, but for now will treat with antibiotics with ceftriaxone and azithromycin -wean oxygen as able -follow up cultures -can consider steroids if slow to improve -continue home inhaler 2. Atrial fibrillation, chronic continue xarelto 3. Chronic pain -continue gabapentin 4. Hypertension -hold anti-hypertensives for now 5. TRACEY -continue CPAP 6. BPH -continue home medications I have discussed plan and obtained history from patient and his . I have discussed plan of care with ED physician and bedside nures. I have reviewed labs, EKG and chest xray. CODE: Full Proxy: Adelia Burciaga,
[2022-11-21 07:49] LABS: Magnesium 1.8 mg/dL (1.6-2.3)
[2022-11-21] MEDS: GABAPENTIN 300 MG CAPSULE 1200 MG PO (09:41)
[2022-11-21] MEDS: POTASSIUM CHLORIDE 20 MEQ TAB 40 MEQ PO (09:42)
[2022-11-21] MEDS: BUSPIRONE 5 MG TABLET 20 MG PO (09:46)
--- NOTE | 2022-11-21 10:25 | P.DS_ITS ---
History of Present Illness History of Present Illness Date Patient Seen: 11/20/22 Time Patient Seen: 19:30 Chief complaint: Resp. Infection Narrative: Mr. Burciaga is an 82M with PMH afib, HTN, HL, TRACEY who presents to the hospital with worsening cough and weakness. He states he developed a cough approximately two weeks ago, he wasn't improving so a few days ago he saw his PCP and was placed on doxycycline for either a pneumonia and or sinusitis. He has taken the antibiotics but today has felt worse with worsening cough with productive green sputum, shortness of breath and fever. He began feeling weak. He has no dysuria, nausea, vomiting, abdominal pain or diarrhea. In the ED workup was done, vitals notable for temp 101.5,. heart rate 100s, respiratory rate 20s, blood pressure 190s/80s, sats in the 80s on room air. He was placed on oxygen and felt better. Labs reviewed by me and notable for WBC 10.4 hgb 14, plts 146. Na 132, k 3.3, creatinien 0.66. Lactate 1.5. procal 0.06. Respiratory virus panel PCR notable for positive enterovirus. Trop negative. BNP 770. Chest xray reviewed by me and showed no definitive consolidation, but did show interstitial prominence. He was ordered for fluids, tylenol, and antibiotics and admitted for further treatment. Discharge Providers Provider Date of admission: 11/20/22 19:35 Discharge Date: 11/21/22 Primary care physician: Jose Ramires MD Discharge provider: Clint Carrillo DO Summary Hospital Course Discharge Diagnosis: 1. Acute hypoxemic respiratory failure secondary to pneumonia, SIRS -has been worsening symptoms over two weeks -workup shows fever, tachycardia and positive enterovirus -with worsening in the past day, some concern for a superimposed bacterial infection -procal is not elevated, but for now will treat with antibiotics with ceftriaxone and azithromycin -wean oxygen as able -follow up cultures -weaned off O2 -discharged on 3 days of azithromycin in case of pneumonia 2. Atrial fibrillation, chronic continue xarelto 3. Chronic pain -continue gabapentin 4. Hypertension -hold anti-hypertensives for now 5. TRACEY -continue CPAP 6. BPH -continue home medications I have discussed plan and obtained history from patient and his . I have discussed plan of care with ED physician and bedside nures. I have reviewed labs, EKG and chest xray. CODE: Full Proxy: Adelia Burciaga, Hospital Course: Admitted for upper respitory symptoms of fever, cough, congestion and dyspnea. Required 1.5L of O2 which was weaned off overnight. Was given rocephin and azithro IV while admitted and discharged on po abx. Rhinovirus positive on PCR which was likely the cause of his symptoms. Exam Vital Signs (past 8 hours): - 11/21/22 07:00 11/21/22 07:00 Pulse Oximetry 94 Oxygen Delivery Method Room Air Room Air Oxygen Flow Rate 0 Oxygen Delivery Method Room Air Oxygen Flow Rate 0 Narrative Exam Narrative: GEN: NAD HEENT: moist mucous membranes, PERRL NECK: trachea midline, no jvd PULM: coarse breath sounds, no wheezes CV: irregular, normal rate, no murmurs ABD: soft, nontender, nondistended, no organomegaly EXT: warm and well perfused, trace edema NEURO: awake, alert, oriented, with no focal deficits Objective Labs 11/21/22 05:50 11/21/22 05:50 Labs: Laboratory Results - last 24 hr 11/20/22 11/20/22 11/20/22 17:15 17:20 17:20 WBC 10.4 RBC 4.46 L Hgb 14.0 Hct 40.3 L MCV 90.4 MCH 31.5 MCHC 34.8 RDW 14.2 Plt Count 146 L Neut % (Auto) 88.1 H Lymph % (Auto) 5.9 L [place] % (Auto) 5.2 Eos % (Auto) 0.4 L Baso % (Auto) 0.4 Neut # (Auto) 9200 H Lymph # (Auto) 600 L [place] # (Auto) 500 Eos # (Auto) 0 Baso # (Auto) 0 ABG pH ABG pCO2 ABG pO2 ABG HCO3 ABG Total CO2 ABG O2 Saturation ABG Base Excess FiO2 Sodium Potassium Chloride Carbon Dioxide BUN Creatinine Estimated GFR BUN/Creatinine Ratio Glucose Lactate 1.5 Calcium Magnesium Total Bilirubin AST ALT Alkaline Phosphatase Total Creatine Kinase CK-MB (CK-2) CK-MB (CK-2) Rel Index Troponin I C-Reactive Protein NT-Pro-B Natriuret Pep Total Protein Albumin Globulin Albumin/Globulin Ratio Procalcitonin Urine Color Urine Appearance Urine pH Ur Specific [place] Urine Protein Urine Glucose (UA) Urine Ketones Urine Occult Blood Urine Nitrate Urine Bilirubin Urine Urobilinogen Ur Leukocyte Esterase Urine RBC Urine WBC Urine Bacteria Ur Culture Indicated? Chlamy pneumoniae PCR Not detected Adenovirus (PCR) Not detected B. pertussis DNA (PCR) Not detected B.parapertussis DNA PCR Not detected Coronavirus OC43 (PCR) Not detected Coronavirus HKU1 (PCR) Not detected Coronavirus 229E (PCR) Not detected SARS-CoV-2 (PCR) Not detected Coronavirus NL63 (PCR) Not detected Human Metapneumovir PCR Not detected Influenza Type A (PCR) Not detected Influenza Type B (PCR) Not detected M. pneumoniae (PCR) Not detected Parainfluenza 1 (PCR) Not detected Parainfluenza 2 (PCR) Not detected Parainfluenza 3 (PCR) Not detected Parainfluenza 4 (PCR) Not detected RSV (PCR) Not detected Entero/Rhino (PCR) Detected H 11/20/22 11/20/22 11/20/22 17:45 18:00 18:00 WBC RBC Hgb Hct MCV MCH MCHC RDW Plt Count Neut % (Auto) Lymph % (Auto) [place] % (Auto) Eos % (Auto) Baso % (Auto) Neut # (Auto) Lymph # (Auto) [place] # (Auto) Eos # (Auto) Baso # (Auto) ABG pH 7.47 H ABG pCO2 37.4 ABG pO2 47 L* ABG HCO3 27 ABG Total CO2 29 H ABG O2 Saturation 85 L* ABG Base Excess 4.0 H FiO2 21 Sodium 132 L Potassium 3.3 L Chloride 96 L Carbon Dioxide 28 BUN 15 Creatinine 0.66 Estimated GFR > 60 BUN/Creatinine Ratio 22.7 H Glucose 163 H Lactate Calcium 8.9 Magnesium Total Bilirubin 1.1 AST 22 ALT 21 Alkaline Phosphatase 132 H Total Creatine Kinase 42 L CK-MB (CK-2) TNP CK-MB (CK-2) Rel Index TNP Troponin I < 0.012 C-Reactive Protein NT-Pro-B Natriuret Pep 770 H Total Protein 7.6 Albumin 3.8 Globulin 3.8 Albumin/Globulin Ratio 1.0 Procalcitonin 0.06 Urine Color Urine Appearance Urine pH Ur Specific [place] Urine Protein Urine Glucose (UA) Urine Ketones Urine Occult Blood Urine Nitrate Urine Bilirubin Urine Urobilinogen Ur Leukocyte Esterase Urine RBC Urine WBC Urine Bacteria Ur Culture Indicated? Chlamy pneumoniae PCR Adenovirus (PCR) B. pertussis DNA (PCR) B.parapertussis DNA PCR Coronavirus OC43 (PCR) Coronavirus HKU1 (PCR) Coronavirus 229E (PCR) SARS-CoV-2 (PCR) Coronavirus NL63 (PCR) Human Metapneumovir PCR Influenza Type A (PCR) Influenza Type B (PCR) M. pneumoniae (PCR) Parainfluenza 1 (PCR) Parainfluenza 2 (PCR) Parainfluenza 3 (PCR) Parainfluenza 4 (PCR) RSV (PCR) Entero/Rhino (PCR) 11/20/22 11/20/22 11/21/22 18:00 19:23 05:50 WBC 13.7 H RBC 4.02 L Hgb 12.3 L Hct 36.2 L MCV 90.0 MCH 30.6 MCHC 34.0 RDW 14.0 Plt Count 126 L Neut % (Auto) 83.8 H Lymph % (Auto) 9.8 L [place] % (Auto) 6.0 Eos % (Auto) 0.3 L Baso % (Auto) 0.1 Neut # (Auto) 17027 H Lymph # (Auto) 1300 [place] # (Auto) 800 Eos # (Auto) 0 Baso # (Auto) 0 ABG pH ABG pCO2 ABG pO2 ABG HCO3 ABG Total CO2 ABG O2 Saturation ABG Base Excess FiO2 Sodium Potassium Chloride Carbon Dioxide BUN Creatinine Estimated GFR BUN/Creatinine Ratio Glucose Lactate Calcium Magnesium Total Bilirubin AST ALT Alkaline Phosphatase Total Creatine Kinase CK-MB (CK-2) CK-MB (CK-2) Rel Index Troponin I C-Reactive Protein 2.6 H NT-Pro-B Natriuret Pep Total Protein Albumin Globulin Albumin/Globulin Ratio Procalcitonin Urine Color Yellow Urine Appearance Clear Urine pH 6.0 Ur Specific [place] 1.010 Urine Protein Trace H Urine Glucose (UA) Negative Urine Ketones 1+ H Urine Occult Blood 2+ H Urine Nitrate Negative Urine Bilirubin Negative Urine Urobilinogen 1.0 Ur Leukocyte Esterase Negative Urine RBC 10-30/hpf H Urine WBC None seen Urine Bacteria None seen Ur Culture Indicated? Cult not indicated Chlamy pneumoniae PCR Adenovirus (PCR) B. pertussis DNA (PCR) B.parapertussis DNA PCR Coronavirus OC43 (PCR) Coronavirus HKU1 (PCR) Coronavirus 229E (PCR) SARS-CoV-2 (PCR) Coronavirus NL63 (PCR) Human Metapneumovir PCR Influenza Type A (PCR) Influenza Type B (PCR) M. pneumoniae (PCR) Parainfluenza 1 (PCR) Parainfluenza 2 (PCR) Parainfluenza 3 (PCR) Parainfluenza 4 (PCR) RSV (PCR) Entero/Rhino (PCR) 11/21/22 11/21/22 05:50 05:50 WBC RBC Hgb Hct MCV MCH MCHC RDW Plt Count Neut % (Auto) Lymph % (Auto) [place] % (Auto) Eos % (Auto) Baso % (Auto) Neut # (Auto) Lymph # (Auto) [place] # (Auto) Eos # (Auto) Baso # (Auto) ABG pH ABG pCO2 ABG pO2 ABG HCO3 ABG Total CO2 ABG O2 Saturation ABG Base Excess FiO2 Sodium 134 L Potassium 3.2 L Chloride 97 L Carbon Dioxide 33 H BUN 14 Creatinine 0.68 Estimated GFR > 60 BUN/Creatinine Ratio 20.6 Glucose 112 H Lactate Calcium 8.8 Magnesium 1.8 Total Bilirubin AST ALT Alkaline Phosphatase Total Creatine Kinase CK-MB (CK-2) CK-MB (CK-2) Rel Index Troponin I C-Reactive Protein NT-Pro-B Natriuret Pep Total Protein Albumin Globulin Albumin/Globulin Ratio Procalcitonin Urine Color Urine Appearance Urine pH Ur Specific [place] Urine Protein Urine Glucose (UA) Urine Ketones Urine Occult Blood Urine Nitrate Urine Bilirubin Urine Urobilinogen Ur Leukocyte Esterase Urine RBC Urine WBC Urine Bacteria Ur Culture Indicated? Chlamy pneumoniae PCR Adenovirus (PCR) B. pertussis DNA (PCR) B.parapertussis DNA PCR Coronavirus OC43 (PCR) Coronavirus HKU1 (PCR) Coronavirus 229E (PCR) SARS-CoV-2 (PCR) Coronavirus NL63 (PCR) Human Metapneumovir PCR Influenza Type A (PCR) Influenza Type B (PCR) M. 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 Essential hypertension Facet arthropathy, lumbar Hayfever (~1979) Hyperlipidemia Hypersomnia Insomnia, persistent Low back pain without sciatica (07/13/17) Lumbosacral radiculopathy at L5 Lumbosacral spondylosis with radiculopathy Lung nodule (08/18/15) Measles (~194) Medicare annual wellness visit, subsequent Milia Mumps (~1940) Obstructive sleep apnea of adult Osteoarthritis, hand Snoring Trigger finger (acquired) Umbilical hernia Surgical History Anesthesia Fracture dislocation of right ankle (04/2000) Status post hernia repair (2007) Family History Father Stroke Mother Heart disease Son No problems noted. Social History marital status: details: maral Delvalle, lives in [place] household members: spouse lives independently: Yes caregiver/support person: No occupational status: previously employed Smoking Status: Never smoker alcohol intake: former Discharge Plan Discharge Plan Patient Disposition: Home Provider Discharge Comment: You were admitted for fever, shortness of breath and coughing and found to have rhinovirus which causes the common cold. You will go home on 3 days of oral antibiotics. Discharge orders & Medications Prescriptions: New azithromycin 500 mg tablet 500 mg PO DAILY 3 Days Qty: 3 0RF Continued albuterol sulfate 90 mcg/actuation HFA aerosol inhaler 2 puff INHALATION Q4-6H PRN (Reason: shortness of breath or wheezing) Qty: 8.5 3RF atorvastatin 10 mg tablet See Rx Instructions .ROUTE .COMPLEX Qty: 90 3RF Dose Instruction: TAKE 1 TABLET BY MOUTH EVERY EVENING Rx Instructions: TAKE 1 TABLET BY MOUTH EVERY EVENING amlodipine 5 mg tablet See Rx Instructions .ROUTE .COMPLEX Qty: 90 3RF Dose Instruction: TAKE 1 TABLET BY MOUTH EVERY DAY Rx Instructions: TAKE 1 TABLET BY MOUTH EVERY DAY hydrochlorothiazide 25 mg tablet 12.5 mg PO QDAY Qty: 90 3RF potassium chloride [Klor-Con 10] 10 mEq tablet extended release See Rx Instructions .ROUTE .COMPLEX Qty: 360 3RF Dose Instruction: TAKE 2 TABLETS BY MOUTH TWICE A DAY Rx Instructions: TAKE 2 TABLETS BY MOUTH TWICE A DAY buspirone 10 mg tablet 20 mg PO BID Qty: 360 1RF terazosin 2 mg capsule See Rx Instructions .ROUTE .COMPLEX Qty: 720 3RF Dose Instruction: TAKE 4 CAPSULES BY MOUTH TWICE A DAY Rx Instructions: TAKE 4 CAPSULES BY MOUTH TWICE A DAY fluticasone propionate 50 mcg/actuation spray,suspension See Rx Instructions .ROUTE .COMPLEX Qty: 48 1RF Dose Instruction: INSTILL 1 SPRAY INTO EACH NOSTRIL TWICE DAILY Rx Instructions: INSTILL 1 SPRAY INTO EACH NOSTRIL TWICE DAILY azelastine 137 mcg (0.1 %) aerosol,spray See Rx Instructions .ROUTE .COMPLEX Qty: 30 1RF Dose Instruction: ADMINISTER 1-2 SPRAYS INTO EACH NOSTRIL TWICE DAILY Rx Instructions: ADMINISTER 1-2 SPRAYS INTO EACH NOSTRIL TWICE DAILY dutasteride 0.5 mg capsule 0.5 mg PO DAILY Qty: 90 3RF triamcinolone acetonide 0.1 % ointment 1 applic topical BID PRN (Reason: skin rash or dry skin) Qty: 30 3RF Rx Instructions: Apply to face, use no longer than 3 weeks at a time. Thanks! tramadol 50 mg tablet See Rx Instructions .ROUTE .COMPLEX Qty: 180 0RF Rx Instructions: Take 1-2 tablets by mouth every 8 hours as needed for pain gabapentin 300 mg capsule See Rx Instructions .ROUTE .COMPLEX Qty: 360 3RF Dose Instruction: TAKE 3 CAPSULES (900 MG) BY MOUTH THREE TIMES DAILY NEEDED FOR PAIN Rx Instructions: TAKE 4 CAPSULES (1200 MG) BY MOUTH THREE TIMES DAILY NEEDED FOR PAIN doxycycline hyclate 100 mg capsule 100 mg PO BID Qty: 20 0RF Xarelto 20 mg tablet 20 mg PO DAILY Rx Instructions: must administer with evening meal Follow up/Referrals: Jose Ramires MD [Primary Care Provider] - Visit Report/Discharge Packet Instructions: Common Cold Stand Alone Forms: Patient Portal/API, Stroke Signs & Symptoms Discharge Data Primary Care Provider: Jose Ramires
--- NOTE | 2022-11-21 10:28 | CM.DANOTE ---
DCP Assessment: Patient is a 82 yr old male who lives in [place] with his Adelia. CM met with patient at bedside. Patients was with. CM explained role and discussed DC planning with patient and his . Patient was A&O x4 during CM visit. Patient stated he wants to go home Cm will let MD know of Patients Desire to DC home. Patient states he is completely independent with all ADLs and drives at his baseline. Insurance: [facility] and BCBS [facility] PCP: Thomas Plan: DC home with when medically stale. No identified DC planning needs CM team will continue to follow to assist with any new DC planning needs. Catina Auguste RNserver support technician Discharge Planning/Care Management Advanced directive, confirm from FAMILY Start: 11/20/22 20:58 Freq: Q24H Status: Active Protocol: Document 11/20/22 20:59 AKP (Rec: 11/20/22 21:00 AKP [id number]) Advance Directive, confirm on record Time 20:59 Person contacted will ask to look for and bring in Copy received No CM Discharge Assessment Start: 11/21/22 10:22 Freq: Status: Active Protocol: Document 11/21/22 10:22 HS (Rec: 11/21/22 10:28 HS [id number]) Discharge Planning Assessment Assigned [facility] Catina Auguste RNserver support technician DPOA/Assigned Designee Name Adelia Burciaga- Contact Information [phone] Advance Directives? Yes Advance Directives on File No History Provided By Patient Prior Living Arrangements Apartment/Condo Comment lives with Household Members spouse Type of transporation used prior to Drives own vehicle admit Independent with ADL's Yes Is patient alert and oriented? Yes Caregiver for Another No DME Already Rented / Owned FWW / Walker,Cane Comment doesn't use on a regular basis but have them at home. Barriers to Discharge No Discharge Plan Home Transportation Arrangement Patients with transport home by POV Referrals Initiated None needed Whiteboard Updated in Patient Room with Yes name and ext. # of [facility] Review Status In Process Next Review Type Continued Stay Review
--- NOTE | 2022-11-21 13:10 | PC.NURSE ---
Pt dressed independently, IVs out. Reviewed paperwork with pt and spouse. Talked about pneumonia, the common cold and new abx med, azithromycin that they can p/u at the [facility] here in [place]. Pt and spouse had no further questions/concerns at this time. Pt left unit with all belongings via wheelchair to [facility], escorted by RN.
== END 2022-11-21 13:10 | disposition home or self-care (01) | DRG 193 ==
LOC: ED 18:18 → AC 19:36
PROVIDERS: Emergency Medicine; Student in an Organized Health Care Education/Training Program; Admitting Provider Internal Medicine; Emergency Provider Emergency Medicine; PCP Family Medicine; Referring Provider Emergency Medicine; Visit Provider Internal Medicine
DX: J18.9 Pneumonia, unspecified organism (principal); J96.01 Acute respiratory failure with hypoxia; I48.20 Chronic atrial fibrillation, unspecified; G89.29 Other chronic pain; I10 Essential (primary) hypertension; G47.33 Obstructive sleep apnea (adult) (pediatric); N40.0 Benign prostatic hyperplasia without lower urinary tract symptoms; B97.10 Unspecified enterovirus as the cause of diseases classified elsewhere; Z79.01 Long term (current) use of anticoagulants; Z20.822 Contact with and (suspected) exposure to COVID-19
CPT/HCPCS: 36415; 36600; 71045; 80048; 80053; 81001; 82550; 82805; 83605; 83735; 83880; 84145; 84484; 85025; 86140; 87040; 87633; 93005; 93010; 96365; 96367; 99285; J0696

== ENCOUNTER → 2022-11-27 10:17 | Outpatient (CLI) | payer MEDICARE, BC, SELFPAY ==
[2022-11-20 20:45] VITALS: BMI 30.9
--- NOTE | 2022-11-27 10:20 | DI.RAD.S_ITS ---
PROCEDURE: XR CHEST 2V INDICATIONS: low lung volumes, recent resp failure TECHNIQUE: 2 views of the chest were acquired. COMPARISON: [facility], , XR CHEST 1V, 11/20/2022, 17:15. FINDINGS: Heart size enlarged. Moderate vascular congestion noted. No focal infiltrate. Pleural spaces are clear. Osseous structures normal. IMPRESSION: Cardiomegaly moderate vascular congestion. No focal infiltrate Approved by: Zachary Lubin M.D. on 11/27/2022 at 11:00
[2022-11-27 11:30] LABS: Add Manual Diff / Slide Review NO; Basophils Absolute Auto 0 /uL (0-100); Basophils Percent Auto 0.8 % (0-2); Eosinophils Absolute Auto 300 /uL (0-450); Eosinophils Percent Auto 5.1 % (2-4); Hematocrit 33.4 % (41-53); Hemoglobin 11.4 g/dL (13.5-17.5); Lymphocytes Absolute Auto 1400 /uL (1100-4500); Lymphocytes Percent Auto 23.9 % (25-40); Mean Corpuscular HGB Conc 34.2 % (30-36); Mean Corpuscular Volume 90.5 fL (80-100); Monocytes Absolute Auto 700 /uL (0-900); Monocytes Percent Auto 11.4 % (3-14); Neutrophils Absolute Auto 3500 /uL (1500-7000); Neutrophils Percent Auto 58.8 % (50-75); Platelet Count 196 X10^3/uL (150-400); Red Blood Cell Count 3.69 X10^6/uL (4.5-5.9); Red Cell Distribution Width 14.1 % (11.6-14.8)
[2022-11-27 13:43] LABS: BUN Creatinine Ratio 16.2 (6-22); Blood Urea Nitrogen 12 mg/dL (9-20); Calcium 8.9 mg/dL (8.4-10.2); Carbon Dioxide 31 mmol/L (22-32); Chloride 97 mmol/L (98-107); Estimated Glomerular Filt Rate > 60 mL/min (>60); Glucose 101 mg/dL (80-110); HEMOLYSIS < 15 (0-50); Sodium 134 mmol/L (137-145)
== END ==
PROVIDERS: PCP Family Medicine; Referring Provider Nurse Practitioner Family; Visit Provider Nurse Practitioner Family
DX: B34.1 Enterovirus infection, unspecified (principal); J96.01 Acute respiratory failure with hypoxia; I51.7 Cardiomegaly
CPT/HCPCS: 36415; 71046; 80048; 85025

== ENCOUNTER 2023-02-17 16:19 | Emergency (ER) | payer MEDICARE, BC, SELFPAY ==
[2022-11-20 20:45] VITALS: BMI 30.9
[2023-02-17] VITALS (8 sets, daily range): BP systolic 159–185; BP diastolic 95–108; PULSE 83–102; RESP 18; TEMP 36.7; O2SAT 96–98; BMI 28.5
--- NOTE | 2023-02-17 16:41 | DI.RAD.S_ITS ---
PROCEDURE: XR CHEST 1V INDICATIONS: Shortness of breath TECHNIQUE: One view of the chest was acquired. COMPARISON: [facility], CR, XR CHEST 2V, 11/27/2022, 10:19. [facility], CR, XR CHEST 1V, 11/20/2022, 17:15. FINDINGS: Surgical changes and devices: None. Lungs and pleura: Lungs are clear. No pleural effusions or pneumothorax. Mediastinum: Mediastinal contours appear normal. Heart size is mildly increased. Bones and chest wall: No suspicious bony lesions. Overlying soft tissues appear unremarkable. IMPRESSION: No acute cardiopulmonary disease. Dictated by: Garcia Toribio M.D. on 02/17/2023 at 17:30 Approved by: Garcia Toribio M.D. on 02/17/2023 at 17:30
[2023-02-17 17:46] LABS: Influenza A - CEPHEID Flu A NEGATIVE (NEGATIVE); Influenza B - CEPHEID Flu B NEGATIVE (NEGATIVE); Respiratory Syncytial Virus Negative (Negative)
[2023-02-17 17:46] LABS: INR 1.7 (0.9-1.3); Prothrombin Time 20.1 SECONDS (10.1-12.7)
[2023-02-17 17:47] LABS: COVID-19 CEPHEID 4-PLEX PCR Negative (Negative)
[2023-02-17 17:47] LABS: Add Manual Diff / Slide Review NO; Basophils Absolute Auto 0 /uL (0-100); Basophils Percent Auto 0.4 % (0-2); Eosinophils Absolute Auto 0 /uL (0-450); Eosinophils Percent Auto 0.1 % (2-4); Hematocrit 43.4 % (41-53); Lymphocytes Absolute Auto 1100 /uL (1100-4500); Mean Corpuscular HGB Conc 34.6 % (30-36); Mean Corpuscular Hemoglobin 31.1 PG (26-34); Mean Corpuscular Volume 89.8 fL (80-100); Monocytes Absolute Auto 500 /uL (0-900); Monocytes Percent Auto 7.3 % (3-14); Neutrophils Absolute Auto 5300 /uL (1500-7000); Neutrophils Percent Auto 76.2 % (50-75); Platelet Count 157 X10^3/uL (150-400); Red Blood Cell Count 4.83 X10^6/uL (4.5-5.9); Red Cell Distribution Width 14.7 % (11.6-14.8); White Blood Cell Count 6.9 X10^3/uL (4.5-11.0)
[2023-02-17 17:51] LABS: Alanine Aminotransferase 24 IU/L (<50); Albumin 4.6 g/dL (3.5-5.0); Alkaline Phosphatase 177 U/L (38-126); Aspartate Aminotransferase 28 IU/L (17-59); BUN Creatinine Ratio 22.4 (6-22); Blood Urea Nitrogen 15 mg/dL (9-20); Calcium 9.9 mg/dL (8.4-10.2); Carbon Dioxide 32 mmol/L (22-32); Chloride 94 mmol/L (98-107); Estimated Glomerular Filt Rate > 60 mL/min (>60); Globulin 4.4 g/dL (1.7-4.1); Glucose 140 mg/dL (80-110); HEMOLYSIS < 15 (0-50); Potassium 3.1 mmol/L (3.4-5.1); Sodium 134 mmol/L (137-145)
[2023-02-17 17:52] LABS: Lactate (Lactic Acid) 1.2 mmol/L (0.7-2.1)
[2023-02-17 18:02] LABS: NT-proBNP (BNP-Adult 18+) 1090 pg/mL (<450); Troponin I < 0.012 ng/mL (0.01-0.034)
[2023-02-17 23:51] LABS: Bacteria Urine None Seen; Culture Indicated Urine Cult Not Indicated; RBC Urine 0-1/HPF (0-5/HPF); Squamous Epithelial Cell Urine None Seen (0-5/HPF); WBC Urine None Seen (0-5/HPF)
[2023-02-18] VITALS (8 sets, daily range): BP systolic 155–167; BP diastolic 87–91; PULSE 95–100; RESP 20; O2SAT 96–99
--- NOTE | 2023-02-18 00:10 | ED.SOB ---
HPI - SOB/Dyspnea General Chief Complaint: Weakness Stated Complaint: SOB, Fatigue Time Seen by Provider: 02/17/23 23:42 Source: patient and family Mode of arrival: Wheelchair Limitations: no limitations History of Present Illness HPI Narrative: Patient here with family for complaints of shortness of breath since last night. Denies any chest pain. No palpitations. Patient has history atrial fibrillation on Xarelto. He does not feel palpitations. His chronic AFib. Rate is controlled. He is due for his Xarelto and blood pressure medication tonight. Blood pressure noted. Patient denies any cough cold congestion fever chills. Denies any calf pain but has noticed some swelling to both legs but does improve with elevation. No back pain or abdominal pain. Patient in no distress at this time. Patient and states his legs have been twitching Related Data Home Medications Medication Instructions Recorded Confirmed rivaroxaban 20 mg tablet (Xarelto) 20 mg PO DAILY 10/05/21 01/31/23 Previous Rx's Medication Instructions Recorded albuterol sulfate 90 mcg/actuation 2 puff inhalation Q4-6H PRN 05/02/20 aerosol inhaler shortness of breath or wheezing #8.5 grams atorvastatin 10 mg tablet See Rx Instructions .Route 06/11/21 .COMPLEX #90 tabs amlodipine 5 mg tablet See Rx Instructions .Route 09/11/21 .COMPLEX #90 tabs hydrochlorothiazide 25 mg tablet 12.5 mg PO QDAY #90 tabs 12/11/21 potassium chloride 10 mEq See Rx Instructions .Route 04/26/22 tablet,extended release (Klor-Con) .COMPLEX #360 tabs terazosin 2 mg capsule See Rx Instructions .Route 06/25/22 .COMPLEX #720 caps dutasteride 0.5 mg capsule 0.5 mg PO DAILY #90 caps 09/13/22 triamcinolone acetonide 0.1 % 1 applic topical BID PRN skin rash 09/23/22 topical ointment or dry skin #30 grams buspirone 10 mg tablet 20 mg PO BID #360 tabs 11/23/22 gabapentin 300 mg capsule See Rx Instructions .Route 11/30/22 .COMPLEX #360 caps tramadol 50 mg tablet See Rx Instructions .Route 12/09/22 .COMPLEX #180 tabs azelastine 137 mcg (0.1 %) nasal See Rx Instructions .Route 01/19/23 spray aerosol .COMPLEX #30 mL fluticasone propionate 50 See Rx Instructions .Route 02/01/23 mcg/actuation nasal .COMPLEX #48 mL spray,suspension Allergies Allergy/AdvReac Type Severity Reaction Status Date / Time Penicillins Allergy Mild RASH Verified 02/17/23 16:41 shrimp Allergy Mild Rash Verified 02/17/23 16:41 Review of Systems Review of Systems Narrative: GENERAL: negative chills, fatigue, malaise, fever, sweats. HEENT: negative sinus pain, ear pain, sore throat RESPIRATORY: Positive dyspnea, negative cough CARDIOVASCULAR: negative chest pain, palpitations GASTROINTESTINAL: negative nausea, vomiting, abdominal pain : negative dysuria, frequency, hematuria MUSCULOSKELETAL: negative muscle or bony pain SKIN: negative rash, skin lesions NEUROLOGIC: negative weakness, numbness ROS Unobtainable: All systems reviewed & are unremarkable except as noted in HPI and below Patient History Medical History Abscess of back Anxiety (07/13/17) Atrial fibrillation Bradycardia Central sleep apnea Chicken pox (~194) Chronic pain syndrome Chronic venous stasis 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 Essential hypertension Facet arthropathy, lumbar Hayfever (~1979) Hyperlipidemia Hypersomnia Insomnia, persistent Low back pain without sciatica (07/13/17) Lumbosacral radiculopathy at L5 Lumbosacral spondylosis with radiculopathy Lung nodule (08/18/15) Measles (~1941) Medicare annual wellness visit, subsequent Milia Mumps (~194) Obstructive sleep apnea of adult Osteoarthritis, hand Snoring Trigger finger (acquired) Umbilical hernia Surgical History Anesthesia Fracture dislocation of right ankle (04/2000) Status post hernia repair (2007) Family History Father Stroke Mother Heart disease Son No problems noted. Social History marital status: details: to Adelia, lives in [place] household members: spouse lives independently: Yes caregiver/support person: No occupational status: previously employed Smoking Status: Never smoker alcohol intake: former Smoking Status: Never smoker alcohol intake frequency: holidays/special occasions only Substance Use Type: does not use Exam Narrative Exam Narrative: GENERAL: in no distress, not toxic not dyspneic HEAD: Normocephalic. EYES: Pupils equal round ENT: Mucous membranes moist. NECK: Trachea midline. CARDIOVASCULAR: Irregular irregular rate and rhythm but not tachycardic. RESPIRATORY: Clear to auscultation. Breath sounds equal bilaterally. No wheezes, rales, or rhonchi. Speaking full sentences. Ambulated patient in hallway with pulse ox 94% to 96% room air, not dyspneic or dizzy. No chest pain. GASTROINTESTINAL: Abdomen soft, non-tender EXTREMITIES: No gross deformities. No ankle edema bilaterally. Calves are nontender BACK: No flank tenderness. NEURO: AOx4. SKIN: Warm and dry PSYCH: Not anxious, is cooperative Initial Vital Signs Initial Vital Signs: Vital Signs Temperature 98.1 F 02/17/23 16:37 Pulse Rate 96 H 02/17/23 16:37 Respiratory Rate 18 02/17/23 16:37 Blood Pressure 173/104 H 02/17/23 16:37 Pulse Oximetry 98 02/17/23 16:37 Oxygen Delivery Method Room Air 02/17/23 16:37 Course Orders Ordered: ED Orders 02/17/23 23:23 Urine Microscopic Stat 02/18/23 02:55 BMP [Basic Metabolic Panel] Stat Discontinued Medications Amlodipine Besylate (Amlodipine 5 Mg Tablet) 5 mg PO NOW ONE Stop: 02/18/23 00:09 Last Admin: 02/18/23 00:31 Dose: 5 mg Documented By: CATRACHITO POTASSIUM CHLORIDE IN WATER (Potassium Cl 10 Meq/100 Ml Shira) 10 meq in 100 mls @ 100 mls/hr IV Q1H [facility] Stop: 02/18/23 02:44 Last Infusion: 02/18/23 02:49 Dose: 0 mls/hr Documented By: Admin: 02/18/23 01:47 Dose: 100 mls/hr Documented By: Infusion: 02/18/23 01:47 Dose: 0 mls/hr Documented By: Admin: 02/18/23 00:48 Dose: 100 mls/hr Documented By: CATRACHITO Potassium Chloride (Potassium Chloride 20 Meq Tab) 20 meq PO NOW ONE Stop: 02/18/23 00:38 Last Admin: 02/18/23 00:47 Dose: 20 meq Documented By: CATRACHITO Rivaroxaban (Rivaroxaban 10 Mg Tablet) 20 mg PO NOW ONE Stop: 02/18/23 00:09 Last Admin: 02/18/23 00:32 Dose: 20 mg Documented By: CATRACHITO Vital Signs Vital signs: Vital Signs - 8 hr 02/17/23 22:01 02/17/23 22:03 02/17/23 22:03 Pulse Rate 90 99 H Respiratory Rate Blood Pressure 185/96 H Pulse Oximetry 98 98 02/17/23 22:30 02/17/23 22:31 02/17/23 22:31 Pulse Rate 83 94 H Respiratory Rate Blood Pressure 171/95 H Pulse Oximetry 98 98 02/17/23 23:00 02/17/23 23:00 02/17/23 23:23 Pulse Rate 96 H Respiratory Rate Blood Pressure 181/103 H 168/108 H Pulse Oximetry 98 02/17/23 23:23 02/17/23 23:30 02/17/23 23:30 Pulse Rate 102 H 97 H Respiratory Rate Blood Pressure 159/102 H Pulse Oximetry 96 98 02/18/23 00:00 02/18/23 00:00 02/18/23 00:48 Pulse Rate 96 H 100 H Respiratory Rate Blood Pressure 167/89 H Pulse Oximetry 97 99 02/18/23 00:50 02/18/23 00:50 02/18/23 01:00 Pulse Rate 97 H Respiratory Rate Blood Pressure 155/87 H Pulse Oximetry 99 97 02/18/23 01:36 02/18/23 02:00 02/18/23 02:00 Pulse Rate 95 H Respiratory Rate 20 Blood Pressure 165/91 H Pulse Oximetry 98 96 02/18/23 02:30 02/18/23 02:56 02/18/23 02:56 Pulse Rate 95 H Respiratory Rate 20 Blood Pressure 163/90 H Pulse Oximetry MDM - SOB/Dyspnea Lab Data 02/17/23 17:00 02/18/23 02:55 Labs: Lab Results 02/17/23 02/17/23 02/17/23 Range/Units 16:50 17:00 17:00 WBC 6.9 (4.5-11.0) X10^3/uL RBC 4.83 (4.5-5.9) X10^6/uL Hgb 15.0 (13.5-17.5) g/dL Hct 43.4 (41-53) % MCV 89.8 (80-100) fL MCH 31.1 (26-34) PG MCHC 34.6 (30-36) % RDW 14.7 (11.6-14.8) % Plt Count 157 (150-400) X10^3/uL Neut % (Auto) 76.2 H (50-75) % Lymph % (Auto) 16.0 L (25-40) % [place] % (Auto) 7.3 (3-14) % Eos % (Auto) 0.1 L (2-4) % Baso % (Auto) 0.4 (0-2) % Neut # (Auto) 5300 (2654-0107) /uL Lymph # (Auto) 1100 (0121-8031) /uL [place] # (Auto) 500 (0-900) /uL Eos # (Auto) 0 (0-450) /uL Baso # (Auto) 0 (0-100) /uL PT 20.1 H (10.1-12.7) SECONDS INR 1.7 H (0.9-1.3) Sodium (137-145) mmol/L Potassium (3.4-5.1) mmol/L Chloride (98-107) mmol/L Carbon Dioxide (22-32) mmol/L BUN (9-20) mg/dL Creatinine (0.66-1.25) mg/dL Estimated GFR (>60) mL/min BUN/Creatinine Ratio (6-22) Glucose (80-110) mg/dL Lactate (0.7-2.1) mmol/L Calcium (8.4-10.2) mg/dL Total Bilirubin (0.2-1.3) mg/dL AST (17-59) IU/L ALT (<50) IU/L Alkaline Phosphatase (38-126) U/L Troponin I (0.01-0.034) ng/mL NT-Pro-B Natriuret Pep (<450) pg/mL Total Protein (6.3-8.2) g/dL Albumin (3.5-5.0) g/dL Globulin (1.7-4.1) g/dL Albumin/Globulin Ratio (1.0-2.8) Urine RBC (0-5/HPF) Urine WBC (0-5/HPF) Ur Squamous Epith Cells (0-5/HPF) Urine Bacteria (None) Ur Culture Indicated? SARS-CoV-2 (PCR) Negative (Negative) Influenza A (RT-PCR) Flu a negative (NEGATIVE) Influenza B (RT-PCR) Flu b negative (NEGATIVE) RSV (PCR) Negative (Negative) 02/17/23 02/17/23 02/17/23 Range/Units 17:00 17:00 23:23 WBC (4.5-11.0) X10^3/uL RBC (4.5-5.9) X10^6/uL Hgb (13.5-17.5) g/dL Hct (41-53) % MCV (80-100) fL MCH (26-34) PG MCHC (30-36) % RDW (11.6-14.8) % Plt Count (150-400) X10^3/uL Neut % (Auto) (50-75) % Lymph % (Auto) (25-40) % [place] % (Auto) (3-14) % Eos % (Auto) (2-4) % Baso % (Auto) (0-2) % Neut # (Auto) (8527-6263) /uL Lymph # (Auto) (2532-0803) /uL [place] # (Auto) (0-900) /uL Eos # (Auto) (0-450) /uL Baso # (Auto) (0-100) /uL PT (10.1-12.7) SECONDS INR (0.9-1.3) Sodium 134 L (137-145) mmol/L Potassium 3.1 L (3.4-5.1) mmol/L Chloride 94 L (98-107) mmol/L Carbon Dioxide 32 (22-32) mmol/L BUN 15 (9-20) mg/dL Creatinine 0.67 (0.66-1.25) mg/dL Estimated GFR > 60 (>60) mL/min BUN/Creatinine Ratio 22.4 H (6-22) Glucose 140 H (80-110) mg/dL Lactate 1.2 (0.7-2.1) mmol/L Calcium 9.9 (8.4-10.2) mg/dL Total Bilirubin 1.0 (0.2-1.3) mg/dL AST 28 (17-59) IU/L ALT 24 (<50) IU/L Alkaline Phosphatase 177 H (38-126) U/L Troponin I < 0.012 (0.01-0.034) ng/mL NT-Pro-B Natriuret Pep 1090 H (<450) pg/mL Total Protein 9.0 H (6.3-8.2) g/dL Albumin 4.6 (3.5-5.0) g/dL Globulin 4.4 H (1.7-4.1) g/dL Albumin/Globulin Ratio 1.0 (1.0-2.8) Urine RBC 0-1/hpf D (0-5/HPF) Urine WBC None seen (0-5/HPF) Ur Squamous Epith Cells None seen (0-5/HPF) Urine Bacteria None seen (None) Ur Culture Indicated? Cult not indicated SARS-CoV-2 (PCR) (Negative) Influenza A (RT-PCR) (NEGATIVE) Influenza B (RT-PCR) (NEGATIVE) RSV (PCR) (Negative) 02/18/23 Range/Units 02:55 WBC (4.5-11.0) X10^3/uL RBC (4.5-5.9) X10^6/uL Hgb (13.5-17.5) g/dL Hct (41-53) % MCV (80-100) fL MCH (26-34) PG MCHC (30-36) % RDW (11.6-14.8) % Plt Count (150-400) X10^3/uL Neut % (Auto) (50-75) % Lymph % (Auto) (25-40) % [place] % (Auto) (3-14) % Eos % (Auto) (2-4) % Baso % (Auto) (0-2) % Neut # (Auto) (3085-0517) /uL Lymph # (Auto) (2476-9671) /uL [place] # (Auto) (0-900) /uL Eos # (Auto) (0-450) /uL Baso # (Auto) (0-100) /uL PT (10.1-12.7) SECONDS INR (0.9-1.3) Sodium 134 L (137-145) mmol/L Potassium 3.2 L (3.4-5.1) mmol/L Chloride 97 L (98-107) mmol/L Carbon Dioxide 28 (22-32) mmol/L BUN 11 (9-20) mg/dL Creatinine 0.53 L (0.66-1.25) mg/dL Estimated GFR > 60 (>60) mL/min BUN/Creatinine Ratio 20.8 (6-22) Glucose 138 H (80-110) mg/dL Lactate (0.7-2.1) mmol/L Calcium 9.3 (8.4-10.2) mg/dL Total Bilirubin (0.2-1.3) mg/dL AST (17-59) IU/L ALT (<50) IU/L Alkaline Phosphatase (38-126) U/L Troponin I (0.01-0.034) ng/mL NT-Pro-B Natriuret Pep (<450) pg/mL Total Protein (6.3-8.2) g/dL Albumin (3.5-5.0) g/dL Globulin (1.7-4.1) g/dL Albumin/Globulin Ratio (1.0-2.8) Urine RBC (0-5/HPF) Urine WBC (0-5/HPF) Ur Squamous Epith Cells (0-5/HPF) Urine Bacteria (None) Ur Culture Indicated? SARS-CoV-2 (PCR) (Negative) Influenza A (RT-PCR) (NEGATIVE) Influenza B (RT-PCR) (NEGATIVE) RSV (PCR) (Negative) Urine Dip Bedside Urine Glucose Negative Bedside Urine Bilirubin - Negative Bedside Urine Ketone - Negative Urine Specific [place] 1.01 Bedside Urine Occult Blood +/- Bedside Urine pH 7 Bedside Urine Protein + 30 Bedside Urine Urobilinogen - Negative Bedside Urine Nitrite - Negative Bedside Urine Leukocytes - Negative Esterase Imaging Data Chest x-ray: Radiologist's Impression: [address] [address] XRay Report Signed Patient: Brian Burciaga MR#: [id number] : 1940 Acct:[id number] Age/Sex: 83 / M Date of Service: 02/17/23 Loc: ED Accession Number: [id number] ?? Procedure: XR chest 1V Ordering Provider: Shahid Jamison MD PROCEDURE:? XR CHEST 1V ? INDICATIONS:? Shortness of breath ? TECHNIQUE:? One view of the chest was acquired.? ? COMPARISON:? [facility], CR, XR CHEST 2V, 11/27/2022, 10:19.? [facility], CR, XR CHEST 1V, 11/20/2022, 17:15. ? FINDINGS:? ? Surgical changes and devices:? None.? ? Lungs and pleura:? Lungs are clear.? No pleural effusions or pneumothorax.? ? Mediastinum:? Mediastinal contours appear normal.? Heart size is mildly increased.? ? Bones and chest wall:? No suspicious bony lesions.? Overlying soft tissues appear unremarkable.? ? IMPRESSION:? No acute cardiopulmonary disease. ? ? Dictated by: Garcia Toribio M.D. on 02/17/2023 at 17:30 ? ? Approved by: Garcai Toribio M.D. on 02/17/2023 at 17:30 ? [facility] Narrative Medical decision making narrative: Patient here with family for complaints of shortness of breath since last night. Denies any chest pain. No palpitations. Patient has history atrial fibrillation on Xarelto. He does not feel palpitations. His chronic AFib. Rate is controlled. He is due for his Xarelto and blood pressure medication tonight. Blood pressure noted. Patient denies any cough cold congestion fever chills. Denies any calf pain but has noticed some swelling to both legs but does improve with elevation. No back pain or abdominal pain. Patient in no distress at this time. Patient and states that his legs have been twitching Echocardiogram October 08, 2019 ejection fraction 60-65% After history and exam CBC CMP troponin BNP chest x-ray EKG [facility] CC: Dyspnea Complicating co-morbidities: History atrial fibrillation Data collected from: Patient and family Medical records reviewed: No recent visit for this complaint other than November 2022 for pneumonia admission Differential considered: Includes but not limited to new onset CHF PE STEMI non-STEMI angina unstable angina pneumonia respiratory infection Exam documented above, pertinent findings include: Irregularly irregular heart sounds but not tachycardic. Clear and equal lung sounds Lab Test results independently reviewed as above. Pertinent findings: WBC 6.9 hemoglobin 15.0 INR 1.7 sodium 134 potassium 3.1 chloride 94 GFR greater than 60 glucose 140 troponin less than 0.012 BNP 1090, respiratory panel negative flu negative COVID Repeat chemistries sodium 134 potassium 3.2 Independently reviewed EKG atrial fibrillation rate [address] elevation or depression Imaging studies independently reviewed: Chest x-ray no acute finding Consultations: None indicated at this time. Treatments: Xarelto amlodipine potassium IV and oral Re-evaluations: 2:54 a.m.. Patient feels much better. He has been up and walking without any dyspnea here. After IV potassium and oral potassium he feels much better. No more leg twitching. Reviewed with patient likely symptoms due to hypokalemia. He will follow up with his primary care for changes in his potassium intake. He is currently on potassium pills. Return precautions reviewed. They desire discharge home. Patient does not want to wait for results of repeat potassium Discussion: Appropriate for discharge home. Patient has had improvement with potassium replacement. The hypokalemia may have aggravated his atrial fibrillation causing dyspnea. The leg twitching may be have been due to hypokalemia. These symptoms have resolved with potassium replacement here. Return precautions reviewed with him. He desires discharge home. Exam and laboratory studies and imaging otherwise reassuring. Diagnosis: Hypokalemia Discharge Plan Departure Patient Disposition: Home Clinical Impression: Acute dyspnea, Acute hypokalemia Instructions: DI for Atrial Fibrillation, DI for Hypokalemia, DI for Shortness of Breath Activity Restrictions/Additional Instructions: See family doctor within a week for re-evaluation. Call office today for changes to increase your potassium prescription. Keep well hydrated. Return if worse if any questions or concerns Prescriptions: No Action albuterol sulfate 90 mcg/actuation HFA aerosol inhaler 2 puff INHALATION Q4-6H PRN (Reason: shortness of breath or wheezing) Qty: 8.5 3RF atorvastatin 10 mg tablet See Rx Instructions .ROUTE .COMPLEX Qty: 90 3RF Dose Instruction: TAKE 1 TABLET BY MOUTH EVERY EVENING Rx Instructions: TAKE 1 TABLET BY MOUTH EVERY EVENING amlodipine 5 mg tablet See Rx Instructions .ROUTE .COMPLEX Qty: 90 3RF Dose Instruction: TAKE 1 TABLET BY MOUTH EVERY DAY Rx Instructions: TAKE 1 TABLET BY MOUTH EVERY DAY hydrochlorothiazide 25 mg tablet 12.5 mg PO QDAY Qty: 90 3RF potassium chloride [Klor-Con 10] 10 mEq tablet extended release See Rx Instructions .ROUTE .COMPLEX Qty: 360 3RF Dose Instruction: TAKE 2 TABLETS BY MOUTH TWICE A DAY Rx Instructions: TAKE 2 TABLETS BY MOUTH TWICE A DAY terazosin 2 mg capsule See Rx Instructions .ROUTE .COMPLEX Qty: 720 3RF Dose Instruction: TAKE 4 CAPSULES BY MOUTH TWICE A DAY Rx Instructions: TAKE 4 CAPSULES BY MOUTH TWICE A DAY dutasteride 0.5 mg capsule 0.5 mg PO DAILY Qty: 90 3RF triamcinolone acetonide 0.1 % ointment 1 applic topical BID PRN (Reason: skin rash or dry skin) Qty: 30 3RF Rx Instructions: Apply to face, use no longer than 3 weeks at a time. Thanks! buspirone 10 mg tablet 20 mg PO BID Qty: 360 1RF gabapentin 300 mg capsule See Rx Instructions .ROUTE .COMPLEX Qty: 360 3RF Dose Instruction: TAKE 3 CAPSULES (900 MG) BY MOUTH THREE TIMES DAILY NEEDED FOR PAIN Rx Instructions: TAKE 4 CAPSULES (1200 MG) BY MOUTH THREE TIMES DAILY NEEDED FOR PAIN tramadol 50 mg tablet See Rx Instructions .ROUTE .COMPLEX Qty: 180 3RF Rx Instructions: Take 1-2 tablets by mouth every 8 hours as needed for pain azelastine 137 mcg (0.1 %) aerosol,spray See Rx Instructions .ROUTE .COMPLEX Qty: 30 1RF Dose Instruction: ADMINISTER 1-2 SPRAYS INTO EACH NOSTRIL TWICE DAILY Rx Instructions: ADMINISTER 1-2 SPRAYS INTO EACH NOSTRIL TWICE DAILY fluticasone propionate 50 mcg/actuation spray,suspension See Rx Instructions .ROUTE .COMPLEX Qty: 48 1RF Dose Instruction: INSTILL 1 SPRAY INTO EACH NOSTRIL TWICE DAILY Rx Instructions: INSTILL 1 SPRAY INTO EACH NOSTRIL TWICE DAILY Xarelto 20 mg tablet 20 mg PO DAILY Rx Instructions: must administer with evening meal Referrals: Jose Ramires MD [Primary Care Provider] - Stand Alone Forms: Patient Portal/API
--- NOTE | 2023-02-18 00:12 | PC.NURSE ---
Pt ambulated around the dept w/o c/o dizziness, sob, weakness. O2 sats 94-96%, HR 90's- low 100's.
[2023-02-18] MEDS: AMLODIPINE 5 MG TABLET PO (00:31)
[2023-02-18] MEDS: RIVAROXABAN 10 MG TABLET 20 MG PO (00:32)
[2023-02-18] MEDS: POTASSIUM CHLORIDE 20 MEQ TAB PO (00:47)
[2023-02-18] MEDS: POTASSIUM CHLORIDE IN WATER 10 MEQ/100 ML PIGGYBACK 100 MEQ IV ×2 (00:48→01:47)
[2023-02-18 03:11] LABS: BUN Creatinine Ratio 20.8 (6-22); Blood Urea Nitrogen 11 mg/dL (9-20); Calcium 9.3 mg/dL (8.4-10.2); Carbon Dioxide 28 mmol/L (22-32); Chloride 97 mmol/L (98-107); Estimated Glomerular Filt Rate > 60 mL/min (>60); Glucose 138 mg/dL (80-110); Potassium 3.2 mmol/L (3.4-5.1); Sodium 134 mmol/L (137-145)
[2023-02-18 03:13] LABS: HEMOLYSIS 54 (0-50)
== END 2023-02-18 03:02 | disposition home or self-care (01) ==
PROVIDERS: Emergency Medicine; Emergency Provider Emergency Medicine; PCP Family Medicine
DX: R06.00 Dyspnea, unspecified (principal); E87.6 Hypokalemia; I48.91 Unspecified atrial fibrillation; Z79.01 Long term (current) use of anticoagulants; Z20.822 Contact with and (suspected) exposure to COVID-19
CPT/HCPCS: 0241U; 36415; 71045; 80048; 80053; 81003; 81015; 83605; 83880; 84484; 85025; 85610; 93005; 96365; 96366; 99284

== ENCOUNTER → 2023-02-23 11:26 | Outpatient (CLI) | payer MEDICARE, BC, SELFPAY ==
[2022-11-20 20:45] VITALS: BMI 30.9
[2023-02-23 13:31] LABS: Alanine Aminotransferase 23 IU/L (<50); Albumin 3.9 g/dL (3.5-5.0); Albumin Globulin Ratio 1.1 (1.0-2.8); Alkaline Phosphatase 136 U/L (38-126); Aspartate Aminotransferase 24 IU/L (17-59); BUN Creatinine Ratio 22.5 (6-22); Bilirubin Total 0.7 mg/dL (0.2-1.3); Blood Urea Nitrogen 16 mg/dL (9-20); Calcium 9.3 mg/dL (8.4-10.2); Carbon Dioxide 33 mmol/L (22-32); Chloride 96 mmol/L (98-107); Estimated Glomerular Filt Rate > 60 mL/min (>60); Globulin 3.4 g/dL (1.7-4.1); Glucose 120 mg/dL (80-110); HEMOLYSIS < 15 (0-50); Potassium 3.7 mmol/L (3.4-5.1); Sodium 134 mmol/L (137-145); Total Protein 7.3 g/dL (6.3-8.2)
[2023-02-23 13:39] LABS: NT-proBNP (BNP-Adult 18+) 756 pg/mL (<450)
== END ==
PROVIDERS: PCP Family Medicine; Referring Provider Family Medicine; Visit Provider Family Medicine
DX: R06.00 Dyspnea, unspecified (principal); E87.6 Hypokalemia; I10 Essential (primary) hypertension; I48.91 Unspecified atrial fibrillation; R77.9 Abnormality of plasma protein, unspecified
CPT/HCPCS: 36415; 80053; 83880

== ENCOUNTER → 2023-03-10 07:50 | Outpatient (CLI) | payer MEDICARE, BC, SELFPAY ==
[2022-11-20 20:45] VITALS: BMI 30.9
--- NOTE | 2023-03-10 07:52 | DI.ECHO.S_ITS ---
[facility]+ : : [address] : : : : [id number] : : : : Phone: [phone] Echocardiogram Report + + :Name: PAULINE ALCOCER Study Date: 03/10/2023 Height: 71 in : :[facility] ReadingLocation: Weight: 200 lb : : Gender: Male BSA: 2.1 m2 : :: 1940 Age: 83 yrs BP: 134/88 mmHg: :Reason For Study: DYSPNEA : :Ordering Physician: ROLANDO, : :RAHEEL Performed By: Maryann Arce : :Referring: RAHEEL MARSHALL : + + Interpretation Summary 1) Normal left ventricular thickness, size, wall motion, and systolic function (EF 55-60%). 2) Normal right ventricular size and function. 3) There is mild to moderate mitral regurgitation. 4) There is mild to moderate tricuspid regurgitation. 5) The right ventricular systolic pressure is estimated to be at least 45 mmHg based on an estimated right atrial pressure of 15 mm Hg. 6) Compared to the Echo done 10/08/2019, mitral and tricuspid regurgitations have increased from mild to mild-moderate on this study and systolic PA pressures are higher probably due to elevated right sided filling pressures. Procedure: A two-dimensional transthoracic echocardiogram with color flow and Doppler was performed. The study quality was technically adequate. Comparison is made with the echocardiogram of 10/08/2019. The patient was in atrial fibrillation with heart rates between 47-55 bpm during the exam. Left Ventricle: The left ventricle is normal in size and wall thickness. The ejection fraction is estimated to be 55-60%. Left ventricular systolic function appears normal without focal wall motion abnormalities. Diastolic parameters suggest a relaxation abnormality of the left ventricle, consistent with probable normal filling pressures. Right Ventricle: The right ventricle is normal in size and function. Atria: The left atrium is moderately dilated. The right atrium is mildly dilated. There is no Doppler evidence for an interatrial shunt. Mitral Valve: The mitral valve leaflets appear mildly thickened, but open well. There is mild to moderate mitral regurgitation. Aortic Valve: The aortic valve is trileaflet. The aortic valve opens well. There is no aortic valve stenosis. No aortic regurgitation is present. Tricuspid Valve: The tricuspid valve leaflets are thin and pliable. There is mild to moderate tricuspid regurgitation. The right ventricular systolic pressure is estimated to be at least 45 mmHg based on an estimated right atrial pressure of 15 mm Hg. Pulmonic Valve: The pulmonic valve leaflets are thin and pliable; valve motion is normal. There is mild pulmonic regurgitation. Great Vessels: The aortic root is normal size. The dimensions of the ascending aorta are normal. The IVC is dilated (diameter is greater than 2.1 cm) and it collapses less than 50% with a sniff. This suggests a high right atrial pressure of 15 mm Hg. Pericardium/ Pleura There is no pericardial effusion. There is no pleural effusion. MMode/2D Measurements & Calculations LVIDd: 5.2 cm LVOT diam: 2.0 cm LVIDs: 3.5 cm Ao root diam: 3.3 cm FS: 32.1 % asc Aorta Diam: 3.9 cm EPSS: 0.69 cm IVSd: 0.75 cm LVPWd: 0.90 cm LV phillips. diameter/BSA (cm/m^2): 2.4 LV sys. diameter/BSA (cm/m^2): 1.7 LA A2 area: 25.5 cm2 RA long axis: 6.8 cm LA A4 area: 26.1 cm2 RA area: 26.3 cm2 LA length (vol): 6.2 cm RA vol: 86.2 ml LA vol: 90.3 ml RA : 40.9 ml/m2 LA vol index: 42.8 ml/m2 IVC diam: 3.0 cm RVD1 (basal): 3.7 cm RVD2 (mid): 2.8 cm TAPSE: 1.9 cm Doppler Measurements & Calculations Ao V2 max: 158.2 cm/sec LVOT Max Gerald: 98.4 cm/sec Ao V2 mean: 112.8 cm/sec LV V1 max P.9 mmHg Ao max P.0 mmHg LV V1 VTI: 24.5 cm Ao mean P.7 mmHg JANEE(I,D): 2.1 cm2 Ao V2 VTI: 36.5 cm JANEE(V,D): 1.9 cm2 sev ratio: 0.67 JANEE indexed to BSA (cm^2/m^2): 0.98 MV E max gerald: 99.0 cm/sec TR max gerald: 270.3 cm/sec MV A max gerald: 1.9 cm/sec TR max P.2 mmHg MV E/A: 51.7 PA V2 max: 91.4 cm/sec Med Peak E' Gerald: 7.6 cm/sec PA V2 mean: 67.8 cm/sec E/E' med: 13.1 PA mean P.0 mmHg Lat Peak E' Gerald: 8.2 cm/sec PA pr(Accel): 20.8 mmHg E/E' lat: 12.1 E/e' average: 12.6 MV dec time: 0.20 sec SV(LVOT): 75.4 ml Reading Physician:01:27 PM
== END ==
PROVIDERS: PCP Family Medicine; Referring Provider Family Medicine; Visit Provider Family Medicine
DX: I08.1 Rheumatic disorders of both mitral and tricuspid valves (principal); R06.00 Dyspnea, unspecified; I48.91 Unspecified atrial fibrillation; R77.9 Abnormality of plasma protein, unspecified; E87.6 Hypokalemia; I10 Essential (primary) hypertension
CPT/HCPCS: 93306

== ENCOUNTER → 2023-03-15 10:08 | Outpatient (CLI) | payer MEDICARE, BC, SELFPAY ==
[2022-11-20 20:45] VITALS: BMI 30.9
[2023-03-15 11:19] LABS: Add Manual Diff / Slide Review NO; Basophils Absolute Auto 0 /uL (0-100); Eosinophils Absolute Auto 100 /uL (0-450); Eosinophils Percent Auto 2.7 % (2-4); Hematocrit 36.2 % (41-53); Hemoglobin 12.3 g/dL (13.5-17.5); Lymphocytes Absolute Auto 1600 /uL (1100-4500); Mean Corpuscular Hemoglobin 31.1 PG (26-34); Mean Corpuscular Volume 91.6 fL (80-100); Monocytes Absolute Auto 400 /uL (0-900); Neutrophils Absolute Auto 2100 /uL (1500-7000); Neutrophils Percent Auto 48.3 % (50-75); Platelet Count 140 X10^3/uL (150-400); Red Blood Cell Count 3.95 X10^6/uL (4.5-5.9); White Blood Cell Count 4.3 X10^3/uL (4.5-11.0)
[2023-03-15 11:51] LABS: BUN Creatinine Ratio 20.5 (6-22); Blood Urea Nitrogen 17 mg/dL (9-20); Calcium 8.9 mg/dL (8.4-10.2); Carbon Dioxide 35 mmol/L (22-32); Chloride 95 mmol/L (98-107); Cholesterol 108 mg/dL (140-199); Estimated Glomerular Filt Rate > 60 mL/min (>60); Glucose 92 mg/dL (80-110); HDL Cholesterol 42 mg/dL (40-60); HEMOLYSIS < 15 (0-50); LDL Cholesterol Calculated 48 mg/dL (<100); Potassium 3.9 mmol/L (3.4-5.1); Sodium 135 mmol/L (137-145); Triglycerides 90 mg/dL (35-150)
== END ==
PROVIDERS: PCP Family Medicine; Referring Provider Internal Medicine Cardiovascular Disease; Visit Provider Internal Medicine Cardiovascular Disease
DX: I10 Essential (primary) hypertension (principal); Z79.01 Long term (current) use of anticoagulants; E78.5 Hyperlipidemia, unspecified
CPT/HCPCS: 36415; 80048; 80061; 85025

== ENCOUNTER → 2023-03-26 08:03 | Outpatient (CLI) | payer MEDICARE, BC, SELFPAY ==
[2022-11-20 20:45] VITALS: BMI 30.9
[2023-03-26 10:32] LABS: Blood Urea Nitrogen 14 mg/dL (9-20); Carbon Dioxide 30 mmol/L (22-32); Chloride 98 mmol/L (98-107); Cholesterol 110 mg/dL (140-199); Estimated Glomerular Filt Rate > 60 mL/min (>60); Glucose 100 mg/dL (80-110); HDL Cholesterol 42 mg/dL (40-60); HEMOLYSIS < 15 (0-50); LDL Cholesterol Calculated 59 mg/dL (<100); Potassium 3.8 mmol/L (3.4-5.1); Sodium 136 mmol/L (137-145); Triglycerides 44 mg/dL (35-150)
== END ==
PROVIDERS: Surgery; PCP Family Medicine; Referring Provider Internal Medicine Cardiovascular Disease; Visit Provider Internal Medicine Cardiovascular Disease
DX: E78.5 Hyperlipidemia, unspecified (principal); K43.9 Ventral hernia without obstruction or gangrene
CPT/HCPCS: 36415; 80048; 80061

== ENCOUNTER 2023-04-06 06:37 | Day surgery (SDC) | payer MEDICARE, BC, SELFPAY ==
[2022-11-20 20:45] VITALS: BMI 30.9
[2023-04-05 07:34] VITALS: BMI 27.8
--- NOTE | 2023-04-05 10:49 | P.HP_ITS ---
History of Present Illness History of Present Illness Date Patient Seen: 04/05/23 Time Patient Seen: 10:49 Chief complaint: [facility] Narrative: 83-year-old man with a symptomatic reducible supra umbilical ventral hernia of moderate size. He is here today for an open ventral hernia repair with mesh. He was last seen January 2023. In the interval he has been seen by Cardiology and has undergone echocardiogram which demonstrates a normal ejection fraction and no significant valvular disease. 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 Essential hypertension Facet arthropathy, lumbar Hayfever (~1979) Hyperlipidemia Hypersomnia Hypertension Insomnia, persistent Low back pain without sciatica (07/13/17) Lumbosacral radiculopathy at L5 Lumbosacral spondylosis with radiculopathy Lung nodule (08/18/15) Measles (~194) Medicare annual wellness visit, subsequent Milia Mumps (~194) Obstructive sleep apnea of adult Osteoarthritis, hand Snoring Trigger finger (acquired) Umbilical hernia Surgical History Anesthesia Fracture dislocation of right ankle (04/2000) Status post hernia repair (2007) Family History Father Stroke Mother Heart disease Son No problems noted. Social History marital status: details: maral Delvalle, lives in [place] household members: spouse lives independently: Yes caregiver/support person: No occupational status: previously employed Smoking Status: Never smoker alcohol intake: former Meds Home Medications and Allergies Home Medications Medication Instructions Recorded Confirmed Type albuterol sulfate 90 mcg/actuation 2 puff inhalation Q4-6H PRN 05/02/20 04/05/23 Rx aerosol inhaler shortness of breath or wheezing #8.5 grams rivaroxaban 20 mg tablet (Xarelto) 20 mg PO DAILY 10/05/21 04/06/23 History hydrochlorothiazide 25 mg tablet 12.5 mg PO QDAY #90 tabs 12/11/21 04/06/23 Rx terazosin 2 mg capsule See Rx Instructions .Route 06/25/22 04/06/23 Rx .COMPLEX #720 caps dutasteride 0.5 mg capsule 0.5 mg PO DAILY #90 caps 09/13/22 04/06/23 Rx triamcinolone acetonide 0.1 % 1 applic topical BID PRN skin rash 09/23/22 04/05/23 Rx topical ointment or dry skin #30 grams buspirone 10 mg tablet 20 mg PO BID #360 tabs 11/23/22 04/06/23 Rx gabapentin 300 mg capsule See Rx Instructions .Route 11/30/22 04/06/23 Rx .COMPLEX #360 caps fluticasone propionate 50 See Rx Instructions .Route 02/01/23 04/06/23 Rx mcg/actuation nasal .COMPLEX #48 mL spray,suspension azelastine 137 mcg (0.1 %) nasal 1 - 2 spray intranasal BID #30 mL 03/28/23 04/06/23 Rx spray aerosol potassium chloride 10 mEq 20 meq PO BID #120 tabs 03/30/23 04/06/23 Rx tablet,extended release amlodipine 5 mg tablet 5 mg PO DAILY 04/05/23 04/06/23 History atorvastatin 10 mg tablet 10 mg PO DAILY 04/05/23 04/06/23 History tramadol 50 mg tablet See Rx Instructions .Route 04/05/23 04/06/23 History .COMPLEX PRN Pain (Scale Score 1-3) guaifenesin 600 mg tablet, 2 mg PO DAILY 04/06/23 04/06/23 History extended release 12 hr Allergies Allergy/AdvReac Type Severity Reaction Status Date / Time Penicillins Allergy Mild RASH Verified 04/06/23 07:09 shrimp Allergy Mild Rash Verified 04/06/23 07:09 Exam Narrative Exam Narrative: Gen-Elderly man alert and oriented Abdomen-Soft, reducible 6 cm ventral hernia Assessment & Plan Assessment & Plan narrative: 83 y.o man with a 6 cm ventral reducible hernia here for open elective repair. Questions answered. Risks including hemorrhage, infection, reoccurence, chronic pain, damage to surrounding structures discussed. He provides written and verbal consent to proceed.
[2023-04-06] VITALS (11 sets, daily range): BP systolic 108–147; BP diastolic 77–102; PULSE 67–85; RESP 9–20; TEMP 36.2–36.3; O2SAT 96–100; BMI 27.8
--- NOTE | 2023-04-06 07:11 | SUR.OPER ---
Supine on padded OR bed, head on pillow, arms secured on padded arm boards at <90 degrees abduction, legs uncrossed, safety belt at thigh, tape over blanket over lower legs.
[2023-04-06] MEDS: LACTATED RINGERS 1,000 ML 100 ML IV (07:31)
[2023-04-06] MEDS: CLINDAMYCIN 900 MG/50 ML PIGGYBACK 50 MG IV (07:54)
[2023-04-06] MEDS: BUPIVACAINE LIPOSOME 266 MG/20 ML VIAL INJ (08:32)
[2023-04-06] MEDS: BUPIVACAINE 0.25% (PF) VIAL 30 ML INJ (08:34)
--- NOTE | 2023-04-06 09:38 | PM.OP.1 ---
Operative Date/Time/Diagnoses Date of procedure: 04/06/23 Time of procedure: 09:38 Pre-op diagnosis: Ventral hernia 11 cm Post-op diagnosis: same Procedure & Clinicians Procedure: Open retro rectus repair of 11 cm ventral hernia Same procedure as scheduled: Yes Indications: 83-year-old man with a 11 cm symptomatic ventral hernia containing bowel here for elective open repair. Surgeon: Zane Randolph It Technical Support Specialist: Gunner Moya Anesthesia Type: General Operative Notes Findings: 11 cm fascial defect containing small bowel. Specimen(s): none sent Estimated Blood Loss (mL): 20 Procedure in detail: Patient was brought to the operating room placed supine on the table. Bilateral lower extremity compression devices were applied. They received clindamycin prior to skin incision. Prepped and draped in sterile fashion, ioban was placed. Time-out was performed. A midline incision was made superior to the umbilicus with a knife. The subcutaneous tissue was divided to expose the midline fascia. The fascia had a 11 cm fascial defect extending above and below the umbilicus.. The fascia was grasped elevated and sharply opened. Minimal intra-abdominal adhesions were encountered and were sharply lysed. Hernia sac was excised. A towel was then placed over the visceral content to protect it out of harms way. The retromuscular space was entered by incising the posterior rectus sheath approximately 1 cm from its edge. The retromuscular plane was developed using electrocautery with care to protect the neurovascular structures. The retrorectus space was developed in the same fashion on the contralateral side. The spaces were then connected superiorly and inferiorly. The posterior sheath was then closed with 2-0 vicryl. I selected 15 x 15 cm polypropelene soft tissue mesh trimmed to size placed the retro rectus space. The mesh was anchored with interrupted Ethibond in transfascial fashion in four quadrants using the ashli sanchez device such that the mesh lay under physiologic tension. The anterior sheath/ linea alba was then closed with running 0 PDS suture. Hemostasis was checked. The subcutaneous tissue was then reapproximated using Vicryl skin closed with running 4-0 Monocryl followed by the application of Dermabond. Patient emerged from anesthesia was extubated and transferred to recovery room in stable condition. The assistance of Jovany Moya was necessary for providing the necessary exposure. Complications: none Post-operative Condition: stable Disposition: same day surgery
[2023-04-06] MEDS: OXYCODONE/ACETAMINOPHEN 5/325 TABLET 1 TAB PO (10:07)
== END 2023-04-06 11:13 | disposition home or self-care (01) ==
PROVIDERS: PCP Family Medicine; Referring Provider Surgery; Visit Provider Surgery
PROC: (CPT 49596; principal; 2023-04-06 08:00)
DX: K43.6 Other and unspecified ventral hernia with obstruction, without gangrene (principal); K66.0 Peritoneal adhesions (postprocedural) (postinfection)
CPT/HCPCS: 49596; 15734 ×2; 82962; C9290; J0330; J0461; J1100; J2405; J2704; J3010

== ENCOUNTER 2023-04-11 11:01 | Emergency (ER) | payer MEDICARE, BC, SELFPAY ==
[2022-11-20 20:45] VITALS: BMI 30.9
[2023-04-11 11:11] VITALS: BP 173/101; PULSE 88; RESP 18; TEMP 36.5; O2SAT 99; BMI 27.8
--- NOTE | 2023-04-11 11:18 | ED.MALEGU ---
HPI - Male Genitourinary General Chief complaint: Urogenital-Male Stated complaint: cant pee Time Seen by Provider: 04/11/23 11:09 Source: patient Mode of arrival: Ambulatory History of Present Illness HPI Narrative: 83-year-old male presents for inability to urinate. Patient had hernia repair surgery last week, he has been recovering well from this. Four days ago he began to notice that he was not able to completely empty his bladder when he urinated. Yesterday he was only able to produce a tiny dribble of urine. He is reporting suprapubic discomfort. He denies history of urinary retention or prostate issues. Related Data Home Medications Medication Instructions Recorded Confirmed rivaroxaban 20 mg tablet (Xarelto) 20 mg PO DAILY 10/05/21 04/06/23 amlodipine 5 mg tablet 5 mg PO DAILY 04/05/23 04/06/23 atorvastatin 10 mg tablet 10 mg PO DAILY 04/05/23 04/06/23 tramadol 50 mg tablet See Rx Instructions .Route 04/05/23 04/06/23 .COMPLEX PRN Pain (Scale Score 1-3) guaifenesin 600 mg tablet, 2 mg PO DAILY 04/06/23 04/06/23 extended release 12 hr Previous Rx's Medication Instructions Recorded albuterol sulfate 90 mcg/actuation 2 puff inhalation Q4-6H PRN 05/02/20 aerosol inhaler shortness of breath or wheezing #8.5 grams hydrochlorothiazide 25 mg tablet 12.5 mg PO QDAY #90 tabs 12/11/21 terazosin 2 mg capsule See Rx Instructions .Route 06/25/22 .COMPLEX #720 caps dutasteride 0.5 mg capsule 0.5 mg PO DAILY #90 caps 09/13/22 triamcinolone acetonide 0.1 % 1 applic topical BID PRN skin rash 09/23/22 topical ointment or dry skin #30 grams buspirone 10 mg tablet 20 mg PO BID #360 tabs 11/23/22 gabapentin 300 mg capsule See Rx Instructions .Route 11/30/22 .COMPLEX #360 caps fluticasone propionate 50 See Rx Instructions .Route 02/01/23 mcg/actuation nasal .COMPLEX #48 mL spray,suspension azelastine 137 mcg (0.1 %) nasal 1 - 2 spray intranasal BID #30 mL 03/28/23 spray aerosol potassium chloride 10 mEq 20 meq PO BID #120 tabs 03/30/23 tablet,extended release acetaminophen 325 mg capsule 650 mg PO QID PRN pain #60 caps 04/06/23 (Tylenol) docusate sodium 100 mg capsule 100 mg PO BID #30 caps 04/06/23 (Colace) oxycodone 5 mg tablet 5 mg PO Q6H PRN pain #20 tabs 04/06/23 Allergies Allergy/AdvReac Type Severity Reaction Status Date / Time Penicillins Allergy Mild RASH Verified 04/11/23 11:13 shrimp Allergy Mild Rash Verified 04/11/23 11:13 Review of Systems Review of Systems Narrative: CONSTITUTIONAL- Denies: fever, chills, fatigue HEENT- Denies: sore throat, nosebleed, vision changes RESPIRATORY- Denies: shortness of breath, cough, wheezing CARDIAC- Denies: chest pain, edema, orthopnea GI- Denies: abdominal pain, nausea, vomiting, constipation, diarrhea -reports: Urinary retention Denies: frequency, dysuria, hematuria, flank pain MSK- Denies: extremity pain, extremity swelling, joint pain, joint swelling SKIN- Denies: rash, itching, burn, swelling NEUROLOGICAL- Denies: headache, numbness, weakness, dizziness PSYCHIATRIC- Denies: anxiety, depression, suicidal ideation, homicidal ideation Patient History Medical History (Updated 04/11/23 @ 12:58 by Priya Jimenez MD) Abscess of back Acute hypokalemia Anxiety (07/13/17) Atrial fibrillation Bradycardia Central sleep apnea Chicken pox (~1947) Chronic pain syndrome Chronic venous stasis 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 Essential hypertension Facet arthropathy, lumbar Hayfever (~1979) Hyperlipidemia Hypersomnia Hypertension Insomnia, persistent Low back pain without sciatica (07/13/17) Lumbosacral radiculopathy at L5 Lumbosacral spondylosis with radiculopathy Lung nodule (08/18/15) Measles (~194) Medicare annual wellness visit, subsequent Milia Mumps (~194) Obstructive sleep apnea of adult Osteoarthritis, hand Snoring Trigger finger (acquired) Umbilical hernia Surgical History Anesthesia Fracture dislocation of right ankle (04/2000) Status post hernia repair (2007) Family History Father Stroke Mother Heart disease Son No problems noted. Social History marital status: details: maral Delvalle, lives in [place] household members: spouse lives independently: Yes caregiver/support person: No occupational status: previously employed Smoking Status: Never smoker alcohol intake: former Smoking Status: Never smoker alcohol intake frequency: holidays/special occasions only Substance Use Type: does not use Exam Initial Vital Signs Initial Vital Signs: Vital Signs Temperature 97.7 F 04/11/23 11:11 Pulse Rate 88 04/11/23 11:11 Respiratory Rate 18 04/11/23 11:11 Blood Pressure 173/101 H 04/11/23 11:11 Pulse Oximetry 99 04/11/23 11:11 Oxygen Delivery Method Room Air 04/11/23 11:11 Const: Well-nourished, Well-developed, appears stated age Eyes: PERRL, EOMI, conjunctiva normal ENT: Atraumatic, dentition normal, mucous membranes moist Cardiac: regular rate, regular rhythm RESP: unlabored, clear bilaterally, no wheezing GI: Atraumatic, soft, suprapubic fullness nontender,no rebound, no guarding MSK: Atraumatic, full range of motion, pulses equal Skin: Warm, Dry, intact, no rashes Neuro: AO x3, CN II-XII grossly intact, moves all extremities Psych: affect normal, mood normal, not suicidal, not homicidal Course Course Course Narrative: Well-appearing patient with urinary retention. Rod placed with drainage of 2500 cc of clear urine. Laboratory work is unremarkable. Urinalysis negative for signs of infection. Medication review shows that patient is already on terazosin. He was counseled to continue taking this medication as prescribed. Urology follow-up referral provided. ED return precautions discussed at bedside. Patient expressed understanding of the plan and is in agreement at this time. All questions answered at the time of discharge. Orders Ordered: ED Orders 04/11/23 11:34 CBC Auto Diff [Complete Blood Count AUTO DIFF] Stat CMP [Comprehensive Metabolic Panel] Stat 04/11/23 12:01 UA Complete [Urinalysis and Microscopic] Stat Discontinued Medications Lidocaine HCl (Lidocaine 2% (Glydo) 6 Ml Gel) 6 ml TOP NOW ONE Stop: 04/11/23 11:43 Last Admin: 04/11/23 11:46 Dose: 6 ml Documented By: RADHA Tamsulosin HCl (Tamsulosin 0.4 Mg Capsule) 0.4 mg PO NOW ONE Stop: 04/11/23 12:57 Last Admin: 04/11/23 13:00 Dose: Not Given Documented By: KRISTIN Vital Signs Vital signs: Vital Signs - 8 hr 04/11/23 13:38 Pulse Rate 85 Blood Pressure 155/79 H Pulse Oximetry 96 Oxygen Delivery Method Room Air MDM - Male Genitourinary Lab Data 04/11/23 11:34 04/11/23 11:34 Labs: Lab Results 04/11/23 04/11/23 04/11/23 Range/Units 11:34 11:34 12:01 WBC 6.7 (4.5-11.0) X10^3/uL RBC 4.24 L (4.5-5.9) X10^6/uL Hgb 13.2 L (13.5-17.5) g/dL Hct 38.6 L (41-53) % MCV 91.0 (80-100) fL MCH 31.2 (26-34) PG MCHC 34.2 (30-36) % RDW 14.6 (11.6-14.8) % Plt Count 167 (150-400) X10^3/uL Neut % (Auto) 73.1 (50-75) % Lymph % (Auto) 14.2 L (25-40) % [place] % (Auto) 10.5 (3-14) % Eos % (Auto) 1.7 L (2-4) % Baso % (Auto) 0.5 (0-2) % Neut # (Auto) 4900 (2465-6827) /uL Lymph # (Auto) 1000 L (2906-9400) /uL [place] # (Auto) 700 (0-900) /uL Eos # (Auto) 100 (0-450) /uL Baso # (Auto) 0 (0-100) /uL Sodium 132 L (137-145) mmol/L Potassium 4.2 (3.4-5.1) mmol/L Chloride 96 L (98-107) mmol/L Carbon Dioxide 28 (22-32) mmol/L BUN 20 (9-20) mg/dL Creatinine 0.73 (0.66-1.25) mg/dL Estimated GFR > 60 (>60) mL/min BUN/Creatinine Ratio 27.4 H (6-22) Glucose 147 H (80-110) mg/dL Calcium 9.8 (8.4-10.2) mg/dL Total Bilirubin 1.0 (0.2-1.3) mg/dL AST 31 (17-59) IU/L ALT 27 (<50) IU/L Alkaline Phosphatase 136 H (38-126) U/L Total Protein 8.1 (6.3-8.2) g/dL Albumin 4.2 (3.5-5.0) g/dL Globulin 3.9 (1.7-4.1) g/dL Albumin/Globulin Ratio 1.1 (1.0-2.8) Urine Color Yellow Urine Appearance Clear Urine pH 5.5 (4.5-8.0) Ur Specific [place] <=1.005 (1.000-1.035) Urine Protein Negative (Negative) Urine Glucose (UA) Negative (Negative) g/dL Urine Ketones Negative (NEGATIVE) Urine Occult Blood Trace-intact (Negative) Urine Nitrate Negative (Negative) Urine Bilirubin Negative (NEGATIVE) Urine Urobilinogen 0.2 (0.2) E.U./dL Ur Leukocyte Esterase Negative (NEGATIVE) Urine RBC 1-5/hpf (0-5/HPF) Urine WBC 0-1/hpf (0-5/HPF) Ur Squamous Epith Cells 0-1 /hpf (0-5/HPF) Urine Bacteria None seen (None) Ur Culture Indicated? Cult not indicated Discharge Plan Departure Patient Disposition: Home Clinical Impression: Acute urinary retention Instructions: DI for Urinary Retention in Men Activity Restrictions/Additional Instructions: YOU HAD 2500ML OF URINE IN YOUR BLADDER. TAKE YOUR TERAZOSIN DAILY. FOLLOW UP WITH A UROLOGIST. Prescriptions: No Action albuterol sulfate 90 mcg/actuation HFA aerosol inhaler 2 puff INHALATION Q4-6H PRN (Reason: shortness of breath or wheezing) Qty: 8.5 3RF hydrochlorothiazide 25 mg tablet 12.5 mg PO QDAY Qty: 90 3RF terazosin 2 mg capsule See Rx Instructions .ROUTE .COMPLEX Qty: 720 3RF Dose Instruction: TAKE 4 CAPSULES BY MOUTH TWICE A DAY Rx Instructions: TAKE 4 CAPSULES BY MOUTH TWICE A DAY dutasteride 0.5 mg capsule 0.5 mg PO DAILY Qty: 90 3RF triamcinolone acetonide 0.1 % ointment 1 applic topical BID PRN (Reason: skin rash or dry skin) Qty: 30 3RF Rx Instructions: Apply to face, use no longer than 3 weeks at a time. Thanks! buspirone 10 mg tablet 20 mg PO BID Qty: 360 1RF gabapentin 300 mg capsule See Rx Instructions .ROUTE .COMPLEX Qty: 360 3RF Dose Instruction: TAKE 3 CAPSULES (900 MG) BY MOUTH THREE TIMES DAILY NEEDED FOR PAIN Rx Instructions: TAKE 4 CAPSULES (1200 MG) BY MOUTH THREE TIMES DAILY NEEDED FOR PAIN fluticasone propionate 50 mcg/actuation spray,suspension See Rx Instructions .ROUTE .COMPLEX Qty: 48 1RF Dose Instruction: INSTILL 1 SPRAY INTO EACH NOSTRIL TWICE DAILY Rx Instructions: INSTILL 1 SPRAY INTO EACH NOSTRIL TWICE DAILY azelastine 137 mcg (0.1 %) aerosol,spray 1 - 2 spray intranasal BID Qty: 30 11RF potassium chloride 10 mEq tablet extended release 20 meq PO BID Qty: 120 1RF atorvastatin 10 mg tablet 10 mg PO DAILY amlodipine 5 mg tablet 5 mg PO DAILY Rx Instructions: TAKE 1 TABLET BY MOUTH EVERY DAY tramadol 50 mg tablet See Rx Instructions .ROUTE .COMPLEX PRN (Reason: Pain (Scale Score 1-3)) Rx Instructions: Take 1-2 tablets by mouth every 8 hours as needed for pain guaifenesin 600 mg Tablet Extended Release 12hr 2 mg PO DAILY docusate sodium [Colace] 100 mg capsule 100 mg PO BID Qty: 30 0RF oxycodone 5 mg tablet 5 mg PO Q6H PRN (Reason: pain) Qty: 20 0RF acetaminophen [Tylenol] 325 mg capsule 650 mg PO QID PRN (Reason: pain) Qty: 60 0RF Xarelto 20 mg tablet 20 mg PO DAILY Rx Instructions: must administer with evening meal Referrals: Jose Ramires MD [Primary Care Provider] - Dale Cohen MD [Physician] - Stand Alone Forms: Patient Portal/API
[2023-04-11 11:37] LABS: Add Manual Diff / Slide Review NO; Basophils Absolute Auto 0 /uL (0-100); Basophils Percent Auto 0.5 % (0-2); Eosinophils Absolute Auto 100 /uL (0-450); Eosinophils Percent Auto 1.7 % (2-4); Hematocrit 38.6 % (41-53); Hemoglobin 13.2 g/dL (13.5-17.5); Lymphocytes Absolute Auto 1000 /uL (1100-4500); Lymphocytes Percent Auto 14.2 % (25-40); Mean Corpuscular HGB Conc 34.2 % (30-36); Mean Corpuscular Hemoglobin 31.2 PG (26-34); Monocytes Absolute Auto 700 /uL (0-900); Monocytes Percent Auto 10.5 % (3-14); Neutrophils Absolute Auto 4900 /uL (1500-7000); Neutrophils Percent Auto 73.1 % (50-75); Platelet Count 167 X10^3/uL (150-400); Red Blood Cell Count 4.24 X10^6/uL (4.5-5.9); Red Cell Distribution Width 14.6 % (11.6-14.8); White Blood Cell Count 6.7 X10^3/uL (4.5-11.0)
[2023-04-11] MEDS: LIDOCAINE 2% (GLYDO) 6 ML GEL TOP (11:46)
[2023-04-11 11:52] LABS: Alanine Aminotransferase 27 IU/L (<50); Albumin 4.2 g/dL (3.5-5.0); Albumin Globulin Ratio 1.1 (1.0-2.8); Alkaline Phosphatase 136 U/L (38-126); Aspartate Aminotransferase 31 IU/L (17-59); BUN Creatinine Ratio 27.4 (6-22); Blood Urea Nitrogen 20 mg/dL (9-20); Calcium 9.8 mg/dL (8.4-10.2); Carbon Dioxide 28 mmol/L (22-32); Chloride 96 mmol/L (98-107); Estimated Glomerular Filt Rate > 60 mL/min (>60); Globulin 3.9 g/dL (1.7-4.1); Glucose 147 mg/dL (80-110); HEMOLYSIS 15 (0-50); Potassium 4.2 mmol/L (3.4-5.1); Sodium 132 mmol/L (137-145); Total Protein 8.1 g/dL (6.3-8.2)
[2023-04-11 12:17] LABS: Appearance Urine UA CLEAR; Bilirubin Urine UA NEGATIVE (NEGATIVE); Color Urine UA YELLOW; Glucose Urine UA NEGATIVE (Negative); Ketones Urine UA NEGATIVE (NEGATIVE); Leukocyte Esterase Urine UA NEGATIVE (NEGATIVE); Nitrite Urine UA NEGATIVE (Negative); Occult Blood Urine UA TRACE-INTACT (Negative); Protein Urine UA NEGATIVE (Negative); Specific Gravity Urine UA <=1.005 (1.000-1.035); Urobilinogen Urine UA 0.2 E.U./dL (0.2); pH Urine UA 5.5 (4.5-8.0)
[2023-04-11 12:32] LABS: Bacteria Urine None Seen; RBC Urine 1-5/HPF (0-5/HPF); Squamous Epithelial Cell Urine 0-1 /HPF (0-5/HPF); WBC Urine 0-1/HPF (0-5/HPF)
[2023-04-11 12:33] LABS: Culture Indicated Urine Cult Not Indicated
[2023-04-11 13:38] VITALS: BP 155/79; PULSE 85; O2SAT 96
== END 2023-04-11 13:35 | disposition home or self-care (01) ==
PROVIDERS: Emergency Provider Emergency Medicine; PCP Family Medicine
DX: R33.8 Other retention of urine (principal); Z79.01 Long term (current) use of anticoagulants; Z79.899 Other long term (current) drug therapy
CPT/HCPCS: 36415; 80053; 81001; 85025; 99283; 99284

== ENCOUNTER → 2023-05-03 16:46 | Outpatient (CLI) | payer MEDICARE, BC, SELFPAY ==
[2023-04-21 11:22] VITALS: BMI 30.9
[2023-05-03 17:14] LABS: Appearance Urine UA CLOUDY; Bilirubin Urine UA NEGATIVE (NEGATIVE); Color Urine UA YELLOW; Glucose Urine UA NEGATIVE (Negative); Ketones Urine UA NEGATIVE (NEGATIVE); Leukocyte Esterase Urine UA 1+ (NEGATIVE); Nitrite Urine UA POSITIVE (Negative); Occult Blood Urine UA 3+ (Negative); Protein Urine UA 1+ (Negative); Specific Gravity Urine UA 1.025 (1.000-1.035)
[2023-05-03 17:26] LABS: Bacteria Urine Moderate (10-30); Culture Indicated Urine Specimen Cultured; RBC Urine >100/HPF (0-5/HPF); Squamous Epithelial Cell Urine 1-5 /HPF (0-5/HPF); WBC Urine 10-30/HPF (0-5/HPF)
== END ==
PROVIDERS: PCP Family Medicine; Visit Provider Urology
DX: N40.1 Benign prostatic hyperplasia with lower urinary tract symptoms (principal); N32.0 Bladder-neck obstruction; R33.8 Other retention of urine; R33.9 Retention of urine, unspecified; Z97.8 Presence of other specified devices; R39.9 Unspecified symptoms and signs involving the genitourinary system
CPT/HCPCS: 81001; 87077; 87086; 87186; 99214

== ENCOUNTER → 2023-05-11 13:57 | Outpatient (CLI) | payer MEDICARE, BC, SELFPAY ==
[2023-04-21 11:22] VITALS: BMI 30.9
== END ==
PROVIDERS: PCP Family Medicine; Visit Provider Specialist
DX: Z97.8 Presence of other specified devices (principal); N32.0 Bladder-neck obstruction; R39.9 Unspecified symptoms and signs involving the genitourinary system; R33.9 Retention of urine, unspecified
CPT/HCPCS: 51702; 87086

== ENCOUNTER → 2023-05-30 12:12 | Outpatient (CLI) | payer MEDICARE, BC, SELFPAY ==
[2023-04-21 11:22] VITALS: BMI 30.9
[2023-05-30 13:34] LABS: BUN Creatinine Ratio 16.7 (6-22); Blood Urea Nitrogen 13 mg/dL (9-20); Calcium 9.6 mg/dL (8.4-10.2); Carbon Dioxide 33 mmol/L (22-32); Chloride 95 mmol/L (98-107); Estimated Glomerular Filt Rate > 60 mL/min (>60); Glucose 113 mg/dL (80-110); HEMOLYSIS < 15 (0-50); Potassium 3.6 mmol/L (3.4-5.1); Sodium 135 mmol/L (137-145)
== END ==
PROVIDERS: PCP Family Medicine; Referring Provider Family Medicine; Visit Provider Family Medicine
DX: I10 Essential (primary) hypertension (principal)
CPT/HCPCS: 36415; 80048

== ENCOUNTER → 2023-06-27 14:06 | Outpatient (CLI) | payer MEDICARE, BC, SELFPAY ==
[2023-06-27 13:19] VITALS: BMI 30.9
== END ==
PROVIDERS: PCP Family Medicine; Visit Provider Urology
DX: Z97.8 Presence of other specified devices (principal); N32.0 Bladder-neck obstruction; R39.9 Unspecified symptoms and signs involving the genitourinary system; R33.9 Retention of urine, unspecified
CPT/HCPCS: 51702; 87077; 87086; 87147; 87186

== ENCOUNTER → 2023-07-05 08:24 | Outpatient (CLI) | payer MEDICARE, BC, SELFPAY ==
[2023-06-27 13:19] VITALS: BMI 30.9
[2023-07-05 10:14] LABS: Add Manual Diff / Slide Review NO; Basophils Absolute Auto 0 /uL (0-100); Eosinophils Absolute Auto 200 /uL (0-450); Eosinophils Percent Auto 4.5 % (2-4); Hematocrit 37.3 % (41-53); Hemoglobin 12.5 g/dL (13.5-17.5); Lymphocytes Absolute Auto 1100 /uL (1100-4500); Lymphocytes Percent Auto 24.1 % (25-40); Mean Corpuscular HGB Conc 33.6 % (30-36); Mean Corpuscular Hemoglobin 31.1 PG (26-34); Mean Corpuscular Volume 92.6 fL (80-100); Monocytes Absolute Auto 500 /uL (0-900); Monocytes Percent Auto 10.8 % (3-14); Neutrophils Absolute Auto 2700 /uL (1500-7000); Neutrophils Percent Auto 59.6 % (50-75); Platelet Count 150 X10^3/uL (150-400); Red Blood Cell Count 4.03 X10^6/uL (4.5-5.9); Red Cell Distribution Width 14.9 % (11.6-14.8); White Blood Cell Count 4.6 X10^3/uL (4.5-11.0)
[2023-07-05 10:29] LABS: Alanine Aminotransferase 17 IU/L (<50); Albumin 3.9 g/dL (3.5-5.0); Albumin Globulin Ratio 1.2 (1.0-2.8); Alkaline Phosphatase 131 U/L (38-126); Aspartate Aminotransferase 25 IU/L (17-59); BUN Creatinine Ratio 18.6 (6-22); Bilirubin Total 0.7 mg/dL (0.2-1.3); Blood Urea Nitrogen 13 mg/dL (9-20); Calcium 9.8 mg/dL (8.4-10.2); Carbon Dioxide 34 mmol/L (22-32); Chloride 97 mmol/L (98-107); Cholesterol 117 mg/dL (140-199); Estimated Glomerular Filt Rate > 60 mL/min (>60); Globulin 3.3 g/dL (1.7-4.1); Glucose 100 mg/dL (80-110); HDL Cholesterol 42 mg/dL (40-60); HEMOLYSIS < 15 (0-50); LDL Cholesterol Calculated 60 mg/dL (<100); Potassium 3.8 mmol/L (3.4-5.1); Sodium 136 mmol/L (137-145); Total Protein 7.2 g/dL (6.3-8.2); Triglycerides 75 mg/dL (35-150)
[2023-07-05 10:52] LABS: Prostate Specific Antigen Scrn 1.16 ng/mL (0.1-4.0)
== END ==
PROVIDERS: PCP Family Medicine; Referring Provider Family Medicine; Visit Provider Family Medicine
DX: Z12.5 Encounter for screening for malignant neoplasm of prostate (principal); E87.6 Hypokalemia; E78.5 Hyperlipidemia, unspecified; I10 Essential (primary) hypertension; I48.91 Unspecified atrial fibrillation; F41.9 Anxiety disorder, unspecified
CPT/HCPCS: 36415; 80053; 80061; 84443; 85025; G0103

== ENCOUNTER → 2023-07-29 11:14 | Outpatient (CLI) | payer MEDICARE, BC, SELFPAY ==
[2023-06-27 13:19] VITALS: BMI 30.9
== END ==
PROVIDERS: PCP Family Medicine; Visit Provider Specialist
DX: R33.9 Retention of urine, unspecified (principal); R39.9 Unspecified symptoms and signs involving the genitourinary system
CPT/HCPCS: 51702; 87077; 87086; 87186

== ENCOUNTER → 2023-08-11 10:43 | Outpatient (CLI) | payer MEDICARE, BC, SELFPAY ==
[2023-06-27 13:19] VITALS: BMI 30.9
[2023-08-11 11:59] LABS: Add Manual Diff / Slide Review NO; Basophils Absolute Auto 0 /uL (0-100); Basophils Percent Auto 0.1 % (0-2); Eosinophils Absolute Auto 0 /uL (0-450); Hematocrit 37.4 % (41-53); Hemoglobin 12.8 g/dL (13.5-17.5); Lymphocytes Absolute Auto 1000 /uL (1100-4500); Lymphocytes Percent Auto 7.5 % (25-40); Mean Corpuscular HGB Conc 34.2 % (30-36); Mean Corpuscular Hemoglobin 30.6 PG (26-34); Mean Corpuscular Volume 89.5 fL (80-100); Monocytes Absolute Auto 1000 /uL (0-900); Monocytes Percent Auto 7.5 % (3-14); Neutrophils Absolute Auto 11600 /uL (1500-7000); Neutrophils Percent Auto 84.9 % (50-75); Platelet Count 108 X10^3/uL (150-400); Red Blood Cell Count 4.18 X10^6/uL (4.5-5.9); Red Cell Distribution Width 14.4 % (11.6-14.8); White Blood Cell Count 13.7 X10^3/uL (4.5-11.0)
[2023-08-11 12:21] LABS: Alanine Aminotransferase 24 IU/L (<50); Albumin 3.7 g/dL (3.5-5.0); Albumin Globulin Ratio 1.1 (1.0-2.8); Alkaline Phosphatase 108 U/L (38-126); BUN Creatinine Ratio 27.6 (6-22); Bilirubin Total 1.5 mg/dL (0.2-1.3); Blood Urea Nitrogen 27 mg/dL (9-20); Calcium 9.4 mg/dL (8.4-10.2); Carbon Dioxide 29 mmol/L (22-32); Chloride 90 mmol/L (98-107); Estimated Glomerular Filt Rate > 60 mL/min (>60); Globulin 3.4 g/dL (1.7-4.1); Glucose 133 mg/dL (80-110); HEMOLYSIS < 15 (0-50); Potassium 3.9 mmol/L (3.4-5.1); Sodium 128 mmol/L (137-145); Total Protein 7.1 g/dL (6.3-8.2)
[2023-08-11 13:04] LABS: Vitamin B12 975 pg/mL (239-931)
[2023-08-12 15:12] LABS: Aspartate Aminotransferase 39 IU/L (17-59)
== END ==
PROVIDERS: PCP Family Medicine; Referring Provider Family Medicine; Visit Provider Family Medicine
DX: I10 Essential (primary) hypertension (principal); M17.10 Unilateral primary osteoarthritis, unspecified knee; M47.27 Other spondylosis with radiculopathy, lumbosacral region; M47.816 Spondylosis without myelopathy or radiculopathy, lumbar region; N40.1 Benign prostatic hyperplasia with lower urinary tract symptoms; N32.0 Bladder-neck obstruction; R33.8 Other retention of urine; R82.81 Pyuria; R39.9 Unspecified symptoms and signs involving the genitourinary system; R93.89 Abnormal findings on diagnostic imaging of other specified body structures; Z97.8 Presence of other specified devices
CPT/HCPCS: 36415; 80053; 81002; 82607; 85025; 87077; 87086; 87186; 99214

== ENCOUNTER 2023-08-12 11:41 | Emergency (ER) | payer MEDICARE, BC, SELFPAY ==
[2023-06-27 13:19] VITALS: BMI 30.9
[2023-08-12 11:37] VITALS: BP 138/74; PULSE 81; RESP 14; TEMP 36.2; O2SAT 97; BMI 26.7
--- NOTE | 2023-08-12 12:18 | PC.NURSE ---
Pt denies pain, and states he has been feeling increased weakness the past 7 days, occasionally feeling lightheaded. He is uncertain if exertion increases the lightheadedness. Pt has a ferguson catheter since june and is being treated with antibiotics for a UTI, stating new diagnosis of enlarged prostate. Catheter bag draining. Pt having difficulty getting around at home due to weakness.
--- NOTE | 2023-08-12 12:19 | DI.RAD.S_ITS ---
PROCEDURE: XR CHEST 1V INDICATIONS: rule out pneumonia TECHNIQUE: One view of the chest was acquired. COMPARISON: [facility], CR, XR CHEST 1V, 02/17/2023, 17:01. [facility], CR, XR CHEST 2V, 11/27/2022, 10:19. FINDINGS: Surgical changes and devices: None. Lungs and pleura: Lungs are abnormal with a stable chronic mild interstitial prominence but there now is superimposed right lower lobe pneumonia. No pleural effusions or pneumothorax. Mediastinum: Mediastinal contours appear normal. Heart size is normal. Bones and chest wall: No suspicious bony lesions. Overlying soft tissues appear unremarkable. IMPRESSION: Chronic mild interstitial prominence but new right lower lobe pneumonia at the diaphragm level. No effusion. Dictated by: Gibran Reyes M.D. on 08/12/2023 at 13:12 Approved by: Gibran Reyes M.D. on 08/12/2023 at 13:13
[2023-08-12] MEDS: SODIUM CHLORIDE 0.9% 1,000 ML 1000 ML IV (12:20)
[2023-08-12 12:28] LABS: Add Manual Diff / Slide Review NO; Basophils Absolute Auto 0 /uL (0-100); Basophils Percent Auto 0.3 % (0-2); Eosinophils Absolute Auto 0 /uL (0-450); Hematocrit 37.8 % (41-53); Hemoglobin 13.1 g/dL (13.5-17.5); Lymphocytes Absolute Auto 700 /uL (1100-4500); Mean Corpuscular HGB Conc 34.6 % (30-36); Mean Corpuscular Hemoglobin 30.7 PG (26-34); Mean Corpuscular Volume 88.7 fL (80-100); Monocytes Absolute Auto 800 /uL (0-900); Monocytes Percent Auto 8.3 % (3-14); Neutrophils Absolute Auto 8400 /uL (1500-7000); Neutrophils Percent Auto 84.4 % (50-75); Platelet Count 120 X10^3/uL (150-400); Red Blood Cell Count 4.26 X10^6/uL (4.5-5.9); Red Cell Distribution Width 14.7 % (11.6-14.8); White Blood Cell Count 9.9 X10^3/uL (4.5-11.0)
[2023-08-12 12:32] LABS: Lactate (Lactic Acid) 1.7 mmol/L (0.7-2.1)
[2023-08-12 12:33] LABS: Alanine Aminotransferase 49 IU/L (<50); Albumin 3.8 g/dL (3.5-5.0); Alkaline Phosphatase 119 U/L (38-126); BUN Creatinine Ratio 32.9 (6-22); Bilirubin Total 1.6 mg/dL (0.2-1.3); Blood Urea Nitrogen 24 mg/dL (9-20); Calcium 10.2 mg/dL (8.4-10.2); Carbon Dioxide 30 mmol/L (22-32); Chloride 94 mmol/L (98-107); Creatine Kinase 137 U/L (55-170); Estimated Glomerular Filt Rate > 60 mL/min (>60); Globulin 3.9 g/dL (1.7-4.1); Glucose 129 mg/dL (80-110); HEMOLYSIS < 15 (0-50); Lipase 47 U/L (23-300); Potassium 3.4 mmol/L (3.4-5.1); Sodium 131 mmol/L (137-145); Total Protein 7.7 g/dL (6.3-8.2)
[2023-08-12 12:44] LABS: Troponin I < 0.012 ng/mL (0.01-0.034)
[2023-08-12 13:00] VITALS: BP 149/85; PULSE 108; O2SAT 94
[2023-08-12 13:10] VITALS: BP 151/81; PULSE 103; O2SAT 94
[2023-08-12 13:45] VITALS: BP 135/76; PULSE 102; O2SAT 96
--- NOTE | 2023-08-12 13:48 | ED.GENADULT ---
HPI - General Adult General Chief complaint: Weakness Stated complaint: Weakness x2 Weeks Time Seen by Provider: 08/12/23 13:01 Source: patient Mode of arrival: EMS History of Present Illness HPI narrative: Patient is an 83-year-old male. He has an indwelling urinary catheter. Was recently diagnosed with a urinary tract infection. Started on Cipro last evening. His catheter is draining. He states he has not having chest pain, shortness of breath, lightheadedness. No abdominal pain. No nausea or vomiting. He states he is just felt weak for the past couple weeks. He did take his medications last night as directed. Related Data Home Medications Medication Instructions Recorded Confirmed rivaroxaban 20 mg tablet (Xarelto) 20 mg PO DAILY 10/05/21 08/11/23 guaifenesin 600 mg tablet, 2 mg PO DAILY 04/06/23 08/11/23 extended release 12 hr albuterol sulfate 90 mcg/actuation 2 puff inhalation Q6H PRN 05/03/23 08/11/23 aerosol inhaler (ProAir HFA) Previous Rx's Medication Instructions Recorded dutasteride 0.5 mg capsule 0.5 mg PO DAILY #90 caps 09/13/22 azelastine 137 mcg (0.1 %) nasal 1 - 2 spray intranasal BID #30 mL 03/28/23 spray aerosol amlodipine 5 mg tablet 5 mg PO DAILY #90 tabs 06/23/23 atorvastatin 10 mg tablet 10 mg PO DAILY #90 tabs 06/23/23 buspirone 10 mg tablet 20 mg (2 x 10 mg) PO BID #360 tabs 06/23/23 fluticasone propionate 50 See Rx Instructions .Route 06/23/23 mcg/actuation nasal .COMPLEX #48 mL spray,suspension gabapentin 300 mg capsule 1,200 mg (4 x 300 mg) PO TID #360 06/23/23 caps hydrochlorothiazide 25 mg tablet 12.5 mg (1/2 x 25 mg) PO QDAY #90 06/23/23 tabs potassium chloride 10 mEq 20 meq (2 x 10 mEq) PO BID #120 06/23/23 tablet,extended release tabs terazosin 2 mg capsule See Rx Instructions .Route 06/23/23 .COMPLEX #720 caps tramadol 50 mg tablet 50 - 100 mg (1 - 2 x 50 mg) PO Q8H 06/23/23 PRN pain #180 tabs triamcinolone acetonide 0.1 % 1 applic topical BID PRN skin rash 06/23/23 topical ointment or dry skin #30 grams diazepam 5 mg tablet (Valium) 5 mg PO ONCE #2 tabs 07/18/23 ciprofloxacin HCl 500 mg tablet 500 mg PO BID #10 tabs 08/11/23 levofloxacin 750 mg tablet 750 mg PO DAILY 5 days #5 tabs 08/12/23 Allergies Allergy/AdvReac Type Severity Reaction Status Date / Time Penicillins Allergy Mild RASH Verified 08/12/23 11:51 shrimp Allergy Mild Rash Verified 08/12/23 11:51 Review of Systems Review of Systems ROS Unobtainable: All systems reviewed & are unremarkable except as noted in HPI and below Patient History Medical History organ imaging abnormality Rod catheter in place Benign prostatic hyperplasia Bladder outlet obstruction Lower urinary tract symptoms Urinary retention Hypertension Acute hypokalemia Umbilical hernia Chronic venous stasis Medicare annual wellness visit, subsequent Osteoarthritis, hand Chronic pain syndrome Hyperlipidemia Abscess of back Milia Degenerative joint disease of knee Facet arthropathy, lumbar Trigger finger (acquired) Atrial fibrillation Bradycardia Essential hypertension Degenerative joint disease of knee Snoring Insomnia, persistent Hypersomnia Obstructive sleep apnea of adult Central sleep apnea Lumbosacral spondylosis with radiculopathy Lumbosacral radiculopathy at L5 Measles (~1941) Mumps (~194) Hayfever (~1979) Chicken pox (~194) Low back pain without sciatica (07/13/17) Anxiety (07/13/17) Lung nodule (08/18/15) Surgical History Hx of vasectomy Anesthesia Fracture dislocation of right ankle (04/2000) Status post hernia repair (2007) Family History Father Stroke Mother Heart disease Son No problems noted. Social History marital status: details: to Adelia, lives in [place] number of children: 1 household members: spouse lives independently: Yes caregiver/support person: No occupational status: previously employed Smoking Status: Never smoker alcohol intake: former caffeine: Yes Type(s) of exercise: walking duration: > 90 minutes/day Smoking Status: Never smoker alcohol intake frequency: holidays/special occasions only Substance Use Type: does not use Exam Initial Vital Signs Initial Vital Signs: Vital Signs Temperature 97.2 F L 08/12/23 11:37 Pulse Rate 81 08/12/23 11:37 Respiratory Rate 14 08/12/23 11:37 Blood Pressure 138/74 08/12/23 11:37 Pulse Oximetry 97 08/12/23 11:37 Oxygen Delivery Method Room Air 08/12/23 11:37 Const General: cooperative, comfortable and No ill appearing HENMT Head: normal to inspection Resp Effort & Inspection: normal respiratory effort Auscultation: clear to auscultation bilaterally Cardio Rate: regular rate Rhythm: regular rhythm GI Inspection: normal to inspection and non-distended Skin General: no rashes or lesions noted Neuro General: patient alert, patient awake, patient oriented x3 and moves all extremities Extrem General: normal to inspection and capillary refill normal Course Orders Ordered: ED Orders 08/12/23 12:08 Complete Blood Count AUTO DIFF Stat Comprehensive Metabolic Panel Stat Lactate (Lactic Acid) Stat Lipase Stat Troponin & CK Cardiac Panel Stat 08/12/23 12:19 XR chest 1V Stat 08/12/23 12:27 Covid-19 + FLU A/B + RSV - PCR Stat 08/12/23 12:32 EKG-12 Lead Stat 08/12/23 13:51 Urine Microscopic Stat Discontinued Medications Sodium Chloride (Normal Saline 0.9%) 1,000 mls @ 1,000 mls/hr IV BOLUS ONE Stop: 08/12/23 13:18 Last Infusion: 08/12/23 13:50 Dose: Infused Documented By: Admin: 08/12/23 12:20 Dose: 1,000 mls/hr Documented By: RODRÍGUEZ Vital Signs Vital signs: Vital Signs - 8 hr 08/12/23 11:37 08/12/23 13:00 08/12/23 13:10 Temperature 97.2 F L Pulse Rate 81 108 H 103 H Respiratory Rate 14 Blood Pressure 138/74 149/85 H 151/81 H Pulse Oximetry 97 94 94 Oxygen Delivery Method Room Air Room Air Room Air 08/12/23 13:45 08/12/23 14:00 Temperature Pulse Rate 102 H 137 H Respiratory Rate Blood Pressure 135/76 161/77 H Pulse Oximetry 96 94 Oxygen Delivery Method Room Air Medical Decision Making Medical Records Medical records reviewed: Yes I reviewed the patient's medical records. Lab Data Lab results reviewed: Yes I reviewed the patient's lab results. 08/12/23 12:08 08/12/23 12:08 Labs: Lab Results 08/12/23 08/12/23 08/12/23 Range/Units 12:08 12:27 13:51 WBC 9.9 (4.5-11.0) X10^3/uL RBC 4.26 L (4.5-5.9) X10^6/uL Hgb 13.1 L (13.5-17.5) g/dL Hct 37.8 L (41-53) % MCV 88.7 (80-100) fL MCH 30.7 (26-34) PG MCHC 34.6 (30-36) % RDW 14.7 (11.6-14.8) % Plt Count 120 L (150-400) X10^3/uL Neut % (Auto) 84.4 H (50-75) % Lymph % (Auto) 7.0 L (25-40) % [place] % (Auto) 8.3 (3-14) % Eos % (Auto) 0.0 L (2-4) % Baso % (Auto) 0.3 (0-2) % Neut # (Auto) 8400 H (3176-6140) /uL Lymph # (Auto) 700 L (4934-7617) /uL [place] # (Auto) 800 (0-900) /uL Eos # (Auto) 0 (0-450) /uL Baso # (Auto) 0 (0-100) /uL Sodium 131 L (137-145) mmol/L Potassium 3.4 (3.4-5.1) mmol/L Chloride 94 L (98-107) mmol/L Carbon Dioxide 30 (22-32) mmol/L BUN 24 H (9-20) mg/dL Creatinine 0.73 (0.66-1.25) mg/dL Estimated GFR > 60 (>60) mL/min BUN/Creatinine Ratio 32.9 H (6-22) Glucose 129 H (80-110) mg/dL Lactate 1.7 (0.7-2.1) mmol/L Calcium 10.2 (8.4-10.2) mg/dL Total Bilirubin 1.6 H (0.2-1.3) mg/dL AST TNP ALT 49 (<50) IU/L Alkaline Phosphatase 119 (38-126) U/L Total Creatine Kinase 137 (55-170) U/L Troponin I < 0.012 (0.01-0.034) ng/mL Total Protein 7.7 (6.3-8.2) g/dL Albumin 3.8 (3.5-5.0) g/dL Globulin 3.9 (1.7-4.1) g/dL Albumin/Globulin Ratio 1.0 (1.0-2.8) Lipase 47 (23-300) U/L Urine RBC 1-5/hpf D (0-5/HPF) Urine WBC 1-5/hpf (0-5/HPF) Ur Squamous Epith Cells 1-5 /hpf (0-5/HPF) Amorphous Sediment 1+ Urine Bacteria Few (2-10) H (None) Ur Culture Indicated? Cult not indicated SARS-CoV-2 (PCR) Negative (Negative) Influenza A (RT-PCR) Flu a negative (NEGATIVE) Influenza B (RT-PCR) Flu b negative (NEGATIVE) RSV (PCR) Negative (Negative) Urine Dip Bedside Urine Glucose Negative Bedside Urine Bilirubin - Negative Bedside Urine Ketone - Negative Urine Specific [place] 1.005 Bedside Urine Occult Blood +++ Bedside Urine pH 6.0 Bedside Urine Protein - Negative Bedside Urine Urobilinogen - Negative Bedside Urine Nitrite - Negative Bedside Urine Leukocytes - Negative Esterase Point of care testing: Urine Dip Bedside Urine Glucose Negative Bedside Urine Bilirubin - Negative Bedside Urine Ketone - Negative Urine Specific [place] 1.005 Bedside Urine Occult Blood +++ Bedside Urine pH 6.0 Bedside Urine Protein - Negative Bedside Urine Urobilinogen - Negative Bedside Urine Nitrite - Negative Bedside Urine Leukocytes - Negative Esterase Imaging Data Chest x-ray: Radiologist's Impression: PROCEDURE: XR CHEST 1V INDICATIONS: rule out pneumonia TECHNIQUE: One view of the chest was acquired. COMPARISON: [facility], , XR CHEST 1V, 02/17/2023, 17:01. [facility], CR, XR CHEST 2V, 11/27/2022, 10:19. FINDINGS: Surgical changes and devices: None. Lungs and pleura: Lungs are abnormal with a stable chronic mild interstitial prominence but there now is superimposed right lower lobe pneumonia. No pleural effusions or pneumothorax. Mediastinum: Mediastinal contours appear normal. Heart size is normal. Bones and chest wall: No suspicious bony lesions. Overlying soft tissues appear unremarkable. IMPRESSION: Chronic mild interstitial prominence but new right lower lobe pneumonia at the diaphragm level. No effusion. ECG Data Attestation: I personally reviewed and interpreted this ECG as follows: Interpretation: Atrial fibrillation Ventricular rate 89 One PVC Normal axis No ST T wave changes MDM Narrative Medical decision making narrative: Patient has a known urinary tract infection. He was started on Cipro yesterday. His chest x-ray today shows pneumonia. He states he has been coughing. He states he feels better after fluids. Rest of his labs are relatively unremarkable. Plan will be to switch him from Cipro to Levaquin. Review of his urinalysis shows that it is susceptible to Levaquin. This would cover both a respiratory infection and also the urine infection. Patient was instructed of this. We discussed increasing his fluid intake at home. He was given return precautions. He expressed understanding and agreement. Discharge Plan Departure Patient Disposition: Home Clinical Impression: Pneumonia, Atrial fibrillation, Urinary tract infection Instructions: DI for Pneumonia -- Adult, DI for Urinary Tract Infection (UTI) Activity Restrictions/Additional Instructions: Because there is some concern about a pneumonia noted on the chest x-ray today I would like you to stop taking the Cipro/ciprofloxacin that you were given yesterday and start the new medication that you were prescribed today. This medication is called levofloxacin/Levaquin. A prescription was sent to [facility]. This medication would cover a urinary tract infection and also a pneumonia. Continue the rest of your medications as directed. Return to the emergency department for new symptoms. Prescriptions: New levofloxacin 750 mg tablet 750 mg PO DAILY 5 Days Qty: 5 0RF No Action dutasteride 0.5 mg capsule 0.5 mg PO DAILY Qty: 90 3RF azelastine 137 mcg (0.1 %) aerosol,spray 1 - 2 spray intranasal BID Qty: 30 11RF potassium chloride 10 mEq tablet extended release 20 meq PO BID Qty: 120 1RF hydrochlorothiazide 25 mg tablet 12.5 mg PO QDAY Qty: 90 3RF amlodipine 5 mg tablet 5 mg PO DAILY Qty: 90 3RF Rx Instructions: TAKE 1 TABLET BY MOUTH EVERY DAY atorvastatin 10 mg tablet 10 mg PO DAILY Qty: 90 3RF buspirone 10 mg tablet 20 mg PO BID Qty: 360 1RF gabapentin 300 mg capsule 1,200 mg PO TID Qty: 360 2RF Rx Instructions: Take four capsules by mouth three times daily fluticasone propionate 50 mcg/actuation spray,suspension See Rx Instructions .ROUTE .COMPLEX Qty: 48 1RF Dose Instruction: INSTILL 1 SPRAY INTO EACH NOSTRIL TWICE DAILY Rx Instructions: INSTILL 1 SPRAY INTO EACH NOSTRIL TWICE DAILY terazosin 2 mg capsule See Rx Instructions .ROUTE .COMPLEX Qty: 720 3RF Dose Instruction: TAKE 4 CAPSULES BY MOUTH TWICE A DAY Rx Instructions: TAKE 4 CAPSULES BY MOUTH TWICE A DAY triamcinolone acetonide 0.1 % ointment 1 applic topical BID PRN (Reason: skin rash or dry skin) Qty: 30 3RF Rx Instructions: Apply to face, use no longer than 3 weeks at a time. Thanks! tramadol 50 mg tablet 50 - 100 mg PO Q8H PRN (Reason: pain) Qty: 180 2RF diazepam [Valium] 5 mg tablet 5 mg PO ONCE Qty: 2 0RF Rx Instructions: take 45 minutes prior to procedure. guaifenesin 600 mg Tablet Extended Release 12hr 2 mg PO DAILY Xarelto 20 mg tablet 20 mg PO DAILY Rx Instructions: must administer with evening meal albuterol sulfate [ProAir HFA] 90 mcg/actuation HFA aerosol inhaler 2 puff inhalation Q6H PRN ciprofloxacin HCl 500 mg tablet 500 mg PO BID Qty: 10 0RF Referrals: Jose Ramires MD [Primary Care Provider] - Stand Alone Forms: Patient Portal/API
--- NOTE | 2023-08-12 13:52 | PC.NURSE ---
Pt's urine bag was drained and disconnected while pulling a fresh sample directly from the catheter for sterile urine collection. Pt tolerated procedure well, urine drainage bag reconnected.
[2023-08-12 14:00] VITALS: BP 161/77; PULSE 137; O2SAT 94
[2023-08-12 14:05] LABS: Amorphous Sediment Urine 1+; Bacteria Urine Few (2-10); Culture Indicated Urine Cult Not Indicated; RBC Urine 1-5/HPF (0-5/HPF); Squamous Epithelial Cell Urine 1-5 /HPF (0-5/HPF); WBC Urine 1-5/HPF (0-5/HPF)
[2023-08-12 14:06] LABS: Influenza A - CEPHEID Flu A NEGATIVE (NEGATIVE); Influenza B - CEPHEID Flu B NEGATIVE (NEGATIVE); Respiratory Syncytial Virus Negative (Negative)
[2023-08-12 14:23] LABS: COVID-19 CEPHEID 4-PLEX PCR Negative (Negative)
[2023-08-12 15:15] VITALS: BP 136/80; PULSE 108; RESP 17; O2SAT 93
[2023-08-12 15:16] LABS: Aspartate Aminotransferase 74 IU/L (17-59)
== END 2023-08-12 15:15 | disposition home or self-care (01) ==
PROVIDERS: Emergency Provider Emergency Medicine; PCP Family Medicine
DX: J18.9 Pneumonia, unspecified organism (principal); I48.91 Unspecified atrial fibrillation; N39.0 Urinary tract infection, site not specified; Z79.01 Long term (current) use of anticoagulants; Z20.822 Contact with and (suspected) exposure to COVID-19
CPT/HCPCS: 0241U; 36415; 71045; 80053; 81003; 81015; 82550; 83605; 83690; 84484; 85025; 93005; 96360; 99284

== ENCOUNTER 2023-08-23 10:05 | Inpatient (IN) | payer MEDICARE, BC, SELFPAY ==
[2023-06-27 13:19] VITALS: BMI 30.9
[2023-08-23] VITALS (20 sets, daily range): BP systolic 101–138; BP diastolic 57–84; PULSE 68–130; RESP 13–24; TEMP 36.2–37.4; O2SAT 87–98; BMI 23.5
--- NOTE | 2023-08-23 07:56 | DI.CT.S_ITS ---
PROCEDURE: CT CHEST W CON INDICATIONS: recurrent pneumonia, r/o malignancy TECHNIQUE: After the administration of intravenous contrast, 5 mm thick sections acquired from the pulmonary apices to the posterior costophrenic angles. 1 mm axial lung, 5 mm thick coronal and sagittal reformats and 7 mm axial MIP were acquired. For radiation dose reduction, the following was used: automated exposure control, adjustment of mA and/or kV according to patient size. COMPARISON: None. FINDINGS: Image quality: Diagnostic. Lower Neck: No enlarged lymph nodes. Thyroid: No thyroid nodules which require sonographic follow up, per consensus guidelines. Axillae: No enlarged lymph nodes. Chest Wall: Unremarkable. Bones: Unremarkable. Lungs and Pleura: Consolidation of the right lower lobe and right middle lobe. Small right pleural effusion without pleural thickening. There is debris within the right bronchus intermedius and layering debris within the right lower lower lobar bronchus and its branches. Superimposed peripheral airspace opacities, predominantly within the right upper lobe. Tree-in-bud nodules are present also within the right middle lobe and right upper lobe. Heart: Heart size is normal. No pericardial effusion. Thoracic Vessels: The aorta and pulmonary arteries demonstrate normal size. Mediastinum and [place]: Enlarged and calcified mediastinal lymph nodes. Esophagus: No wall thickening. No hiatal hernia. Upper Abdomen: 2.3 centimeter left adrenal nodule (series 2, image 58) IMPRESSION: Consolidation in the right lower lobe and right middle lobe, with small volume pleural effusion and no pleural thickening. Debris is present within the dependent airways, suggestive of large volume aspiration. Malignancy is not entirely excluded, as there are enlarged mediastinal lymph nodes and a left adrenal lesion present. A repeat CT will need be performed following resolution of symptoms to exclude a mass. Indeterminate left adrenal nodule measuring 2.3 centimeters. Recommend dedicated, outpatient CT or MRI for characterization (adrenal mass protocol). Dictated by: Lloyd Corcoran M.D. on 08/24/2023 at 8:55 Approved by: Lloyd Corcoran M.D. on 08/24/2023 at 9:00
--- NOTE | 2023-08-23 10:23 | DI.RAD.S_ITS ---
PROCEDURE: XR CHEST 1V INDICATIONS: chest pain TECHNIQUE: One view of the chest was acquired. COMPARISON: [facility], CR, XR CHEST 1V, 08/12/2023, 12:30. FINDINGS: Surgical changes and devices: None. Lungs and pleura: Mild patchy right basilar opacity. No pleural effusions or pneumothorax. Mediastinum: Mediastinal contours appear normal. Heart size is normal. Bones and chest wall: No suspicious bony lesions. Overlying soft tissues appear unremarkable. IMPRESSION: Right basilar pneumonia. Continued plain film surveillance is recommended to ensure resolution, and to exclude underlying or central malignancy. Dictated by: Nikki Robert M.D. on 08/23/2023 at 10:46 Approved by: Nikki Robert M.D. on 08/23/2023 at 10:46
[2023-08-23 10:40] LABS: Add Manual Diff / Slide Review NO; Basophils Percent Auto 1.1 % (0-2); Eosinophils Percent Auto 1.1 % (2-4); Hematocrit 34.9 % (41-53); Hemoglobin 11.9 g/dL (13.5-17.5); Lymphocytes Percent Auto 10.2 % (25-40); Mean Corpuscular HGB Conc 34.1 % (30-36); Mean Corpuscular Hemoglobin 30.8 PG (26-34); Mean Corpuscular Volume 90.4 fL (80-100); Monocytes Percent Auto 9.1 % (3-14); Neutrophils Absolute Auto 7900 /uL (1500-7000); Neutrophils Percent Auto 78.5 % (50-75); Platelet Count 270 X10^3/uL (150-400); Red Blood Cell Count 3.86 X10^6/uL (4.5-5.9); Red Cell Distribution Width 14.6 % (11.6-14.8); White Blood Cell Count 10.1 X10^3/uL (4.5-11.0)
[2023-08-23 10:41] LABS: Basophils Absolute Auto 100 /uL (0-100); Eosinophils Absolute Auto 100 /uL (0-450); INR 3.1 (0.9-1.3); Lymphocytes Absolute Auto 1000 /uL (1100-4500); Monocytes Absolute Auto 900 /uL (0-900); Prothrombin Time 35.7 SECONDS (9.4-12.5)
[2023-08-23 10:44] LABS: PTT Partial Thromboplastin Tim 35 SECONDS (25.1-36.5)
[2023-08-23 10:46] LABS: Alanine Aminotransferase 44 IU/L (<50); Albumin 3.3 g/dL (3.5-5.0); Albumin Globulin Ratio 0.8 (1.0-2.8); Alkaline Phosphatase 117 U/L (38-126); Aspartate Aminotransferase 32 IU/L (17-59); BUN Creatinine Ratio 20.7 (6-22); Bilirubin Total 1.4 mg/dL (0.2-1.3); Blood Urea Nitrogen 18 mg/dL (9-20); Calcium 9.3 mg/dL (8.4-10.2); Carbon Dioxide 28 mmol/L (22-32); Chloride 95 mmol/L (98-107); Creatine Kinase 38 U/L (55-170); Estimated Glomerular Filt Rate > 60 mL/min (>60); Globulin 3.9 g/dL (1.7-4.1); Glucose 123 mg/dL (80-110); HEMOLYSIS 16 (0-50); Lipase 25 U/L (23-300); Magnesium 1.4 mg/dL (1.6-2.3); Potassium 3.7 mmol/L (3.4-5.1); Sodium 130 mmol/L (137-145); Total Protein 7.2 g/dL (6.3-8.2)
[2023-08-23 10:57] LABS: NT-proBNP (BNP-Adult 18+) 2270 pg/mL (<450); Troponin I < 0.012 ng/mL (0.01-0.034)
[2023-08-23 11:38] LABS: Adenovirus Not Detected (Not Detect); B. parapertussis Not Detected (Not Detecte); Bordetella pertussis Not Detected (Not Detect); Chlamydophila pneumoniae Not Detected (Not Detect); Coronavirus 229E Not Detected (Not Detect); Coronavirus HKU1 Not Detected (Not Detect); Coronavirus NL 63 Not Detected (Not Detect); Coronavirus OC43 Not Detected (Not Detect); Human Metapneumovirus Not Detected (Not Detect); Human Rhinovirus/Enterovirus Not Detected (Not Detect); Influenza A Not Detected (Not Detect); Influenza B Not Detected (Not Detect); Mycoplasma pneumoniae Not Detected (Not Detect); Parainfluenza Virus 1 Not Detected (Not Detect); Parainfluenza Virus 2 Not Detected (Not Detect); Parainfluenza Virus 3 Not Detected (Not Detect); Parainfluenza Virus 4 Not Detected (Not Detect); Respiratory Syncytial Virus Not Detected (Not Detect); SARS- CoV-2 Not Detected (Not Detecte)
--- NOTE | 2023-08-23 11:57 | ED.WEAKNESS ---
HPI - Weakness General Chief complaint: Weakness Stated complaint: sent by PCP for low B/P and O2/ high Pulse Time Seen by Provider: 08/23/23 11:19 Source: patient and family Mode of arrival: Wheelchair Limitations: no limitations History of Present Illness HPI Narrative: This is a 83-year-old male with history of persistent atrial fibrillation on Xarelto, hypertension, dyslipidemia, urinary retention with complaint of increasing weakness. Patient followed up today with his primary care physician who sent him to the ER states he was tachycardic, hypotensive with low O2 below 90% with exertion and right at 90% seated. Patient notes he has been feeling unwell since Ta was seen here on the 12 of August started on Levaquin for pneumonia. Patient states he has had persistent deep cough which is not productive, no chest pain or pressure, increasing shortness of breath has some dyspnea on exertion but notes worse symptoms with orthopnea. Patient states he has to be seated upright. Does note some mild swelling in his extremities. He has had a raspy voice. Was on ciprofloxacin changed over to Levaquin as he was being treated for UTI with his indwelling catheter. Has about 4 days of his Levaquin left. Denies any fevers or chills. Does not check his weight regularly but has had intentional weight loss over the past several years of 60 lb. Does have some chronic back pain. Patient states he has had ankle surgery denies other surgeries. Does have allergy to penicillin with rash and trip with rash. No tobacco, alcohol or illicit. Lives with his . Dr. Samayoa is his primary care. Home medications include Xarelto, terazosin, HCTZ, amlodipine, buspirone, atorvastatin, dutasteride, potassium supplementation, gabapentin and tramadol. Related Data Home Medications Medication Instructions Recorded Confirmed rivaroxaban 20 mg tablet (Xarelto) 20 mg PO DAILY 10/05/21 08/23/23 guaifenesin 600 mg tablet, 2 mg PO DAILY 04/06/23 08/23/23 extended release 12 hr albuterol sulfate 90 mcg/actuation 2 puff inhalation Q6H PRN 05/03/23 08/23/23 aerosol inhaler (ProAir HFA) Previous Rx's Medication Instructions Recorded azelastine 137 mcg (0.1 %) nasal 1 - 2 spray intranasal BID #30 mL 03/28/23 spray aerosol amlodipine 5 mg tablet 5 mg PO DAILY #90 tabs 06/23/23 atorvastatin 10 mg tablet 10 mg PO DAILY #90 tabs 06/23/23 buspirone 10 mg tablet 20 mg (2 x 10 mg) PO BID #360 tabs 06/23/23 fluticasone propionate 50 See Rx Instructions .Route 06/23/23 mcg/actuation nasal .COMPLEX #48 mL spray,suspension gabapentin 300 mg capsule 1,200 mg (4 x 300 mg) PO TID #360 06/23/23 caps hydrochlorothiazide 25 mg tablet 12.5 mg (1/2 x 25 mg) PO QDAY #90 06/23/23 tabs potassium chloride 10 mEq 20 meq (2 x 10 mEq) PO BID #120 06/23/23 tablet,extended release tabs terazosin 2 mg capsule See Rx Instructions .Route 06/23/23 .COMPLEX #720 caps tramadol 50 mg tablet 50 - 100 mg (1 - 2 x 50 mg) PO Q8H 06/23/23 PRN pain #180 tabs triamcinolone acetonide 0.1 % 1 applic topical BID PRN skin rash 06/23/23 topical ointment or dry skin #30 grams diazepam 5 mg tablet (Valium) 5 mg PO ONCE #2 tabs 07/18/23 levofloxacin 500 mg tablet 500 mg PO DAILY #14 tabs 08/15/23 dutasteride 0.5 mg capsule 0.5 mg PO DAILY #90 caps 08/18/23 benzonatate 100 mg capsule 100 mg PO TID PRN cough #60 caps 08/19/23 Allergies Allergy/AdvReac Type Severity Reaction Status Date / Time Penicillins Allergy Mild RASH Verified 08/23/23 09:16 shrimp Allergy Mild Rash Verified 08/23/23 09:16 Review of Systems Review of Systems ROS Unobtainable: All systems reviewed & are unremarkable except as noted in HPI and below Patient History Medical History organ imaging abnormality Rod catheter in place Benign prostatic hyperplasia Bladder outlet obstruction Lower urinary tract symptoms Urinary retention Hypertension Acute hypokalemia Umbilical hernia Chronic venous stasis Medicare annual wellness visit, subsequent Osteoarthritis, hand Chronic pain syndrome Hyperlipidemia Abscess of back Milia Degenerative joint disease of knee Facet arthropathy, lumbar Trigger finger (acquired) Atrial fibrillation Bradycardia Essential hypertension Degenerative joint disease of knee Snoring Insomnia, persistent Hypersomnia Obstructive sleep apnea of adult Central sleep apnea Lumbosacral spondylosis with radiculopathy Lumbosacral radiculopathy at L5 Measles (~194) Mumps (~1940) Hayfever (~1979) Chicken pox (~1946) Low back pain without sciatica (07/13/17) Anxiety (07/13/17) Lung nodule (08/18/15) Surgical History Hx of vasectomy Anesthesia Fracture dislocation of right ankle (04/2000) Status post hernia repair (2007) Family History Father Stroke Mother Heart disease Son No problems noted. Social History marital status: details: to Adelia, lives in [place] number of children: 1 household members: spouse lives independently: Yes caregiver/support person: No occupational status: previously employed Smoking Status: Never smoker alcohol intake: former caffeine: Yes Type(s) of exercise: walking duration: > 90 minutes/day Smoking Status: Never smoker alcohol intake frequency: holidays/special occasions only Substance Use Type: does not use Exam Narrative Exam Narrative: GENERAL: Alert and oriented x three, male in mild distress. HEENT: Head normocephalic, atraumatic, EOMI, pupils reactive, no nasal congestion, face symmetric, moist mucous membranes NECK: Supple, full range of motion CARDIOVASCULAR: Irregularly irregular rhythm without murmurs, rubs or gallops. Bilateral lower extremity edema. JVD bilaterally. RESPIRATORY: Breath sounds equal bilaterally, no wheezes, crackles bilateral bases. No rhonchi. No cough in the room. No tachypnea accessory muscle use. ABDOMEN: Soft, nontender. Normoactive bowel sounds all 4 quadrants. No guarding or rebound, rigidity, no mass : No CVA tenderness EXTREMITIES: Normal range of motion, no clubbing. Neurovascularly intact. NEUROLOGICAL: Cranial nerves II through XII grossly intact. Moving all extremities SKIN: Warm, dry, no petechiae, no rashes or lesions. Initial Vital Signs Initial Vital Signs: Vital Signs Temperature 97.8 F 08/23/23 10:12 Pulse Rate 90 08/23/23 10:12 Respiratory Rate 22 08/23/23 10:12 Blood Pressure 113/68 08/23/23 10:12 Pulse Oximetry 95 08/23/23 10:12 Oxygen Delivery Method Room Air 08/23/23 10:12 Scores CURB-65 Confusion: No BUN >19mg/dL (>7mmol/L): No Respiratory rate greater or equal to 30: No SBP <90mmHg or DBP less or equal to 60mmHg: No Age 65 or Older: Yes CURB-65 Total: 1 Score 0-1 Outpatient care, Score 2 Inpt vs. Obs, Score 3 or over Inpt admit with ICU for score of 4-5 Course Orders Ordered: ED Orders 08/23/23 10:20 BNP [NT-proBNP (BNP-Adult 18+)] Stat Complete Blood Count AUTO DIFF Stat Comprehensive Metabolic Panel Stat Lipase Stat Magnesium Stat PTT Partial Thromboplastin Darren Stat Prothrombin Time INR Stat Respiratory Panel (Film Array) Stat Troponin & CK Cardiac Panel Stat 08/23/23 10:23 XR chest 1V Stat EKG-12 Lead Stat 08/23/23 11:30 Lactate (Lactic Acid) Stat Procalcitonin Stat 08/23/23 12:08 Blood Culture Stat 08/23/23 12:50 UA Complete [Urinalysis and Microscopic] Stat Urine Culture Stat Acetaminophen (Acetaminophen 325 Mg Tablet) 650 mg PO Q6H PRN PRN Reason: Fever/Mild Pain (1-3) Azithromycin (Azithromycin 250 Mg Tablet) 500 mg PO DAILY [facility] Stop: 08/25/23 09:01 Benzonatate (Benzonatate 100 Mg Capsule) 100 mg PO TID PRN PRN Reason: Cough Guaifenesin (Guaifenesin Er 600 Mg Tab) 600 mg PO BID [facility] Magnesium Sulfate (Magnesium Sulfate) 2 gm in 50 mls @ 25 mls/hr IV NOW ONE Stop: 08/23/23 14:58 Last Admin: 08/23/23 14:03 Dose: 25 mls/hr Documented By: LA Co-signed By: KEEGAN Ceftriaxone Sodium 1,000 mg/ (Sodium Chloride) 100 mls @ 200 mls/hr IV Q24H [facility] Stop: 08/27/23 09:01 Melatonin (Melatonin 3 Mg Tablet) 6 mg PO BEDTIME PRN PRN Reason: Insomnia Naloxone HCl (Naloxone 0.4 Mg/Ml Vial) 0.2 mg IV Q2MIN PRN PRN Reason: Opiate Reversal Ondansetron HCl (Ondansetron 4 Mg/2 Ml Inj) 4 mg IV Q4HR PRN PRN Reason: Nausea And Vomiting Polyethylene Glycol (Polyethylene Glycol 3350 17 Gm Powd.Pack) 17 gm PO DAILY PRN PRN Reason: Constipation Sennosides (Sennosides 8.6 Mg Tablet) 8.6 mg PO BID PRN PRN Reason: Constipation Discontinued Medications Sodium Chloride (Normal Saline 0.9%) 500 mls @ 1,000 mls/hr IV BOLUS ONE Stop: 08/23/23 13:28 Last Infusion: 08/23/23 13:45 Dose: Infused Documented By: Admin: 08/23/23 13:08 Dose: 1,000 mls/hr Documented By: BELLA Ceftriaxone Sodium 1,000 mg/ (Sodium Chloride) 100 mls @ 200 mls/hr IV NOW ONE Stop: 08/23/23 13:00 Last Infusion: 08/23/23 13:45 Dose: Infused Documented By: Admin: 08/23/23 13:08 Dose: 200 mls/hr Documented By: BELLA Azithromycin 500 mg/ Dextrose 250 mls @ 250 mls/hr IV NOW ONE Stop: 08/23/23 13:00 Last Admin: 08/23/23 13:58 Dose: 250 mls/hr Documented By: LA Vital Signs Vital signs: Vital Signs - 8 hr 08/23/23 10:12 08/23/23 10:21 08/23/23 10:30 Temperature 97.8 F Pulse Rate 90 106 H Respiratory Rate 22 13 Blood Pressure 113/68 101/59 L Pulse Oximetry 95 94 Oxygen Delivery Method Room Air 08/23/23 10:30 08/23/23 10:37 08/23/23 11:00 Temperature 99.4 F Pulse Rate 78 79 Respiratory Rate 17 13 Blood Pressure Pulse Oximetry 96 93 Oxygen Delivery Method 08/23/23 11:00 08/23/23 11:30 08/23/23 11:30 Temperature 98.0 F Pulse Rate 84 Respiratory Rate 17 Blood Pressure 107/57 L Pulse Oximetry 91 Oxygen Delivery Method 08/23/23 11:30 08/23/23 12:00 08/23/23 12:00 Temperature Pulse Rate 70 Respiratory Rate 13 Blood Pressure 106/59 L 105/70 Pulse Oximetry 93 Oxygen Delivery Method 08/23/23 13:01 Temperature Pulse Rate 130 H Respiratory Rate 22 Blood Pressure Pulse Oximetry 87 L Oxygen Delivery Method MDM - Weakness Lab Data 08/23/23 10:20 08/23/23 10:20 Labs: Lab Results 08/23/23 08/23/23 08/23/23 Range/Units 10:20 11:30 12:50 WBC 10.1 (4.5-11.0) X10^3/uL RBC 3.86 L (4.5-5.9) X10^6/uL Hgb 11.9 L (13.5-17.5) g/dL Hct 34.9 L (41-53) % MCV 90.4 (80-100) fL MCH 30.8 (26-34) PG MCHC 34.1 (30-36) % RDW 14.6 (11.6-14.8) % Plt Count 270 (150-400) X10^3/uL Neut % (Auto) 78.5 H (50-75) % Lymph % (Auto) 10.2 L (25-40) % Mcpherson % (Auto) 9.1 (3-14) % Eos % (Auto) 1.1 L (2-4) % Baso % (Auto) 1.1 (0-2) % Neut # (Auto) 7900 H (5277-1025) /uL Lymph # (Auto) 1000 L (4474-5345) /uL Mcpherson # (Auto) 900 (0-900) /uL Eos # (Auto) 100 (0-450) /uL Baso # (Auto) 100 (0-100) /uL PT 35.7 H (9.4-12.5) SECONDS INR 3.1 H (0.9-1.3) APTT 35 (25.1-36.5) SECONDS Sodium 130 L (137-145) mmol/L Potassium 3.7 (3.4-5.1) mmol/L Chloride 95 L (98-107) mmol/L Carbon Dioxide 28 (22-32) mmol/L BUN 18 (9-20) mg/dL Creatinine 0.87 (0.66-1.25) mg/dL Estimated GFR > 60 (>60) mL/min BUN/Creatinine Ratio 20.7 (6-22) Glucose 123 H (80-110) mg/dL Lactate 1.5 (0.7-2.1) mmol/L Calcium 9.3 (8.4-10.2) mg/dL Magnesium 1.4 L (1.6-2.3) mg/dL Total Bilirubin 1.4 H (0.2-1.3) mg/dL AST 32 (17-59) IU/L ALT 44 (<50) IU/L Alkaline Phosphatase 117 (38-126) U/L Total Creatine Kinase 38 L (55-170) U/L Troponin I < 0.012 (0.01-0.034) ng/mL NT-Pro-B Natriuret Pep 2270 H (<450) pg/mL Total Protein 7.2 (6.3-8.2) g/dL Albumin 3.3 L (3.5-5.0) g/dL Globulin 3.9 (1.7-4.1) g/dL Albumin/Globulin Ratio 0.8 L (1.0-2.8) Lipase 25 (23-300) U/L Procalcitonin 0.09 (<0.5) ng/mL Urine Color Yellow Urine Appearance Clear Urine pH 6.5 (4.5-8.0) Ur Specific Fossil 1.010 (1.000-1.035) Urine Protein Negative (Negative) Urine Glucose (UA) Negative (Negative) g/dL Urine Ketones Negative (NEGATIVE) Urine Occult Blood 2+ H (Negative) Urine Nitrate Positive H (Negative) Urine Bilirubin Negative (NEGATIVE) Urine Urobilinogen 1.0 (0.2) E.U./dL Ur Leukocyte Esterase Negative (NEGATIVE) Urine RBC 1-5/hpf (0-5/HPF) Urine WBC None seen (0-5/HPF) Ur Squamous Epith Cells 0-1 /hpf (0-5/HPF) Urine Bacteria Few (2-10) H (None) Urine Yeast 5-10/hpf H (None) Ur Culture Indicated? Specimen cultured Chlamy pneumoniae PCR Not detected (Not Detect) Adenovirus (PCR) Not detected (Not Detect) B.parapertussis DNA PCR Not detected (Not Detecte) Coronavirus OC43 (PCR) Not detected (Not Detect) Coronavirus HKU1 (PCR) Not detected (Not Detect) Coronavirus 229E (PCR) Not detected (Not Detect) SARS-CoV-2 (PCR) Not detected (Not Detecte) Coronavirus NL63 (PCR) Not detected (Not Detect) Human Metapneumovir PCR Not detected (Not Detect) Influenza Type A (PCR) Not detected (Not Detect) Influenza Type B (PCR) Not detected (Not Detect) M. pneumoniae (PCR) Not detected (Not Detect) Parainfluenza 1 (PCR) Not detected (Not Detect) Parainfluenza 2 (PCR) Not detected (Not Detect) Parainfluenza 3 (PCR) Not detected (Not Detect) Parainfluenza 4 (PCR) Not detected (Not Detect) RSV (PCR) Not detected (Not Detect) Entero/Rhino (PCR) Not detected (Not Detect) Imaging Data Chest x-ray: Radiologist Impression: [address] [address] XRay Report Signed Patient: Brian Burciaga MR#: [id number] : 1940 Acct:[id number] Age/Sex: 83 / M Date of Service: 08/23/23 Loc: ED Accession Number: [id number] Procedure: XR chest 1V Ordering Provider: Priya Floyd D.O. PROCEDURE: XR CHEST 1V INDICATIONS: chest pain TECHNIQUE: One view of the chest was acquired. COMPARISON: [facility], , XR CHEST 1V, 08/12/2023, 12:30. FINDINGS: Surgical changes and devices: None. Lungs and pleura: Mild patchy right basilar opacity. No pleural effusions or pneumothorax. Mediastinum: Mediastinal contours appear normal. Heart size is normal. Bones and chest wall: No suspicious bony lesions. Overlying soft tissues appear unremarkable. IMPRESSION: Right basilar pneumonia. Continued plain film surveillance is recommended to ensure resolution, and to exclude underlying or central malignancy. Dictated by: Nikki Robert M.D. on 08/23/2023 at 10:46 Approved by: Nikki Robert M.D. on 08/23/2023 at 10:46 ECG Data Attestation: I personally reviewed and interpreted this ECG as follows: Prior ECG tracings: available for review Interpretation: Atrial fibrillation rate 80, QRS 82 QTC of [address] elevation depression noted patient has prior from 08/12/2022 which appears similar. MDM Narrative Medical decision making narrative: 83-year-old male presents with complaint of increasing weakness, mild dyspnea with exertion, orthopnea and persistent deep cough which has been nonproductive and shortness of breath. Patient was initially diagnosed with pneumonia on 08/12 or put on Levaquin which he has been taking has not totally completed. Patient's labs show a white count of 10, hemoglobin 11.9 platelets of 270 INR is 3.1. Patient's creatinine 0.87 with BUN 18 sodium of 130 testing of 3.7 with glucose of 123. Mag is 1.4, troponins negative at 0.012 with a BNP at 2270, patient has been into the 1000 range but not persistently. This is the highest BNP available. Respiratory panel is negative. Chest x-ray continues to show potential pneumonia. Lactate negative, procalcitonin is pending Blood culture sent today. Patient had a urine culture from 08/11/2023 which shows stenotrophomonas maltophilia greater than 100,000 and E coli greater than 100,000 showed sensitivity to Levaquin on both. Patent was started on Levaquin on 08/12/2023 and has been continued by his urologist. He has several more days left. With ambulation patient drops to 87% rate does go up to 130. Patient also did appear to be a little bit orthostatic drop pressure from 130-108. Patient was given 500 cc bolus unclear if this is pneumonia versus CHF versus both. Patient was little bit orthostatic is so suspect patient maybe more intravascularly depleted but CHF is still potential source. He did have an echo in March of 2023 which had a normal EF and no significant wall motion abnormalities. Patient states allergic to penicillin does think he can take other antibiotics such as amoxicillin Keflex. Was covered with Rocephin and azithromycin. Spoke with Dr. Carrillo, accepts for admission. Discharge Plan Departure Patient Disposition: Admitted As Inpatient Clinical Impression: Pneumonia, CHF (congestive heart failure), Hypoxia, Low blood magnesium level Admit Date/Time: 08/23/23 13:13 Admit Provider: Clint Carrillo
[2023-08-23 12:54] LABS: Lactate (Lactic Acid) 1.5 mmol/L (0.7-2.1)
[2023-08-23] MEDS: cefTRIAXone 1,000 MG in SODIUM CHLORIDE 0.9% 100 ML 200 MG IV (13:08)
[2023-08-23] MEDS: SODIUM CHLORIDE 0.9% 500 ML 1000 ML IV (13:08)
[2023-08-23 13:11] LABS: Procalcitonin 0.09 ng/mL (<0.5)
[2023-08-23 13:11] LABS: Appearance Urine UA CLEAR; Bilirubin Urine UA NEGATIVE (NEGATIVE); Color Urine UA YELLOW; Glucose Urine UA NEGATIVE (Negative); Ketones Urine UA NEGATIVE (NEGATIVE); Leukocyte Esterase Urine UA NEGATIVE (NEGATIVE); Nitrite Urine UA POSITIVE (Negative); Occult Blood Urine UA 2+ (Negative); Protein Urine UA NEGATIVE (Negative); pH Urine UA 6.5 (4.5-8.0)
[2023-08-23 13:16] LABS: Bacteria Urine Few (2-10); Culture Indicated Urine Specimen Cultured; RBC Urine 1-5/HPF (0-5/HPF); Squamous Epithelial Cell Urine 0-1 /HPF (0-5/HPF); WBC Urine None Seen (0-5/HPF)
--- NOTE | 2023-08-23 13:38 | DI.ECHO.S_ITS ---
[facility]---------+ [facility] +---------+ : : [address] [address] : : : : [id number] : : : : Phone: [phone] Echocardiogram Report + + :Name: PAULINE ALCOCER Study Date: 08/24/2023 Height: 71 in : :[facility] ReadingLocation: Weight: 185 lb : : Gender: Male BSA: 2.0 m2 : :: 1940 Age: 83 yrs BP: 105/70 mmHg: :Reason For Study: CONGESTIVE HEART FAILURE : :Ordering Physician: SARA, : :GENIA Duncan Performed By: Maryann Arce : :Referring: GENIA RUIZ : + + Interpretation Summary The patient was in atrial fibrillation with controlled ventricular rate during the exam. The ejection fraction is estimated to be 60-65%. Diastolic function could not be accurately assessed due to atrial fibrillation. The left atrium is moderately dilated. The right ventricle is mildly dilated. The right ventricular systolic function is normal. The right atrium is mildly dilated. There is mild mitral regurgitation. Pulmonary artery pressures cannot be estimated because of the lack of a measurable TR jet velocity but the IVC suggests a CVP of around 15 mmHg. Compared to the prior study dated 03/10/2023, the right sided chambers now appear mildly dilated. Procedure: A two-dimensional transthoracic echocardiogram with color flow and Doppler was performed. The study quality was technically adequate. Comparison is made with the echocardiogram of 03/10/2023. The patient was in atrial fibrillation with controlled ventricular rate during the exam. The heart rate ranged between 58-76 bpm during the study. Left Ventricle: The left ventricle is normal in size and wall thickness. The ejection fraction is estimated to be 60-65%. Diastolic function could not be accurately assessed due to atrial fibrillation. Right Ventricle: The right ventricle is mildly dilated. The right ventricular systolic function is normal. Atria: The left atrium is moderately dilated. The right atrium is mildly dilated. There is no Doppler evidence for an interatrial shunt. Mitral Valve: The mitral valve is normal. There is mild mitral regurgitation. Aortic Valve: The aortic valve is trileaflet. The aortic valve opens well. There is no aortic valve stenosis. No aortic regurgitation is present. Tricuspid Valve: The tricuspid valve is normal. There is mild tricuspid regurgitation. Pulmonary artery pressures cannot be estimated because of the lack of a measurable TR jet velocity but the IVC suggests a CVP of around 15 mmHg. Pulmonic Valve: The pulmonic valve leaflets are thin and pliable; valve motion is normal. There is no pulmonic valvular regurgitation. Great Vessels: The aortic root is normal size. The dimensions of the ascending aorta are normal. The IVC is dilated (diameter is greater than 2.1 cm) and it collapses less than 50% with a sniff. This suggests a high right atrial pressure of 15 mm Hg. Pericardium/ Pleura There is no pericardial effusion. There is no pleural effusion. MMode/2D Measurements & Calculations LVIDd: 5.0 cm LVOT diam: 2.0 cm LVIDs: 3.0 cm Ao root diam: 3.7 cm FS: 39.7 % asc Aorta Diam: 3.7 cm IVSd: 1.0 cm Ao Arch Diam (Prox Trans): 2.6 cm LVPWd: 0.97 cm LV phillips. diameter/BSA (cm/m^2): 2.4 LV sys. diameter/BSA (cm/m^2): 1.5 LA A2 area: 21.9 cm2 RA long axis: 6.0 cm LA A4 area: 25.6 cm2 RA area: 21.5 cm2 LA length (vol): 6.3 cm RA vol: 65.0 ml LA vol: 74.9 ml RA : 31.8 ml/m2 LA vol index: 36.7 ml/m2 IVC diam: 2.0 cm RVD1 (basal): 4.2 cm RVD2 (mid): 2.8 cm TAPSE: 2.1 cm Doppler Measurements & Calculations Ao V2 max: 140.1 cm/sec LVOT Max Gerald: 117.0 cm/sec Ao V2 mean: 106.4 cm/sec LV V1 max P.5 mmHg Ao max P.9 mmHg LV V1 VTI: 24.2 cm Ao mean P.8 mmHg JANEE(I,D): 2.9 cm2 Ao V2 VTI: 25.8 cm JANEE(V,D): 2.6 cm2 sev ratio: 0.94 JANEE indexed to BSA (cm^2/m^2): 1.4 MV E max gerald: 86.6 cm/sec PA V2 max: 107.4 cm/sec MV A max gerald: 2.0 cm/sec PA V2 mean: 72.1 cm/sec MV E/A: 43.7 PA mean P.3 mmHg Med Peak E' Gerald: 8.3 cm/sec PA pr(Accel): 48.2 mmHg E/E' med: 10.5 Lat Peak E' Gerald: 14.6 cm/sec E/E' lat: 6.0 E/e' average: 8.2 MV dec time: 0.20 sec SV(LVOT): 74.4 ml Reading Physician:08:20 AM
--- NOTE | 2023-08-23 13:44 | PM.HP.1 ---
History of Present Illness History of Present Illness Chief complaint: sent by PCP for low B/P and O2/ high Pulse Narrative: Brian Burciaga is an 83-year-old male with past medical history of atrial fibrillation on Xarelto, BPH s/p chronic indwelling ferguson, hypertension, hyperlipidemia, and TRACEY who presents with worsening cough, SOB, and weakness. Patient states he first became ill over [place] and was diagnosed in our ED with pneumonia and put on levaquin. Patient states he initially got better but then worsened again in terms of weakness and ongoing deep cough. He had his PCP follow-up today and was sent to the ED again due to hypotension and tachycardia. CXR redemonstrated R basilar pneumonia and patient given IV abx. Patient notes increased swelling in he LE's, ongoing deep wet cough and weakness. BNP elevated at 2270. Echo pending to rule out CHF. He denies CP, NV, abd pain, or diarrhea. [facility] Medical History organ imaging abnormality Ferguson catheter in place Benign prostatic hyperplasia Bladder outlet obstruction Lower urinary tract symptoms Urinary retention Hypertension Acute hypokalemia Umbilical hernia Chronic venous stasis Medicare annual wellness visit, subsequent Osteoarthritis, hand Chronic pain syndrome Hyperlipidemia Abscess of back Milia Degenerative joint disease of knee Facet arthropathy, lumbar Trigger finger (acquired) Atrial fibrillation Bradycardia Essential hypertension Degenerative joint disease of knee Snoring Insomnia, persistent Hypersomnia Obstructive sleep apnea of adult Central sleep apnea Lumbosacral spondylosis with radiculopathy Lumbosacral radiculopathy at L5 Measles (~1941) Mumps (~194) Hayfever (~1979) Chicken pox (~194) Low back pain without sciatica (07/13/17) Anxiety (07/13/17) Lung nodule (08/18/15) Surgical History Hx of vasectomy Anesthesia Fracture dislocation of right ankle (04/2000) Status post hernia repair (2007) Family History Father Stroke Mother Heart disease Son No problems noted. Social History marital status: details: to Adelia, lives in [place] number of children: 1 household members: spouse lives independently: Yes caregiver/support person: No occupational status: previously employed Smoking Status: Never smoker alcohol intake: former caffeine: Yes Type(s) of exercise: walking duration: > 90 minutes/day Meds Home Medications and Allergies Home Medications Medication Instructions Recorded Confirmed Type rivaroxaban 20 mg tablet (Xarelto) 20 mg PO DAILY 10/05/21 08/23/23 History guaifenesin 600 mg tablet, 600 mg PO BID PRN Cough 04/06/23 08/23/23 History extended release 12 hr albuterol sulfate 90 mcg/actuation 2 puff inhalation Q6H PRN 05/03/23 08/23/23 History aerosol inhaler (ProAir HFA) Shortness Of Breath amlodipine 5 mg tablet 5 mg PO DAILY #90 tabs 06/23/23 08/23/23 Rx atorvastatin 10 mg tablet 10 mg PO DAILY #90 tabs 06/23/23 08/23/23 Rx buspirone 10 mg tablet 20 mg (2 x 10 mg) PO BID #360 tabs 06/23/23 08/23/23 Rx fluticasone propionate 50 See Rx Instructions .Route 06/23/23 08/23/23 Rx mcg/actuation nasal .COMPLEX #48 mL spray,suspension gabapentin 300 mg capsule 1,200 mg (4 x 300 mg) PO TID #360 06/23/23 08/23/23 Rx caps hydrochlorothiazide 25 mg tablet 12.5 mg (1/2 x 25 mg) PO QDAY #90 06/23/23 08/23/23 Rx tabs potassium chloride 10 mEq 20 meq (2 x 10 mEq) PO BID #120 06/23/23 08/23/23 Rx tablet,extended release tabs terazosin 2 mg capsule See Rx Instructions .Route 06/23/23 08/23/23 Rx .COMPLEX #720 caps tramadol 50 mg tablet 50 - 100 mg (1 - 2 x 50 mg) PO Q8H 06/23/23 08/23/23 Rx PRN pain #180 tabs triamcinolone acetonide 0.1 % 1 applic topical BID PRN skin rash 06/23/23 08/23/23 Rx topical ointment or dry skin #30 grams dutasteride 0.5 mg capsule 0.5 mg PO DAILY #90 caps 08/18/23 08/23/23 Rx benzonatate 100 mg capsule 100 mg PO TID PRN cough #60 caps 08/19/23 08/23/23 Rx azelastine 137 mcg (0.1 %) nasal 1 - 2 spray intranasal BID PRN 08/23/23 08/23/23 History spray aerosol allergies docusate sodium 100 mg capsule 100 mg PO BID 08/23/23 08/23/23 History (Colace) multivit with minerals-iron 18 1 tab PO DAILY 08/23/23 08/23/23 History mg-folic ac 400 mcg-vit K 25 mcg tablet (Adults Multivitamin) Allergies Allergy/AdvReac Type Severity Reaction Status Date / Time Penicillins Allergy Mild RASH Verified 08/23/23 09:16 shrimp Allergy Mild Rash Verified 08/23/23 09:16 Review of Systems Review of Systems Narrative: All other systems reviewed with the patient and are negative unless otherwise stated. Exam Vital Signs (past 8 hours): - 08/23/23 10:12 08/23/23 10:21 08/23/23 10:30 Temperature 97.8 F Pulse Rate 90 106 H Respiratory Rate 22 13 Blood Pressure 113/68 101/59 L Pulse Oximetry 95 94 Oxygen Delivery Method Room Air 08/23/23 10:30 08/23/23 10:37 08/23/23 11:00 Temperature 99.4 F Pulse Rate 78 79 Respiratory Rate 17 13 Blood Pressure Pulse Oximetry 96 93 Oxygen Delivery Method 08/23/23 11:00 08/23/23 11:30 08/23/23 11:30 Temperature 98.0 F Pulse Rate 84 Respiratory Rate 17 Blood Pressure 107/57 L Pulse Oximetry 91 Oxygen Delivery Method 08/23/23 11:30 08/23/23 12:00 08/23/23 12:00 Temperature Pulse Rate 70 Respiratory Rate 13 Blood Pressure 106/59 L 105/70 Pulse Oximetry 93 Oxygen Delivery Method 08/23/23 13:01 Temperature Pulse Rate 130 H Respiratory Rate 22 Blood Pressure Pulse Oximetry 87 L Oxygen Delivery Method Oxygen Delivery Method Room Air Narrative Exam Narrative: GEN: no acute distress, fatigued HEENT: moist mucous membranes, PERRL NECK: trachea midline, no JVD CV: tachycardic, irregularly irregular, no murmurs PULM: R basilar crackles ABD: soft, nontender, nondistended, no organomegaly EXT: warm and well perfused with 2+ edema : Indwelling ferguson with leg bag in place NEURO: awake, alert, oriented, no focal deficits Objective Labs 08/23/23 10:20 08/23/23 10:20 Labs: Laboratory Results - last 24 hr 08/23/23 08/23/23 08/23/23 10:20 11:30 12:50 WBC 10.1 RBC 3.86 L Hgb 11.9 L Hct 34.9 L MCV 90.4 MCH 30.8 MCHC 34.1 RDW 14.6 Plt Count 270 Neut % (Auto) 78.5 H Lymph % (Auto) 10.2 L [place] % (Auto) 9.1 Eos % (Auto) 1.1 L Baso % (Auto) 1.1 Neut # (Auto) 7900 H Lymph # (Auto) 1000 L [place] # (Auto) 900 Eos # (Auto) 100 Baso # (Auto) 100 PT 35.7 H INR 3.1 H APTT 35 Sodium 130 L Potassium 3.7 Chloride 95 L Carbon Dioxide 28 BUN 18 Creatinine 0.87 Estimated GFR > 60 BUN/Creatinine Ratio 20.7 Glucose 123 H Lactate 1.5 Calcium 9.3 Magnesium 1.4 L Total Bilirubin 1.4 H AST 32 ALT 44 Alkaline Phosphatase 117 Total Creatine Kinase 38 L Troponin I < 0.012 NT-Pro-B Natriuret Pep 2270 H Total Protein 7.2 Albumin 3.3 L Globulin 3.9 Albumin/Globulin Ratio 0.8 L Lipase 25 Procalcitonin 0.09 Urine Color Yellow Urine Appearance Clear Urine pH 6.5 Ur Specific [place] 1.010 Urine Protein Negative Urine Glucose (UA) Negative Urine Ketones Negative Urine Occult Blood 2+ H Urine Nitrate Positive H Urine Bilirubin Negative Urine Urobilinogen 1.0 Ur Leukocyte Esterase Negative Urine RBC 1-5/hpf Urine WBC None seen Ur Squamous Epith Cells 0-1 /hpf Urine Bacteria Few (2-10) H Urine Yeast 5-10/hpf H Ur Culture Indicated? Specimen cultured Chlamy pneumoniae PCR Not detected Adenovirus (PCR) Not detected B.parapertussis DNA PCR Not detected Coronavirus OC43 (PCR) Not detected Coronavirus HKU1 (PCR) Not detected Coronavirus 229E (PCR) Not detected SARS-CoV-2 (PCR) Not detected Coronavirus NL63 (PCR) Not detected Human Metapneumovir PCR Not detected Influenza Type A (PCR) Not detected Influenza Type B (PCR) Not detected M. pneumoniae (PCR) Not detected Parainfluenza 1 (PCR) Not detected Parainfluenza 2 (PCR) Not detected Parainfluenza 3 (PCR) Not detected Parainfluenza 4 (PCR) Not detected RSV (PCR) Not detected Entero/Rhino (PCR) Not detected Assessment & Plan Assessment & Plan narrative: # recurrent community acquired pneumonia -CXR shows RLL consolidation, previouis RLL pneumonia also seen on CXR 08/12 -rocephin and azithro ordered -CT chest with contrast to rule out other etiologies -mucinex BID -sputum culture if possible # mild hyponatremia -Na 130, likely due to HCTZ so will hold -IVF given # possible CHF exacerbation -patient with SOB, elevated BNP and LE edema -echo ordered, no prior available # hypomagnesemia -mag 1.4 on admission -replete PRN and monitor # persistent atrial fibrillation -continue xarelto # chronic pain -continue gabapentin and tramadol PRN # hypertension -hold home amlodipine and HCTZ for now # HLD -continue statin # TRACEY -continue CPAP # BPH s/p chronic indwelling ferguson -continue home medications Code status is full code. DVT prophylaxis with xarelto. Proxy is Adelia. I have reviewed home meds and used all available resources to reconcile the home meds. Case discussed with ED physician/APC and patient will be admitted to the hospitalist service for further workup and management. This patient will be admitted as inpatient and will require greater than 2 midnights of hospital time to treat pneumonia.
[2023-08-23] MEDS: AZITHROMYCIN 500 MG in DEXTROSE 5% IN WATER 250 ML 250 MG IV (13:58)
[2023-08-23] MEDS: MAGNESIUM SULFATE 2 GM/50 ML PIGGYBACK IV (14:03)
[2023-08-23] MEDS: guaiFENesin ER 600 MG TAB PO ×2 (15:03→20:52)
[2023-08-23] MEDS: RIVAROXABAN 10 MG TABLET 20 MG PO (18:25)
[2023-08-23] MEDS: TERAZOSIN 1 MG CAPSULE 3 MG PO (20:49)
[2023-08-23] MEDS: BUSPIRONE 5 MG TABLET 20 MG PO (20:50)
[2023-08-23] MEDS: GABAPENTIN 300 MG CAPSULE 1200 MG PO (20:51)
[2023-08-23] MEDS: POTASSIUM CHLORIDE 10 MEQ TAB 20 MEQ PO (20:51)
[2023-08-23] MEDS: DOCUSATE 100 MG CAPSULE PO (20:52)
[2023-08-23] MEDS: TERAZOSIN 5 MG CAPSULE PO (20:52)
[2023-08-23] MEDS: TRAMADOL 50 MG TABLET PO (20:52)
[2023-08-24] VITALS (7 sets, daily range): BP systolic 113–157; BP diastolic 59–87; PULSE 74–95; RESP 17–19; TEMP 36.2–36.5; O2SAT 94–97
[2023-08-24 05:08] LABS: Magnesium 1.6 mg/dL (1.6-2.3)
[2023-08-24 05:19] LABS: Add Manual Diff / Slide Review NO; Basophils Absolute Auto 100 /uL (0-100); Basophils Percent Auto 0.9 % (0-2); Eosinophils Absolute Auto 100 /uL (0-450); Eosinophils Percent Auto 1.6 % (2-4); Hematocrit 31.6 % (41-53); Lymphocytes Absolute Auto 1200 /uL (1100-4500); Lymphocytes Percent Auto 14.4 % (25-40); Mean Corpuscular HGB Conc 34.9 % (30-36); Mean Corpuscular Hemoglobin 31.1 PG (26-34); Mean Corpuscular Volume 89.2 fL (80-100); Monocytes Absolute Auto 700 /uL (0-900); Monocytes Percent Auto 8.8 % (3-14); Neutrophils Absolute Auto 6200 /uL (1500-7000); Neutrophils Percent Auto 74.3 % (50-75); Platelet Count 264 X10^3/uL (150-400); Red Blood Cell Count 3.54 X10^6/uL (4.5-5.9); Red Cell Distribution Width 14.7 % (11.6-14.8); White Blood Cell Count 8.4 X10^3/uL (4.5-11.0)
[2023-08-24 05:26] LABS: Procalcitonin 0.08 ng/mL (<0.5)
[2023-08-24 05:27] LABS: Blood Urea Nitrogen 12 mg/dL (9-20); Carbon Dioxide 29 mmol/L (22-32); Chloride 98 mmol/L (98-107); Estimated Glomerular Filt Rate > 60 mL/min (>60); Glucose 108 mg/dL (80-110); HEMOLYSIS < 15 (0-50); Potassium 3.4 mmol/L (3.4-5.1); Sodium 133 mmol/L (137-145)
[2023-08-24] MEDS: MAGNESIUM CHLORIDE 64 MG TABLET 128 MG PO (08:05)
[2023-08-24] MEDS: POTASSIUM CHLORIDE 20 MEQ TAB 40 MEQ PO (08:05)
[2023-08-24] MEDS: TERAZOSIN 5 MG CAPSULE PO ×2 (08:05→20:57)
[2023-08-24] MEDS: BUSPIRONE 5 MG TABLET 20 MG PO ×2 (08:06→20:57)
[2023-08-24] MEDS: GABAPENTIN 300 MG CAPSULE 1200 MG PO ×3 (08:06→20:57)
[2023-08-24] MEDS: ACETAMINOPHEN 325 MG TABLET 650 MG PO (08:06)
[2023-08-24] MEDS: guaiFENesin ER 600 MG TAB PO ×2 (08:07→20:58)
[2023-08-24] MEDS: TRAMADOL 50 MG TABLET PO ×2 (08:07→17:27)
[2023-08-24] MEDS: ATORVASTATIN 20 MG TABLET 10 MG PO (08:07)
[2023-08-24] MEDS: AZITHROMYCIN 250 MG TABLET 500 MG PO (08:07)
[2023-08-24] MEDS: DOCUSATE 100 MG CAPSULE PO ×2 (08:07→20:57)
[2023-08-24] MEDS: cefTRIAXone 1,000 MG in SODIUM CHLORIDE 0.9% 100 ML 200 MG IV (08:47)
[2023-08-24] MEDS: METOPROLOL ER 25 MG TABLET PO (08:50)
[2023-08-24] MEDS: TERAZOSIN 1 MG CAPSULE 3 MG PO ×2 (08:50→20:58)
--- NOTE | 2023-08-24 10:27 | ST.IPCSEOM ---
Visit Care Team Role Provider Type Jose Ramires MD Primary Care Provider Physician Specialty: Family Practice Address: [address] [place] [address], [id number] Email: [email or web address] [email or web address] Floyd DO Emergency Provider Physician Referring Provider Specialty: Emergency Medicine Address: [address] [place] [address], [id number] Email: [email or web address] Clint Carrillo DO Admit Provider Physician Attending Provider Specialty: Internal Medicine Address: [address] [place] [address], [id number] Email: [email or web address] Current Diagnoses Pneumonia, unspecified organism (08/23/23) Past Medical History (Last Reviewed 08/23/23 @ 12:45 by Priya Floyd DO) Abscess of back (Medical) Acute hypokalemia (Medical) Anxiety (Medical 07/13/17) Atrial fibrillation (Medical) Benign prostatic hyperplasia (Medical) Bladder outlet obstruction (Medical) Bradycardia (Medical) Central sleep apnea (Medical) BiPAP Chicken pox (Medical ~1946) Chronic pain syndrome (Medical) Chronic venous stasis (Medical) Degenerative joint disease of knee (Medical) Degenerative joint disease of knee (Medical) Essential hypertension (Medical) Facet arthropathy, lumbar (Medical) Fergsuon catheter in place (Medical) organ imaging abnormality (Medical) Hypoechoic lesion on ultrasound question prostate cancer Hayfever (Medical ~1979) Hyperlipidemia (Medical) Hypersomnia (Medical) Hypertension (Medical) Insomnia, persistent (Medical) inactive due to PAP therapy Low back pain without sciatica (Medical 07/13/17) Lower urinary tract symptoms (Medical) Lumbosacral radiculopathy at L5 (Medical) Lumbosacral spondylosis with radiculopathy (Medical) Lung nodule (Medical 08/18/15) Measles (Medical ~194) Medicare annual wellness visit, subsequent (Medical) 02/16/21 Milia (Medical) Mumps (Medical ~194) Obstructive sleep apnea of adult (Medical) Osteoarthritis, hand (Medical) Snoring (Medical) resolved with CPAP Trigger finger (acquired) (Medical) Umbilical hernia (Medical) Urinary retention (Medical) Speech-Language Pathology Swallow Evaluation 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 Clinical Swallow Evaluation Start: 08/24/23 10:14 Freq: Status: Active Protocol: Document 08/24/23 10:14 CG (Rec: 08/24/23 10:26 CG [id number]) Clinical Swallow Evaluation Session Time Visit Start Time 09:30 Visit Stop Time 10:00 Total Visit Minutes 30 Visit Information Visit Number 1 Referral Referring Provider Lorena (hospitalist) Reason for Referral R basilar PNA, concern for aspiration Setting Assessment Location Acute Care Visit Type Note Type Initial evaluation Next Note Type Next Note Type Discharge Summary Patient Information Identification Type Name History Per H&P: Brian Burciaga is an 83-year-old male with past medical history of atrial fibrillation on Xarelto, BPH s /p chronic indwelling ferguson, hypertension, hyperlipidemia, and TRACEY who presents with worsening cough, SOB, and weakness. Patient states he first became ill over [place] and was diagnosed in our ED with pneumonia and put on levaquin. Patient states he initially got better but then worsened again in terms of weakness and ongoing deep cough. He had his PCP follow- up today and was sent to the ED again due to hypotension and tachycardia. CXR redemonstrated R basilar pneumonia and patient given IV abx. Patient notes increased swelling in he LE's, ongoing deep wet cough and weakness. BNP elevated at 2270. Echo pending to rule out CHF. He denies CP, NV, abd pain, or diarrhea. Recent chest CT indicated Debris is present within the dependent airways, suggestive of large volume aspiration. Subjective Observations Pt was seated partially reclined in bed upon ST entry to the room. He was alert, oriented, and cooperative. Appropriate affect, and engaged in conversation appropriately. Level of alertness was functional for swallow eval. Pt agreeable to swallow eval. Reported by Patient/Caregiver Other Symptoms History of aspiration or pneumonia Comment Pt reports no difficulty swallowing. He does have ongoing cough; states he does not think this is related to swallowing. Current Diet Regular (IDDSI 7) Baseline Feeding Method Independent in self-feeding The IDDSI Framework Protocol: IDDSI.1 Objective Assessment Mental Status Alert,Responsive,Cooperative Oral Integrity WFL Dentition Within normal limits Lip Function Within normal limits Tongue Function Within normal limits Tongue Protrusion Within normal limits Tongue Lateralization Within normal limits Jaw Function Within normal limits Nasality Within normal limits Respiratory Sufficiency Within normal limits Comment Oral mechanism exam was unremarkable. Pt is on room air at 93% oxygen saturation. Food and Liquid Trials Position During Assessment Upright (90 degrees) Liquids Trialed Thin (IDDSI 0) Administration Type Cup consecutive sips,Straw Oral Impairment Within normal limits Oral Phase Comments Observed with 3oz water challenge. Good oral acceptance and containement; timely bolus transport. No interlabial escape noted. Pt denies difficulty with solid foods. Pharyngeal Impairment Within normal limits Pharyngeal Phase Comments No overt s/sx aspiration/ penetration observed with 3oz water challenge/Elizabeth Swallow protocol. Silent aspiration cannot be ruled out without an instrumental assessment; however, [place] Swallow Protocol has been shown to be between 95.4 and 100% sensitive at detecting aspiration (Clint Wiseman et al 2020; [place], and Antolin, 2013). Fatigue/Endurance Endurance WNL [place] Swallow Protocol Yes Results Pass The IDDSI Framework Protocol: IDDSI.1 Findings Swallowing Function Within normal limits Severity of Swallow Impairment Within normal limits Prognosis Good Comment There are no overt signs or symptoms of dysphagia observed . Silent aspiration cannot be ruled out without an instrumental assessment; however, the pt does not present with typical risk factors associated with silent aspiration (decreased alertness, cognitive impairment, bedbound, etc). Recommend outpatient MBSS to rule out dysphagia, though the pt does not present with red flags for dysphagia at this time. Impact on Safety and Functioning No limitations Recommendations Instrumental Assessment Yes Recommended Solids Regular (IDDSI 7) Recommended Liquids Thin (IDDSI 0) Other Recommendations 1. Outpatient MBSS. Medication Recommendations As Tolerated Discharge Recommendations Home Referrals Recommended Referrals Pulmonology Education Patient/Caregiver Education Described results of evaluation,Patient expressed understanding of evaluation
--- NOTE | 2023-08-24 11:00 | PT.IIE ---
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 Essential hypertension Facet arthropathy, lumbar Rod catheter in place organ imaging abnormality Hayfever (~1979) Hyperlipidemia Hypersomnia Hypertension Insomnia, persistent Low back pain without sciatica (07/13/17) Lower urinary tract symptoms Lumbosacral radiculopathy at L5 Lumbosacral spondylosis with radiculopathy Lung nodule (08/18/15) Measles (~1940) Medicare annual wellness visit, subsequent Milia Mumps (~1940) Obstructive sleep apnea of adult Osteoarthritis, hand Snoring Trigger finger (acquired) Umbilical hernia Urinary retention Physical Therapy Inpatient Evaluation/Re-Eval M1 PT/OT-IP Prior Functional Status Start: 08/24/23 12:13 Freq: NEEDED Status: Active Protocol: Document 08/24/23 11:00 AB (Rec: 08/24/23 12:31 AB [id number]) Medical Review Prior Functional Status Medical History Reviewed Yes Communication able to make needs known Mobility and Gait pt stated that he was independent with all mobilities and ambulation without AD Prior Functional Level (Other details) pt stated that he has been boing to [facility] outpt PT for his knees and back issues Social History Household Members spouse Living Arrangements House Number of Floors (Floors) Two Floors Number of Stairs To Enter/Railing? no steps to enter from the garage 15 steps B rails to 2nd level bedroom Home Environment High Toilet,Walk in Shower, Built-In Shower Seat Home Equipment Front Wheel Walker,Four Wheel Walker,Shower Seat without Backrest,Hand Held Shower,Grab Bars In Shower M2 PT-IP Current Condition Start: 08/24/23 12:13 Freq: NEEDED Status: Active Protocol: Document 08/24/23 11:00 AB (Rec: 08/24/23 12:31 AB [id number]) Physical Therapy Current Condition Current Condition Evaluation Date 08/24/23 Treatment Diagnosis PNA; difficulty in walking Onset Date 08/23/23 M3 PT-IP Subjective Start: 08/24/23 12:13 Freq: NEEDED Status: Active Protocol: Document 08/24/23 11:00 AB (Rec: 08/24/23 12:31 AB [id number]) Subjective Physical Therapy Visit Type Type Initial Evaluation Visit Start Time 11:00 Visit Stop Time 11:39 Total Visit Minutes 39 Number of BUSINESS PLANNING ANALYST Visits 0 Physical Therapy Visit Comments Patient Comments agreeable to do PT Therapy Pain Assessment Pain When Pain Assessed At Rest Location Neck Scale Used pain scle not stated Pain Management Techniques Distraction,Modification of Treatment,Re-positioning, Timing of Activity with Medications M4 PT-IP Mobility and Gait Start: 08/24/23 12:13 Freq: NEEDED Status: Active Protocol: Document 08/24/23 11:00 AB (Rec: 08/24/23 12:31 AB [id number]) PT-Bed Mobility Assessment Supine to Sit Supine to Sit Standby Assistance,Head of Bed Elevated PT-Transfer Assessment Sit to and From Stand Sit to and from Stand Contact Guard Assistance, Minimal Assistance Equipment Transfer Assistive Device Gait Belt,Front Wheeled Walker Orthotic/Prosthetic Devices or Brace: No Transfers Transfer Destination Chair Transfer Technique ambulated Transfer Ability Level of Assist Contact Guard Assistance, Minimal Assistance,1 Person Assistance,Use of Upper Extremities Comments Mobility Comments pt supine in bed and agreeable to do PT. obtained PLOF and home set up info. BP ins upine: 107/60 TX: 72-86 and O2 sat at RA: 95%. pt has A- fib. pt completed supine to sit SBA. HOB elevated ~ 10 deg. pt stated that he uses a wedge pillow at home to have upper body elevated. pt able to sit on EOB SBA. c/o slight lightheadedness but dissipated after a few minutes of sitting. BP checked: 117/68 TX: 85 O2 sat: 93-95% pt completed sit to stand min A and ambulated to the chair using FWW min A ~ 12 ft. presents with unsteady gait and decrease LE elevation. pt sat on the chair and rested. BP checked: 102/67 TX: 76 and O2 sat: 90-92. pt agreed to ambulate more in room. completed sit to stand from the chair CGA and ambulated in room using FWW ~ 40 ft initially CGA but min A towards end of ambulation with slower paced gait. pt agreed to sit on the chair. positioned on the chair. BP checked: 100/61 TX: 68-72 and O2 sat: 95%. call light and table placed within reach. Gait Assessment Gait Gait Assistance Required: Contact Guard Assist,Minimum Assistance Distance (Feet) 40 Able to Maintain Weight Bearing Status Yes During Gait Assistive Devices Assistive Device Gait Belt,Front Wheeled Walker Orthotic/Prosthetic Devices or Brace: No Gait Deviations General Gait Pattern Antalgic,Decreased Stride Length,Decreased Feet Clearance,Step-to Gait Factors Limiting Gait Function Factors Limiting Gait Function Decreased Activity Tolerance, Decreased Strength,Pain,Poor Balance,Poor Safety Awareness, Respiratory Distress Comments Gait Comments pls refer to mobility section for details PT-Balance Assessment Sitting Balance and Reactions Static Sitting Balance Ability Good Dynamic Sitting Balance Ability Good Standing Balance and Reactions Static Standing Balance Ability Fair Dynamic Standing Balance Ability Fair Device Used FWW M5 PT-IP Objective Assessments Start: 08/24/23 12:13 Freq: NEEDED Status: Active Protocol: Document 08/24/23 11:00 AB (Rec: 08/24/23 12:31 AB [id number]) Orientation Orientation/Cognition Level of Alertness Alert Orientation Name,Place,Situation Language Function Ability Hard of Hearing Safety Awareness Decreased Safety Awareness Memory Description No Deficits Noted Gross Range of Motion Lower Extremity ROM Assessment Within Functional Limits Strength Lower Extremity Strength Assessment Within Functional Limits Muscle Tone Muscle Tone WNL Yes M6 PT-IP Treatment Start: 08/24/23 12:13 Freq: NEEDED Status: Active Protocol: Document 08/24/23 11:00 AB (Rec: 08/24/23 12:31 AB [id number]) Physical Therapy Treatment Education Education Provided Safety M7 PT-IP Assessment and Plan Start: 08/24/23 12:13 Freq: NEEDED Status: Active Protocol: Document 08/24/23 11:00 AB (Rec: 08/24/23 12:31 AB [id number]) PT Summary Assessment and Plan Potential Rehabilitation Potential Fair Status of Condition at Evaluation Evolving Summary Impairments Pain,Balance,Coordination, Sensation,Cognition,Bed Mobility,Transfers,Gait, Activity Tolerance Assessment Summary pt is an 83 y/o M who was sent by his PCP to the ED due to his tachycardia, low O2 sat and low BP. pt admitted for PNA. pt requiring CGA to min A with mobility using FWW and has decrease activity tolerance requiring more of min A towards end of ambulation using FWW. pt lives with his spouse who will be able to assist him if needed. will continue to assess progress. At this time , pt may benefit from HHPT to improve activity tolerance and mobility independence prior to going back to outpt PT. Goals Bed Mobility Goal Independent Transfer Goal Independent,Front Wheeled Walker Gait Goal Independent,Front Wheel Walker Gait Distance 300 Other Goals improve transfers and ambulation >300 ft using LRAD/ without AD up/down 15 steps B rails mod I Days to Meet Goals 10 Frequency of Treatment Frequency Of Treatment Once a Day Treatment Plan Physical Therapy Treatment Plan Bed Mobility Training,Transfer Training,Gait Training, Therapeutic Exercise,Balance Retraining,Discharge Planning, Hot or Cold Pack,Neuromuscular Re-ed,Coordination Retraining Precautions Other Precautions BP, O2 sat Recommendations To Nursing Amount of Assist Needed 1 Person Assist Discharge Recommendations PT Discharge Recommendations Home with 28/02 Assist Available,Home Health Transportation Needs at Discharge Private Vehicle
--- NOTE | 2023-08-24 12:40 | CM.DANOTE ---
Initial DCP Assessment Note Reviewed EMR and team rounds for pt's medical status and initial anticipated d/c needs. Met with pt at bedside to introduce self and role, pt found to be sitting upright in the recliner eating lunch, appearing comfortable, and was alert/oriented and able to engage in visit. Payor: Medicare PCP: Dr. Ramires Pt is a 83 year-old M who presented to the ED on 08/23/23 with a hx of chronic A-fib, huypertension, dyslipidemia, urinary retention with complaints of increasing weakness and deep, persistent cough. He was seen by his PCP who directed him to the ED after assessing him to be tachycardic, hypotensive, and low O2 sats. He shared that he hasn't felt well since he was dx w/pneumonia at [facility], was started on oral Levaquin with short-lasting benefit before he began to have worsening symptoms again. Pt resides independently in his home w/spouse here in [place]. DCP will follow and assist with evolving plan of care d/c needs and recommendations. Discharge Planning/Care Management Advanced directive, confirm from FAMILY Start: 08/23/23 15:15 Freq: Q24H Status: Active Protocol: Document 08/23/23 15:15 BT (Rec: 08/23/23 16:19 BT [id number]) Advance Directive, confirm on record Time 16:19 Person contacted Pt Copy received Yes CM Discharge Assessment Start: 08/24/23 12:20 Freq: Status: Active Protocol: Document 08/24/23 12:32 DPL (Rec: 08/24/23 12:40 DPL [id number]) Discharge Planning Assessment Assigned Pharmacy Grad Intern EWA Hernandez DPOA/Assigned Designee Name Adelia Burciaga, arlene Advance Directives? Yes Advance Directives on File No History Provided By Patient,Medical Record Has Patient been admitted in last 30 No days? Prior Living Arrangements House Household Members spouse Type of transporation used prior to Drives own vehicle admit Independent with ADL's Yes Is patient alert and oriented? Yes Caregiver for Another No Comment Doesn't use on a regular basis but have them at home. Comment Pending efficacy of IV ABO's and PT/OT eval and recommendations. Barriers to Discharge No Discharge Plan Home Transportation Arrangement Home vs. SNF will determine transport type. Additional Comment Pending evolving plan of care. If patient plan is home with home health No : Has signed face to face form been completed? If patient plan is SNF: Has PASSR been No completed? Whiteboard Updated in Patient Room with Yes name and ext. # of Pharmacy Grad Intern Review Status In Process Please Provide Date Initial DC 08/24/23 Assessment Was Performed
--- NOTE | 2023-08-24 12:59 | PM.PN.1 ---
Subjective Subjective Interval history: Patient feels better than when I came in. Still quite weak however. CT chest shows RLL consolidation but no mass. Will work with PT/OT today. Exam Vital Signs (past 8 hours): - 08/24/23 08:00 08/24/23 08:50 08/24/23 12:08 Temperature 97.7 F 97.6 F Pulse Rate 95 H 95 H 75 Respiratory Rate 19 19 Blood Pressure 139/74 139/74 113/59 L Pulse Oximetry 94 96 Oxygen Flow Rate 0 0 Oxygen Delivery Method CPAP Oxygen Flow Rate 0 Narrative Exam Narrative: GEN: no acute distress, fatigued HEENT: moist mucous membranes, PERRL NECK: trachea midline, no JVD CV: tachycardic, irregularly irregular, no murmurs PULM: R basilar crackles ABD: soft, nontender, nondistended, no organomegaly EXT: warm and well perfused with 2+ edema : Indwelling ferguson with leg bag in place NEURO: awake, alert, oriented, no focal deficits Objective Labs 08/24/23 05:06 08/24/23 04:41 Labs: Laboratory Results - last 24 hr 08/23/23 08/23/23 08/24/23 11:30 12:50 04:41 WBC RBC Hgb Hct MCV MCH MCHC RDW Plt Count Neut % (Auto) Lymph % (Auto) [place] % (Auto) Eos % (Auto) Baso % (Auto) Neut # (Auto) Lymph # (Auto) [place] # (Auto) Eos # (Auto) Baso # (Auto) Sodium 133 L Potassium 3.4 Chloride 98 Carbon Dioxide 29 BUN 12 Creatinine 0.63 L Estimated GFR > 60 BUN/Creatinine Ratio 19.0 Glucose 108 Calcium 9.0 Magnesium 1.6 Procalcitonin 0.09 0.08 Urine Color Yellow Urine Appearance Clear Urine pH 6.5 Ur Specific [place] 1.010 Urine Protein Negative Urine Glucose (UA) Negative Urine Ketones Negative Urine Occult Blood 2+ H Urine Nitrate Positive H Urine Bilirubin Negative Urine Urobilinogen 1.0 Ur Leukocyte Esterase Negative Urine RBC 1-5/hpf Urine WBC None seen Ur Squamous Epith Cells 0-1 /hpf Urine Bacteria Few (2-10) H Urine Yeast 5-10/hpf H Ur Culture Indicated? Specimen cultured 08/24/23 05:06 WBC 8.4 RBC 3.54 L Hgb 11.0 L Hct 31.6 L MCV 89.2 MCH 31.1 MCHC 34.9 RDW 14.7 Plt Count 264 Neut % (Auto) 74.3 Lymph % (Auto) 14.4 L [place] % (Auto) 8.8 Eos % (Auto) 1.6 L Baso % (Auto) 0.9 Neut # (Auto) 6200 Lymph # (Auto) 1200 [place] # (Auto) 700 Eos # (Auto) 100 Baso # (Auto) 100 Sodium Potassium Chloride Carbon Dioxide BUN Creatinine Estimated GFR BUN/Creatinine Ratio Glucose Calcium Magnesium Procalcitonin Urine Color Urine Appearance Urine pH Ur Specific [place] Urine Protein Urine Glucose (UA) Urine Ketones Urine Occult Blood Urine Nitrate Urine Bilirubin Urine Urobilinogen Ur Leukocyte Esterase Urine RBC Urine WBC Ur Squamous Epith Cells Urine Bacteria Urine Yeast Ur Culture Indicated? [facility] Medical History organ imaging abnormality Ferguson catheter in place Benign prostatic hyperplasia Bladder outlet obstruction Lower urinary tract symptoms Urinary retention Hypertension Acute hypokalemia Umbilical hernia Chronic venous stasis Medicare annual wellness visit, subsequent Osteoarthritis, hand Chronic pain syndrome Hyperlipidemia Abscess of back Milia Degenerative joint disease of knee Facet arthropathy, lumbar Trigger finger (acquired) Atrial fibrillation Bradycardia Essential hypertension Degenerative joint disease of knee Snoring Insomnia, persistent Hypersomnia Obstructive sleep apnea of adult Central sleep apnea Lumbosacral spondylosis with radiculopathy Lumbosacral radiculopathy at L5 Measles (~1941) Mumps (~194) Hayfever (~1979) Chicken pox (~194) Low back pain without sciatica (07/13/17) Anxiety (07/13/17) Lung nodule (08/18/15) Surgical History Hx of vasectomy Anesthesia Fracture dislocation of right ankle (04/2000) Status post hernia repair (2007) Family History Father Stroke Mother Heart disease Son No problems noted. Social History marital status: details: to Adelia, lives in [place] number of children: 1 household members: spouse lives independently: Yes caregiver/support person: No occupational status: previously employed Smoking Status: Never smoker alcohol intake: former caffeine: Yes Type(s) of exercise: walking duration: > 90 minutes/day Assessment & Plan Assessment & Plan narrative: # recurrent community acquired pneumonia -CXR shows RLL consolidation, previous RLL pneumonia also seen on CXR 08/12 -continue rocephin and azithro -CT chest with contrast showed RLL consolidation, debris in airway from possible aspiration, no mass -mucinex BID -sputum culture if possible -MOTOR BOSS assessed and patient not aspirating # mild hyponatremia -Na 130, likely due to HCTZ so will hold -IVF given -NA improving # CHF ruled out -patient with SOB, elevated BNP and LE edema -echo shows EF 60-65% with mod dilated LA, mild MR # hypomagnesemia -mag 1.4 on admission -replete PRN and monitor # persistent atrial fibrillation -continue xarelto -add metoprolol XL 25mg daily for rate control # chronic pain -continue gabapentin and tramadol PRN # hypertension -hold home amlodipine and HCTZ for now # HLD -continue statin # TRACEY -continue CPAP # BPH s/p chronic indwelling ferguson -continue home medications Code status is full code. DVT prophylaxis with xarelto. Proxy is Adelia. I have reviewed home meds and used all available resources to reconcile the home meds. Dispo: Home in 1-2 days pending PT eval. Quality VTE Deep Vein Thrombosis/Pulmonary Embolism Present on Admission: No
--- NOTE | 2023-08-24 13:33 | OT.IP.EVAL ---
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 Essential hypertension Facet arthropathy, lumbar Rod catheter in place organ imaging abnormality Hayfever (~1979) Hyperlipidemia Hypersomnia Hypertension Insomnia, persistent Low back pain without sciatica (07/13/17) Lower urinary tract symptoms Lumbosacral radiculopathy at L5 Lumbosacral spondylosis with radiculopathy Lung nodule (08/18/15) Measles (~1940) Medicare annual wellness visit, subsequent Milia Mumps (~1940) Obstructive sleep apnea of adult Osteoarthritis, hand Snoring Trigger finger (acquired) Umbilical hernia Urinary retention Surgical History (Last Reviewed 08/23/23 @ 12:45 by Priya Floyd DO) Anesthesia Fracture dislocation of right ankle (04/2000) Hx of vasectomy Status post hernia repair (2007) Occupational Therapy Inpatient Evaluation/Re-Eval M1 PT/OT-IP Prior Functional Status Start: 08/24/23 14:11 Freq: NEEDED Status: Active Protocol: Document 08/24/23 14:12 [facility] (Rec: 08/24/23 14:44 [facility] [id number]) Medical Review Prior Functional Status Medical History Reviewed Yes Communication able to make needs known Mobility and Gait pt stated that he was independent with all mobilities and ambulation without AD Activities of Daily Living and IADL's Pt was completely independent with all ADL , IADL needs and drives. Prior Functional Level (Other details) pt stated that he has been going to [facility] for his knees and back issues Social History Household Members spouse Living Arrangements House Number of Floors (Floors) Two Floors Number of Stairs To Enter/Railing? 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 OT-IP Current Condition Start: 08/24/23 14:11 Freq: Status: Active Protocol: Document 08/24/23 14:12 [facility] (Rec: 08/24/23 14:44 [facility] [id number]) Occupational Therapy Current Condition Current Condition Evaluation Date 08/24/23 Treatment Diagnosis PNA Diagnosis Onset Date 08/23/23 M3 OT- IP Subjective and Pain Start: 08/24/23 14:11 Freq: Status: Active Protocol: Document 08/24/23 14:12 [facility] (Rec: 08/24/23 14:44 [facility] [id number]) OT- Subjective Occupational Therapy Visit Type Type Initial Evaluation Visit Start Time 13:00 Visit Stop Time 13:33 Total Visit Minutes 33 Occupational Therapy Visit Comments Patient Comments Pt agreed to get up. Patient/Caregiver Goals To get better. OT Pain Assessment Pain When Pain Assessed At Rest Pain Present Pain Present Denied Pain M4 OT- IP ADL's Start: 08/24/23 14:11 Freq: Status: Active Protocol: Document 08/24/23 14:12 [facility] (Rec: 08/24/23 14:44 [facility] [id number]) OT [id number] General Evaluation Self-Feeding Ability Independent OT ADL-Grooming General Evaluation Grooming Ability Independent Comments OT Grooming Comments No needs anticipated. OT ADL-Dressing General Eval Lower Body Dressing Ability Minimal Assistance Comments OT Dressing Comments At times pt has back pain and needing assist or increased time with socks. Able to educate pt on use of sock aid and roller cleaner to assist with LB dressing needs especially when his back acts up. OT ADL-Toileting Comments OT Toileting Comments Pt not having to go. OT ADL-Bathing Comments OT Bathing Comments Not performed, suggested pt use a shower chair and also to obtain a long handle brush to assist to wash his feet to help his ability to wash. M5 OT- IP IADL's Start: 08/24/23 14:11 Freq: Status: Active Protocol: Document 08/24/23 14:12 [facility] (Rec: 08/24/23 14:44 [facility] [id number]) OT-Instrumental Activities of Daily Living Home Safety Awareness Awareness of Need for Assistance at Home Good Awareness Ability to Problem Solve Emergency Able to Problem Solve Situations Home Safety Comments Pt able to answer all home safety situations accurately. Medication Management Medication Management No Deficits Identified Money Management Money Management No Deficits Identified Meal Preparation Meal Preparation Comments Pt and his share duties. Pinsetter Mechanic Automatic Pinsetter Mechanic Automatic Comments Pt and his share chores. At this time pt's may have to assist more due to pt' s decreased dynamic balance. Driving Driving Concerns Identified Regarding Safety M6 OT- IP Functional Cognition Start: 08/24/23 14:11 Freq: Status: Active Protocol: Document 08/24/23 14:12 [facility] (Rec: 08/24/23 14:44 [facility] [id number]) Cognitive Factors Limiting Selfcare Function Cognitive Ability Level of Alertness Alert Patient Orientation Name,Age,Birthday,Month,Date, Year,Day of Week,Place, Situation Attention Span Ability Capable of Focused Attention, Capable of Sustained Attention Ability to Follow Commands Able to Follow One Step Commands Memory Description Working Impaired Safety Awareness No Deficits Noted Cognitive Comments Cognitive Assessment Comments Pt having difficulty to follow steps for [place] Making Part B at this time and getting mixed up of trying to alternate between numbers and letters at this time. Pt well aware that he will not be driving for now. Pt will benefit from SLUMS. OT- Vision and Hearing OT- Hearing Assessment OT- Hearing Assessment WFL OT- Vision Assessment Visual Acuity Glasses For Reading Visual Attentiveness WFL Occular Pursuits WFL Visual Convergence WFL Visual Dietz WFL M7 OT- IP Mobility and Balance Start: 08/24/23 14:11 Freq: Status: Active Protocol: Document 08/24/23 14:12 [facility] (Rec: 08/24/23 14:44 [facility] [id number]) OT-Transfer Assessment Sit to and From Stand Sit to and from Stand Standby Assistance Transfers Transfer Ability Standby Assistance Technique Transfer Destination Chair Transfer Technique Stand Step Pivot Devices Transfer Assistive Devices Gait Belt,Front Wheeled Walker Comments Mobility Comments Pt able to stand up on his own with SBA and walk in the room with close SBA. OT- Balance Assessment Sitting Balance and Reactions Static Sitting Balance Ability Good Dynamic Sitting Balance Ability Good Standing Balance and Reactions Static Standing Balance Ability Fair Dynamic Standing Balance Ability Fair Comments Other Balance Tests/Deviations/Treatment Pt tends to lean to the right : when up with the FWW. Pt definitely needing use of the fww for his balance at this time. M8 OT- IP Objective Assessments Start: 08/24/23 14:11 Freq: Status: Active Protocol: Document 08/24/23 14:12 [facility] (Rec: 08/24/23 14:44 [facility] [id number]) OT Gross Range of Motion Upper Extremity Range of Motion ROM Impairments grossly WFL OT Strength Comments Strength Comments RUE 4/5 & LUE 4+/5 in shoulders, 4+/5 distally for both. OT- Coordination Assessment Upper Extremity Finger to Nose Test Right UE Impaired Finger Tapping Test Right UE Impaired Comments Coordination Comments Pt slightly off for finger to nose and needing more time with right hand and slight ataxic movements noted. 9 hole peg test. Right hand 25 sec and Left hand 27 seconds which put pt at 75% for his age group. OT Sensation Assessment Comments Summary Comments Pt needing slight increased time for right arm versus left arm. M9 OT- IP Assessment and Plan Start: 08/24/23 14:11 Freq: Status: Active Protocol: Document 08/24/23 14:12 [facility] (Rec: 08/24/23 14:44 [facility] [id number]) OT Summary Assessment and Plan Potential Rehabilitation Potential Excellent Analytic Complexity at Evaluation Low Summary OT Impairments Strength,Balance,Functional Mobility,Dressing,Toileting, Bathing,Toilet Transfers, Shower Transfers Progress Towards Goals Progressing Toward Goals Assessment Summary Pt MOD complexity and main barrier are steps and decreased dynamic balance. Goals Self-Feeding Goal Independent Grooming Goal Independent Dressing Goal Independent Toileting Goal Independent Bathing Goal Independent Toilet Transfer Goal Independent Shower Transfer Goal Independent Days to Meet Goals 10 Frequency of Treatment Frequency Of Treatment Once a Day Treatment Plan OT Treatment Plan ADL Training,Functional Cognition Training,Functional Mobility,Patient/Family Education,Discharge Planning Other Treatment Recommendations and Next SLUMS, redo [place] Making Part Treatment Focus B Discharge Recommendations OT Discharge Recommendations Home with Assistance, Outpatient PT Home Equipment Needs Long handled brush Transportation Needs at Discharge Private Vehicle
[2023-08-24] MEDS: RIVAROXABAN 10 MG TABLET 20 MG PO (17:26)
[2023-08-24] MEDS: POTASSIUM CHLORIDE 20 MEQ TAB PO (20:57)
[2023-08-25] VITALS (8 sets, daily range): BP systolic 121–152; BP diastolic 78–93; PULSE 75–105; RESP 16–24; TEMP 36.1–36.8; O2SAT 92–97
--- NOTE | 2023-08-25 | DI.RAD.S_ITS ---
PROCEDURE: XR CHEST 1V INDICATIONS: low bp/o2 TECHNIQUE: One view of the chest was acquired. COMPARISON: [facility], CT, CT CHEST W CON, 08/24/2023, 8:02. [facility], CR, XR CHEST 1V, 08/23/2023, 10:30. [facility], CR, XR CHEST 1V, 08/12/2023, 12:30. FINDINGS: Surgical changes and devices: None. Lungs and pleura: Patchy opacity in the right lung, increased. Small right pleural effusion. No pneumothorax. Mediastinum: Mediastinal contours appear unchanged. Heart size is within normal limits. Bones and chest wall: No suspicious bony lesions. Overlying soft tissues appear unremarkable. IMPRESSION: Patchy opacity in the right lung is increased. Small right pleural effusion. Dictated by: Priyank Norris M.D. on 08/25/2023 at 23:03 Approved by: Priyank Norris M.D. on 08/25/2023 at 23:06
[2023-08-25] MEDS: ACETAMINOPHEN 325 MG TABLET 650 MG PO (04:54)
[2023-08-25 04:56] LABS: Add Manual Diff / Slide Review NO; Basophils Absolute Auto 0 /uL (0-100); Basophils Percent Auto 0.2 % (0-2); Eosinophils Absolute Auto 100 /uL (0-450); Eosinophils Percent Auto 1.7 % (2-4); Hematocrit 33.6 % (41-53); Hemoglobin 11.6 g/dL (13.5-17.5); Lymphocytes Absolute Auto 1500 /uL (1100-4500); Lymphocytes Percent Auto 17.5 % (25-40); Mean Corpuscular HGB Conc 34.6 % (30-36); Mean Corpuscular Hemoglobin 31.2 PG (26-34); Mean Corpuscular Volume 90.2 fL (80-100); Monocytes Absolute Auto 600 /uL (0-900); Monocytes Percent Auto 7.7 % (3-14); Neutrophils Absolute Auto 6100 /uL (1500-7000); Neutrophils Percent Auto 72.9 % (50-75); Platelet Count 277 X10^3/uL (150-400); Red Blood Cell Count 3.72 X10^6/uL (4.5-5.9); Red Cell Distribution Width 14.4 % (11.6-14.8); White Blood Cell Count 8.3 X10^3/uL (4.5-11.0)
[2023-08-25 05:03] LABS: Magnesium 1.5 mg/dL (1.6-2.3)
[2023-08-25 05:04] LABS: BUN Creatinine Ratio 20.3 (6-22); Blood Urea Nitrogen 12 mg/dL (9-20); Calcium 9.2 mg/dL (8.4-10.2); Carbon Dioxide 30 mmol/L (22-32); Chloride 101 mmol/L (98-107); Estimated Glomerular Filt Rate > 60 mL/min (>60); Glucose 99 mg/dL (80-110); HEMOLYSIS < 15 (0-50); Potassium 3.7 mmol/L (3.4-5.1); Sodium 135 mmol/L (137-145)
[2023-08-25 05:20] LABS: Procalcitonin 0.07 ng/mL (<0.5)
[2023-08-25] MEDS: MAGNESIUM SULFATE 4 GM/100 ML PIGGYBACK IV (08:32)
[2023-08-25] MEDS: cefTRIAXone 1,000 MG in SODIUM CHLORIDE 0.9% 100 ML 200 MG IV (08:46)
[2023-08-25] MEDS: TERAZOSIN 1 MG CAPSULE 3 MG PO ×2 (08:47→22:57)
[2023-08-25] MEDS: GABAPENTIN 300 MG CAPSULE 1200 MG PO ×3 (08:47→22:57)
[2023-08-25] MEDS: AZITHROMYCIN 250 MG TABLET 500 MG PO (08:48)
[2023-08-25] MEDS: BUSPIRONE 5 MG TABLET 20 MG PO ×2 (08:48→22:58)
[2023-08-25] MEDS: ATORVASTATIN 20 MG TABLET 10 MG PO (08:48)
[2023-08-25] MEDS: guaiFENesin ER 600 MG TAB PO ×2 (08:50→22:57)
[2023-08-25] MEDS: METOPROLOL ER 25 MG TABLET PO (08:50)
[2023-08-25] MEDS: DOCUSATE 100 MG CAPSULE PO ×2 (08:50→22:57)
[2023-08-25] MEDS: TERAZOSIN 5 MG CAPSULE PO ×2 (08:50→22:58)
[2023-08-25] MEDS: POTASSIUM CHLORIDE 20 MEQ TAB PO ×2 (08:50→22:57)
--- NOTE | 2023-08-25 13:38 | OT.IP.TRT ---
Current Diagnoses Pneumonia, unspecified organism (08/23/23) Occupational Therapy Treatment Note M2 OT-IP Current Condition Start: 08/24/23 14:11 Freq: Status: Active Protocol: Document 08/24/23 14:12 [facility] (Rec: 08/24/23 14:44 [facility] [id number]) Occupational Therapy Current Condition Current Condition Evaluation Date 08/24/23 Treatment Diagnosis PNA Diagnosis Onset Date 08/23/23 M3 OT- IP Subjective and Pain Start: 08/24/23 14:11 Freq: Status: Active Protocol: Document 08/25/23 14:02 [facility] (Rec: 08/25/23 14:13 [facility] [id number]) OT- Subjective Occupational Therapy Visit Type Type Treatment Note Visit Start Time 13:38 Visit Stop Time 13:50 Total Visit Minutes 12 Occupational Therapy Visit Comments Patient Comments Pt just waking up and agreed to redo cognitive assessments. Patient/Caregiver Goals TO go home. OT Pain Assessment Pain When Pain Assessed At Rest Pain Present Pain Present Denied Pain M6 OT- IP Functional Cognition Start: 08/24/23 14:11 Freq: Status: Active Protocol: Document 08/25/23 14:02 [facility] (Rec: 08/25/23 14:13 [facility] [id number]) Cognitive Factors Limiting Selfcare Function Cognitive Ability Level of Alertness Alert,Drowsy Patient Orientation Name,Age,Birthday,Month,Date, Year,Day of Week,Place, Situation Attention Span Ability Capable of Focused Attention, Capable of Sustained Attention Ability to Follow Commands Able to Follow Multi-Step Commands Memory Description Short Term Impaired Safety Awareness No Deficits Noted Problem Solving Ability No deficits Noted Cognitive Tests SLUMS Pt scored 25/30 which implies mild cognitive deficits for pt 's education. Pt admit that he has to write things down often due to his decreased memory. Pt also just waking up from a nap. Pt able to recall 10 animals in one minute, pt able to recall 3/5 after time passed, and able to answer 3/4 questions right after paragraph read. Cognitive Comments Cognitive Assessment Comments Pt scored 114 seconds on [place] Making Part B which yesterday pt unable to follow. Pt scored 50th percentile for his age. Pt score implies mild impairments for visual attentions, speed of processing, mental flexibilty, executive functioning, and task switching. Pt aware that he is not up to driving yet. In addition, pt score may also have been affected by not sleeping well and also just awaken from a nap. M9 OT- IP Assessment and Plan Start: 08/24/23 14:11 Freq: Status: Active Protocol: Document 08/25/23 14:02 [facility] (Rec: 08/25/23 14:13 [facility] [id number]) OT Summary Assessment and Plan Potential Rehabilitation Potential Excellent Analytic Complexity at Evaluation Low Summary OT Impairments Strength,Balance,Functional Mobility,Dressing,Toileting, Bathing,Toilet Transfers, Shower Transfers Progress Towards Goals Progressing Toward Goals Assessment Summary Pt thinking much better today and said feels better as well . Pt scored 25/30 on the SLUMS which implies mild cognitive impairments, however pt states just woke up from a nap and that he did not sleep well. Pt to go home when medically stable and to assist. Pt will continue to benefit from outpt PT. Goals Self-Feeding Goal Independent Grooming Goal Independent Dressing Goal Independent Toileting Goal Independent Bathing Goal Independent Toilet Transfer Goal Independent Shower Transfer Goal Independent Days to Meet Goals 7 Frequency of Treatment Frequency Of Treatment Once a Day Treatment Plan OT Treatment Plan ADL Training,Functional Mobility,Patient/Family Education,Discharge Planning Discharge Recommendations OT Discharge Recommendations Home with Assistance, Outpatient PT Home Equipment Needs Long handled brush Transportation Needs at Discharge Private Vehicle
--- NOTE | 2023-08-25 13:50 | PT.IPTN ---
Current Diagnoses Pneumonia, unspecified organism (08/23/23) Physical Therapy Treatment Note M2 PT-IP Current Condition Start: 08/24/23 12:13 Freq: NEEDED Status: Active Protocol: Document 08/24/23 11:00 AB (Rec: 08/24/23 12:31 AB [id number]) Physical Therapy Current Condition Current Condition Evaluation Date 08/24/23 Treatment Diagnosis PNA; difficulty in walking Onset Date 08/23/23 M3 PT-IP Subjective Start: 08/24/23 12:13 Freq: NEEDED Status: Active Protocol: Document 08/25/23 14:25 TS (Rec: 08/25/23 14:35 TS [id number]) Subjective Physical Therapy Visit Type Type Treatment Note Visit Start Time 13:50 Visit Stop Time 14:20 Total Visit Minutes 30 Number of CALENDER FEEDER Visits 1 Physical Therapy Visit Comments Patient Comments Pt found resting in chair, reports being tired but agreeable to PT. M4 PT-IP Mobility and Gait Start: 08/24/23 12:13 Freq: NEEDED Status: Active Protocol: Document 08/25/23 14:25 TS (Rec: 08/25/23 14:35 TS [id number]) PT-Transfer Assessment Sit to and From Stand Sit to and from Stand Standby Assistance Equipment Transfer Assistive Device Gait Belt,Front Wheeled Walker Orthotic/Prosthetic Devices or Brace: No Comments Mobility Comments Pt found resting in chair, Spo2 95% on RA, BP unremarkable. Sit to stand from chair SBA with BUE support pushing from arms of chair. He ambulated ~100' in room SBA with step thru gait. He performed steps x12 on step stool with B handrail assist CGA/SBA, pt had x1 LOB descending step, recovered with use of rails. Pt reports feeling tireed, Spo2 after mobility 91% on RA. Pt was left in chair, all needs met. Gait Assessment Gait Gait Assistance Required: Standby Assistance Distance (Feet) 100 Able to Maintain Weight Bearing Status Yes During Gait Assistive Devices Assistive Device Gait Belt,Front Wheeled Walker Orthotic/Prosthetic Devices or Brace: No Gait Deviations General Gait Pattern Antalgic,Decreased Stride Length,Decreased Feet Clearance,Step-to Gait Factors Limiting Gait Function Factors Limiting Gait Function Decreased Activity Tolerance, Decreased Strength,Pain,Poor Balance,Poor Safety Awareness, Respiratory Distress Comments Gait Comments See mobility comments Stair Climbing Assessment Evaluation Level of Assist On Stairs Standby Assistance,Contact Guard Assistance,1 Person Assistance Devices Stair Climbing Assistive Devices Left Railing,Right Railing Technique/Endurance Stair Climbing Direction Ascend and Descend Stair Climbing Technique Step to Step Number of Steps Climbed 12 Comments Stair Climbing Comments See mobility comments PT-Balance Assessment Sitting Balance and Reactions Static Sitting Balance Ability Good Dynamic Sitting Balance Ability Good Standing Balance and Reactions Static Standing Balance Ability Fair Dynamic Standing Balance Ability Fair Device Used FWW M5 PT-IP Objective Assessments Start: 08/24/23 12:13 Freq: NEEDED Status: Active Protocol: Document 08/24/23 11:00 AB (Rec: 08/24/23 12:31 AB [id number]) Orientation Orientation/Cognition Level of Alertness Alert Orientation Name,Place,Situation Language Function Ability Hard of Hearing Safety Awareness Decreased Safety Awareness Memory Description No Deficits Noted Gross Range of Motion Lower Extremity ROM Assessment Within Functional Limits Strength Lower Extremity Strength Assessment Within Functional Limits Muscle Tone Muscle Tone WNL Yes M6 PT-IP Treatment Start: 08/24/23 12:13 Freq: NEEDED Status: Active Protocol: Document 08/25/23 14:25 TS (Rec: 08/25/23 14:35 TS [id number]) Physical Therapy Treatment Education Education Provided Safety M7 PT-IP Assessment and Plan Start: 08/24/23 12:13 Freq: NEEDED Status: Active Protocol: Document 08/25/23 14:25 TS (Rec: 08/25/23 14:35 TS [id number]) PT Summary Assessment and Plan Potential Rehabilitation Potential Fair Summary Impairments Pain,Balance,Coordination, Sensation,Cognition,Bed Mobility,Transfers,Gait, Activity Tolerance Progress Towards Goals Progressing Toward Goals Assessment Summary amandeep is making good progress with his mobility. He is SBA for sit to stand with use of FWW. He progressed his gait to ~100' SBA with FWW, denied any dizziness, lightheadedness or thermal changes. He progressed to steps x12 SBA/ CGA with use of B handrails, had minor LOB, pt maintained balance with use of rails. PT is recommending Home with 24/ assist and HHPT. Goals Bed Mobility Goal Independent Transfer Goal Independent,Front Wheeled Walker Gait Goal Independent,Front Wheel Walker Gait Distance 300 Other Goals improve transfers and ambulation >300 ft using LRAD/ without AD up/down 15 steps B rails mod I Days to Meet Goals 10 Frequency of Treatment Frequency Of Treatment Once a Day Treatment Plan Physical Therapy Treatment Plan Bed Mobility Training,Transfer Training,Gait Training, Therapeutic Exercise,Balance Retraining,Discharge Planning, Hot or Cold Pack,Neuromuscular Re-ed,Coordination Retraining Precautions Other Precautions BP, O2 sat Recommendations To Nursing Amount of Assist Needed Standby Assistance Discharge Recommendations PT Discharge Recommendations Home with 24/7 Assist Available,Home Health Transportation Needs at Discharge Private Vehicle
--- NOTE | 2023-08-25 15:22 | CM.DPC ---
DCP Cont. Reviewed EMR and team rounds for pt's status updates. PT/OT rec. HH. Did not have time to work on this today. Plan is to speak with pt about his preference for agency, fax referral and clinicals on Tuesday. Need's F/F done.
--- NOTE | 2023-08-25 16:41 | PM.PN.1 ---
Subjective Subjective Interval history: Patient feeling marginally better but still fatigued. Exam Vital Signs (past 8 hours): - 08/25/23 08:50 08/25/23 12:00 08/25/23 16:00 Temperature 97.0 F L Pulse Rate 86 105 H Respiratory Rate 18 18 Blood Pressure 121/87 146/84 H Pulse Oximetry 95 96 Oxygen Delivery Method Room Air Oxygen Flow Rate 0 0 Oxygen Delivery Method Room Air Oxygen Flow Rate 0 Narrative Exam Narrative: GEN: no acute distress, fatigued HEENT: moist mucous membranes, PERRL NECK: trachea midline, no JVD CV: tachycardic, irregularly irregular, no murmurs PULM: R basilar crackles ABD: soft, nontender, nondistended, no organomegaly EXT: warm and well perfused with 2+ edema : Indwelling ferguson with leg bag in place NEURO: awake, alert, oriented, no focal deficits Objective Labs 08/25/23 04:34 08/25/23 04:34 Labs: Laboratory Results - last 24 hr 08/25/23 04:34 WBC 8.3 RBC 3.72 L Hgb 11.6 L Hct 33.6 L MCV 90.2 MCH 31.2 MCHC 34.6 RDW 14.4 Plt Count 277 Neut % (Auto) 72.9 Lymph % (Auto) 17.5 L [place] % (Auto) 7.7 Eos % (Auto) 1.7 L Baso % (Auto) 0.2 Neut # (Auto) 6100 Lymph # (Auto) 1500 [place] # (Auto) 600 Eos # (Auto) 100 Baso # (Auto) 0 Sodium 135 L Potassium 3.7 Chloride 101 Carbon Dioxide 30 BUN 12 Creatinine 0.59 L Estimated GFR > 60 BUN/Creatinine Ratio 20.3 Glucose 99 Calcium 9.2 Magnesium 1.5 L Procalcitonin 0.07 PFSH Medical History organ imaging abnormality Ferguson catheter in place Benign prostatic hyperplasia Bladder outlet obstruction Lower urinary tract symptoms Urinary retention Hypertension Acute hypokalemia Umbilical hernia Chronic venous stasis Medicare annual wellness visit, subsequent Osteoarthritis, hand Chronic pain syndrome Hyperlipidemia Abscess of back Milia Degenerative joint disease of knee Facet arthropathy, lumbar Trigger finger (acquired) Atrial fibrillation Bradycardia Essential hypertension Degenerative joint disease of knee Snoring Insomnia, persistent Hypersomnia Obstructive sleep apnea of adult Central sleep apnea Lumbosacral spondylosis with radiculopathy Lumbosacral radiculopathy at L5 Measles (~194) Mumps (~194) Hayfever (~1979) Chicken pox (~1946) Low back pain without sciatica (07/13/17) Anxiety (07/13/17) Lung nodule (08/18/15) Surgical History Hx of vasectomy Anesthesia Fracture dislocation of right ankle (04/2000) Status post hernia repair (2007) Family History Father Stroke Mother Heart disease Son No problems noted. Social History marital status: details: to Adelia, lives in [place] number of children: 1 household members: spouse lives independently: Yes caregiver/support person: No occupational status: previously employed Smoking Status: Never smoker alcohol intake: former caffeine: Yes Type(s) of exercise: walking duration: > 90 minutes/day Assessment & Plan Assessment & Plan narrative: # recurrent community acquired pneumonia -CXR shows RLL consolidation, previous RLL pneumonia also seen on CXR 08/12 -continue rocephin and azithro -CT chest with contrast showed RLL consolidation, debris in airway from possible aspiration, no mass -mucinex BID -sputum culture if possible -CIVIL GEOTECHNICAL ENGINEER assessed and patient not aspirating # mild hyponatremia, improved -Na 130, likely due to HCTZ so will hold -IVF given -NA improving # CHF ruled out -patient with SOB, elevated BNP and LE edema -echo shows EF 60-65% with mod dilated LA, mild MR # hypomagnesemia -mag 1.4 on admission -replete PRN and monitor # persistent atrial fibrillation -continue xarelto -add metoprolol XL 25mg daily for rate control # chronic pain -continue gabapentin and tramadol PRN # hypertension -restart amlodipine, hold HCTZ # HLD -continue statin # TRACEY -continue CPAP # BPH s/p chronic indwelling ferguson -continue home medications Code status is full code. DVT prophylaxis with xarelto. Proxy is Adelia. I have reviewed home meds and used all available resources to reconcile the home meds. Dispo: Home with on 08/26. Quality VTE Deep Vein Thrombosis/Pulmonary Embolism Present on Admission: No
[2023-08-25] MEDS: RIVAROXABAN 10 MG TABLET 20 MG PO (17:25)
--- NOTE | 2023-08-25 21:32 | DI.CT.S_ITS ---
PROCEDURE: CT STROKE INDICATIONS: stroke r/o TECHNIQUE: Noncontrast 4.5 mm thick angled axial sections acquired from the foramen magnum to the vertex, with coronal reformats. For radiation dose reduction, the following was used: automated exposure control, adjustment of mA and/or kV according to patient size. COMPARISON: Outside Film, MR, MR IAC WITH/WITHOUT CONTRAST, 06/29/2023, 11:45. [facility], RG, CT HEAD W/WO, 01/07/1999, 11:28. FINDINGS: Image quality: Diagnostic. CSF spaces: Basal cisterns are patent. No extra-axial fluid collections. Ventricles are normal in size and shape. Brain: No midline shift. No intracranial masses or hemorrhage. No area of hypodensity in a large vascular distribution to suggest acute infarction. Periventricular hypodensity consistent with chronic microvascular ischemic change. Age-related parenchymal loss. Skull and face: Calvarium and visualized facial bones are intact, without suspicious lesions. Sinuses: Visualized sinuses and mastoids are clear. IMPRESSION: No acute intracranial pathology. No acute intracranial hemorrhage. Comment: Findings were discussed with Dr. Cassidy at 10:12 p.m. This study fulfills neurological imaging criteria for inclusion or exclusion of acute stroke therapies based on available published neurological imaging guidelines. Dictated by: Priyank Norris M.D. on 08/25/2023 at 22:07 Approved by: Priyank Norris M.D. on 08/25/2023 at 22:15
[2023-08-25 21:56] LABS: Allen Test for ABG Passed? Yes, Passed; Blood Gas Collection Site Right Brachial; Fractionated Inspired Oxygen 21; HCO3 ABG 28 mmol/L (23-27); Oxygen Saturation ABG 94 % (95-100); PCO2 ABG 33.9 mmHg (35-45); PO2 ABG 64 mmHg (80-100); TCO2 ABG 29 mmol/L (23-27); pH ABG 7.52 (7.35-7.45)
[2023-08-25 22:12] LABS: Add Manual Diff / Slide Review NO; Basophils Absolute Auto 100 /uL (0-100); Eosinophils Absolute Auto 100 /uL (0-450); Hematocrit 36.3 % (41-53); Hemoglobin 12.3 g/dL (13.5-17.5); Lymphocytes Absolute Auto 1300 /uL (1100-4500); Lymphocytes Percent Auto 14.5 % (25-40); Mean Corpuscular HGB Conc 33.9 % (30-36); Mean Corpuscular Hemoglobin 30.3 PG (26-34); Mean Corpuscular Volume 89.3 fL (80-100); Monocytes Absolute Auto 800 /uL (0-900); Monocytes Percent Auto 8.8 % (3-14); Neutrophils Absolute Auto 6900 /uL (1500-7000); Neutrophils Percent Auto 74.7 % (50-75); Platelet Count 305 X10^3/uL (150-400); Red Blood Cell Count 4.07 X10^6/uL (4.5-5.9); Red Cell Distribution Width 14.6 % (11.6-14.8); White Blood Cell Count 9.2 X10^3/uL (4.5-11.0)
[2023-08-25 22:18] LABS: BUN Creatinine Ratio 22.2 (6-22); Blood Urea Nitrogen 14 mg/dL (9-20); Calcium 9.2 mg/dL (8.4-10.2); Carbon Dioxide 30 mmol/L (22-32); Chloride 99 mmol/L (98-107); Estimated Glomerular Filt Rate > 60 mL/min (>60); Glucose 116 mg/dL (80-110); HEMOLYSIS 38 (0-50); Magnesium 2.1 mg/dL (1.6-2.3); Potassium 3.8 mmol/L (3.4-5.1); Sodium 134 mmol/L (137-145)
[2023-08-25 22:31] LABS: Troponin I < 0.012 ng/mL (0.01-0.034)
[2023-08-26] VITALS: BP 138/92; PULSE 86; RESP 16; TEMP 36.2; O2SAT 94
[2023-08-26 04:00] VITALS: BP 160/91; PULSE 61; RESP 17; TEMP 36.2; O2SAT 97
[2023-08-26 05:01] LABS: Add Manual Diff / Slide Review NO; Basophils Absolute Auto 100 /uL (0-100); Basophils Percent Auto 1.3 % (0-2); Eosinophils Absolute Auto 200 /uL (0-450); Eosinophils Percent Auto 1.6 % (2-4); Hematocrit 37.6 % (41-53); Hemoglobin 12.6 g/dL (13.5-17.5); Lymphocytes Absolute Auto 1700 /uL (1100-4500); Lymphocytes Percent Auto 16.4 % (25-40); Mean Corpuscular HGB Conc 33.6 % (30-36); Mean Corpuscular Hemoglobin 30.2 PG (26-34); Mean Corpuscular Volume 89.8 fL (80-100); Monocytes Absolute Auto 700 /uL (0-900); Monocytes Percent Auto 6.9 % (3-14); Neutrophils Absolute Auto 7500 /uL (1500-7000); Neutrophils Percent Auto 73.8 % (50-75); Platelet Count 305 X10^3/uL (150-400); Red Blood Cell Count 4.19 X10^6/uL (4.5-5.9); White Blood Cell Count 10.2 X10^3/uL (4.5-11.0)
[2023-08-26 05:06] LABS: BUN Creatinine Ratio 17.2 (6-22); Blood Urea Nitrogen 10 mg/dL (9-20); Calcium 9.3 mg/dL (8.4-10.2); Carbon Dioxide 31 mmol/L (22-32); Chloride 102 mmol/L (98-107); Estimated Glomerular Filt Rate > 60 mL/min (>60); Glucose 104 mg/dL (80-110); HEMOLYSIS < 15 (0-50); Potassium 3.8 mmol/L (3.4-5.1); Sodium 138 mmol/L (137-145)
[2023-08-26 05:11] LABS: Magnesium 1.9 mg/dL (1.6-2.3)
[2023-08-26 05:28] LABS: Procalcitonin 0.07 ng/mL (<0.5)
--- NOTE | 2023-08-26 06:46 | PC.NURSE ---
Greeted pt ~2009, pt alert and responsive as this RN has seen him at baseline. At patient check ~2114 pt appeared to be sleeping, but upon attempts rouse the pt was only responsive with a grunt/partial eye opening only to sternal rub and repeated loud address. Slight R facial droop. VSS. Notified coordinator, and sent urgent RR message to Dr. Cobb, orders received for labs, ABG, CT stroke, and CXR. While being transferred off CT, pt roused, asking what's going on? On further assessment, pt was completely returned to baseline AOx4, recalls none of the incident.
[2023-08-26 07:51] VITALS: BP 134/91; PULSE 94; RESP 18; TEMP 36.8; O2SAT 93
[2023-08-26] MEDS: guaiFENesin ER 600 MG TAB PO (08:21)
[2023-08-26] MEDS: ATORVASTATIN 20 MG TABLET 10 MG PO (08:22)
[2023-08-26] MEDS: TERAZOSIN 5 MG CAPSULE PO (08:22)
[2023-08-26] MEDS: GABAPENTIN 300 MG CAPSULE 1200 MG PO (08:22)
[2023-08-26] MEDS: METOPROLOL ER 25 MG TABLET PO (08:22)
[2023-08-26] MEDS: BUSPIRONE 5 MG TABLET 20 MG PO (08:22)
[2023-08-26] MEDS: DOCUSATE 100 MG CAPSULE PO (08:22)
[2023-08-26] MEDS: AMLODIPINE 5 MG TABLET PO (08:22)
[2023-08-26] MEDS: POTASSIUM CHLORIDE 20 MEQ TAB PO (08:22)
[2023-08-26] MEDS: cefTRIAXone 1,000 MG in SODIUM CHLORIDE 0.9% 100 ML 200 MG IV (08:23)
[2023-08-26] MEDS: TERAZOSIN 1 MG CAPSULE 3 MG PO (09:01)
--- NOTE | 2023-08-26 09:26 | CM.DPNOTE ---
Addendum entered by EWA Quintero 08/26/23 12:34: Reese from [facility] reports everything is good clinically to accept pt. The auth Medicare site is down but it should be good to go. SL Original Note: DCP Note COBBLER MCKAY reviewed EMR. Pt set to dc home with spouse today, PT rec HH. COBBLER MCKAY entered room and introduced self and role. pt sitting up in bed. Pt agreeable to HH, report no preference. Pt wants just PT, no OT. Pt reports no other CM needs at this time. COBBLER MCKAY spoke with Reese from [facility], agreed to review. Report they likely could accept. COBBLER MCKAY completed face to face and emailed it to Reese. COBBLER MCKAY dropped off [facility] brochure and copy of IMM to pt room. Plan: home with spouse and [facility] pending review. Reports no other CM needs at this time. CM team will continue to follow as needed. EWA Quintero
--- NOTE | 2023-08-26 10:55 | PM.DS.1 ---
History of Present Illness History of Present Illness Chief complaint: sent by PCP for low B/P and O2/ high Pulse Narrative: Brian Burciaga is an 83-year-old male with past medical history of atrial fibrillation on Xarelto, BPH s/p chronic indwelling ferguson, hypertension, hyperlipidemia, and TRACEY who presents with worsening cough, SOB, and weakness. Patient states he first became ill over Ta and was diagnosed in our ED with pneumonia and put on levaquin. Patient states he initially got better but then worsened again in terms of weakness and ongoing deep cough. He had his PCP follow-up today and was sent to the ED again due to hypotension and tachycardia. CXR redemonstrated R basilar pneumonia and patient given IV abx. Patient notes increased swelling in he LE's, ongoing deep wet cough and weakness. BNP elevated at 2270. Echo pending to rule out CHF. He denies CP, NV, abd pain, or diarrhea. Discharge Providers Provider Date of admission: 08/23/23 13:13 Discharge Date: 08/26/23 Primary care physician: Jose Ramires MD Consults: 08/24/23 09:06 Consult to Speech Therapy Evaluate & Treat Comment: CT chest suggested large volume aspiration Physician Instructions: Evaluate and treat 08/24/23 10:33 Consult to Occupational Therapy Evaluate & Treat Comment: Physician Instructions: Evaluate and treat Consult to Physical Therapy Evaluate & Treat Comment: Physician Instructions: Evaluate and Treat 08/26/23 07:39 Consult to Home Health Routine Comment: Reason For Exam: PT/OT Discharge provider: Clint Carrillo DO Summary Hospital Course Discharge Diagnosis: # recurrent community acquired pneumonia -CXR shows RLL consolidation, previous RLL pneumonia also seen on CXR 08/12 -continue rocephin and azithro -CT chest with contrast showed RLL consolidation, debris in airway from possible aspiration, no mass -mucinex BID -sputum culture if possible -RECONCILIATION MACHINE OPERATOR assessed and patient not aspirating -discharged on 3 more days of cefdinir to complete 7 days of abx # mild hyponatremia, improved -Na 130, likely due to HCTZ so will hold -IVF given -NA improving -stopped HCTZ on discharge # CHF ruled out -patient with SOB, elevated BNP and LE edema -echo shows EF 60-65% with mod dilated LA, mild MR # hypomagnesemia -mag 1.4 on admission -replete PRN and monitor # persistent atrial fibrillation -continue xarelto -added coreg for rate control # chronic pain -continue gabapentin and tramadol PRN # hypertension -restart amlodipine, stopped HCTZ -added coreg # HLD -continue statin # TRACEY -continue CPAP # BPH s/p chronic indwelling ferguson -continue home medications Hospital Course: Admitted for repeat PNA with RLL infiltrate. Placed on IV abx and he improved. Had low sodium so HCTZ stopped and changed to coreg along with his amlodipine. setup as patient still weak with PT. Discharged on a few more days of po cefdinir to complete 1 week. Exam Vital Signs (past 8 hours): - 08/26/23 04:00 08/26/23 07:51 08/26/23 08:00 Temperature 97.1 F L 98.3 F Pulse Rate 61 94 H Respiratory Rate 17 18 Blood Pressure 160/91 H 134/91 H Pulse Oximetry 97 93 Oxygen Delivery Method Room Air Oxygen Flow Rate 0 0 Oxygen Delivery Method Room Air Oxygen Flow Rate 0 Narrative Exam Narrative: GEN: no acute distress, fatigued HEENT: moist mucous membranes, PERRL NECK: trachea midline, no JVD CV: tachycardic, irregularly irregular, no murmurs PULM: R basilar crackles ABD: soft, nontender, nondistended, no organomegaly EXT: warm and well perfused with 2+ edema : Indwelling ferguson with leg bag in place NEURO: awake, alert, oriented, no focal deficits Objective Labs 08/26/23 04:32 08/26/23 04:32 Labs: Laboratory Results - last 24 hr 08/25/23 08/25/23 08/26/23 21:39 21:45 04:32 WBC 9.2 10.2 RBC 4.07 L 4.19 L Hgb 12.3 L 12.6 L Hct 36.3 L 37.6 L MCV 89.3 89.8 MCH 30.3 30.2 MCHC 33.9 33.6 RDW 14.6 15.0 H Plt Count 305 305 Neut % (Auto) 74.7 73.8 Lymph % (Auto) 14.5 L 16.4 L [place] % (Auto) 8.8 6.9 Eos % (Auto) 1.0 L 1.6 L Baso % (Auto) 1.0 1.3 Neut # (Auto) 6900 7500 H Lymph # (Auto) 1300 1700 [place] # (Auto) 800 700 Eos # (Auto) 100 200 Baso # (Auto) 100 100 ABG Sample Site Right brachial ABG pH 7.52 H ABG pCO2 33.9 L ABG pO2 64 L ABG HCO3 28 H ABG Total CO2 29 H ABG O2 Saturation 94 L ABG Base Excess 5.0 H FiO2 21 Sodium 134 L 138 Potassium 3.8 3.8 Chloride 99 102 Carbon Dioxide 30 31 BUN 14 10 Creatinine 0.63 L 0.58 L Estimated GFR > 60 > 60 BUN/Creatinine Ratio 22.2 H 17.2 Glucose 116 H 104 Calcium 9.2 9.3 Magnesium 2.1 1.9 Troponin I < 0.012 Procalcitonin 0.07 PFSH Medical History organ imaging abnormality Ferguson catheter in place Benign prostatic hyperplasia Bladder outlet obstruction Lower urinary tract symptoms Urinary retention Hypertension Acute hypokalemia Umbilical hernia Chronic venous stasis Medicare annual wellness visit, subsequent Osteoarthritis, hand Chronic pain syndrome Hyperlipidemia Abscess of back Milia Degenerative joint disease of knee Facet arthropathy, lumbar Trigger finger (acquired) Atrial fibrillation Bradycardia Essential hypertension Degenerative joint disease of knee Snoring Insomnia, persistent Hypersomnia Obstructive sleep apnea of adult Central sleep apnea Lumbosacral spondylosis with radiculopathy Lumbosacral radiculopathy at L5 Measles (~1941) Mumps (~194) Hayfever (~1979) Chicken pox (~194) Low back pain without sciatica (07/13/17) Anxiety (07/13/17) Lung nodule (08/18/15) Surgical History Hx of vasectomy Anesthesia Fracture dislocation of right ankle (04/2000) Status post hernia repair (2007) Family History Father Stroke Mother Heart disease Son No problems noted. Social History marital status: details: to Adelia, lives in [place] number of children: 1 household members: spouse lives independently: Yes caregiver/support person: No occupational status: previously employed Smoking Status: Never smoker alcohol intake: former caffeine: Yes Type(s) of exercise: walking duration: > 90 minutes/day Discharge Plan Discharge Plan Patient Disposition: Home Health Service Provider Discharge Comment: You were diagnosed with pneumonia. We gave you IV antibiotics and you improved. Please finish a few more days of antibiotics at home. I've also adjusted your blood pressure medications and taken you off HCTZ and added coreg instead, because your sodium levels were low from the HCTZ. Coreg will also help keep your atrial fibrillation in check. Dr. Carrillo Discharge orders & Medications Prescriptions: New cefdinir 300 mg capsule 300 mg PO BID 3 Days Qty: 6 0RF Rx Instructions: start on 08/27 carvedilol [Coreg] 3.125 mg tablet 3.125 mg PO BID Qty: 60 0RF Rx Instructions: must administer with a meal/food Continued dutasteride 0.5 mg capsule 0.5 mg PO DAILY Qty: 90 3RF benzonatate 100 mg capsule 100 mg PO TID PRN (Reason: cough) Qty: 60 0RF potassium chloride 10 mEq tablet extended release 20 meq PO BID Qty: 120 1RF atorvastatin 10 mg tablet 10 mg PO DAILY Qty: 90 3RF buspirone 10 mg tablet 20 mg PO BID Qty: 360 1RF gabapentin 300 mg capsule 1,200 mg PO TID Qty: 360 2RF Rx Instructions: Take four capsules by mouth three times daily fluticasone propionate 50 mcg/actuation spray,suspension See Rx Instructions .ROUTE .COMPLEX Qty: 48 1RF Dose Instruction: INSTILL 1 SPRAY INTO EACH NOSTRIL TWICE DAILY Rx Instructions: INSTILL 1 SPRAY INTO EACH NOSTRIL TWICE DAILY terazosin 2 mg capsule See Rx Instructions .ROUTE .COMPLEX Qty: 720 3RF Dose Instruction: TAKE 4 CAPSULES BY MOUTH TWICE A DAY Rx Instructions: TAKE 4 CAPSULES BY MOUTH TWICE A DAY triamcinolone acetonide 0.1 % ointment 1 applic topical BID PRN (Reason: skin rash or dry skin) Qty: 30 3RF Rx Instructions: Apply to face, use no longer than 3 weeks at a time. Thanks! tramadol 50 mg tablet 50 - 100 mg PO Q8H PRN (Reason: pain) Qty: 180 2RF guaifenesin 600 mg Tablet Extended Release 12hr 600 mg PO BID PRN (Reason: Cough) docusate sodium [Colace] 100 mg Capsule 100 mg PO BID Adults Multivitamin 18 mg iron-400 mcg-25 mcg Tablet 1 tab PO DAILY azelastine 137 mcg (0.1 %) aerosol,spray 1 - 2 spray intranasal BID PRN (Reason: allergies) amlodipine 5 mg tablet 5 mg PO DAILY Qty: 90 3RF Rx Instructions: TAKE 1 TABLET BY MOUTH EVERY DAY Xarelto 20 mg tablet 20 mg PO DAILY Rx Instructions: must administer with evening meal albuterol sulfate [ProAir HFA] 90 mcg/actuation HFA aerosol inhaler 2 puff inhalation Q6H PRN (Reason: Shortness Of Breath) Discontinued hydrochlorothiazide 25 mg tablet 12.5 mg PO QDAY Qty: 90 3RF Medication counseling provided by Pharmacist: Yes Follow up/Referrals: Jose Ramires MD [Primary Care Provider] - 2 Weeks Visit Report/Discharge Packet Instructions: DI for Pneumonia -- Adult, How to Prevent Falls, DI for Hypoxia Stand Alone Forms: Patient Portal/API, Stroke Signs & Symptoms Discharge Data Primary Care Provider: Jose Ramires Quality VTE Deep Vein Thrombosis/Pulmonary Embolism Present on Admission: No
--- NOTE | 2023-08-26 11:09 | PC.NURSE ---
Discharge: Pt reports he is ready to d/c to home. Reports he is much improved since admit. The only thing he is disappointed about is he had to cancel urology appt when he was admitted here. Reviewed d/c instructions, discharge packet given. Seen by MD prior to d/c and he gave pt d/c instructions. Rx has been esent. Pt is on many meds and meds were reviewed by the pharmacist and this mortgage loan underwriter. Pt verb understanding. Pt is tolerating diet w/out problems and voiding w/out diff. Pt d/c to home via auto w/spouse.
== END 2023-08-26 11:03 | disposition home health service (06) | DRG 194 ==
LOC: ED 13:12 → AC 13:14
PROVIDERS: Internal Medicine; Admitting Provider Student in an Organized Health Care Education/Training Program; Emergency Provider Emergency Medicine; PCP Family Medicine; Referring Provider Emergency Medicine; Visit Provider Student in an Organized Health Care Education/Training Program
DX: J18.9 Pneumonia, unspecified organism (principal); E87.1 Hypo-osmolality and hyponatremia; I48.19 Other persistent atrial fibrillation; E83.42 Hypomagnesemia; G89.29 Other chronic pain; E78.5 Hyperlipidemia, unspecified; G47.33 Obstructive sleep apnea (adult) (pediatric); N40.0 Benign prostatic hyperplasia without lower urinary tract symptoms; I10 Essential (primary) hypertension; Z79.01 Long term (current) use of anticoagulants
CPT/HCPCS: 36415; 36600; 70450; 71045; 71260; 80048; 80053; 81001; 82550; 82805; 83605; 83690; 83735; 83880; 84145; 84484; 85025; 85610; 85730; 87040; 87086; 87633; 92610; 93005; 93010; 93306; 96365; 96375; 97116; 97129; 97162; 97166; 97530; 99284; J0696; J3475

== ENCOUNTER → 2023-09-02 13:55 | Outpatient (CLI) | payer MEDICARE, BC, SELFPAY ==
[2023-08-23 13:33] VITALS: BMI 23.5
[2023-10-06 09:25] LABS: Misc. to WA State Lab SCANNED
== END ==
PROVIDERS: PCP Family Medicine; Visit Provider Urology
DX: N40.1 Benign prostatic hyperplasia with lower urinary tract symptoms (principal); R33.8 Other retention of urine; N32.0 Bladder-neck obstruction; R39.9 Unspecified symptoms and signs involving the genitourinary system; Z97.8 Presence of other specified devices
CPT/HCPCS: 51702; 87077; 87086; 99213

== ENCOUNTER → 2023-09-30 14:48 | Outpatient (CLI) | payer MEDICARE, BC, SELFPAY ==
[2023-08-23 13:33] VITALS: BMI 23.5
== END ==
PROVIDERS: PCP Family Medicine; Visit Provider Urology
DX: N40.1 Benign prostatic hyperplasia with lower urinary tract symptoms (principal); R33.8 Other retention of urine; N32.0 Bladder-neck obstruction; R33.9 Retention of urine, unspecified; R39.9 Unspecified symptoms and signs involving the genitourinary system; Z97.8 Presence of other specified devices
CPT/HCPCS: 51702; 87077; 87086; 87186; 99213

== ENCOUNTER → 2023-10-21 15:03 | Outpatient (CLI) | payer MEDICARE, BC, SELFPAY ==
[2023-08-23 13:33] VITALS: BMI 23.5
[2023-10-26 16:42] LABS: Appearance Urine UA CLOUDY; Bilirubin Urine UA NEGATIVE (NEGATIVE); Color Urine UA YELLOW; Glucose Urine UA NEGATIVE (Negative); Ketones Urine UA NEGATIVE (NEGATIVE); Leukocyte Esterase Urine UA 2+ (NEGATIVE); Nitrite Urine UA POSITIVE (Negative); Occult Blood Urine UA 3+ (Negative); Protein Urine UA 3+ (Negative)
[2023-10-26 16:53] LABS: Amorphous Sediment Urine 3+; Bacteria Urine Many (>30); RBC Urine 5-10/HPF (0-5/HPF); Squamous Epithelial Cell Urine None Seen (0-5/HPF); Urine Volume 10mL (spun); WBC Urine 5-10/HPF (0-5/HPF)
[2023-10-26 16:54] LABS: Culture Indicated Urine Specimen Cultured
== END ==
PROVIDERS: PCP Family Medicine; Visit Provider Urology
DX: N32.0 Bladder-neck obstruction (principal); N40.1 Benign prostatic hyperplasia with lower urinary tract symptoms; R33.8 Other retention of urine; R39.9 Unspecified symptoms and signs involving the genitourinary system; Z97.8 Presence of other specified devices
CPT/HCPCS: 81001; 87077; 87086; 87147; 87186; 99213

== ENCOUNTER → 2023-10-24 12:02 | Outpatient (CLI) | payer MEDICARE, BC, SELFPAY ==
[2023-08-23 13:33] VITALS: BMI 23.5
--- NOTE | 2023-10-24 12:03 | DI.NM.S_ITS ---
PROCEDURE: NM LITTLE PERF SPECT R&S PHARM Rest and pharmacological stress myocardial perfusion SPECT with gated imaging and ejection fraction RADIOPHARMACEUTICAL: 26.3 mCi Tc-99m tetrafosmin IV at rest and 25.3 mCi Tc-99m tetrafosmin IV at peak effect of pharmacological stress. Gwv-yyz-vocwxjgy was performed. INDICATIONS: Persistent atrial fibrillation as well as worsening fatigue TECHNIQUE: Radiopharmaceutical was injected at peak stress test, and also at rest. SPECT images were obtained. SPECT myocardial perfusion images were displayed in short axis, horizontal long axis, and vertical long axis views. Gated images were reviewed using [employer] software. COMPARISON: None. CARDIAC STRESS: A pharmacologic stress test was performed under the supervision of an attending staff, using an infusion of regadenoson 0.4 mg IV. Hemodynamic data: There is normal blood pressure and heart rate response to pharmacologic stress. Symptoms: The patient denied anginal chest pain. EKG: No diagnostic changes of ischemia; no ectopy. FINDINGS: Raw data: There is good myocardial uptake of radiotracer. No significant motion artifacts. Rcrc-ie-bpavo ratio is 0.27 (normal is less than 0.38 for tetrafosmin tracer). Left ventricle function: Gated images demonstrate normal left ventricular wall thickening. No segmental wall motion abnormalities. No transient ischemic dilation; TID is 1.17 (normal less than 1.3). Left ventricle resting end diastolic volume is 126 mL. Left ventricle stress ejection fraction is 71%; normal range is above 45%. Myocardial perfusion: There is normal distribution of activity in the right and left ventricular myocardium. No fixed or reversible perfusion defects. IMPRESSION: Low risk study. No evidence of pharmacologic induced ischemia or scar. Slightly dilated left ventricle based on software calculation with normal function. Dictated by: Tanesha Coelho D.O. on 10/26/2023 at 17:34 Approved by: Tanesha Coelho D.O. on 10/26/2023 at 17:37
== END ==
LOC: NUCM 12:03
PROVIDERS: PCP Family Medicine; Referring Provider Family Medicine; Visit Provider Family Medicine
DX: I48.91 Unspecified atrial fibrillation (principal); I10 Essential (primary) hypertension; R53.83 Other fatigue
CPT/HCPCS: 78452; 93017; A9502; J2785

== ENCOUNTER → 2023-11-01 15:06 | Outpatient (CLI) | payer MEDICARE, BC, SELFPAY ==
[2023-08-23 13:33] VITALS: BMI 23.5
--- NOTE | 2023-11-01 15:08 | DI.RAD.S_ITS ---
PROCEDURE: XR CHEST 2V INDICATIONS: pneumonia follow up TECHNIQUE: 2 views of the chest were acquired. COMPARISON: [facility], CR, XR CHEST 1V, 08/25/2023, 21:45. [facility], CR, XR CHEST 1V, 08/23/2023, 10:30. FINDINGS: Surgical changes and devices: None. Lungs and pleura: Patchy opacity of the right lung appears somewhat improved but still persistent. Suggestion of mild pulmonary fluid overload. Mediastinum: Cardiac silhouette is slightly enlarged, similar to prior study. Aorta is tortuous. Bones and chest wall: Severe S shaped scoliosis, osteopenia.. IMPRESSION: Persistent, although improved patchy right lung infiltrates Suggestion of mild pulmonary fluid overload, enlarged cardiac silhouette Dictated by: Amado Pang M.D. on 11/01/2023 at 16:43 Approved by: Amado Pang M.D. on 11/01/2023 at 16:47
== END ==
PROVIDERS: PCP Family Medicine; Referring Provider Family Medicine; Visit Provider Family Medicine
DX: J18.9 Pneumonia, unspecified organism (principal); I50.9 Heart failure, unspecified
CPT/HCPCS: 71046

== ENCOUNTER → 2023-12-02 09:08 | Outpatient (CLI) | payer MEDICARE, BC, SELFPAY ==
[2023-08-23 13:33] VITALS: BMI 23.5
--- NOTE | 2023-12-02 09:09 | DI.ECHO.S_ITS ---
[facility]+ [facility] : : [address] : : [place] : : [id number] : : Phone: [phone] Echocardiogram Report + + :Name: PAULINE ALCOCER Study Date: 12/02/2023 Height: 71 in : :[facility] ReadingLocation: Weight: 190 lb : : Gender: Male BSA: 2.1 m2 : :: 1940 Age: 83 yrs BP: 157/100 mmHg: :Reason For Study: ATRIAL FIBRILLATION : :Ordering Physician: ROLANDO, : :RAHEEL Performed By: Maryann Arce : :Referring: CHRIS LUNDBERG : + + Interpretation Summary 1) Normal left ventricular size, wall motion, and systolic function (EF 55- 60%). 2) Normal right ventricular size with low normal function. 3) There is mild mitral regurgitation. 4) The right ventricular systolic pressure is estimated to be at least 55 mmHg based on an estimated right atrial pressure of 15 mm Hg. 5) Compared to the Echo done 08/24/2023, pulmonary hypertension with right sided hypervolemia is present on this study. Procedure: A two-dimensional transthoracic echocardiogram with color flow and Doppler was performed. The study quality was technically adequate. Comparison is made with the echocardiogram of 08/24/2023. The patient was in atrial fibrillation with heart rates between 62-82 bpm during the exam. Left Ventricle: The left ventricle is normal in size. Left ventricular wall thickness is borderline increased. The ejection fraction is estimated to be 55-60%. Left ventricular systolic function appears normal without focal wall motion abnormalities. Diastolic function could not be accurately assessed due to atrial fibrillation. Right Ventricle: The right ventricle is normal size. Right ventricular systolic function is at the lower limits of normal. Atria: The left atrium is moderately dilated. The right atrium is mildly dilated. There is no Doppler evidence for an interatrial shunt. Mitral Valve: The mitral valve is normal in structure and function. There is mild mitral regurgitation. Aortic Valve: The aortic valve is slightly calcified. The aortic valve is trileaflet. The aortic valve opens well. There is no aortic valve stenosis. No aortic regurgitation is present. Tricuspid Valve: The tricuspid valve is normal in structure and function. There is mild tricuspid regurgitation. The right ventricular systolic pressure is estimated to be at least 55 mmHg based on an estimated right atrial pressure of 15 mm Hg. Pulmonic Valve: The pulmonic valve leaflets are thin and pliable; valve motion is normal. There is mild pulmonic regurgitation. Great Vessels: The aortic root is normal size. The ascending aorta is at the upper limits of normal in size. The IVC is dilated (diameter is greater than 2.1 cm) and it collapses less than 50% with a sniff. This suggests a high right atrial pressure of 15 mm Hg. Pericardium/ Pleura There is no pericardial effusion. There is no pleural effusion. MMode/2D Measurements & Calculations LVIDd: 4.9 cm LVOT diam: 2.0 cm LVIDs: 3.3 cm Ao root diam: 3.2 cm FS: 32.0 % asc Aorta Diam: 3.9 cm IVSd: 1.2 cm Ao Arch Diam (Prox Trans): 2.7 cm LVPWd: 1.0 cm LV phillips. diameter/BSA (cm/m^2): 2.4 LV sys. diameter/BSA (cm/m^2): 1.6 LA A2 area: 25.3 cm2 RA long axis: 6.8 cm LA A4 area: 28.4 cm2 RA area: 24.3 cm2 LA length (vol): 6.5 cm RA vol: 73.6 ml LA vol: 93.5 ml RA : 35.7 ml/m2 LA vol index: 45.3 ml/m2 IVC diam: 3.0 cm RVD1 (basal): 3.8 cm RVD2 (mid): 3.0 cm TAPSE: 1.7 cm Doppler Measurements & Calculations Ao V2 max: 156.7 cm/sec LVOT Max Gerald: 90.7 cm/sec Ao V2 mean: 115.0 cm/sec LV V1 max P.3 mmHg Ao max P.8 mmHg LV V1 VTI: 20.2 cm Ao mean P.0 mmHg JANEE(I,D): 1.8 cm2 Ao V2 VTI: 34.4 cm JANEE(V,D): 1.7 cm2 sev ratio: 0.59 JANEE indexed to BSA (cm^2/m^2): 0.86 MV E max gerald: 96.8 cm/sec TR max gerald: 316.7 cm/sec MV A max gerald: 13.6 cm/sec TR max P.1 mmHg MV E/A: 7.1 PA V2 max: 107.5 cm/sec Med Peak E' Gerald: 7.3 cm/sec PA V2 mean: 72.9 cm/sec E/E' med: 13.2 PA mean P.4 mmHg Lat Peak E' Gerald: 6.2 cm/sec PA pr(Accel): 43.0 mmHg E/E' lat: 15.7 E/e' average: 14.4 MV dec time: 0.24 sec SV(DUSTIN): 61.0 ml Reading Physician:02:26 PM
== END ==
PROVIDERS: PCP Family Medicine; Referring Provider Internal Medicine Cardiovascular Disease; Visit Provider Internal Medicine Cardiovascular Disease
DX: I31.39 Other pericardial effusion (noninflammatory) (principal); I08.1 Rheumatic disorders of both mitral and tricuspid valves; I48.91 Unspecified atrial fibrillation; I27.20 Pulmonary hypertension, unspecified; E87.70 Fluid overload, unspecified; I10 Essential (primary) hypertension; R53.83 Other fatigue; R06.02 Shortness of breath
CPT/HCPCS: 36415; 80048; 83880; 85025; 93306

== ENCOUNTER → 2023-12-02 15:52 | Outpatient (CLI) | payer MEDICARE, BC, SELFPAY ==
[2023-08-23 13:33] VITALS: BMI 23.5
[2023-12-02 18:02] LABS: Add Manual Diff / Slide Review NO; Basophils Absolute Auto 0 /uL (0-100); Basophils Percent Auto 0.8 % (0-2); Eosinophils Absolute Auto 200 /uL (0-450); Eosinophils Percent Auto 3.4 % (2-4); Hematocrit 36.1 % (41-53); Hemoglobin 12.2 g/dL (13.5-17.5); Lymphocytes Absolute Auto 1800 /uL (1100-4500); Lymphocytes Percent Auto 36.1 % (25-40); Mean Corpuscular HGB Conc 33.9 % (30-36); Mean Corpuscular Hemoglobin 31.5 PG (26-34); Mean Corpuscular Volume 92.8 fL (80-100); Monocytes Absolute Auto 500 /uL (0-900); Monocytes Percent Auto 9.2 % (3-14); Neutrophils Absolute Auto 2600 /uL (1500-7000); Neutrophils Percent Auto 50.5 % (50-75); Platelet Count 147 X10^3/uL (150-400); Red Blood Cell Count 3.89 X10^6/uL (4.5-5.9); Red Cell Distribution Width 14.5 % (11.6-14.8); White Blood Cell Count 5.1 X10^3/uL (4.5-11.0)
[2023-12-02 18:17] LABS: BUN Creatinine Ratio 27.7 (6-22); Blood Urea Nitrogen 18 mg/dL (9-20); Calcium 9.6 mg/dL (8.4-10.2); Carbon Dioxide 31 mmol/L (22-32); Chloride 101 mmol/L (98-107); Estimated Glomerular Filt Rate > 60 mL/min (>60); Glucose 109 mg/dL (80-110); HEMOLYSIS < 15 (0-50); Potassium 3.9 mmol/L (3.4-5.1); Sodium 138 mmol/L (137-145)
[2023-12-02 18:27] LABS: NT-proBNP (BNP-Adult 18+) 1270 pg/mL (<450)
== END ==
PROVIDERS: Internal Medicine Cardiovascular Disease; PCP Family Medicine; Referring Provider Family Medicine; Visit Provider Family Medicine
DX: R06.02 Shortness of breath (principal)
CPT/HCPCS: 36415; 80048; 83880; 85025

== ENCOUNTER 2023-12-18 21:43 | Emergency (ER) | payer MEDICARE, BC, SELFPAY ==
[2023-08-23 13:33] VITALS: BMI 23.5
[2023-12-18] VITALS (30 sets, daily range): BP systolic 118–181; BP diastolic 64–113; PULSE 77–101; RESP 17–24; TEMP 36.8; O2SAT 96–98; BMI 25.7
--- NOTE | 2023-12-18 21:55 | ED_ITS ---
HPI - Epistaxis General Chief complaint: Nasal Problem Stated complaint: nosebleed, +thinners Time Seen by Provider: 12/18/23 21:54 History of Present Illness HPI Narrative: 83-year-old male with history of atrial fibrillation on chronic Xarelto anticoagulation, complains of sudden onset and 45 minutes duration right-sided atraumatic nose bleeding, had not been picking it, did not brush against anything or hit anything. Tried finger pinch nose maneuver, which has not help stopping the bleeding, arrived for evaluation by EMS with nose clamp in place. Denies chest pain, shortness of breath, not choking on the blood. Denies nausea so far despite swallowing of some blood. MD complaint: epistaxis Location: right nostril Onset (ago): minute(s) Duration: constant Context: other anticoagulant use Treatment prior to arrival: nose pinching and nasal clamp Related Data Home Medications Medication Instructions Recorded Confirmed rivaroxaban 20 mg tablet (Xarelto) 20 mg PO DAILY 10/05/21 12/20/23 albuterol sulfate 90 mcg/actuation 2 puff inhalation Q6H PRN 05/03/23 12/20/23 aerosol inhaler (ProAir HFA) Shortness Of Breath azelastine 137 mcg (0.1 %) nasal 1 - 2 spray intranasal BID PRN 08/23/23 12/20/23 spray aerosol allergies multivit with minerals-iron 18 1 tab PO DAILY 08/23/23 12/20/23 mg-folic ac 400 mcg-vit K 25 mcg tablet (Adults Multivitamin) empagliflozin 10 mg tablet 10 mg PO DAILY 12/09/23 12/20/23 (Jardiance) furosemide 20 mg tablet (Lasix) 20 mg PO .PRN 12/09/23 12/20/23 spironolactone 50 mg tablet 50 mg PO DAILY 12/09/23 12/20/23 Previous Rx's Medication Instructions Recorded atorvastatin 10 mg tablet 10 mg PO DAILY #90 tabs 06/23/23 buspirone 10 mg tablet 20 mg (2 x 10 mg) PO BID #360 tabs 06/23/23 fluticasone propionate 50 See Rx Instructions .Route 06/23/23 mcg/actuation nasal .COMPLEX #48 mL spray,suspension terazosin 2 mg capsule See Rx Instructions .Route 06/23/23 .COMPLEX #720 caps triamcinolone acetonide 0.1 % 1 applic topical BID PRN skin rash 06/23/23 topical ointment or dry skin #30 grams dutasteride 0.5 mg capsule 0.5 mg PO DAILY #90 caps 08/18/23 benzonatate 100 mg capsule 100 mg PO TID PRN cough #60 caps 08/19/23 carvedilol 3.125 mg tablet (Coreg) 3.125 mg PO BID #180 tabs 08/29/23 metronidazole 0.75 % topical cream 1 applic topical DAILY #45 grams 10/14/23 gabapentin 300 mg capsule 600 mg (2 x 300 mg) PO TID #360 10/21/23 caps tramadol 50 mg tablet 50 - 100 mg (1 - 2 x 50 mg) PO Q8H 10/31/23 PRN pain #180 tabs Allergies Allergy/AdvReac Type Severity Reaction Status Date / Time Penicillins Allergy Mild RASH Verified 09/27/23 10:15 shrimp Allergy Mild Rash Verified 09/27/23 10:15 Patient History Medical History (Updated 12/20/23 @ 14:11 by Dale Cohen MD) History of urinary retention History of urinary tract infection Self-catheterizes urinary bladder Incomplete emptying of bladder Lower urinary tract symptoms due to benign prostatic hyperplasia Rosacea organ imaging abnormality Rod catheter in place Benign prostatic hyperplasia Bladder outlet obstruction Lower urinary tract symptoms Urinary retention Hypertension Acute hypokalemia Umbilical hernia Chronic venous stasis Medicare annual wellness visit, subsequent Osteoarthritis, hand Chronic pain syndrome Hyperlipidemia Abscess of back Milia Degenerative joint disease of knee Facet arthropathy, lumbar Trigger finger (acquired) Atrial fibrillation Bradycardia Essential hypertension Degenerative joint disease of knee Snoring Insomnia, persistent Hypersomnia Obstructive sleep apnea of adult Central sleep apnea Lumbosacral spondylosis with radiculopathy Lumbosacral radiculopathy at L5 Measles (~1941) Mumps (~1941) Hayfever (~1980) Chicken pox (~1947) Low back pain without sciatica (07/13/17) Anxiety (07/13/17) Lung nodule (08/18/15) Surgical History Hx of vasectomy Anesthesia Fracture dislocation of right ankle (04/2000) Status post hernia repair (2007) Family History Father Stroke Mother Heart disease Son No problems noted. Social History marital status: details: to Adelia, lives in [place] number of children: 1 household members: spouse lives independently: Yes caregiver/support person: No occupational status: previously employed Smoking Status: Never smoker alcohol intake: former caffeine: Yes Type(s) of exercise: walking duration: > 90 minutes/day Smoking Status: Never smoker alcohol intake frequency: holidays/special occasions only Substance Use Type: does not use Exam Initial Vital Signs Initial Vital Signs: Vital Signs Temperature 98.2 F 12/18/23 21:46 Pulse Rate 81 12/18/23 21:46 Respiratory Rate 20 12/18/23 21:46 Blood Pressure 181/110 H 12/18/23 21:46 Pulse Oximetry 98 12/18/23 21:46 Oxygen Delivery Method Room Air 12/18/23 21:46 Const General: cooperative HENMT Head: atraumatic Ears: TM's normal bilaterally Face and sinus: face symmetric Mouth: moist mucous membranes HENMT Other: Right-sided active non pulsatile bright red blood from nose, Afrin given by EMS with nose clamp, difficult to tell site of bleeding. No external nasal bridge swelling Eyes Eyelids: eyelids normal Conjunctivae: conjunctivae normal Sclera: sclerae normal Pupils: PERRL EOM: EOM intact bilaterally Neck Neck: normal visual inspection, trachea midline and No lymphadenopathy Resp Effort & Inspection: normal respiratory effort, able to speak in complete sentences, no respiratory distress and no use of accessory muscles Auscultation: clear to auscultation bilaterally, no rales, no rhonchi and no wheezes Cardio Rate: regular rate Rhythm: regular rhythm Heart Sounds: no click, no gallops, no murmurs and no rubs Pulses: normal peripheral pulses GI Inspection: non-distended Palpation: soft, no hepatosplenomegaly, No guarding, No pulsatile mass and No tender Auscultation: normal bowel sounds Back/Spine/Pelvis Back: No CVA tenderness Cervical Spine: cervical ROM normal Skin General: no rashes or lesions noted, No jaundice and No petechiae Neuro General: patient alert and no focal motor deficits Extrem General: full ROM and no pedal edema Psych Mental Status: mental status grossly normal Attitude: cooperative Course Orders Ordered: Discontinued Medications Clindamycin HCl (Clindamycin 150 Mg Capsule) 300 mg PO NOW ONE Stop: 12/18/23 21:57 Last Admin: 12/18/23 22:34 Dose: 300 mg Documented By: KEEGAN Hydralazine HCl (Hydralazine 20 Mg/Ml Vial) 10 mg IV NOW ONE Stop: 12/18/23 22:07 Last Admin: 12/18/23 22:28 Dose: 5 mg Documented By: KEEGAN Ondansetron HCl (Ondansetron 4 Mg/2 Ml Inj) 4 mg IV NOW ONE Stop: 12/18/23 22:12 Last Admin: 12/18/23 22:15 Dose: 4 mg Documented By: KEEGAN Oxymetazoline HCl (Oxymetazoline Nasal [place] 30 Ml) 2 sprays NASAL NOW ONE Stop: 12/18/23 21:47 Last Admin: 12/18/23 22:31 Dose: Not Given Documented By: KEEGAN Tranexamic Acid (Tranexamic Acid 1,000 Mg Vial) 1,000 mg TOP NOW ONE Stop: 12/18/23 21:56 Last Admin: 12/18/23 22:10 Dose: 1,000 mg Documented By: KEEGAN Vital Signs Vital signs: Vital Signs - 8 hr 12/18/23 21:46 12/18/23 21:47 12/18/23 22:00 Temperature 98.2 F Pulse Rate 81 77 Respiratory Rate 20 Blood Pressure 181/110 H 180/105 H Pulse Oximetry 98 98 Oxygen Delivery Method Room Air 12/18/23 22:00 12/18/23 22:11 12/18/23 22:11 Temperature Pulse Rate 97 H 87 Respiratory Rate Blood Pressure 168/86 H Pulse Oximetry 97 97 Oxygen Delivery Method 12/18/23 22:12 12/18/23 22:12 12/18/23 22:13 Temperature Pulse Rate 83 Respiratory Rate Blood Pressure 167/102 H 165/111 H Pulse Oximetry 97 Oxygen Delivery Method 12/18/23 22:13 12/18/23 22:14 12/18/23 22:14 Temperature Pulse Rate 83 87 Respiratory Rate Blood Pressure 172/102 H Pulse Oximetry 97 97 Oxygen Delivery Method 12/18/23 22:15 12/18/23 22:15 12/18/23 22:16 Temperature Pulse Rate 87 81 Respiratory Rate Blood Pressure 169/113 H Pulse Oximetry 97 97 Oxygen Delivery Method 12/18/23 22:16 12/18/23 22:20 12/18/23 22:20 Temperature Pulse Rate 88 Respiratory Rate Blood Pressure 171/93 H 161/88 H Pulse Oximetry 96 Oxygen Delivery Method 12/18/23 22:25 12/18/23 22:25 12/18/23 22:28 Temperature Pulse Rate 80 84 Respiratory Rate Blood Pressure 153/98 H 153/98 H Pulse Oximetry 96 Oxygen Delivery Method 12/18/23 22:30 12/18/23 22:30 12/18/23 22:35 Temperature Pulse Rate 83 96 H Respiratory Rate Blood Pressure 150/88 H Pulse Oximetry 97 96 Oxygen Delivery Method 12/18/23 22:35 12/18/23 22:40 12/18/23 22:40 Temperature Pulse Rate 85 Respiratory Rate 23 Blood Pressure 163/86 H 127/77 Pulse Oximetry 97 Oxygen Delivery Method 12/18/23 22:45 12/18/23 22:45 12/18/23 22:50 Temperature Pulse Rate 97 H 93 H Respiratory Rate 22 22 Blood Pressure 134/84 Pulse Oximetry 96 96 Oxygen Delivery Method Room Air 12/18/23 22:50 12/18/23 22:55 12/18/23 22:55 Temperature Pulse Rate 88 Respiratory Rate 24 Blood Pressure 135/74 129/71 Pulse Oximetry 96 Oxygen Delivery Method 12/18/23 23:00 12/18/23 23:00 12/18/23 23:05 Temperature Pulse Rate 82 82 Respiratory Rate 19 21 Blood Pressure 125/74 Pulse Oximetry 97 96 Oxygen Delivery Method 12/18/23 23:05 12/18/23 23:10 12/18/23 23:10 Temperature Pulse Rate 85 Respiratory Rate 19 Blood Pressure 118/64 134/73 Pulse Oximetry 96 Oxygen Delivery Method 12/18/23 23:15 12/18/23 23:15 12/18/23 23:20 Temperature Pulse Rate 86 90 Respiratory Rate 20 17 Blood Pressure 128/71 Pulse Oximetry 96 97 Oxygen Delivery Method 12/18/23 23:20 12/18/23 23:25 12/18/23 23:25 Temperature Pulse Rate 84 Respiratory Rate 18 Blood Pressure 121/76 118/71 Pulse Oximetry 96 Oxygen Delivery Method 12/18/23 23:30 12/18/23 23:30 12/18/23 23:35 Temperature Pulse Rate 86 Respiratory Rate 20 Blood Pressure 136/77 139/85 Pulse Oximetry 97 Oxygen Delivery Method 12/18/23 23:35 12/18/23 23:40 12/18/23 23:40 Temperature Pulse Rate 88 80 85 Respiratory Rate 20 20 Blood Pressure 139/85 Pulse Oximetry 96 97 Oxygen Delivery Method 12/18/23 23:40 12/18/23 23:45 12/18/23 23:45 Temperature Pulse Rate 89 Respiratory Rate 18 Blood Pressure 127/72 118/66 Pulse Oximetry 96 Oxygen Delivery Method 12/18/23 23:50 12/18/23 23:50 12/18/23 23:55 Temperature Pulse Rate 101 H 98 H Respiratory Rate 22 23 Blood Pressure 129/72 Pulse Oximetry 97 97 Oxygen Delivery Method 12/18/23 23:55 12/19/23 00:00 12/19/23 00:00 Temperature Pulse Rate 99 H Respiratory Rate 22 Blood Pressure 137/75 128/78 Pulse Oximetry 97 Oxygen Delivery Method 12/19/23 00:06 12/19/23 00:06 12/19/23 00:10 Temperature Pulse Rate 104 H Respiratory Rate 24 Blood Pressure 137/80 141/81 H Pulse Oximetry 97 Oxygen Delivery Method 12/19/23 00:15 12/19/23 00:15 12/19/23 00:20 Temperature Pulse Rate 93 H 99 H Respiratory Rate 32 H 22 Blood Pressure 142/82 H Pulse Oximetry 98 96 Oxygen Delivery Method 12/19/23 00:20 12/19/23 00:30 12/19/23 00:30 Temperature Pulse Rate 102 H Respiratory Rate 21 Blood Pressure 161/88 H 161/88 H Pulse Oximetry 97 Oxygen Delivery Method Room Air 12/19/23 01:00 12/19/23 01:00 12/19/23 01:30 Temperature Pulse Rate 85 78 Respiratory Rate 19 17 Blood Pressure 139/80 Pulse Oximetry 96 96 Oxygen Delivery Method Room Air 12/19/23 01:30 Temperature Pulse Rate Respiratory Rate Blood Pressure 129/74 Pulse Oximetry Oxygen Delivery Method MDM - Epistaxis Lab Data Attestation: I reviewed the patient's lab results. 12/18/23 22:42 12/18/23 22:42 Labs: Lab Results 12/18/23 Range/Units 22:42 WBC 6.8 (4.5-11.0) X10^3/uL RBC 4.09 L (4.5-5.9) X10^6/uL Hgb 12.6 L (13.5-17.5) g/dL Hct 37.8 L (41-53) % MCV 92.6 (80-100) fL MCH 30.9 (26-34) PG MCHC 33.4 (30-36) % RDW 14.5 (11.6-14.8) % Plt Count 130 L (150-400) X10^3/uL Neut % (Auto) 67.6 (50-75) % Lymph % (Auto) 20.0 L (25-40) % [place] % (Auto) 9.2 (3-14) % Eos % (Auto) 2.2 (2-4) % Baso % (Auto) 1.0 (0-2) % Neut # (Auto) 4600 (1690-5809) /uL Lymph # (Auto) 1400 (8834-8973) /uL [place] # (Auto) 600 (0-900) /uL Eos # (Auto) 100 (0-450) /uL Baso # (Auto) 100 (0-100) /uL PT 35.1 H (9.4-12.5) SECONDS INR 3.0 H (0.9-1.3) APTT 47 H (25.1-36.5) SECONDS Sodium 136 L (137-145) mmol/L Potassium 3.8 (3.4-5.1) mmol/L Chloride 102 (98-107) mmol/L Carbon Dioxide 27 (22-32) mmol/L BUN 22 H (9-20) mg/dL Creatinine 0.73 (0.66-1.25) mg/dL Estimated GFR > 60 (>60) mL/min BUN/Creatinine Ratio 30.1 H (6-22) Glucose 181 H (80-110) mg/dL Calcium 9.4 (8.4-10.2) mg/dL Total Bilirubin 0.6 (0.2-1.3) mg/dL AST 23 (17-59) IU/L ALT 17 (<50) IU/L Alkaline Phosphatase 135 H (38-126) U/L Total Protein 7.6 (6.3-8.2) g/dL Albumin 4.1 (3.5-5.0) g/dL Globulin 3.5 (1.7-4.1) g/dL Albumin/Globulin Ratio 1.2 (1.0-2.8) MDM Narrative Medical decision making narrative: Elderly male with history of AFib on Xarelto chronic anticoagulation, sudden onset nonpulsatilve bright red atraumatic right epistaxis, EMS arrival with nose clamp in place, still actively bleeding despite nasal clamp, on nasal speculum exam difficult to tell site of right sided bleeding, trial of balloon tamponade. Longest immediately available 5 cm length Balloon rhino rocket placed right side, no change in bleeding. Blood pressure 180/100, gave IV hydralazine, SBP decreased. TXA soaked pledget with 4 x 4 gauze croissant coiled, no bayonnet forceps available, coild packing spiraled into right nasal cavity and folded 4x4 gauze bridge placed taped below nasal opening, bleeding slowed, seemed to have stopped, then re-bled. Patient had recurrent/persisting bleeding, [employer] assistance in obtaining 7.5 cc length balloon rhino rocket, brought to ED, this longer balloon was placed on right side with installation 8cc normal saline balloon, initially stopped slowed then also re-bled. Case discussed with Dr. Fonseca ENT surgery, who suggested FloSeal, which was not immediately available. Dr Fonseca was coming into hospital from [facility], to take patient to OR if needed. FloSeal was eventually obtained by [employer] somewhere in the hospital, and brought to the emergency department, mixed at bedside by me per instructions (with assistance of urologist Dr. Cohen who happened to be in the department and has used it in the operating room before), this 5 cc thrombin mixture instilled with flexible wound into the posterior oropharynx, with subsequent placement of another new 7.5cm nasal balloon, tolerated well. Bleeding slowed then seemed to stop. History of penicillin allergy, PO clindamycin. Labs showed Hb 12, normal platelets. Patient seems to have responded to the FloSeal/rhino rocket combination. Dr. Fonseca at arrived in the emergency department. Nasal bleeding resolved. He suggest oral clindamycin for the next few days. And follow up with Dr. Samayoa in the [place] office for likely balloon removal in the next few days. Consider stopping the Xarelto today and tomorrow. Further observed in ED, no further nasal bleeding external, no sensation of swallowed blood. Improved, stable, discharged home with . Follow-up with ENT, advised to take abx as directed to prevent sinus infection and/or toxic shock with nasal cavity balloon foreign body in place for discharge Critical Care Time Critical Care Time Critical Care Time: Yes Total Critical Care Time: 35 Attestation: The high probability of a clinically significant, sudden or life threatening deterioration of the [hematologic, cardioplumanry, airway, circulatory, otolaryngological] system(s) required my full and direct attention, intervention and personal management. The aggregate critical care time was [35] minutes. This time is in addition to time spent performing reported procedures but includes the following: [x] Data Review and interpretation [x] Patient assessment and monitoring of vital signs [x] Documentation [x] Medication orders and management Discharge Plan Departure Patient Disposition: Home Clinical Impression: Epistaxis Instructions: DI for Nosebleed Activity Restrictions/Additional Instructions: Right-sided noticed bleeding that was difficult to control. No known trauma, however hypertension elevated blood pressure on presentation, also history of Xarelto chronic anticoagulation. IV hydralazine medication use to reduce the blood pressure. Initial available 5 cm length balloon was attempted, failed, TXA soaked pledget attempted and failed, 7.5 cc length balloon was located and attempted but failed, otolaryngology consultation with Dr. Fonseca, who was coming into see you for possible surgery, suggested use of FloSeal thrombin procoagulant mixture, which was not initially available but located eventually in the hospital, this was mixed and applied it into the nasal cavity, and a new 7.5 cm length balloon was placed, and this seemed to be effective. Dr. Fonseca did arrive and discussed the case with your family new at the bedside, we will use antibiotics, history of penicillin allergy, oral dose clindamycin, further clindamycin for a few days. Consider holding your morning dose of Xarelto for today and tomorrow and then resuming. He suggested follow up with his partner Dr. Samayoa in [place] next few days for likely balloon removal. Return earlier if any change worsening symptoms or any concerns prior Prescriptions: No Action dutasteride 0.5 mg capsule 0.5 mg PO DAILY Qty: 90 3RF benzonatate 100 mg capsule 100 mg PO TID PRN (Reason: cough) Qty: 60 0RF metronidazole 0.75 % cream 1 applic topical DAILY Qty: 45 0RF gabapentin 300 mg capsule 600 mg PO TID Qty: 360 2RF Rx Instructions: Take four capsules by mouth three times daily tramadol 50 mg tablet 50 - 100 mg PO Q8H PRN (Reason: pain) Qty: 180 2RF Jardiance 10 mg tablet 10 mg PO DAILY spironolactone 50 mg tablet 50 mg PO DAILY furosemide [Lasix] 20 mg tablet 20 mg PO .PRN atorvastatin 10 mg tablet 10 mg PO DAILY Qty: 90 3RF buspirone 10 mg tablet 20 mg PO BID Qty: 360 1RF fluticasone propionate 50 mcg/actuation spray,suspension See Rx Instructions .ROUTE .COMPLEX Qty: 48 1RF Dose Instruction: INSTILL 1 SPRAY INTO EACH NOSTRIL TWICE DAILY Rx Instructions: INSTILL 1 SPRAY INTO EACH NOSTRIL TWICE DAILY terazosin 2 mg capsule See Rx Instructions .ROUTE .COMPLEX Qty: 720 3RF Dose Instruction: TAKE 4 CAPSULES BY MOUTH TWICE A DAY Rx Instructions: TAKE 4 CAPSULES BY MOUTH TWICE A DAY triamcinolone acetonide 0.1 % ointment 1 applic topical BID PRN (Reason: skin rash or dry skin) Qty: 30 3RF Rx Instructions: Apply to face, use no longer than 3 weeks at a time. Thanks! carvedilol [Coreg] 3.125 mg tablet 3.125 mg PO BID Qty: 180 3RF Rx Instructions: must administer with a meal/food Adults Multivitamin 18 mg iron-400 mcg-25 mcg Tablet 1 tab PO DAILY azelastine 137 mcg (0.1 %) aerosol,spray 1 - 2 spray intranasal BID PRN (Reason: allergies) Xarelto 20 mg tablet 20 mg PO DAILY Rx Instructions: must administer with evening meal albuterol sulfate [ProAir HFA] 90 mcg/actuation HFA aerosol inhaler 2 puff inhalation Q6H PRN (Reason: Shortness Of Breath) Referrals: Deric Fonseca MD [Physician] - Jl Samayoa MD [Physician] - Jose Ramires MD [Primary Care Provider] - Stand Alone Forms: Patient Portal/API
[2023-12-18] MEDS: TRANEXAMIC ACID 1,000 MG VIAL 1000 MG TOP (22:10)
[2023-12-18] MEDS: ONDANSETRON 4 MG/2 ML INJ IV (22:15)
[2023-12-18] MEDS: HYDRALAZINE 20 MG/ML VIAL 10 MG IV (22:28)
[2023-12-18] MEDS: CLINDAMYCIN 150 MG CAPSULE 300 MG PO (22:34)
[2023-12-18 22:54] LABS: Add Manual Diff / Slide Review NO; Basophils Absolute Auto 100 /uL (0-100); Eosinophils Absolute Auto 100 /uL (0-450); Eosinophils Percent Auto 2.2 % (2-4); Hematocrit 37.8 % (41-53); Hemoglobin 12.6 g/dL (13.5-17.5); Lymphocytes Absolute Auto 1400 /uL (1100-4500); Mean Corpuscular HGB Conc 33.4 % (30-36); Mean Corpuscular Hemoglobin 30.9 PG (26-34); Mean Corpuscular Volume 92.6 fL (80-100); Monocytes Absolute Auto 600 /uL (0-900); Monocytes Percent Auto 9.2 % (3-14); Neutrophils Absolute Auto 4600 /uL (1500-7000); Neutrophils Percent Auto 67.6 % (50-75); Platelet Count 130 X10^3/uL (150-400); Red Blood Cell Count 4.09 X10^6/uL (4.5-5.9); Red Cell Distribution Width 14.5 % (11.6-14.8); White Blood Cell Count 6.8 X10^3/uL (4.5-11.0)
[2023-12-18 22:59] LABS: Prothrombin Time 35.1 SECONDS (9.4-12.5)
[2023-12-18 23:02] LABS: PTT Partial Thromboplastin Tim 47 SECONDS (25.1-36.5)
[2023-12-18 23:03] LABS: Alanine Aminotransferase 17 IU/L (<50); Albumin 4.1 g/dL (3.5-5.0); Albumin Globulin Ratio 1.2 (1.0-2.8); Alkaline Phosphatase 135 U/L (38-126); Aspartate Aminotransferase 23 IU/L (17-59); BUN Creatinine Ratio 30.1 (6-22); Bilirubin Total 0.6 mg/dL (0.2-1.3); Blood Urea Nitrogen 22 mg/dL (9-20); Calcium 9.4 mg/dL (8.4-10.2); Carbon Dioxide 27 mmol/L (22-32); Chloride 102 mmol/L (98-107); Estimated Glomerular Filt Rate > 60 mL/min (>60); Globulin 3.5 g/dL (1.7-4.1); Glucose 181 mg/dL (80-110); HEMOLYSIS < 15 (0-50); Potassium 3.8 mmol/L (3.4-5.1); Sodium 136 mmol/L (137-145); Total Protein 7.6 g/dL (6.3-8.2)
[2023-12-19] VITALS (11 sets, daily range): BP systolic 128–161; BP diastolic 73–97; PULSE 78–104; RESP 17–32; O2SAT 96–98
--- NOTE | 2023-12-19 00:17 | PC.NURSE ---
TXA saturated 4x4 removed from RIGHT nare by provider Scott and nasal rocket placed inside RIGHT nare by provider Scott. Pt still has blood intermittently dripping from RIGHT nare. 4x4's placed externally and secured to nose to catch drips. Provider aware of patient's continued bleeding of RIGHT nare.
--- NOTE | 2023-12-19 00:50 | PC.NURSE ---
Addendum entered by Carrie Dorsey R.N. 12/19/23 01:14: 2 minutes after placement of new nasal rocket by provider Scott RIGHT nare begins to bleed again. Provider made aware. Original Note: 4.5cm nasal rocket removed by provider Scott from RIGHT nare and replaced with 7.5cm nasal rocket with 6cc of NS to inflate by provider Scott. Bleeding appears to have stopped after placement of larger nasal rocket.
--- NOTE | 2023-12-19 02:00 | PC.NURSE ---
Dr Chavez in to insert Flocell in pt's right nostril, another rhino rocket place in after flocell
--- NOTE | 2023-12-19 02:30 | PC.NURSE ---
ENT Dr Fonseca in to evaluate pt
== END 2023-12-19 03:48 | disposition home or self-care (01) ==
PROVIDERS: Emergency Provider Emergency Medicine; PCP Family Medicine
DX: R04.0 Epistaxis (principal); Z79.01 Long term (current) use of anticoagulants
CPT/HCPCS: 30903; 30905; 80053; 85025; 85610; 85730; 96374; 96375; 99284; J0360; J2405

== ENCOUNTER → 2023-12-20 14:05 | Outpatient (CLI) | payer MEDICARE, BC, SELFPAY ==
[2023-08-23 13:33] VITALS: BMI 23.5
== END ==
PROVIDERS: PCP Family Medicine; Visit Provider Urology
DX: Z87.440 Personal history of urinary (tract) infections (principal)
CPT/HCPCS: 87086

== ENCOUNTER → 2024-01-03 15:45 | Outpatient (CLI) | payer MEDICARE, BC, SELFPAY ==
[2023-08-23 13:33] VITALS: BMI 23.5
[2024-01-03 17:44] LABS: BUN Creatinine Ratio 19.4 (6-22); Blood Urea Nitrogen 19 mg/dL (9-20); Calcium 9.6 mg/dL (8.4-10.2); Carbon Dioxide 34 mmol/L (22-32); Chloride 100 mmol/L (98-107); Estimated Glomerular Filt Rate > 60 mL/min (>60); Glucose 109 mg/dL (80-110); HEMOLYSIS < 15 (0-50); Potassium 4.2 mmol/L (3.4-5.1); Sodium 137 mmol/L (137-145)
[2024-01-03 17:54] LABS: NT-proBNP (BNP-Adult 18+) 762 pg/mL (<450)
== END ==
LOC: LAB 15:46
PROVIDERS: PCP Family Medicine; Referring Provider Internal Medicine Cardiovascular Disease; Visit Provider Internal Medicine Cardiovascular Disease
DX: I50.32 Chronic diastolic (congestive) heart failure (principal)
CPT/HCPCS: 36415; 80048; 83880

== ENCOUNTER → 2024-05-16 07:14 | Outpatient (CLI) | payer MEDICARE, BC, SELFPAY ==
[2023-08-23 13:33] VITALS: BMI 23.5
[2024-05-16 08:42] LABS: Hemoglobin 14.2 g/dL (13.5-17.5); Mean Corpuscular HGB Conc 33.8 % (30-36); Mean Corpuscular Hemoglobin 31.9 PG (26-34); Mean Corpuscular Volume 94.3 fL (80-100); Platelet Count 154 X10^3/uL (150-400); Red Blood Cell Count 4.45 X10^6/uL (4.5-5.9); White Blood Cell Count 6.4 X10^3/uL (4.5-11.0)
[2024-05-16 09:00] LABS: BUN Creatinine Ratio 22.3 (6-22); Blood Urea Nitrogen 21 mg/dL (9-20); Calcium 9.7 mg/dL (8.4-10.2); Carbon Dioxide 32 mmol/L (22-32); Chloride 97 mmol/L (98-107); Cholesterol 114 mg/dL (140-199); Estimated Glomerular Filt Rate > 60 mL/min (>60); Glucose 108 mg/dL (80-110); HDL Cholesterol 43 mg/dL (40-60); LDL Cholesterol Calculated 59 mg/dL (<100); Potassium 4.1 mmol/L (3.4-5.1); Sodium 133 mmol/L (137-145); Triglycerides 62 mg/dL (35-150)
[2024-05-16 09:10] LABS: HEMOLYSIS < 15 (0-50); NT-proBNP (BNP-Adult 18+) 711 pg/mL (<450)
== END ==
PROVIDERS: Family Provider Family Medicine; PCP Family Medicine; Referring Provider Internal Medicine Cardiovascular Disease; Visit Provider Internal Medicine Cardiovascular Disease
DX: I50.32 Chronic diastolic (congestive) heart failure (principal); E78.5 Hyperlipidemia, unspecified; Z79.01 Long term (current) use of anticoagulants
CPT/HCPCS: 36415; 80048; 80061; 83880; 85027

== ENCOUNTER → 2024-08-27 10:56 | Outpatient (CLI) | payer MEDICARE, BC, SELFPAY ==
[2023-08-23 13:33] VITALS: BMI 23.5
[2024-08-27 11:19] LABS: Add Manual Diff / Slide Review NO; Basophils Absolute Auto 100 /uL (0-100); Basophils Percent Auto 1.2 % (0-2); Eosinophils Absolute Auto 200 /uL (0-450); Eosinophils Percent Auto 2.9 % (2-4); Hematocrit 44.8 % (41-53); Hemoglobin 15.1 g/dL (13.5-17.5); Lymphocytes Absolute Auto 1200 /uL (1100-4500); Lymphocytes Percent Auto 20.8 % (25-40); Mean Corpuscular HGB Conc 33.7 % (30-36); Mean Corpuscular Volume 94.7 fL (80-100); Monocytes Absolute Auto 500 /uL (0-900); Monocytes Percent Auto 8.7 % (3-14); Neutrophils Absolute Auto 3900 /uL (1500-7000); Neutrophils Percent Auto 66.4 % (50-75); Platelet Count 165 X10^3/uL (150-400); Red Blood Cell Count 4.73 X10^6/uL (4.5-5.9); Red Cell Distribution Width 14.5 % (11.6-14.8); White Blood Cell Count 5.9 X10^3/uL (4.5-11.0)
[2024-08-27 11:59] LABS: Appearance Urine UA CLEAR; Bilirubin Urine UA NEGATIVE (NEGATIVE); Color Urine UA YELLOW; Glucose Urine UA 3+ g/dL (Negative); Ketones Urine UA NEGATIVE (NEGATIVE); Leukocyte Esterase Urine UA NEGATIVE (NEGATIVE); Nitrite Urine UA NEGATIVE (Negative); Occult Blood Urine UA NEGATIVE (Negative); Protein Urine UA NEGATIVE (Negative); Specific Gravity Urine UA <=1.005 (1.000-1.035); Urobilinogen Urine UA 0.2 E.U./dL (0.2); pH Urine UA 5.5 (4.5-8.0)
[2024-08-27 12:07] LABS: Bacteria Urine None Seen; Culture Indicated Urine Cult Not Indicated; RBC Urine None Seen (0-5/HPF); Squamous Epithelial Cell Urine None Seen (0-5/HPF); Urine Volume 10mL (spun); WBC Urine None Seen (0-5/HPF)
[2024-08-27 14:12] LABS: Alanine Aminotransferase 23 IU/L (<50); Albumin 4.3 g/dL (3.5-5.0); Albumin Globulin Ratio 1.4 (1.0-2.8); Alkaline Phosphatase 114 U/L (38-126); Aspartate Aminotransferase 26 IU/L (17-59); BUN Creatinine Ratio 19.8 (6-22); Bilirubin Total 0.8 mg/dL (0.2-1.3); Blood Urea Nitrogen 21 mg/dL (9-20); Carbon Dioxide 31 mmol/L (22-32); Chloride 99 mmol/L (98-107); Estimated Glomerular Filt Rate > 60 mL/min (>60); Glucose 124 mg/dL (80-110); HEMOLYSIS < 15 (0-50); Potassium 4.4 mmol/L (3.4-5.1); Sodium 136 mmol/L (137-145); Total Protein 7.3 g/dL (6.3-8.2)
[2024-08-27 14:43] LABS: TSH w/ Reflex to FT4 1.65 uIU/mL (0.47-4.68)
[2024-08-27 15:02] LABS: Vitamin B12 653 pg/mL (239-931)
== END ==
PROVIDERS: Family Provider Family Medicine; PCP Family Medicine; Referring Provider Family Medicine; Visit Provider Family Medicine
DX: R41.3 Other amnesia (principal)
CPT/HCPCS: 36415; 80053; 81001; 82607; 84443; 85025